=== PATIENT | female | born 1940 | race Caucasian/White ===

== ENCOUNTER 2018-10-11 08:29 | Inpatient (IN) | payer MEDICARE, MEDICAID ==
[2018-10-11 09:41] LABS: ALB/GLOB RATIO 1.1 (1.1-1.8); ALBUMIN 4.1 g/dL (3.0-4.8); BASO # 0.03 K/mm3 (0.0-2.0); BASO % 0.3 % (0.0-3.0); CALCIUM 8.9 mg/dL (8.4-10.5); EOS # 0.4 (0.0-0.7); EOS % 3.7 % (1.5-5.0); GRAN # 9.77 (1.4-6.5); HEMOGLOBIN 11.3 g/dL (12.0-16.0); LYMPH # 0.7 (1.2-3.4); LYMPH % 5.6 % (22.0-35.0); MEAN CELL VOLUME 90.7 fl (80.0-105.0); MEAN CORPUSCULAR HEMOGLOBIN 29.2 pg (25.0-35.0); MEAN CORPUSCULAR HGB CONC 32.2 g/dl (31.0-37.0); MEAN PLATELET VOLUME 8.7 fl (7.0-11.0); MONO # 0.7 (0.1-0.6); MONO % 6.4 % (1.0-6.0); RBC 3.87 10^6/uL (3.5-6.1); RED CELL DISTRIBUTION WIDTH 15.9 % (11.5-14.5); WHITE BLOOD COUNT 11.6 10^3/uL (4.5-11.0)
[2018-10-11 09:51] LABS: TROPONIN I 0.07 ng/mL
--- NOTE | 2018-10-11 10:27 | RAD ---
Date of service: 10/11/2018 HISTORY: Shortness of breath. COMPARISON: No prior. FINDINGS: LUNGS: Underlying pulmonary vascular congestion/interstitial edema. Right upper lobe mass/infiltrate measures approximately 2.6 cm. PLEURA: No significant pleural effusion identified, no pneumothorax apparent. CARDIOVASCULAR: Atherosclerotic calcifications identified primarily aortic arch. Cardiomegaly/pulmonary vascular congestion. OSSEOUS STRUCTURES: No significant abnormalities. VISUALIZED UPPER ABDOMEN: Normal. OTHER FINDINGS: None. IMPRESSION: Cardiomegaly, CHF. Questionable infiltrate/mass right upper lobe. Follow-up to resolution recommended. Per institutional protocol the study is been placed in the physician household assistant folder for follow up and future management based on the findings in the right upper lobe in conjunction with the absence of comparison studies.
[2018-10-11] MEDS ORDERED: Azithromycin 500MG/NS 250ml 500 MG/250 ML BAG IVPB STA (11:22)
[2018-10-11] MEDS ORDERED: cefTRIAXone 1 gm 1 GM/100 ML BAG IVPB STA (11:22)
[2018-10-11 11:34] LABS: PH,URINE 8.5 (4.7-8.0); URINE BILIRUBIN NEGATIVE (NEGATIVE); URINE BLOOD NEGATIVE (NEGATIVE); URINE GLUCOSE (UA) 100 mg/dL (NEGATIVE); URINE LEUKOCYTE ESTERASE NEGATIVE Leu/uL (NEGATIVE); URINE PROTEIN 100 mg/dL (<30 mg/dL); URINE UROBILINOGEN 0.2 E.U./dL (<1 E.U./dL)
[2018-10-11 11:57] LABS: URINE APPEARANCE CLEAR (CLEAR); URINE COLOR YELLOW (YELLOW)
[2018-10-11 12:06] LABS: URINE RBC 0 - 2 /hpf (0-2)
[2018-10-11 12:07] LABS: URINE AMORPHOUS SEDIMENT FEW /hpf; URINE BACTERIA FEW /hpf
--- NOTE | 2018-10-11 14:18 | ED PDOC ---
Arrival/HPI - General Chief Complaint: Shortness Of Breath Time Seen by Provider: 10/11/18 08:30 Historian: Patient - History of Present Illness Narrative History of Present Illness (Text): 10/11/18 14:15 A 78 year old female, whose past medical history includes ESRD (on dialysis //Fri, last dialysis session was 2 days ago), presents to the emergency department complaining of increasing shortness of breath since yesterday. Medardo garcia reports also experiencing cough with yellowish phlegm. Patient denies any fever, abdominal pain, vomiting, any pain, or any other complaints at this time. Denies any recent travel. PMD: Dr. Joshua Toth Time/Duration: 24 hours Past Medical History - Provider Review Nursing Documentation Reviewed: Yes - Infectious Disease Hx of Infectious Diseases: None - Tetanus Immunization Tetanus Immunization: Unknown - Reproductive Menopause: Yes - Cardiac Hx Cardiac Disorders: Yes Hx Hypertension: Yes - Pulmonary Hx Respiratory Disorders: No - Neurological Hx Neurological Disorder: No - HEENT Hx HEENT Disorder: Yes (GLASSES READING) Hx Cataracts: Yes (s/p surgery 2004) - Renal Hx Renal Disorder: Yes Hx Dialysis: Yes (-W-) Type of Dialysis Access: Left upper arm - Endocrine/Metabolic Hx Endocrine Disorders: Yes Hx Hypothyroidism: Yes - Hematological/Oncological Hx Blood Disorders: Yes Hx Anemia: Yes - Integumentary Hx Dermatological Disorder: No - Musculoskeletal/Rheumatological Hx Musculoskeletal Disorders: Yes Hx Arthritis: Yes (JOINTS HURT) Hx Falls: No - Gastrointestinal Hx Gastrointestinal Disorders: No - Genitourinary/Gynecological Hx Genitourinary Disorders: No - Psychiatric Hx Psychophysiologic Disorder: No Hx Substance Use: No - Surgical History Hx Cataract Extraction: Yes Hx Vascular Surgery: Yes (LEFT WRIST/ LEFT AXILLA FOR DIALYSIS/NON FUNCTIONING) Hx Vascular Access Device: Yes (LEFT UPPER ARM AV FISTULA) - Anesthesia Hx Anesthesia: Yes Hx Anesthesia Reactions: No Hx Malignant Hyperthermia: No - Suicidal Assessment Feels Threatened In Home Enviroment: No Family/Social History - Physician Review Nursing Documentation Reviewed: Yes Family/Social History: No Known Family HX Smoking Status: Never Smoked Hx Alcohol Use: No Hx Substance Use: No Allergies/Home Meds Allergies/Adverse Reactions: Allergies codeine Allergy (Intermediate, Verified 09/30/18 10:33) ITCHING Home Medications: Home Meds Medication Instructions Recorded Confirmed amLODIPine [Norvasc] 10 mg PO DAILY 09/22/15 10/11/18 Sevelamer Carbonate [Renvela] 800 mg PO TID 10/05/15 10/11/18 Vitamin B Complex/Vit C/Folic 1 tab PO DAILY 10/30/15 10/11/18 [Nephro-Gaston] Aspirin [Imperial Aspirin] 81 mg PO DAILY 10/11/18 10/11/18 Carvedilol [Coreg] 12.5 mg PO BID 10/11/18 10/11/18 Pantoprazole Sodium [Protonix] 40 mg PO DAILY 10/11/18 10/11/18 Review of Systems - Physician Review All systems were reviewed & negative as marked: Yes - Review of Systems Constitutional: absent: Fevers Respiratory: SOB (increasing), Cough (with yellowish phelgm) Cardiovascular: absent: Chest Pain Gastrointestinal: absent: Abdominal Pain, Nausea, Vomiting Physical Exam Vital Signs Reviewed: Yes Vital Signs Temp Pulse Resp BP Pulse Ox 10/11/18 13:57 106 H 20 190/82 H 95 10/11/18 12:49 99 H 20 157/69 H 95 10/11/18 10:38 156/71 H 10/11/18 10:21 90 20 156/71 H 99 10/11/18 08:50 24 100 10/11/18 08:36 98.1 F 109 H 18 188/90 H 100 Temperature: Afebrile Blood Pressure: Hypertensive Pulse: Regular Respiratory Rate: Normal Appearance: Positive for: Well-Appearing, Non-Toxic, Comfortable Pain Distress: None Mental Status: Positive for: Alert and Oriented X 3 - Systems Exam Head: Present: Atraumatic, Normocephalic Pupils: Present: PERRL Extroacular Muscles: Present: EOMI Conjunctiva: Present: Normal Mouth: Present: Moist Mucous Membranes Neck: Present: Normal Range of Motion Respiratory/Chest: Present: Rales (rales at the basis bilaterally) Cardiovascular: Present: Murmurs (systolic) Abdomen: No: Tenderness, Distention, Peritoneal Signs Back: Present: Normal Inspection Upper Extremity: Present: Normal Inspection. No: Cyanosis, Edema Lower Extremity: Present: Edema (+1 edema bilaterally) Neurological: Present: GCS=15, CN II-XII Intact, Speech Normal Skin: Present: Warm, Dry, Normal Color. No: Rashes Psychiatric: Present: Alert, Oriented x 3, Normal Insight, Normal Concentration Medical Decision Making ED Course and Treatment: 10/11/18 14:19 Impression: 78 year old female with increasing shortness of breath and cough with yellowish phlegm. Physical exam shows systolic murmur, rales at basis bilaterally; +1 edema to lower extremities bilaterally. Plan: -- EKG -- Chest X-ray -- Labs -- Urinalysis -- Nasal Cannula O2 -- Reassess and disposition Prior Visits: Notes and results from previous visits were reviewed. Patient was last seen here in the emergency department on 09/30/2018 for abdominal cramping associated with watery diarrhea. Progress Notes: EKG: Ordered, reviewed, and independently interpreted the EKG. Rate : 102 BPM Rhythm : Sinus tachycardia. Interpretation : No ST-segment elevations or depressions, no T-wave inversions, normal intervals. Comparison : No previous EKG for comparison. 10/11/2018 10:23 Chest X-ray IMPRESSION: Cardiomegaly, CHF. Questionable infiltrate/mass right upper lobe. Follow-up to the resolution recommended. Dictator: Stephon Rivero MD 10/11/18 11:[address] Kimble, who accepts patient to be admitted to remote telemetry for pneumonia and CHF. - Lab Interpretations Lab Results: Troponin I 0.07 ng/mL 10/11/18 09:15 NT-Pro-B Natriuret Pep 30426 pg/mL (0-450) H 10/11/18 09:15 Total Bilirubin 0.5 mg/dL (0.2-1.3) 10/11/18 09:15 AST 38 U/L (14-36) H D 10/11/18 09:15 ALT 23 U/L (7-56) 10/11/18 09:15 Alkaline Phosphatase 97 U/L (38-126) 10/11/18 09:15 Total Protein 7.8 g/dL (5.8-8.3) 10/11/18 09:15 Albumin 4.1 g/dL (3.0-4.8) 10/11/18 09:15 Globulin 3.7 gm/dL 10/11/18 09:15 Albumin/Globulin Ratio 1.1 (1.1-1.8) 10/11/18 09:15 Urine Color Yellow (YELLOW) 10/11/18 11:21 Urine Appearance Clear (CLEAR) 10/11/18 11:21 Urine pH 8.5 (4.7-8.0) 10/11/18 11:21 Ur Specific [place] 1.020 (1.005-1.035) 10/11/18 11:21 Urine Protein 100 mg/dL (<30 mg/dL) H 10/11/18 11:21 Urine Glucose (UA) 100 mg/dL (NEGATIVE) H 10/11/18 11:21 Urine Ketones Negative mg/dL (NEGATIVE) 10/11/18 11:21 Urine Blood Negative (NEGATIVE) 10/11/18 11:21 Urine Nitrate Negative (NEGATIVE) 10/11/18 11:21 Urine Bilirubin Negative (NEGATIVE) 10/11/18 11:21 Urine Urobilinogen 0.2 E.U./dL (<1 E.U./dL) 10/11/18 11:21 Ur Leukocyte Esterase Negative [place]/uL (NEGATIVE) 10/11/18 11:21 Urine RBC 0 - 2 /hpf (0-2) 10/11/18 11:21 Urine WBC 1 - 3 /hpf (0-6) 10/11/18 11:21 Ur Epithelial Cells 4 - 5 /hpf (0-5) 10/11/18 11:21 Amorphous Sediment Few /hpf (NONE) 10/11/18 11:21 Urine Bacteria Few /hpf (NONE) 10/11/18 11:21 Urine Other Fiber /hpf 10/11/18 11:21 I have reviewed the lab results: Yes - RAD Interpretation Radiology Orders: 10/11/18 08:54 CHEST PORTABLE [RAD] Stat - Medication Orders Current Medication Orders: Discontinued Medications Furosemide (Lasix) 40 mg IVP STAT STA Stop: 10/11/18 10:19 Last Admin: 10/11/18 10:38 Dose: 40 mg MAR Blood Pressure Document 10/11/18 10:38 KV (Rec: 10/11/18 10:40 [id number] Blood Pressure Blood Pressure (100/60-150/90) 156/71 IVP Administration Document 10/11/18 10:38 KV (Rec: 10/11/18 10:40 K[id number] Charges for Administration # of IVP Administrations 1 Ceftriaxone Sodium (Rocephin 1 Gram Ivpb) 1 gm in 100 mls @ 100 mls/hr IVPB STAT STA; Protocol Stop: 10/11/18 12:21 Last Admin: 10/11/18 12:22 Dose: 100 mls/hr eMAR Start Stop Document 10/11/18 12:22 KV (Rec: 10/11/18 12:24 KV [id number]) Intravenous Solution Start Date 10/11/18 Start Time 12:24 End Date 10/11/18 End time 13:24 Total Infusion Time 60 Azithromycin (Zithromax 500mg In Ns) 500 mg in 250 mls @ 167 mls/hr IVPB STAT STA; Protocol Stop: 10/11/18 12:51 - Scribe Statement The provider has reviewed the documentation as recorded by the Barbie Michaud Provider Scribe Attestation: All medical record entries made by the Scribe were at my direction and personally dictated by me. I have reviewed the chart and agree that the record accurately reflects my personal performance of the history, physical exam, medical decision making, and the department course for this patient. I have also personally directed, reviewed, and agree with the discharge instructions and disposition. Disposition/Present on Arrival - Present on Arrival Any Indicators Present on Arrival: No History of DVT/PE: No History of Uncontrolled Diabetes: No Urinary Catheter: No History of Decub. Ulcer: No History Surgical Site Infection Following: None - Disposition Have Diagnosis and Disposition been Completed?: Yes Diagnosis: CHF (congestive heart failure), ESRD (end stage renal disease) on dialysis, Pneumonia Disposition: HOSPITALIZED Disposition Time: 10:30 Condition: FAIR
[2018-10-11 14:20] VITALS: BMI 22.7
[2018-10-11] MEDS: MethylPREDNISolone 40 mg Vial IVP SCH (19:51)
[2018-10-11] MEDS: Levalbuterol 0.63 MG/3 ML Inhal Soln UD IH SCH (20:30)
[2018-10-11] MEDS ORDERED: MethylPREDNISolone 40 mg Vial IVP SCH (22:00)
--- NOTE | 2018-10-11 22:06 | CARD ---
APPROVED REPORT Date of service: 10/11/2018 EKG Measurement Heart [id number] OR [id number] <Conclusion> Sinus tachycardia Anteroseptal infarct, age undetermined Abnormal ECG
[2018-10-12] MEDS: MethylPREDNISolone 40 mg Vial IVP SCH ×3 (03:58→21:22)
[2018-10-12] MEDS: Levothyroxine 75 MCG TAB PO SCH ×2 (05:14→05:44)
[2018-10-12] MEDS: Levalbuterol 0.63 MG/3 ML Inhal Soln UD IH SCH ×3 (07:55→19:46)
[2018-10-12 09:57] LABS: CALCIUM 8.6 mg/dL (8.4-10.5)
[2018-10-12 09:59] LABS: HEMOGLOBIN 10.3 g/dL (12.0-16.0); MEAN CORPUSCULAR HEMOGLOBIN 29.7 pg (25.0-35.0); MEAN CORPUSCULAR HGB CONC 33.3 g/dl (31.0-37.0); MEAN PLATELET VOLUME 8.7 fl (7.0-11.0); RBC 3.47 10^6/uL (3.5-6.1); WHITE BLOOD COUNT 7.8 10^3/uL (4.5-11.0)
[2018-10-12] MEDS ORDERED: Azithromycin 500MG/NS 250ml 500 MG/250 ML BAG IVPB SCH (10:00)
--- NOTE | 2018-10-12 10:42 | CP.PCM.PCO ---
Physician Communication Note - Physician Communication Note Physician Communication Note: Dr. Kimble advising TCU for rehab,Tcu,PT eval pending,cleared for DC to Tcu
[2018-10-12] MEDS: cefTRIAXone 1 gm 1 GM/100 ML BAG IVPB SCH (12:13)
[2018-10-12] MEDS: Pantoprazole 40 mg EC Tab PO SCH (12:14)
[2018-10-12] MEDS: Multivitamin Vitamin B Complex (Nephro-Vite) Tab PO SCH (12:14)
--- NOTE | 2018-10-12 13:18 | CP.PCM.PCO ---
Physician Communication Note - Physician Communication Note Physician Communication Note: patient gets HD in [place],does not qualify for TCU,patient ambulatory
--- NOTE | 2018-10-12 13:38 | CP.PCM.APN ---
Subjective - Date & Time of Evaluation Date of Evaluation: 10/12/18 Time of Evaluation: 13:00 - Subjective Subjective: Pt. seen and examined at bedside, just returned from hemodialysis. Pt. denied shortness of breath, states breathing is better, denied congestion,denied dizziness, weakness. Review of Systems - Constitutional Constitutional: As Per HPI - EENT Ears: As Per HPI Nose/Mouth/Throat: As Per HPI - Cardiovascular Cardiovascular: As Per HPI - Respiratory Respiratory: As Per HPI - Gastrointestinal Gastrointestinal: As Per HPI - Genitourinary Genitourinary: As Per HPI - Musculoskeletal Musculoskeletal: As Per HPI - Neurological Neurological: As Per HPI - Hematologic/Lymphatic Additional comments: pt receiving hemodialysis, via left arm AV shunt Objective - Vital Signs/Intake and Output Vital Signs (last 24 hours): Temp Pulse Resp BP Pulse Ox 97.7 F 90 20 153/78 H 94 L 10/12/18 07:58 10/12/18 10:32 10/12/18 07:58 10/12/18 12:14 10/12/18 07:58 Intake and Output: 10/12/18 10/12/18 06:59 18:59 Intake Total 240 Balance 240 - Medications Medications: Current Medications Acetaminophen (Tylenol 325mg Tab) 650 mg PO Q6H PRN PRN Reason: Fever >100.4 F Amlodipine Besylate (Norvasc) 10 mg PO DAILY [facility] Last Admin: 10/12/18 12:14 Dose: 10 mg Aspirin (Aspirin Chewable) 81 mg PO DAILY [facility] Last Admin: 10/12/18 12:14 Dose: 81 mg Carvedilol (Coreg) 12.5 mg PO BID [facility] Last Admin: 10/12/18 10:32 Dose: Not Given Ceftriaxone Sodium (Rocephin 1 Gram Ivpb) 1 gm in 100 mls @ 100 mls/hr IVPB DAILY [facility]; Protocol Last Admin: 10/12/18 12:13 Dose: 100 mls/hr Azithromycin (Zithromax 500mg In Ns) 500 mg in 250 mls @ 167 mls/hr IVPB DAILY [facility]; Protocol Last Admin: 10/12/18 12:13 Dose: 167 mls/hr Levalbuterol HCl (Xopenex) 0.63 mg IH TIDRESP [facility] Last Admin: 10/12/18 07:55 Dose: 0.63 mg Levothyroxine Sodium (Synthroid) 75 mcg PO DAILY@0630 [facility] Last Admin: 10/12/18 05:44 Dose: Not Given Methylprednisolone (Solu-Medrol) 40 mg IVP Q8H [facility] Last Admin: 10/12/18 12:51 Dose: 40 mg Pantoprazole Sodium (Protonix Ec Tab) 40 mg PO DAILY [facility] Last Admin: 10/12/18 12:14 Dose: 40 mg Sevelamer HCl (Renagel) 800 mg PO WM [facility] Last Admin: 10/12/18 12:14 Dose: 800 mg Vitamin B Complex/Vit C/Folic Acid (Nephro-Gaston) 1 tab PO DAILY [facility] Last Admin: 10/12/18 12:14 Dose: 1 tab - Labs Labs: 10/12/18 09:00 10/12/18 09:00 - Constitutional Appears: Well, Non-toxic - Head Exam Head Exam: NORMAL INSPECTION, NORMOCEPHALIC - Eye Exam Eye Exam: Normal appearance Pupil Exam: NORMAL ACCOMODATION - ENT Exam ENT Exam: Mucous Membranes Moist - Neck Exam Neck Exam: Full ROM - Respiratory Exam Respiratory Exam: Clear to Ausculation Bilateral - Cardiovascular Exam Cardiovascular Exam: REGULAR RHYTHM, +S1, +S2 - GI/Abdominal Exam GI & Abdominal Exam: Soft, Normal Bowel Sounds - Rectal Exam Rectal Exam: Deferred - Extremities Exam Extremities Exam: Full ROM - Back Exam Back Exam: NORMAL INSPECTION - Neurological Exam Neurological Exam: Awake, Oriented x3 - Skin Skin Exam: Dry, Intact, Normal Color, Warm Assessment and Plan - Assessment and Plan (Free Text) Assessment: ITS Impression: Chest X-Ray 10/11/18 08:54 IMPRESSION: Cardiomegaly, CHF. Questionable infiltrate/mass right upper lobe. Follow-up to resolution recommended. Per institutional protocol the study is been placed in the physician assistant professor of economics folder for follow up and future management based on the findings in the right upper lobe in conjunction with the absence of comparison studies. Assessment: 78 year old female, whose past medical history includes ESRD (on dialysis //Fri, last dialysis session was 2 days ago), presents to the emergency department complaining of increasing shortness of breath since yesterday. Patient reports also experiencing cough with yellowish phlegm. Plan: 1. CHF- BNP [id number],likely fluid overload r/t Chronic Renal Failure, requiring dialysis Fri. Fri., Friday. 2. Lung Mass right upper lobe -receiving IV solumedrol, consider Check CT for further eval of Mass. 3.Pneumonia, ? right upper lobe infiltrate vs. mass ID eval placed with. Dr. Choi Pt. eval pending, Will continue to monitor clinical status and follow closely.
[2018-10-12] MEDS ORDERED: Albuterol-Ipratrop 3 mg / 0.5 (3 ml) UD IH SCH (14:00)
--- NOTE | 2018-10-12 14:29 | PN ---
DATE: 10/12/2018 SUBJECTIVE: This 78-year-old female was examined in the renal dialysis unit at the [facility] on the morning of 10/12/2018. She was dialyzing on a F 160, 40 sodium, 4 K bicarb bath. OBJECTIVE: VITAL SIGNS: With a blood pressure of 159/75, pulse of 86, blood flow rates were 400 mL per minute. HEART: Regular S1, S2. LUNGS: Had rhonchi. EXTREMITIES: No edema. The patient will dialyze with an attempt to remove 2.5 kg of fluid today. This was reviewed with her dialysis nurse. Lizeth Kimble MD MTDD
--- NOTE | 2018-10-12 14:32 | PN ---
DATE: 10/12/2018 SUBJECTIVE: This 78-year-old female was examined in the renal dialysis unit where her blood pressure was 175/82 with a pulse of 83. I am aiming to remove 2.5 kg 1 kg above her usual fluid removal because of evidence of vascular pulmonary overload both clinically and on chest x-ray. Of note today, the patient's temperature remains afebrile and her white blood cell count has improved from 11,600-7800. The patient will dialyze for 3 hours today and she is awaiting CT of the chest and consultation with Dr. Riaz Choi, but will continue on IV Rocephin and Zithromax for the time being and as well as her pulmonary toiletry. She continues on IV steroids as well. Lizeth Kimble MD MTDLast
--- NOTE | 2018-10-12 19:58 | HP ---
DATE OF EXAM: 10/11/2018 HISTORY OF PRESENT ILLNESS: This 78-year-old female was examined at her bedside on the cardiac poole at the [facility] on the evening of 10/11/2018. Present for this interview was nurse, Reanna Coronel, registered nurse. The patient is a dialysis patient who dialyzes in [place] on Friday, Friday and Fridays. She presented to the [facility] ER complaining of shortness of breath with a cough productive of yellow sputum. She states that she has had increasing shortness of breath for the past 24 hours and attended hemodialysis on Friday without incident. The patient has comorbidities of end-stage renal disease hemodialysis dependent, chronic hypertension, anemia of chronic disease, peptic ulcer disease with gastroesophageal reflux disease, hyperphosphatemia and hypothyroidism. MEDICATIONS: Outpatient medications included Ecotrin, Coreg, Nephro-Gaston, Norvasc, Protonix, Renagel, Synthroid and p.r.n. Tylenol. ALLERGIES: THE PATIENT IS ALLERGIC TO CODEINE. FAMILY HISTORY: Noncontributory. SOCIAL HISTORY: She states she is a nondrinker, nonsmoker, non IV drug misuser. She is a retired homemaker. The patient denied smoking history. FAMILY HISTORY: Non contributory. REVIEW OF SYSTEMS: CONSTITUTIONAL REVIEW: She admitted to malaise, but denied any knowledge of fever or chills. HEAD REVIEW: No headache or seizure. EYE REVIEW: No change in visual acuity. EAR REVIEW: No hearing loss. THROAT REVIEW: No swallowing difficulty. NECK REVIEW: No stiffness. CARDIAC REVIEW: Stable hypertension. PULMONARY: Cough with yellow sputum. No hemoptysis. GI: No hematemesis. No melena. : No dysuria, end-stage renal disease hemodialysis dependent. She states she still makes urine, small amounts daily. ENDOCRINOLOGIC: Denied diabetes mellitus. VASCULAR: No claudication. PSYCHOLOGICAL: No depression. NEUROLOGICAL: No stroke. PHYSICAL EXAMINATION VITAL SIGNS: The patient was in a normal sinus rhythm on the monitoring specialist at the time of my interview with a temperature of 98.8, respirations 19, pulse 92, blood pressure 168/87 with a pulse ox of 94% room air. HEENT: Head is normocephalic, atraumatic. Eyes: No icterus. Ears clear. Throat: Noninjected. NECK: Supple. CARDIOPULMONARY: Regular S1, S2. LUNGS: Have rhonchi and expiratory wheezing posteriorly bilaterally. ABDOMEN: Soft. EXTREMITIES: No edema. SKIN: Without rash. NEUROLOGICAL: Deconditioned. VASCULAR: Legs warm to touch. PSYCHOLOGICAL: Alert and oriented x3. LABORATORY DATA: White count 11,600, hemoglobin 11.3, hematocrit 35.1, platelets 181,000. Sodium 135, K 3.7, chloride 93, bicarb 31, BUN 44, creatinine 7.4, random blood sugar 109, calcium 8.9. Magnesium 1.7. Bilirubin 0.5, AST 38, ALT 23, alk phos 97. Troponin 0.07. The CPK low at 52 with a BNP of 52,100. Urinalysis showed few bacteria. Serology for influenza A and B strep was negative. Chest x-ray was reviewed. It showed underlying pulmonary as well as vascular congestion and interstitial edema with a right upper lobe mass or infiltrate measuring approximately 2.6 cm. EKG was reviewed. It showed a sinus tachycardia with nonspecific ST-T wave changes. IMPRESSION: This is a 78-year-old female with cough, fever, active sputum rule out community-acquired pneumonia, and end-stage renal disease patient on hemodialysis Friday, Friday and Fridays with comorbidities of chronic hypertension, peptic ulcer disease with gastroesophageal reflux disease, anemia of chronic disease, hyperphosphatemia, hypothyroidism and deconditioning. PLAN: My plans as discussed with nurse, Reanna Coronel, registered nurse, will be to continue Ecotrin, Coreg, dual nebulizer scheduled every 6. She continues on Norvasc, Nephro-Gaston, Protonix, Renagel, Rocephin 1 g IV every 24, Solu-Medrol 40 mg IV every 8, Synthroid 75 mcg p.o. daily, and Xopenex inhalational therapy t.i.d. She is scheduled to have Zithromax 500 mg IV daily, Tylenol 650 p.o. every 6 hours p.r.n. pain or temperature greater than 101. She will be scheduled for hemodialysis in the a.m. and a consultation with Dr. Riaz Choi from Infectious Disease will be requested. I have ordered a chest CT without contrast but with high-resolution for further evaluation of her abnormal mass like finding in the right upper lung. Greater than 75 minutes was spent in the care management and outlining of orders and discussion of this patient's case with nurse, Homer and herself. All questions were answered. The patient will also be scheduled for renal diet as well. I will discuss her dialysis with the dialysis nurse in the a.m. as well. Lzieth Kimble MD MTDD
--- NOTE | 2018-10-12 19:59 | CP.PCM.CON ---
History of Present Illness - History of Present Illness History of Present Illness: Infectious Disease Consultation: October 12, 2018 78 yo English female with a PMHx of ESRD on HD and HTN presented with SOB. The patient has numerous admissions to [facility]. The patient has a left upper extremity AV Fistula. PMHx: HTN ESRD on HD Hypothyroidism? PSHx: AV Fistula left upper extremity Allergies: Codeine Social Hx: No tobacco, EtOH, or illicit drug use Active Medications Acetaminophen (Tylenol 325mg Tab) 650 mg PO Q6H PRN PRN Reason: Fever >100.4 F Amlodipine Besylate (Norvasc) 10 mg PO DAILY [facility] Last Admin: 10/12/18 12:14 Dose: 10 mg Aspirin (Aspirin Chewable) 81 mg PO DAILY [facility] Last Admin: 10/12/18 12:14 Dose: 81 mg Carvedilol (Coreg) 12.5 mg PO BID [facility] Last Admin: 10/12/18 17:04 Dose: 12.5 mg Ceftriaxone Sodium (Rocephin 1 Gram Ivpb) 1 gm in 100 mls @ 100 mls/hr IVPB DAILY [facility]; Protocol Last Admin: 10/12/18 12:13 Dose: 100 mls/hr Azithromycin (Zithromax 500mg In Ns) 500 mg in 250 mls @ 167 mls/hr IVPB DAILY [facility]; Protocol Last Admin: 10/12/18 12:13 Dose: 167 mls/hr Levalbuterol HCl (Xopenex) 0.63 mg IH TIDRESP [facility] Last Admin: 10/12/18 13:40 Dose: 0.63 mg Levothyroxine Sodium (Synthroid) 75 mcg PO DAILY@0630 [facility] Last Admin: 10/12/18 05:44 Dose: Not Given Methylprednisolone (Solu-Medrol) 40 mg IVP Q8H [facility] Last Admin: 10/12/18 12:51 Dose: 40 mg Pantoprazole Sodium (Protonix Ec Tab) 40 mg PO DAILY [facility] Last Admin: 10/12/18 12:14 Dose: 40 mg Sevelamer HCl (Renagel) 800 mg PO WM [facility] Last Admin: 10/12/18 17:04 Dose: 800 mg Vitamin B Complex/Vit C/Folic Acid (Nephro-Gaston) 1 tab PO DAILY [facility] Last Admin: 10/12/18 12:14 Dose: 1 tab Family Hx: None significant ROS: No fevers, chills, nausea, vomiting, diarrhea, headaches, dizziness, chest pain, abdominal pain, melena, hematuria, hematemesis, hematochezia, depression, anxiety. Patient was SOB. Past Patient History - Infectious Disease Hx of Infectious Diseases: None - Tetanus Immunizations Tetanus Immunization: Unknown - Past Medical History & Family History Past Medical History?: Yes - Past Social History Smoking Status: Never Smoked - CARDIAC Hx Cardiac Disorders: Yes Hx Hypertension: Yes - PULMONARY Hx Respiratory Disorders: No - NEUROLOGICAL Hx Neurological Disorder: No - HEENT Hx HEENT Problems: Yes (GLASSES READING) Hx Cataracts: Yes (s/p surgery 2004) - RENAL Hx Chronic Kidney Disease: Yes Hx Dialysis: Yes (M-W-F) Type of Dialysis Access: Left upper arm - ENDOCRINE/METABOLIC Hx Hypothyroidism: Yes - HEMATOLOGICAL/ONCOLOGICAL Hx Blood Disorders: Yes Hx Anemia: Yes - INTEGUMENTARY Hx Dermatological Problems: No - MUSCULOSKELETAL/RHEUMATOLOGICAL Hx Arthritis: Yes (JOINTS HURT) - GASTROINTESTINAL Hx Gastrointestinal Disorders: No - GENITOURINARY/GYNECOLOGICAL Hx Genitourinary Disorders: No - PSYCHIATRIC Hx Psychophysiologic Disorder: No Hx Substance Use: No - SURGICAL HISTORY Hx Cataract Extraction: Yes Hx Vascular Surgery: Yes (LEFT WRIST/ LEFT AXILLA FOR DIALYSIS/NON FUNCTIONING) Hx Vascular Access Device: Yes (LEFT UPPER ARM AV FISTULA) - ANESTHESIA Hx Anesthesia: Yes Hx Anesthesia Reactions: No Hx Malignant Hyperthermia: No Meds Allergies/Adverse Reactions: Allergies Allergy/AdvReac Type Severity Reaction Status Date / Time codeine Allergy Intermediate ITCHING Verified 09/30/18 10:33 - Medications Medications: Current Medications Acetaminophen (Tylenol 325mg Tab) 650 mg PO Q6H PRN PRN Reason: Fever >100.4 F Amlodipine Besylate (Norvasc) 10 mg PO DAILY [facility] Last Admin: 10/12/18 12:14 Dose: 10 mg Aspirin (Aspirin Chewable) 81 mg PO DAILY [facility] Last Admin: 10/12/18 12:14 Dose: 81 mg Carvedilol (Coreg) 12.5 mg PO BID [facility] Last Admin: 10/12/18 17:04 Dose: 12.5 mg Ceftriaxone Sodium (Rocephin 1 Gram Ivpb) 1 gm in 100 mls @ 100 mls/hr IVPB DAILY [facility]; Protocol Last Admin: 01/14/19 12:13 Dose: 100 mls/hr Azithromycin (Zithromax 500mg In Ns) 500 mg in 250 mls @ 167 mls/hr IVPB DAILY [facility]; Protocol Last Admin: 10/12/18 12:13 Dose: 167 mls/hr Levalbuterol HCl (Xopenex) 0.63 mg IH TIDRESP [facility] Last Admin: 10/12/18 13:40 Dose: 0.63 mg Levothyroxine Sodium (Synthroid) 75 mcg PO DAILY@0630 [facility] Last Admin: 10/12/18 05:44 Dose: Not Given Methylprednisolone (Solu-Medrol) 40 mg IVP Q8H [facility] Last Admin: 10/12/18 12:51 Dose: 40 mg Pantoprazole Sodium (Protonix Ec Tab) 40 mg PO DAILY [facility] Last Admin: 10/12/18 12:14 Dose: 40 mg Sevelamer HCl (Renagel) 800 mg PO WM [facility] Last Admin: 10/12/18 17:04 Dose: 800 mg Vitamin B Complex/Vit C/Folic Acid (Nephro-Gaston) 1 tab PO DAILY [facility] Last Admin: 10/12/18 12:14 Dose: 1 tab Physical Exam - Constitutional Appears: Non-toxic, No Acute Distress, Chronically Ill - Head Exam Head Exam: ATRAUMATIC, NORMOCEPHALIC - Eye Exam Eye Exam: EOMI, PERRL Pupil Exam: NORMAL ACCOMODATION, PERRL - ENT Exam ENT Exam: Mucous Membranes Moist, Normal External Ear Exam, TM's Normal Bilaterally - Respiratory Exam Respiratory Exam: Clear to Auscultation Bilateral, NORMAL BREATHING PATTERN. absent: Rales, Rhonchi, Wheezes - Cardiovascular Exam Cardiovascular Exam: REGULAR RHYTHM, RRR, +S1, +S2 - GI/Abdominal Exam GI & Abdominal Exam: Normal Bowel Sounds, Soft. absent: Distended, Tenderness - Extremities Exam Extremities exam: Positive for: full ROM, normal inspection - Neurological Exam Neurological exam: Alert, CN II-XII Intact, Oriented x3 - Psychiatric Exam Psychiatric exam: Normal Affect, Normal Mood - Skin Skin Exam: Intact, Normal Color Results - Vital Signs Recent Vital Signs: Last Vital Signs Temp 97.7 F 10/12/18 07:58 Pulse 82 10/12/18 18:00 Resp 20 10/12/18 07:58 BP 154/75 H 10/12/18 17:04 Pulse Ox 94 L 10/12/18 07:58 - Labs Result Diagrams: 10/12/18 09:00 10/12/18 09:00 Labs: Laboratory Results - last 24 hr 10/12/18 10/12/18 09:00 09:00 WBC 7.8 D RBC 3.47 L Hgb 10.3 L Hct 30.9 L MCV 89.0 MCH 29.7 MCHC 33.3 RDW 16.0 H Plt Count 197 MPV 8.7 Sodium 132 Potassium 3.9 Chloride 92 L Carbon Dioxide 27 Anion Gap 17 BUN 62 H Creatinine 9.1 H* D Est GFR ( Amer) 5 Est GFR (Non-Af Amer) 4 Random Glucose 254 H Calcium 8.6 Assessment & Plan - Assessment and Plan (Free Text) Assessment: 78 English female with SOB on presentation. Chest X-ray with possible infiltrate in right upper lobe. Mild leukocytosis. Patient's SOB improved after HD done. Benavides cultures sent. CT chest reading pending. Supportive care. Continue with Rocephin and Azithromycin for now. SOB more likely secondary to CHF and fluid overload. Can consider obtaining procalcitonin if symptoms worsen. Thank you for allowing me to participate in the care of the patient, we will follow with you.
[2018-10-13] MEDS: MethylPREDNISolone 40 mg Vial IVP SCH ×3 (04:27→21:20)
[2018-10-13] MEDS: Levothyroxine 75 MCG TAB PO SCH (05:39)
[2018-10-13] MEDS: Levalbuterol 0.63 MG/3 ML Inhal Soln UD IH SCH ×3 (08:06→19:45)
[2018-10-13] MEDS: cefTRIAXone 1 gm 1 GM/100 ML BAG IVPB SCH (09:02)
[2018-10-13] MEDS: Pantoprazole 40 mg EC Tab PO SCH (09:03)
[2018-10-13] MEDS: Multivitamin Vitamin B Complex (Nephro-Vite) Tab PO SCH (09:03)
--- NOTE | 2018-10-13 09:42 | CT ---
Date of service: 10/12/2018 PROCEDURE: CT Chest without contrast HISTORY: abnormal chest xray COMPARISON: 10/11/2018 TECHNIQUE: Contiguous axial images were obtained through the chest without intravenous contrast enhancement. Sagittal and coronal reconstructions were performed. Radiation dose: Total exam DLP = 138.47 mGy-cm. This CT exam was performed using one or more of the following dose reduction techniques: Automated exposure control, adjustment of the mA and/or kV according to patient size, and/or use of iterative reconstruction technique. FINDINGS: LUNGS: There is a dense area of consolidation in the right upper lobe. Air bronchograms are seen. The finding is most consistent with pneumonia. However an underlying malignancy cannot be excluded and follow-up is recommended. MEDIASTINUM: Unremarkable thoracic aorta. No aneurysm. Normal sized heart. Main pulmonary artery unremarkable. No vascular congestion. No lymphadenopathy. Aortic and coronary calcification PLEURA: Small pleural effusions. BONES: No fracture. No destructive lesion. UPPER ABDOMEN: Grossly unremarkable. OTHER FINDINGS: None. IMPRESSION: There is a dense area of consolidation in the right upper lobe. Air bronchograms are seen. The finding is most consistent with pneumonia. However an underlying malignancy cannot be excluded and follow-up is recommended.
[2018-10-13] MEDS: Insulin Reg-LOW-Coverage SC SCH ×4 (11:30→22:00)
--- NOTE | 2018-10-13 13:05 | PN ---
DATE: 10/13/2018 SUBJECTIVE: This 78-year-old female was examined on the cardiac poole at the [facility] on the morning of 10/13/2018. This case was reviewed in detail with nurse, Lizeth Villatoro, registered nurse. The patient remains weak and deconditioned with a productive cough of yellow sputum. She is receiving IV Rocephin and IV Zithromax and was seen in consultation by Dr. Riaz Choi from Infectious Disease who concurs with the above treatment. She remains on IV steroids because of expiratory wheezing and I did review her CT of the lung with Dr. Ru Garcia who comments that on chest CT, the patient has a dense area of consolidation in the right upper lung with air bronchograms seen. The finding is most consistent with pneumonia. However, an underlying malignancy cannot be excluded and followup is recommended. Her mediastinum is unremarkable. There was no evidence of lymphadenopathy. She does have small bilateral pleural effusions and it is felt that the right upper lung consolidation is most likely consistent with pneumonia. PHYSICAL EXAMINATION: GENERAL: She is in a normal sinus rhythm on gambling monitor with temperature 97.4, respirations 20, pulse 89 and blood pressure 144/76 and pulse ox 99% room air. HEENT: Head normocephalic, atraumatic. Eyes; no icterus. Ears; clear. Throat; non-injected. NECK: Supple. HEART: Regular S1, S2. No pathological rubs, murmurs or gallops. LUNGS: Have rhonchi bilaterally, posteriorly with decreased expiratory wheezing. ABDOMEN: Soft. EXTREMITIES: No edema. SKIN: Without rash. NEUROLOGIC: Intact. PSYCHOLOGIC: Alert. VASCULAR: Legs warm to touch. LABORATORY DATA: White count 7800, hemoglobin 10.3, hematocrit 30.9, platelets 197,000. Sodium 132, K 3.9, chloride 92, bicarb 27, BUN 62, creatinine 9.1, random blood sugar 254 with a calcium of 8.6. Urinalysis showed few bacteria. Influenza A and B serologies were negative and blood culture show no growth at 24 hours. IMPRESSION: A 78-year-old female with right upper lung pneumonia. Also with comorbidities of end-stage renal disease hemodialysis dependent, chronic hypertension, stable atherosclerotic heart disease, hyperglycemia, peptic ulcer disease with gastroesophageal reflux disease, hyperphosphatemia, hypothyroidism and expiratory wheezing. PLAN: At present is to maintain the patient on the cardiac poole. She will continue on Ecotrin, Coreg. I have now added Humulin-R low-dose insulin coverage before meals and at bedtime. She will continue on Nephro-Gaston, Norvasc, oral Protonix, Renagel, IV Rocephin, IV Flagyl, IV Solu-Medrol, Synthroid, Tylenol and Xopenex inhalational therapy along with IV Zithromax and p.r.n. Tylenol. The patient continues on renal heart-healthy diabetic diet. She is ordered to receive physical therapy for reconditioning and gait training. She will be instructed regarding pulmonary toiletry, incentive spirometry and is scheduled for hemodialysis in the a.m. Greater than 35 minutes was spent in the care management, review of few of labs, orders, x-rays and discussion of this patient with herself, case management, and nursing as well as Dr. Riaz Choi from Infectious Disease. All questions were answered. Lizeth Kimble MD
--- NOTE | 2018-10-13 16:22 | CP.PCM.APN ---
Subjective - Date & Time of Evaluation Date of Evaluation: 10/13/18 Time of Evaluation: 10:35 - Subjective Subjective: Patient seen and examined in bed. STates breathing is better, still with cough. Review of Systems - Constitutional Constitutional: absent: As Per HPI, Anorexia, Chills, Daytime Sleepiness, Excessive Sweating, Fatigue, Fever, Frequent Falls, Headache, Increased Appetite , Lethargy, Malaise, Night Sweats, Snoring, Sleep Apnea, Weight Gain, Weight Loss, Weakness, Other - EENT Eyes: absent: As Per HPI, Blind Spots, Blurred Vision, Change in Vision, Decreased Night Vision, Diplopia, Discharge, Dry Eye, Exophthalmos, Floaters, Irritation, Itchy Eyes, Loss of Peripheral Vision, Pain, Photophobia, Requires Corrective Lenses, Sees Flashes, Spots in Vision, Tunnel Vision, Other Visual Disturbances, Loss of Vision, Other Nose/Mouth/Throat: absent: As Per HPI, Epistaxis, Nasal Congestion, Nasal Discharge, Nasal Obstruction, Nasal Trauma, Nose Pain, Post Nasal Drip, Sinus Pain, Sinus Pressure, Bleeding Gums, Change in Voice, Dental Pain, Dry Mouth, Dysphagia, Halitosis, Hoarsness, Lip Swelling, Mouth Lesions, Mouth Pain, Odynophagia, Sore Throat, Throat Swelling, Tongue Swelling, Facial Pain, Neck Pain, Neck Mass, Other - Cardiovascular Cardiovascular: absent: As Per HPI, Acrocyanosis, Chest Pain, Chest Pain at Rest, Chest Pain with Activity, Claudication, Diaphoresis, Dyspnea, Dyspnea on Exertion, Edema, Irregular Heart Rhythm, Pain Radiating to Arm/Neck/Jaw, Leg Edema, Leg Ulcers, Lightheadedness, Orthopnea, Palpitations, Paroxysmal Nocturnal Dyspnea, Pedal Edema, Radiating Pain, Rapid Heart Rate, Slow Heart Rate, Syncope, Other - Respiratory Respiratory: Cough - Gastrointestinal Gastrointestinal: absent: As Per HPI, Abdominal Pain, Belching, Bloating, Change in Bowel Habits, Change in Stool Character, Coffee Ground Emesis, Constipation, Cramping, Diarrhea, Dyspepsia, Dysphagia, Early Satiety, Excessive Flatus, Fecal Incontinence, Heartburn, Hematemesis, Hematochezia, Loose Stools, Melena, Nausea, Odynophagia, Temesmus, Vomiting, Other - Genitourinary Genitourinary: absent: As Per HPI, Change in Urinary Stream, Difficulty Uri nating, Dysuria, Flank Pain, Hematuria, Pyuria, Nocturia, Urinary Incontinence, Urinary Frequency, Urinary Hesitance, Urinary Urgency, Voiding Freq/Small Amts, Freq UTI, Hx Renal/Bladder Calculi, Hx /Renal Surgery, Bladder Distension, Other - Musculoskeletal Musculoskeletal: absent: As Per HPI, Abnormal Gait, Arthralgias, Atrophy, Back Pain, Deformity, Joint Swelling, Limited Range of Motion, Loss of Height, Muscle Cramps, Muscle Weakness, Myalgias, Neck Pain, Numbness, Radiating Pain into Limb, Stiffness, Tingling, Other - Neurological Neurological: absent: As Per HPI, Abnormal Gait, Abnormal Hearing, Abnormal M ovements, Abnormal Speech, Behavioral Changes, Burning Sensations, Confusion, Convulsions, Disequilibrium, Dizziness, Numbness, Focal Weakness, Frequent Falls, Headaches, Lack of Coordination, Loss of Vision, Memory Loss, Paresthesias, Radicular Pain, Restless Legs, Sensory Deficit, Syncope, Tingling, Tremor, Vertigo, Weakness, Other Visual Disturbances, Other - Endocrine Endocrine: absent: As Per HPI, Change in Body Appearance, Change in Libido, Cold Intolorance, Deepening of Voice, Excessive Sweating, Fatigue, Flushing, Heat Intolorance, Increase in Ring/Shoe/Hat Size, Palpitations, Polydipsia, Polyphagia, Polyuria, Other - Hematologic/Lymphatic Additional comments: dialysis patient receiving HD, Fri, Fri, Fridays Objective - Vital Signs/Intake and Output Vital Signs (last 24 hours): Temp Pulse Resp BP Pulse Ox 98.3 F 75 19 141/67 95 10/13/18 16:15 10/13/18 16:15 10/13/18 16:15 10/13/18 16:15 10/13/18 16:15 Intake and Output: 10/13/18 10/13/18 06:59 18:59 Intake Total 760 Balance 760 - Medications Medications: Current Medications Acetaminophen (Tylenol 325mg Tab) 650 mg PO Q6H PRN PRN Reason: Fever >100.4 F Amlodipine Besylate (Norvasc) 10 mg PO DAILY [facility] Last Admin: 10/13/18 09:04 Dose: 10 mg Aspirin (Aspirin Chewable) 81 mg PO DAILY [facility] Last Admin: 10/13/18 09:07 Dose: 81 mg Azithromycin (Zithromax) 500 mg PO DAILY [facility] Last Admin: 10/13/18 09:03 Dose: 500 mg Carvedilol (Coreg) 12.5 mg PO BID [facility] Last Admin: 10/13/18 09:05 Dose: 12.5 mg Ceftriaxone Sodium (Rocephin 1 Gram Ivpb) 1 gm in 100 mls @ 100 mls/hr IVPB DAILY [facility]; Protocol Last Admin: 10/13/18 09:02 Dose: 100 mls/hr Insulin Human Regular (Humulin R Low) 0 units SC ACHS [facility]; Protocol Last Admin: 10/13/18 11:49 Dose: Not Given Levalbuterol HCl (Xopenex) 0.63 mg IH TIDRESP [facility] Last Admin: 10/13/18 13:59 Dose: 0.63 mg Levothyroxine Sodium (Synthroid) 75 mcg PO DAILY@0630 [facility] Last Admin: 10/13/18 05:39 Dose: 75 mcg Methylprednisolone (Solu-Medrol) 40 mg IVP Q8H [facility] Last Admin: 10/13/18 11:29 Dose: 40 mg Pantoprazole Sodium (Protonix Ec Tab) 40 mg PO DAILY [facility] Last Admin: 10/13/18 09:03 Dose: 40 mg Sevelamer HCl (Renagel) 800 mg PO WM [facility] Last Admin: 10/13/18 11:29 Dose: 800 mg Vitamin B Complex/Vit C/Folic Acid (Nephro-Gaston) 1 tab PO DAILY [facility] Last Admin: 10/13/18 09:03 Dose: 1 tab - Labs Labs: 10/12/18 09:00 10/12/18 09:00 - Constitutional Appears: Well, Non-toxic - Head Exam Head Exam: NORMAL INSPECTION, NORMOCEPHALIC - Eye Exam Eye Exam: absent: Conjunctival injection, EOMI, Normal appearance, Nystagmus, Periorbital swelling, Periorbital tenderness, PERRL, Scleral icterus - ENT Exam ENT Exam: Mucous Membranes Moist, Normal Exam - Neck Exam Neck Exam: Full ROM - Respiratory Exam Additional comments: crackles to lower lung marroquin - Cardiovascular Exam Cardiovascular Exam: REGULAR RHYTHM, +S1, +S2 - GI/Abdominal Exam GI & Abdominal Exam: Soft, Normal Bowel Sounds - Rectal Exam Rectal Exam: Deferred - Exam Exam: absent: Circumcision, NORMAL INSPECTION, Scrotal Swelling, Testicular Tenderness, Uretheral Discharge, Testicular Vertical Lie, Bladder Distension External exam: absent: Ecchymosis, Erythema, Lacerations, Lesions, NORMAL EXTERNAL EXAM, Swelling Speculum exam: absent: Cervical Discharge, Erythema, Foreign Body, Laceration, NORMAL SPECULUM EXAM, Tissue, Vaginal Bleeding, Vaginal Discharge Bimanual exam: absent: Adenexal Mass, Adnexal, Cervical Motion Tendernes, NORMAL BIMANUAL EXAM, Uterine Enlargement, Uterine Tenderness - Extremities Exam Extremities Exam: Full ROM, Normal Inspection - Back Exam Back Exam: NORMAL INSPECTION - Neurological Exam Neurological Exam: Alert, Awake, Normal Gait, Oriented x3 - Skin Skin Exam: Dry, Intact Assessment and Plan - Assessment and Plan (Free Text) Assessment: Impressions Chest CT 10/12/18 12:38 IMPRESSION: There is a dense area of consolidation in the right upper lobe. Air bronchograms are seen. The finding is most consistent with pneumonia. However an underlying malignancy cannot be excluded and follow-up is recommended. Assessment/Plan: 78 year old female, whose past medical history includes ESRD (on dialysis //Fri, last dialysis session was 2 days ago), presents to the emergency department complaining of increasing shortness of breath since yesterday. Patient reports also experiencing cough with yellowish phlegm. Plan: 1. CHF- BNP 20976,likely fluid overload r/t Chronic Renal Failure, requiring dialysis Fri. Fri., Friday. 2. Lung Mass right upper lobe -receiving IV solumedrol, 3.Pneumonia, ? right upper lobe infiltrate vs. mass Antibiotics as per I.D. Pt. recommending TCU, Will continue to monitor clinical status and follow closely.
--- NOTE | 2018-10-13 17:27 | CP.PCM.PN ---
Subjective - Date & Time of Evaluation Date of Evaluation: 10/13/18 Time of Evaluation: 16:00 - Subjective Subjective: Infectious Disease Follow Up: October 13, 2018 78 yo [place] female with a PMHx of ESRD on HD and HTN presented with SOB. The patient has numerous admissions to [facility]. The patient has a left uppe r extremity AV Fistula. Patient feeling better. No complaints. CT scan showing area of dense consolidation in the right upper lobe consistent with pneumonia. Objective - Vital Signs/Intake and Output Vital Signs (last 24 hours): Temp Pulse Resp BP Pulse Ox 98.3 F 75 19 141/67 95 10/13/18 16:15 10/13/18 16:15 10/13/18 16:15 10/13/18 16:15 10/13/18 16:15 Intake and Output: 10/13/18 10/13/18 06:59 18:59 Intake Total 760 Balance 760 - Medications Medications: Current Medications Acetaminophen (Tylenol 325mg Tab) 650 mg PO Q6H PRN PRN Reason: Fever >100.4 F Amlodipine Besylate (Norvasc) 10 mg PO DAILY [facility] Last Admin: 10/13/18 09:04 Dose: 10 mg Aspirin (Aspirin Chewable) 81 mg PO DAILY [facility] Last Admin: 10/13/18 09:07 Dose: 81 mg Azithromycin (Zithromax) 500 mg PO DAILY [facility] Last Admin: 10/13/18 09:03 Dose: 500 mg Carvedilol (Coreg) 12.5 mg PO BID [facility] Last Admin: 10/13/18 17:07 Dose: 12.5 mg Ceftriaxone Sodium (Rocephin 1 Gram Ivpb) 1 gm in 100 mls @ 100 mls/hr IVPB DAILY [facility]; Protocol Last Admin: 10/13/18 09:02 Dose: 100 mls/hr Insulin Human Regular (Humulin R Low) 0 units SC ACHS [facility]; Protocol Last Admin: 10/13/18 17:07 Dose: 1 unit Levalbuterol HCl (Xopenex) 0.63 mg IH TIDRESP [facility] Last Admin: 10/13/18 13:59 Dose: 0.63 mg Levothyroxine Sodium (Synthroid) 75 mcg PO DAILY@0630 [facility] Last Admin: 10/13/18 05:39 Dose: 75 mcg Methylprednisolone (Solu-Medrol) 40 mg IVP Q8H [facility] Last Admin: 10/13/18 11:29 Dose: 40 mg Pantoprazole Sodium (Protonix Ec Tab) 40 mg PO DAILY [facility] Last Admin: 10/13/18 09:03 Dose: 40 mg Sevelamer HCl (Renagel) 800 mg PO WM [facility] Last Admin: 10/13/18 17:07 Dose: 800 mg Vitamin B Complex/Vit C/Folic Acid (Nephro-Gaston) 1 tab PO DAILY [facility] Last Admin: 10/13/18 09:03 Dose: 1 tab - Labs Labs: 10/12/18 09:00 10/12/18 09:00 - Constitutional Appears: Non-toxic, No Acute Distress, Chronically Ill - Head Exam Head Exam: ATRAUMATIC, NORMOCEPHALIC - Eye Exam Eye Exam: EOMI, PERRL Pupil Exam: NORMAL ACCOMODATION, PERRL - ENT Exam ENT Exam: Mucous Membranes Moist, Normal External Ear Exam, TM's Normal Bilaterally - Neck Exam Neck Exam: Full ROM, Normal Inspection - Respiratory Exam Respiratory Exam: Clear to Ausculation Bilateral, NORMAL BREATHING PATTERN. absent: Rales, Rhonchi, Wheezes - Cardiovascular Exam Cardiovascular Exam: REGULAR RHYTHM, RRR, +S1, +S2 - GI/Abdominal Exam GI & Abdominal Exam: Soft, Normal Bowel Sounds. absent: Distended, Tenderness - Extremities Exam Extremities Exam: Full ROM, Normal Inspection - Neurological Exam Neurological Exam: Alert, Awake, CN II-XII Intact, Oriented x3 - Psychiatric Exam Psychiatric exam: Normal Affect, Normal Mood - Skin Skin Exam: Intact, Normal Color Assessment and Plan - Assessment and Plan (Free Text) Assessment: 78 [place]ian female with SOB on presentation. Chest X-ray with possible infiltrate in right upper lobe. Mild leukocytosis. Patient's SOB improved after HD done. Benavides cultures sent. CT chest reading pending. Supportive care. Continue with Rocephin and Azithromycin for now. SOB more likely secondary to CHF and fluid overload. Can consider obtaining procalcitonin if symptoms worsen. CT chest showing dense consolidation of the right upper lobe. Consider up to a 10 day course of antibiotic with a minimum of 3 days of IV antibiotics depending on the severity of the patient's symptoms during the co urse of treatment. Thank you for allowing me to participate in the care of the patient, we will fol low with you.
[2018-10-14] MEDS: MethylPREDNISolone 40 mg Vial IVP SCH ×3 (05:04→21:35)
[2018-10-14] MEDS: Levothyroxine 75 MCG TAB PO SCH (05:35)
[2018-10-14 08:05] LABS: ALB/GLOB RATIO 1.1 (1.1-1.8); ALBUMIN 3.8 g/dL (3.0-4.8); CALCIUM 8.9 mg/dL (8.4-10.5)
[2018-10-14] MEDS: Levalbuterol 0.63 MG/3 ML Inhal Soln UD IH SCH ×3 (08:30→20:57)
--- NOTE | 2018-10-14 12:38 | PN ---
DATE: 10/14/2018 DIALYSIS PROGRESS NOTE SUBJECTIVE: This 78-year-old female was dialyzing in the [facility] renal dialysis unit on the morning of 10/14/2018. OBJECTIVE: VITAL SIGNS: Blood pressure was 157/73 with a pulse of 71. HEART: With S1, S2. LUNGS: With rhonchi bilaterally. LABORATORY DATA: Blood cultures show no growth at 48 hours, hemoglobin 10.3, hematocrit 30.9. Sodium 132, K 4.8, chloride 94, bicarb 20, BUN 91, creatinine 7.9 and random blood sugar 165. BNP is 52,800. IMPRESSION AND PLAN: Case was reviewed with Dr. Riaz Choi from Infectious Disease. The patient will continue on IV Rocephin and oral Zithromax. She needs nasal O2. She continues on Xopenex inhalational therapy three times daily and insulin coverage and ultimate plan will be to continue IV steroids for expiratory wheezing and monitor this patient with serial chest x-rays given right upper lung pneumonia with air bronchograms. This was reviewed with dialysis nurse, Gray Lozada, registered nurse. Lizeth Kimble MD
--- NOTE | 2018-10-14 13:34 | PN ---
DATE: 10/14/2018 DIALYSIS PROGRESS NOTE SUBJECTIVE: This 78-year-old female was examined in the [facility] renal dialysis unit on the morning of Sunday, October 14, 2018. Present for the interview was nurse Gray Lozada, dialysis registered nurse. The patient was dialyzing on a F 160, 140 sodium, 3K bicarb bath with blood flow rates of 400 mL per minute, blood pressure was 149/70 with a pulse of 78. The patient was wearing nasal O2 and complaining of mild shortness of breath at rest and still has a persistent yellow sputum when coughing. Heart was S1 and S2. Lungs had rhonchi in the right posterior lung marroquin with occasional expiratory wheezing. The plan is to dialyze this patient today and I will aim for 3 kg of fluid removal. This was reviewed with nurse Gray Lozada, registered nurse and the patient at bedside. Lizeth Kimble MD
[2018-10-14] MEDS: Pantoprazole 40 mg EC Tab PO SCH (14:40)
[2018-10-14] MEDS: Multivitamin Vitamin B Complex (Nephro-Vite) Tab PO SCH (14:41)
[2018-10-14] MEDS: Insulin Reg-LOW-Coverage SC SCH ×3 (14:43→21:48)
[2018-10-14] MEDS: cefTRIAXone 1 gm 1 GM/100 ML BAG IVPB SCH ×2 (14:44→16:58)
--- NOTE | 2018-10-14 15:18 | CP.PCM.APN ---
Subjective - Date & Time of Evaluation Date of Evaluation: 10/14/18 Time of Evaluation: 15:00 - Subjective Subjective: Patient seen and examined. Denied shortness of breath, denied dyspnea, denied productive cough. Review of Systems - Constitutional Constitutional: As Per HPI - EENT Eyes: absent: As Per HPI, Blind Spots, Blurred Vision, Change in Vision, Decreased Night Vision, Diplopia, Discharge, Dry Eye, Exophthalmos, Floaters, Irritation, Itchy Eyes, Loss of Peripheral Vision, Pain, Photophobia, Requires Corrective Lenses, Sees Flashes, Spots in Vision, Tunnel Vision, Other Visual Disturbances, Loss of Vision, Other Ears: absent: As Per HPI, Decreased Hearing, Ear Discharge, Ear Pain, Tinnitus, Abnormal Hearing, Disequilibrium, Dizziness, Other Nose/Mouth/Throat: absent: As Per HPI, Epistaxis, Nasal Congestion, Nasal Discharge, Nasal Obstruction, Nasal Trauma, Nose Pain, Post Nasal Drip, Sinus Pain, Sinus Pressure, Bleeding Gums, Change in Voice, Dental Pain, Dry Mouth, Dysphagia, Halitosis, Hoarsness, Lip Swelling, Mouth Lesions, Mouth Pain, Odynophagia, Sore Throat, Throat Swelling, Tongue Swelling, Facial Pain, Neck Pain, Neck Mass, Other - Cardiovascular Cardiovascular: absent: As Per HPI, Acrocyanosis, Chest Pain, Chest Pain at Rest, Chest Pain with Activity, Claudication, Diaphoresis, Dyspnea, Dyspnea on Exertion, Edema, Irregular Heart Rhythm, Pain Radiating to Arm/Neck/Jaw, Leg Edema, Leg Ulcers, Lightheadedness, Orthopnea, Palpitations, Paroxysmal Nocturnal Dyspnea, Pedal Edema, Radiating Pain, Rapid Heart Rate, Slow Heart Rate, Syncope, Other - Respiratory Respiratory: Cough - Gastrointestinal Gastrointestinal: absent: As Per HPI, Abdominal Pain, Belching, Bloating, Change in Bowel Habits, Change in Stool Character, Coffee Ground Emesis, Constipation, Cramping, Diarrhea, Dyspepsia, Dysphagia, Early Satiety, Excessive Flatus, Fecal Incontinence, Heartburn, Hematemesis, Hematochezia, Loose Stools, Melena, Nausea, Odynophagia, Temesmus, Vomiting, Other - Genitourinary Genitourinary: absent: As Per HPI, Change in Urinary Stream, Difficulty Urinating, Dysuria, Flank Pain, Hematuria, Pyuria, Nocturia, Urinary Incontinence, Urinary Frequency, Urinary Hesitance, Urinary Urgency, Voiding Freq/Small Amts, Freq UTI, Hx Renal/Bladder Calculi, Hx /Renal Surgery, Bladder Distension, Other - Reproductive: Female Reproductive:Female: absent: As Per HPI, Amenorrhea, Amenorrhea/ Control, Currently Menstual, Cycle <21 Days, Cycle >35 Days, Cycle Variable, Menses 1-7 Days, Menses >/= 8 Days, Menses Variable, Cycle > 4 Weeks Between, No Menses for 6 Months, Heavy Menses, Light Menses, Normal Menses, Spotting Between Cycles, S/P Hysterectomy, Menopausal, Post Menopausal, Premenarche, Abnormal Vaginal Bleeding, Dysmenorrhea, Dyspareunia, Genital Lesions, Genital Pruritis, Pelvic Pain, Prolapse Symptoms, Sexual Dysfunction, Vaginal Discharge, Vaginal Dryness, Vaginal Odor, Vaginal Pruritis, Other - Musculoskeletal Musculoskeletal: absent: As Per HPI, Abnormal Gait, Arthralgias, Atrophy, Back Pain, Deformity, Joint Swelling, Limited Range of Motion, Loss of Height, Muscle Cramps, Muscle Weakness, Myalgias, Neck Pain, Numbness, Radiating Pain into Limb, Stiffness, Tingling, Other - Integumentary Integumentary: absent: As Per HPI, Acne, Alopecia, Bleeding Lesions, Change in Hair, Change in Nails, Change in Pigmentation, Changing Lesions, Dry Skin, Erythema, Furuncle, Hirsutism, Lesions, New Lesions, Non-Healing Lesions, Photosensitivity, Pruritus, Rash, Skin Pain, Skin Ulcer, Sores, Striae, Swelling, Unusual Bruising, Wounds, Jaundice, Other - Neurological Neurological: absent: As Per HPI, Abnormal Gait, Abnormal Hearing, Abnormal Movements, Abnormal Speech, Behavioral Changes, Burning Sensations, Confusion, Convulsions, Disequilibrium, Dizziness, Numbness, Focal Weakness, Frequent Falls, Headaches, Lack of Coordination, Loss of Vision, Memory Loss, Paresthesias, Radicular Pain, Restless Legs, Sensory Deficit, Syncope, Tingling, Tremor, Vertigo, Weakness, Other Visual Disturbances, Other Objective - Vital Signs/Intake and Output Vital Signs (last 24 hours): Temp Pulse Resp BP Pulse Ox 97.5 F L 74 18 155/75 H 98 10/14/18 06:00 10/14/18 06:00 10/14/18 06:00 10/14/18 14:42 10/14/18 06:00 Intake and Output: 10/14/18 10/14/18 06:59 18:59 Intake Total 0 Balance 0 - Medications Medications: Current Medications Acetaminophen (Tylenol 325mg Tab) 650 mg PO Q6H PRN PRN Reason: Fever >100.4 F Amlodipine Besylate (Norvasc) 10 mg PO DAILY [facility] Last Admin: 10/14/18 14:42 Dose: 10 mg Aspirin (Aspirin Chewable) 81 mg PO DAILY [facility] Last Admin: 10/14/18 14:41 Dose: 81 mg Azithromycin (Zithromax) 500 mg PO DAILY [facility] Last Admin: 10/14/18 14:41 Dose: 500 mg Carvedilol (Coreg) 12.5 mg PO BID [facility] Last Admin: 10/14/18 14:43 Dose: Not Given Ceftriaxone Sodium (Rocephin 1 Gram Ivpb) 1 gm in 100 mls @ 100 mls/hr IVPB DAILY [facility]; Protocol Last Admin: 10/14/18 14:44 Dose: Not Given Insulin Human Regular (Humulin R Low) 0 units SC [facility]; Protocol Last Admin: 10/14/18 14:43 Dose: Not Given Levalbuterol HCl (Xopenex) 0.63 mg IH TIDRESP [facility] Last Admin: 10/14/18 13:54 Dose: 0.63 mg Levothyroxine Sodium (Synthroid) 75 mcg PO DAILY@0630 [facility] Last Admin: 10/14/18 05:35 Dose: 75 mcg Methylprednisolone (Solu-Medrol) 40 mg IVP Q8H [facility] Last Admin: 10/14/18 14:41 Dose: 40 mg Pantoprazole Sodium (Protonix Ec Tab) 40 mg PO DAILY [facility] Last Admin: 10/14/18 14:40 Dose: 40 mg Sevelamer HCl (Renagel) 800 mg PO WM [facility] Last Admin: 10/14/18 14:44 Dose: Not Given Vitamin B Complex/Vit C/Folic Acid (Nephro-Gaston) 1 tab PO DAILY [facility] Last Admin: 10/14/18 14:41 Dose: 1 tab - Labs Labs: 10/12/18 09:00 10/14/18 07:00 - Constitutional Appears: Well - Head Exam Head Exam: NORMAL INSPECTION - Eye Exam Eye Exam: Normal appearance Pupil Exam: NORMAL ACCOMODATION - ENT Exam ENT Exam: Mucous Membranes Moist, Normal Exam - Neck Exam Neck Exam: Full ROM - Respiratory Exam Respiratory Exam: Clear to Ausculation Bilateral - Cardiovascular Exam Cardiovascular Exam: REGULAR RHYTHM - GI/Abdominal Exam GI & Abdominal Exam: Soft, Normal Bowel Sounds - Rectal Exam Rectal Exam: Deferred - Extremities Exam Extremities Exam: Full ROM, Normal Inspection - Back Exam Back Exam: Full ROM, NORMAL INSPECTION - Neurological Exam Neurological Exam: Alert, Awake, Oriented x3 - Psychiatric Exam Psychiatric exam: Normal Affect, Normal Mood - Skin Skin Exam: Dry, Intact, Normal Color, Warm Assessment and Plan - Assessment and Plan (Free Text) Assessment: 78 year old female, whose past medical history includes ESRD (on dialysis //Fri, last dialysis session was 2 days ago), presents to the emergency department complaining of increasing shortness of breath, with BNP elevated, [address], admitted with fluid overload, for work up and treatment. Plan: 1. CHF- BNP 39520,likely fluid overload r/t Chronic Renal Failure, requiring dialysis Fri. Fri., Friday. 2. Lung Mass right upper lobe -receiving IV solumedrol, 3.Pneumonia, ? right upper lobe infiltrate vs. mass Antibiotics as per I.D.will need 3 days IV Zithromax and IV Rocephin Pt. recommending TCU, patient denied from TCU r/t to receiving dialysis. Will continue to monitor clinical status and follow closely. Per PMD for complicated pneumonia,will treat with full course of IV Solumedrol , full course of IV antibiotics, prior to Discharge
[2018-10-14 16:16] LABS: HEPATITIS B SURFACE AG Negative (NEGATIVE)
[2018-10-14 16:21] LABS: HEPATITIS B CORE AB NEGATIVE (NEGATIVE)
--- NOTE | 2018-10-14 16:42 | CP.PCM.PN ---
Subjective - Date & Time of Evaluation Date of Evaluation: 10/14/18 Time of Evaluation: 14:30 - Subjective Subjective: Infectious Disease Follow Up: October 14, 2018 78 yo Burkin[place] female with a PMHx of ESRD on HD and HTN presented with SOB. The patient has numerous admissions to [facility]. The patient has a left uppe r extremity AV Fistula. Patient feeling better. She is making no complaints. Occassional cough. CT scan showing area of dense consolidation in the right upper lobe consistent with pneumonia. Obtain procalcitonin value. Objective - Vital Signs/Intake and Output Vital Signs (last 24 hours): Temp Pulse Resp BP Pulse Ox 98.1 F 77 20 162/73 H 97 10/14/18 16:27 10/14/18 16:27 10/14/18 16:27 10/14/18 16:27 10/14/18 16:27 Intake and Output: 10/14/18 10/14/18 06:59 18:59 Intake Total 0 Balance 0 - Medications Medications: Current Medications Acetaminophen (Tylenol 325mg Tab) 650 mg PO Q6H PRN PRN Reason: Fever >100.4 F Amlodipine Besylate (Norvasc) 10 mg PO DAILY [facility] Last Admin: 10/14/18 14:42 Dose: 10 mg Aspirin (Aspirin Chewable) 81 mg PO DAILY [facility] Last Admin: 10/14/18 14:41 Dose: 81 mg Azithromycin (Zithromax) 500 mg PO DAILY [facility] Last Admin: 10/14/18 14:41 Dose: 500 mg Carvedilol (Coreg) 12.5 mg PO BID [facility] Last Admin: 10/14/18 14:43 Dose: Not Given Ceftriaxone Sodium (Rocephin 1 Gram Ivpb) 1 gm in 100 mls @ 100 mls/hr IVPB DAILY [facility]; Protocol Last Admin: 10/14/18 14:44 Dose: Not Given Insulin Human Regular (Humulin R Low) 0 units SC ACHS [facility]; Protocol Last Admin: 10/14/18 14:43 Dose: Not Given Levalbuterol HCl (Xopenex) 0.63 mg IH TIDRESP [facility] Last Admin: 10/14/18 13:54 Dose: 0.63 mg Levothyroxine Sodium (Synthroid) 75 mcg PO DAILY@0630 [facility] Last Admin: 10/14/18 05:35 Dose: 75 mcg Methylprednisolone (Solu-Medrol) 40 mg IVP Q8H [facility] Last Admin: 10/14/18 14:41 Dose: 40 mg Pantoprazole Sodium (Protonix Ec Tab) 40 mg PO DAILY [facility] Last Admin: 10/14/18 14:40 Dose: 40 mg Sevelamer HCl (Renagel) 800 mg PO WM [facility] Last Admin: 10/14/18 14:44 Dose: Not Given Vitamin B Complex/Vit C/Folic Acid (Nephro-Gaston) 1 tab PO DAILY [facility] Last Admin: 10/14/18 14:41 Dose: 1 tab - Labs Labs: 10/12/18 09:00 10/14/18 07:00 - Constitutional Appears: Non-toxic, No Acute Distress, Chronically Ill - Head Exam Head Exam: ATRAUMATIC, NORMOCEPHALIC - Eye Exam Eye Exam: EOMI, PERRL Pupil Exam: NORMAL ACCOMODATION, PERRL - ENT Exam ENT Exam: Mucous Membranes Moist, Normal External Ear Exam, TM's Normal Bilaterally - Neck Exam Neck Exam: Full ROM, Normal Inspection - Respiratory Exam Respiratory Exam: Decreased Breath Sounds, NORMAL BREATHING PATTERN. absent: Rales, Rhonchi, Wheezes - Cardiovascular Exam Cardiovascular Exam: REGULAR RHYTHM, RRR, +S1, +S2 - GI/Abdominal Exam GI & Abdominal Exam: Soft, Normal Bowel Sounds. absent: Distended, Tenderness - Extremities Exam Extremities Exam: Full ROM, Normal Inspection - Neurological Exam Neurological Exam: Alert, Awake, CN II-XII Intact, Oriented x3 - Psychiatric Exam Psychiatric exam: Normal Affect, Normal Mood - Skin Skin Exam: Intact, Normal Color Assessment and Plan - Assessment and Plan (Free Text) Assessment: 78 [place]kin[place] female with SOB on presentation. Chest X-ray with possible infiltrate in right upper lobe. Mild leukocytosis. Patient's SOB improved after HD done. Benavides cultures sent. CT chest reading pending. Supportive care. Continue with Rocephin and Azithromycin for now. SOB more likely secondary to CHF and fluid overload. Can consider obtaining procalcitonin if symptoms worsen. CT chest showing dense consolidation of the right upper lobe. Consider up to a 10 day course of antibiotic with a minimum of 3 to 5 days of IV antibiotics depending on the severity of the patient's symptoms during the course of treatment. Consider performing a repeat Chest X-ray to check progress. Case discussed with Dr. Kimble. Case discussed with Myesha BARROS. Thank you for allowing me to participate in the care of the patient, we will follow with you.
[2018-10-15] MEDS: MethylPREDNISolone 40 mg Vial IVP SCH ×3 (05:17→22:59)
[2018-10-15] MEDS: Levothyroxine 75 MCG TAB PO SCH ×2 (05:18→06:07)
[2018-10-15] MEDS: Levalbuterol 0.63 MG/3 ML Inhal Soln UD IH SCH ×3 (07:27→20:17)
[2018-10-15] MEDS: Insulin Reg-LOW-Coverage SC SCH ×4 (07:59→22:06)
[2018-10-15 08:32] LABS: HEMOGLOBIN 12.9 g/dL (12.0-16.0)
[2018-10-15] MEDS: Pantoprazole 40 mg EC Tab PO SCH (09:17)
[2018-10-15] MEDS: Multivitamin Vitamin B Complex (Nephro-Vite) Tab PO SCH (09:17)
[2018-10-15] MEDS: cefTRIAXone 1 gm 1 GM/100 ML BAG IVPB SCH (09:18)
--- NOTE | 2018-10-15 09:28 | RAD ---
Date of service: 10/15/2018 HISTORY: assess pneumonia COMPARISON: 10/11/2018 TECHNIQUE: Chest PA and lateral FINDINGS: LUNGS: Improved right upper lobe pneumonia and improved perihilar infiltrates PLEURA: No significant pleural effusion identified. No pneumothorax apparent. CARDIOVASCULAR: Calcifications in the aorta Normal cardiac size. No pulmonary vascular congestion. OSSEOUS STRUCTURES: No significant abnormalities. VISUALIZED UPPER ABDOMEN: Normal. OTHER FINDINGS: None. IMPRESSION: Improved right upper lobe pneumonia and improved perihilar infiltrates
--- NOTE | 2018-10-15 11:56 | CP.PCM.PCO ---
Physician Communication Note - Physician Communication Note Physician Communication Note: per ,patient's dialysis to be transferred to ,[place] aware
--- NOTE | 2018-10-15 16:48 | CP.PCM.PCO ---
Physician Communication Note - Physician Communication Note Physician Communication Note: patient medically cleared for DC to TCU
--- NOTE | 2018-10-15 19:04 | CP.PCM.PN ---
Subjective - Date & Time of Evaluation Date of Evaluation: 10/15/18 Time of Evaluation: 16:30 - Subjective Subjective: Infectious Disease Follow Up: October 15, 2018 78 yo [place] female with a PMHx of ESRD on HD and HTN presented with SOB. The patient has numerous admissions to [facility]. The patient has a left uppe r extremity AV Fistula. Patient feeling better. She is making no complaints. Occassional cough. CT scan showing area of dense consolidation in the right upper lobe consistent with pneumonia. Obtain procalcitonin value... 3.12. Objective - Vital Signs/Intake and Output Vital Signs (last 24 hours): Temp Pulse Resp BP Pulse Ox 97.6 F 72 20 145/68 96 10/15/18 17:45 10/15/18 18:00 10/15/18 17:45 10/15/18 17:45 10/15/18 17:45 Intake and Output: 10/15/18 10/15/18 06:59 18:59 Intake Total 1680 100 Output Total 2 Balance 1678 100 - Medications Medications: Current Medications Acetaminophen (Tylenol 325mg Tab) 650 mg PO Q6H PRN PRN Reason: Fever >100.4 F Amlodipine Besylate (Norvasc) 10 mg PO DAILY [facility] Last Admin: 10/15/18 09:17 Dose: 10 mg Aspirin (Aspirin Chewable) 81 mg PO DAILY [facility] Last Admin: 10/15/18 09:17 Dose: 81 mg Azithromycin (Zithromax) 500 mg PO DAILY [facility] Last Admin: 10/15/18 09:17 Dose: 500 mg Carvedilol (Coreg) 12.5 mg PO BID [facility] Last Admin: 10/15/18 17:24 Dose: 12.5 mg Ceftriaxone Sodium (Rocephin 1 Gram Ivpb) 1 gm in 100 mls @ 100 mls/hr IVPB DAILY [facility]; Protocol Last Admin: 10/15/18 09:18 Dose: 100 mls/hr Insulin Human Regular (Humulin R Low) 0 units SC ACHS [facility]; Protocol Last Admin: 10/15/18 16:32 Dose: Not Given Levalbuterol HCl (Xopenex) 0.63 mg IH TIDRESP [facility] Last Admin: 10/15/18 13:31 Dose: 0.63 mg Levothyroxine Sodium (Synthroid) 75 mcg PO DAILY@0630 [facility] Last Admin: 10/15/18 06:07 Dose: Not Given Methylprednisolone (Solu-Medrol) 40 mg IVP Q8H [facility] Last Admin: 10/15/18 12:48 Dose: 40 mg Pantoprazole Sodium (Protonix Ec Tab) 40 mg PO DAILY [facility] Last Admin: 10/15/18 09:17 Dose: 40 mg Sevelamer HCl (Renagel) 800 mg PO WM [facility] Last Admin: 10/15/18 17:24 Dose: 800 mg Vitamin B Complex/Vit C/Folic Acid (Nephro-Gaston) 1 tab PO DAILY [facility] Last Admin: 10/15/18 09:17 Dose: 1 tab - Labs Labs: 10/15/18 07:00 10/14/18 07:00 - Constitutional Appears: Non-toxic, No Acute Distress, Chronically Ill - Head Exam Head Exam: ATRAUMATIC, NORMOCEPHALIC - Eye Exam Eye Exam: EOMI, PERRL Pupil Exam: NORMAL ACCOMODATION, PERRL - ENT Exam ENT Exam: Mucous Membranes Moist, Normal External Ear Exam - Neck Exam Neck Exam: Full ROM, Normal Inspection - Respiratory Exam Respiratory Exam: Decreased Breath Sounds, NORMAL BREATHING PATTERN. absent: Rales, Rhonchi, Wheezes - Cardiovascular Exam Cardiovascular Exam: REGULAR RHYTHM, RRR, +S1, +S2 - GI/Abdominal Exam GI & Abdominal Exam: Soft, Normal Bowel Sounds. absent: Distended, Tenderness - Extremities Exam Extremities Exam: Full ROM, Normal Inspection - Neurological Exam Neurological Exam: Alert, Awake, CN II-XII Intact, Oriented x3 - Psychiatric Exam Psychiatric exam: Normal Affect, Normal Mood - Skin Skin Exam: Intact, Normal Color Assessment and Plan - Assessment and Plan (Free Text) Assessment: 78 [place] female with SOB on presentation. Chest X-ray with possible infiltrate in right upper lobe. Mild leukocytosis. Patient's SOB improved after HD done. Benavides cultures sent. CT chest reading pending. Supportive care. Continue with Rocephin and Azithromycin for now. SOB more likely secondary to CHF and fluid overload. Can consider obtaining procalcitonin if symptoms worsen. CT chest showing dense consolidation of the right upper lobe. Consider up to a 10 day course of antibiotic with a minimum of 3 to 5 days of IV antibiotics depending on the severity of the patient's symptoms during the course of treatment. Consider performing a repeat Chest X-ray to check progress. Patient is going to the TCU... can give up to 10 days of IV antibiotics based on the patient's symptoms. Case discussed with Dr. Kimble. Case discussed with Myesha BARROS. Thank you for allowing me to participate in the care of the patient, we will follow with you.
[2018-10-16] MEDS: MethylPREDNISolone 40 mg Vial IVP SCH ×2 (05:36→12:38)
[2018-10-16] MEDS: Levothyroxine 75 MCG TAB PO SCH (05:37)
[2018-10-16 07:25] LABS: HEMOGLOBIN 11.2 g/dL (12.0-16.0); MEAN CELL VOLUME 90.6 fl (80.0-105.0); MEAN CORPUSCULAR HEMOGLOBIN 28.4 pg (25.0-35.0); MEAN CORPUSCULAR HGB CONC 31.3 g/dl (31.0-37.0); MEAN PLATELET VOLUME 9.2 fl (7.0-11.0); RBC 3.95 10^6/uL (3.5-6.1); RED CELL DISTRIBUTION WIDTH 16.6 % (11.5-14.5)
[2018-10-16 07:42] LABS: CALCIUM 8.8 mg/dL (8.4-10.5)
[2018-10-16] MEDS: Levalbuterol 0.63 MG/3 ML Inhal Soln UD IH SCH ×2 (07:57→13:36)
[2018-10-16 08:17] VITALS: O2SAT 94
[2018-10-16] MEDS: Insulin Reg-LOW-Coverage SC SCH (09:07)
--- NOTE | 2018-10-16 10:27 | PQF ---
PROVIDER RESPONSE TEXT: Acute systolic chf now improved REVIEWER QUERY TEXT: CHF Acuity and Type Congestive Heart Failure is documented in the Medical Record. Please document the type and acuity (in cludes probable or suspected) Such as: Type: -- Systolic -- Diastolic -- Combined -- Other, please specify Acuity: -- Acute -- Chronic -- Acute on chronic -- Other, please specify Also please document the underlying cause of the CHF (includes probable or suspected) The patient's Clinical Indicators include: Please clarify if CHF was present on admission, if present, please document type and acuity. Query created by: Wendy Guadarrama on 10/13/2018 8:48 AM Electronically signed by: Lizeth Kimble IM 10/16/2018 10:24 AM
--- NOTE | 2018-10-16 11:52 | DS ---
DISPOSITION: [facility]. DISCHARGE DIAGNOSES: Complicated right upper lung pneumonia, end-stage renal disease hemodialysis dependent, chronic hypertension, stable atherosclerotic heart disease, type 2 diabetes mellitus, anemia of chronic disease, peptic ulcer disease with gastroesophageal reflux disease, hyperphosphatemia, chronic hypothyroidism, degenerative arthritis. DISCHARGE DIET: 2 g sodium, 2 g potassium, 60 g protein heart-healthy diabetic. DISCHARGE MEDICATIONS Ecotrin 81 mg p.o. daily, Coreg 12.5 mg p.o. twice daily, regular R Humulin insulin coverage low-dose scale a.c. meals and at bedtime, Nephro-Gaston 1 tablet p.o. daily, Norvasc 10 mg p.o. daily, Protonix 40 mg p.o. daily, Renagel 800 mg p.o. with meals 3 times daily, Rocephin 1 g IV every 24, Solu-Medrol 40 mg IV every eight, Synthroid 75 mcg p.o. daily Tylenol 650 p.o. every 6 hours p.r.n. pain or temperature greater than 101, Xopenex 0.63 mg inhalational 3 times daily and Zithromax 500 mg p.o. daily. SUMMARY: This 78-year-old female was admitted to the [facility] with cough, congestion, fever and chills, yellow productive sputum and acute systolic congestive heart failure. She was noted on chest x-ray to have a right upper lung mass-like lesion and was treated with IV antibiotics and seen in Infectious Disease consultation by Dr. Riaz Choi from Infectious Disease. A CT of the lung was performed which showed right upper lung air bronchograms suggesting more of a pneumonia than malignant presentation to her right upper lung infiltrate. At the time of her discharge to Transitional Care, temperature 97.6, respirations 18, pulse 77 and blood pressure 143/64 with pulse ox of 97% on 2 liters nasal O2. LABORATORY DATA: White count 11,000, hemoglobin 11.2, hematocrit 35.8, platelets 201,000. Sodium 131, K 5.4, chloride 96, bicarb 16, BUN 105, creatinine 7.3, random blood sugar 146. Procalcitonin level 3.12, calcium 8.8. All liver function testing were normal including bilirubin 0.4, AST 31, ALT of 14 and alk phos 87. Urinalysis was unremarkable. Hepatitis B antibody was positive, B surface antigen was negative. Influenza A and B serologies were negative. The patient is cleared for transfer to [facility] for IV antibiotic therapy, physical and occupational therapy and continue dialysis treatment. Lizeth Kimble MD
--- NOTE | 2018-10-16 11:54 | PN ---
DATE: 10/16/2018 SUBJECTIVE: This 78-year-old female was examined in the renal dialysis unit on the morning of 10/16/2018, in the presence of nurse, Tiny. The patient has a cough productive of yellow sputum and blood pressure was 132/59 with a pulse of 77. She is tolerating blood flow rates of 400 mL per minute and we are aiming for 3 kg of fluid removal today. Of note, her white count is 11,000, hemoglobin 11.2, hematocrit 35.8 and platelets 201,000. She will dialyze for 3 hours. I am aiming for 3 kg off and then the patient will be transferred to transitional care rehab for IV antibiotic therapy. Lizeth Kimble MD
[2018-10-16] MEDS: Multivitamin Vitamin B Complex (Nephro-Vite) Tab PO SCH (12:23)
[2018-10-16] MEDS: cefTRIAXone 1 gm 1 GM/100 ML BAG IVPB SCH (12:25)
[2018-10-16] MEDS: Pantoprazole 40 mg EC Tab PO SCH (12:25)
[2018-10-16 12:47] VITALS: BP 135/68
--- NOTE | 2018-10-16 13:54 | PN ---
DATE: 10/15/2018 SUBJECTIVE: This 78-year-old female was examined at her bedside on the morning of , 10/15/2018. Present for this interview was sr. social media & mobile manager, Danna Enriquez. This case was also reviewed with Melanie Castellon from social service and nurse, Leyla Zhang, registered nurse. The patient is being treated with parenteral antibiotics and pulmonary toiletry, chest PT, and incentive spirometer for complicated right upper lung pneumonia. She presented with productive cough, fever, chills, and acute systolic congestive heart failure and on chest x-ray was noted to have a mass-like infiltrate in her right upper lung. This was further evaluated with a CT of the lung, which showed air bronchograms, more suggestive of right upper lung pneumonia than a primary lung cancer. The patient is being followed daily by Dr. Riaz Choi from infectious disease who has recommended a minimum of 10 days of IV antibiotics for treatment of this issue, to be followed by followup chest x-ray. At the time of my evaluation, the patient was in normal sinus rhythm on the cardiac exercise specialist and complaining of mild shortness of breath, wearing nasal O2, and still producing yellow sputum. She was in on normal sinus rhythm on cardiac exercise specialist. PHYSICAL EXAMINATION: VITAL SIGNS: Temperature 97.6, respirations 18, pulse 66, blood pressure 143/64, and pulse ox 97% with 3 liters nasal O2. HEENT: Head: Normocephalic, atraumatic. Eyes: No icterus. Ears: Clear. Throat: Non-injected. NECK: Supple. HEART: Regular, S1, S2. No pathological rubs, murmurs, or gallops. LUNGS: Rhonchi at the right upper posterior lung field with expiratory wheezing that cleared with coughing. ABDOMEN: Soft. EXTREMITIES: No edema. SKIN: Without rash. NEUROLOGICAL: Intact. PSYCHOLOGICAL: Alert. VASCULAR: Legs warm to touch. LABORATORY DATA: Hemoglobin 12.9, hematocrit 40.3. Procalcitonin level elevated at 3.12. Random blood sugar 252. IMPRESSION: A 78-year-old female with community-acquired right upper lung pneumonia and comorbidities of end-stage renal disease, hemodialysis dependent; acute systolic congestive heart failure, now improved with additional fluid removal at dialysis; chronic hypertension; type 2 diabetes mellitus, steroid-induced; peptic ulcer disease with gastroesophageal reflux disease; hyperphosphatemia; hypothyroidism; anemia of chronic disease; degenerative arthritis. My plans are to continue Ecotrin, Coreg, regular Humulin R, low-dose insulin coverage a.c. meals and h.s. She continues on Nephro-Gaston, Norvasc, Protonix, Renagel, Synthroid, Tylenol, Xopenex inhalational therapy, Zithromax, and IV Rocephin as well as IV Solu-Medrol. The patient continues on a heart-healthy renal diabetic diet. She is scheduled for hemodialysis in the a.m. She is awaiting evaluation for transitional care rehab and was instructed to do incentive spirometry every 1 hour. Greater than 35 minutes was spent in the care management, review of labs, orders and x-rays, and discussion of this patient with social service, case management, nursing and Dr. Riaz Choi from infectious disease as well as the patient herself. All questions were answered. Lizeth Kimble MD
--- NOTE | 2018-10-16 14:11 | PN ---
DATE: 10/16/2018 SUBJECTIVE: This 78-year-old female was examined in the [facility] renal dialysis unit this morning in the presence of nurse, Tiny Goldberg, registered nurse. The patient is dialyzing on a F 161, 40 sodium, 2K bicarb bath with blood flow rates of 400 mL per minute. PHYSICAL EXAMINATION: VITAL SIGNS: Her blood pressure was 169/79 with a pulse of 84. HEART: Regular, S1, S2. LUNGS: Rhonchi in the right upper posterior lung field. LABORATORY DATA: Her sodium was 131, K was 5.4, chloride 96, bicarb 16, BUN 105, and creatinine 7.3. ASSESSMENT AND PLAN: The patient will continue on a 2K bicarb bath and is expected to run for 3 hours today at the dialysis unit. Lizeth Kimble MD
[2018-10-16 14:12] VITALS: RESP 18; TEMP 98.1
--- NOTE | 2018-10-16 16:46 | CP.PCM.PN ---
Subjective - Date & Time of Evaluation Date of Evaluation: 10/16/18 Time of Evaluation: 14:45 - Subjective Subjective: Infectious Disease Follow Up: October 16, 2018 78 yo [place] female with a PMHx of ESRD on HD and HTN presented with SOB. The patient has numerous admissions to [facility]. The patient has a left uppe r extremity AV Fistula. Patient feeling better. She is making no complaints. Occassional cough. CT scan showing area of dense consolidation in the right upper lobe consistent with pneumonia. Obtain procalcitonin value... 3.12. For transfer to [facility] today. Objective - Vital Signs/Intake and Output Vital Signs (last 24 hours): Temp Pulse Resp BP Pulse Ox 98.1 F 87 18 135/68 94 L 10/16/18 14:12 10/16/18 12:22 10/16/18 14:12 10/16/18 12:24 10/16/18 08:17 Intake and Output: 10/16/18 10/16/18 06:59 18:59 Intake Total 120 Balance 120 - Medications Medications: Current Medications Acetaminophen (Tylenol 325mg Tab) 650 mg PO Q6H PRN PRN Reason: Fever >100.4 F Amlodipine Besylate (Norvasc) 10 mg PO DAILY [facility] Last Admin: 10/16/18 12:24 Dose: 10 mg Aspirin (Aspirin Chewable) 81 mg PO DAILY [facility] Last Admin: 10/16/18 12:22 Dose: 81 mg Azithromycin (Zithromax) 500 mg PO DAILY [facility] Last Admin: 10/16/18 12:25 Dose: 500 mg Carvedilol (Coreg) 12.5 mg PO BID [facility] Last Admin: 10/16/18 12:22 Dose: 12.5 mg Ceftriaxone Sodium (Rocephin 1 Gram Ivpb) 1 gm in 100 mls @ 100 mls/hr IVPB DAILY [facility]; Protocol Last Admin: 10/16/18 12:25 Dose: 100 mls/hr Insulin Human Regular (Humulin R Low) 0 units SC ACHS [facility]; Protocol Last Admin: 10/16/18 09:07 Dose: Not Given Levalbuterol HCl (Xopenex) 0.63 mg IH TIDRESP [facility] Last Admin: 10/16/18 13:36 Dose: 0.63 mg Levothyroxine Sodium (Synthroid) 75 mcg PO DAILY@0630 [facility] Last Admin: 10/16/18 05:37 Dose: 75 mcg Methylprednisolone (Solu-Medrol) 40 mg IVP Q8H [facility] Last Admin: 10/16/18 12:38 Dose: 40 mg Pantoprazole Sodium (Protonix Ec Tab) 40 mg PO DAILY [facility] Last Admin: 10/16/18 12:25 Dose: 40 mg Sevelamer HCl (Renagel) 800 mg PO WM [facility] Last Admin: 10/16/18 12:25 Dose: 800 mg Vitamin B Complex/Vit C/Folic Acid (Nephro-Gaston) 1 tab PO DAILY [facility] Last Admin: 10/16/18 12:23 Dose: 1 tab - Labs Labs: 10/16/18 07:19 10/16/18 07:19 - Constitutional Appears: Non-toxic, No Acute Distress, Chronically Ill - Head Exam Head Exam: ATRAUMATIC, NORMOCEPHALIC - Eye Exam Eye Exam: EOMI, PERRL Pupil Exam: NORMAL ACCOMODATION, PERRL - ENT Exam ENT Exam: Mucous Membranes Moist, Normal External Ear Exam, TM's Normal Bilaterally - Neck Exam Neck Exam: Full ROM, Normal Inspection - Respiratory Exam Respiratory Exam: Decreased Breath Sounds, NORMAL BREATHING PATTERN. absent: Rales, Rhonchi, Wheezes - Cardiovascular Exam Cardiovascular Exam: REGULAR RHYTHM, RRR, +S1, +S2 - GI/Abdominal Exam GI & Abdominal Exam: Soft, Normal Bowel Sounds. absent: Distended, Tenderness - Extremities Exam Extremities Exam: Full ROM, Normal Inspection - Neurological Exam Neurological Exam: Alert, Awake, CN II-XII Intact, Oriented x3 - Psychiatric Exam Psychiatric exam: Normal Affect, Normal Mood - Skin Skin Exam: Intact, Normal Color Assessment and Plan - Assessment and Plan (Free Text) Assessment: 78 [place]ij[place] female with SOB on presentation. Chest X-ray with possible infiltrate in right upper lobe. Mild leukocytosis. Patient's SOB improved after HD done. Benavides cultures sent. CT chest reading pending. Supportive care. Continue with Rocephin and Azithromycin for now. SOB more likely secondary to CHF and fluid overload. Can consider obtaining procalcitonin if symptoms worsen. CT chest showing dense consolidation of the right upper lobe. Consider up to a 10 day course of antibiotic with a minimum of 3 to 5 days of IV antibiotics depending on the severity of the patient's symptoms during the course of treatment. Consider performing a repeat Chest X-ray to check progress. Patient is going to the TCU... can give up to 10 days of IV antibiotics in total based on the patient's symptoms. Case discussed with Dr. Kimble. Case discussed with Myesha BARROS. Thank you for allowing me to participate in the care of the patient, we will follow with you.
[2018-10-16 17:38] VITALS: PULSE 79
== END 2018-10-16 15:45 | DRG 193 ==
LOC: ED 08:29 → ERH 11:23 → 3RNO 17:54
PROVIDERS: ADMIT Internal Medicine; ATTEND Internal Medicine
PROC: 3E0F7GC Introduction of Other Therapeutic Substance into Respiratory Tract, Via Natural or Artificial Opening (ICD-10-PCS; 2018-10-11)
PROC: 5A1D70Z Performance of Urinary Filtration, Intermittent, Less than 6 Hours Per Day (ICD-10-PCS; principal; 2018-10-12)
PROC: 5A1D70Z Performance of Urinary Filtration, Intermittent, Less than 6 Hours Per Day (ICD-10-PCS; 2018-10-14)
PROC: 5A1D70Z Performance of Urinary Filtration, Intermittent, Less than 6 Hours Per Day (ICD-10-PCS; 2018-10-16)
DX: J18.9 Pneumonia, unspecified organism (principal); I50.21 Acute systolic (congestive) heart failure; N18.6 End stage renal disease; I13.2 Hypertensive heart and chronic kidney disease with heart failure and with stage 5 chronic kidney disease, or end stage renal disease; E03.9 Hypothyroidism, unspecified; D63.8 Anemia in other chronic diseases classified elsewhere; I25.10 Atherosclerotic heart disease of native coronary artery without angina pectoris; Z99.2 Dependence on renal dialysis; K21.9 Gastro-esophageal reflux disease without esophagitis; E83.39 Other disorders of phosphorus metabolism; E09.65 Drug or chemical induced diabetes mellitus with hyperglycemia; T38.0X5A Adverse effect of glucocorticoids and synthetic analogues, initial encounter

== ENCOUNTER 2018-10-16 15:45 | Inpatient (IN) | payer OTHER, MEDICAID ==
[2018-10-16] MEDS: Insulin Reg-LOW-Coverage SC SCH ×2 (17:45→23:02)
[2018-10-16] MEDS: Levalbuterol 0.63 MG/3 ML Inhal Soln UD IH SCH (19:44)
[2018-10-16] MEDS: MethylPREDNISolone 40 mg Vial IVP SCH (21:25)
[2018-10-16 23:24] VITALS: BMI 20.5
[2018-10-16] MEDS ORDERED: Influenza Vaccine 60 mcg/0.5 mL SYR (4YR UP) IM ONE (23:25)
[2018-10-16] MEDS ORDERED: Pneumococcal 23-Valent Vaccine IM ONE (23:25)
[2018-10-17] MEDS: MethylPREDNISolone 40 mg Vial IVP SCH ×3 (05:18→21:35)
[2018-10-17] MEDS: cefTRIAXone 1 gm 1 GM/100 ML BAG IVPB SCH (05:18)
--- NOTE | 2018-10-17 06:45 | CP.PCM.PN ---
Subjective - Date & Time of Evaluation Date of Evaluation: 10/17/18 Time of Evaluation: 06:44 - Subjective Subjective: # 22 angiocath was inserted in right forearm. She has no complaints and she is stable. Objective - Vital Signs/Intake and Output Vital Signs (last 24 hours): Temp Pulse Resp BP Pulse Ox 97.9 F 70 18 136/60 98 10/16/18 23:05 10/16/18 23:05 10/16/18 23:05 10/16/18 23:05 10/16/18 16:00 - Medications Medications: Current Medications Acetaminophen (Tylenol 325mg Tab) 650 mg PO Q6H PRN PRN Reason: Fever >100.4 F Amlodipine Besylate (Norvasc) 10 mg PO DAILY [facility] Aspirin (Aspirin Chewable) 81 mg PO 0800 [facility] Azithromycin (Zithromax) 500 mg PO DAILY [facility]; Protocol Carvedilol (Coreg) 12.5 mg PO BID [facility] Last Admin: 10/16/18 17:33 Dose: 12.5 mg Ceftriaxone Sodium (Rocephin 1 Gram Ivpb) 1 gm in 100 mls @ 100 mls/hr IVPB 0600 [facility]; Protocol Last Admin: 10/17/18 05:18 Dose: 100 mls/hr Insulin Human Regular (Humulin R Low) 0 units SC ACHS [facility]; Protocol Last Admin: 10/16/18 23:02 Dose: Not Given Levalbuterol HCl (Xopenex) 0.63 mg IH TIDRESP [facility] Last Admin: 10/16/18 19:44 Dose: 0.63 mg Levothyroxine Sodium (Synthroid) 75 mcg PO DAILY@0630 [facility] Methylprednisolone (Solu-Medrol) 40 mg IVP Q8 [facility] Last Admin: 10/17/18 05:18 Dose: 40 mg Pantoprazole Sodium (Protonix Ec Tab) 40 mg PO 0630 [facility] Sevelamer HCl (Renagel) 800 mg PO WM [facility] Last Admin: 10/16/18 17:33 Dose: 800 mg Vitamin B Complex/Vit C/Folic Acid (Nephro-Gaston) 1 tab PO DAILY [facility]
[2018-10-17] MEDS: Insulin Reg-LOW-Coverage SC SCH ×4 (06:48→23:22)
[2018-10-17] MEDS: Pantoprazole 40 mg EC Tab PO SCH (06:58)
[2018-10-17] MEDS: Levothyroxine 75 MCG TAB PO SCH (06:59)
[2018-10-17] MEDS: Levalbuterol 0.63 MG/3 ML Inhal Soln UD IH SCH ×3 (08:10→21:00)
[2018-10-17] MEDS: Multivitamin Vitamin B Complex (Nephro-Vite) Tab PO SCH (09:09)
--- NOTE | 2018-10-17 15:34 | CP.PCM.CON ---
History of Present Illness - History of Present Illness History of Present Illness: Infectious Disease Consultation: October 17, 2018 78 yo [place] female with a PMHx of ESRD on HD and HTN presented with SOB. The patient has numerous admissions to [facility]. The patient has a left upper extremity AV Fistula. Patient feeling better. She is making no complaints. Occassional cough. CT scan showing area of dense consolidation in the right upper lobe consistent with pneumonia. Obtained procalcitonin value... 3.12. Transferred to [facility]. PMHx: HTN ESRD on HD Hypothyroidism? PSHx: AV Fistula left upper extremity Allergies: Codeine Social Hx: No tobacco, EtOH, or illicit drug use Active Medications Acetaminophen (Tylenol 325mg Tab) 650 mg PO Q6H PRN PRN Reason: Fever >100.4 F Amlodipine Besylate (Norvasc) 10 mg PO DAILY [facility] Last Admin: 10/17/18 09:09 Dose: 10 mg Aspirin (Aspirin Chewable) 81 mg PO 0800 [facility] Last Admin: 10/17/18 08:15 Dose: 81 mg Azithromycin (Zithromax) 500 mg PO DAILY [facility]; Protocol Last Admin: 10/17/18 09:10 Dose: 500 mg Carvedilol (Coreg) 12.5 mg PO BID [facility] Last Admin: 10/17/18 09:09 Dose: 12.5 mg Ceftriaxone Sodium (Rocephin 1 Gram Ivpb) 1 gm in 100 mls @ 100 mls/hr IVPB 0600 [facility]; Protocol Last Admin: 10/17/18 05:18 Dose: 100 mls/hr Insulin Human Regular (Humulin R Low) 0 units SC ACHS [facility]; Protocol Last Admin: 10/17/18 12:05 Dose: 1 units Levalbuterol HCl (Xopenex) 0.63 mg IH TIDRESP [facility] Last Admin: 10/17/18 08:10 Dose: 0.63 mg Levothyroxine Sodium (Synthroid) 75 mcg PO DAILY@0630 [facility] Last Admin: 10/17/18 06:59 Dose: 75 mcg Methylprednisolone (Solu-Medrol) 30 mg IVP Q8 [facility] Last Admin: 10/17/18 13:31 Dose: 30 mg Pantoprazole Sodium (Protonix Ec Tab) 40 mg PO 0630 [facility] Last Admin: 10/17/18 06:58 Dose: 40 mg Sevelamer HCl (Renagel) 800 mg PO WM [facility] Last Admin: 10/17/18 12:14 Dose: 800 mg Vitamin B Complex/Vit C/Folic Acid (Nephro-Gaston) 1 tab PO DAILY [facility] Last Admin: 10/17/18 09:09 Dose: 1 tab Family Hx: None significant ROS: No fevers, chills, nausea, vomiting, diarrhea, headaches, dizziness, chest pain, abdominal pain, melena, hematuria, hematemesis, hematochezia, depression, anxiety. Patient was SOB. Past Patient History - Infectious Disease Hx of Infectious Diseases: None - Tetanus Immunizations Tetanus Immunization: Unknown - Past Medical History & Family History Past Medical History?: Yes - Past Social History Smoking Status: Never Smoked - CARDIAC Hx Cardiac Disorders: Yes Hx Hypertension: Yes - PULMONARY Hx Respiratory Disorders: No - NEUROLOGICAL Hx Neurological Disorder: No - HEENT Hx HEENT Problems: Yes (GLASSES READING) Hx Cataracts: Yes (s/p surgery 2004) - RENAL Hx Chronic Kidney Disease: Yes - ENDOCRINE/METABOLIC Hx Hypothyroidism: Yes - HEMATOLOGICAL/ONCOLOGICAL Hx Anemia: Yes - INTEGUMENTARY Hx Dermatological Problems: No - MUSCULOSKELETAL/RHEUMATOLOGICAL Hx Arthritis: Yes - GASTROINTESTINAL Hx Gastrointestinal Disorders: Yes (PUD GERD) - GENITOURINARY/GYNECOLOGICAL Hx Genitourinary Disorders: Yes (ESRD ON HD) Hx Reproductive Disorders: No - PSYCHIATRIC Hx Substance Use: No - SURGICAL HISTORY Hx Cataract Extraction: Yes Hx Vascular Surgery: Yes (LEFT WRIST/ LEFT AXILLA FOR DIALYSIS/NON FUNCTIONING) Hx Vascular Access Device: Yes (LEFT UPPER ARM AV FISTULA) - ANESTHESIA Hx Anesthesia: Yes Hx Anesthesia Reactions: No Hx Malignant Hyperthermia: No Meds Allergies/Adverse Reactions: Allergies Allergy/AdvReac Type Severity Reaction Status Date / Time codeine Allergy Intermediate ITCHING Verified 10/16/18 20:05 - Medications Medications: Current Medications Acetaminophen (Tylenol 325mg Tab) 650 mg PO Q6H PRN PRN Reason: Fever >100.4 F Amlodipine Besylate (Norvasc) 10 mg PO DAILY [facility] Last Admin: 10/17/18 09:09 Dose: 10 mg Aspirin (Aspirin Chewable) 81 mg PO 0800 [facility] Last Admin: 10/17/18 08:15 Dose: 81 mg Azithromycin (Zithromax) 500 mg PO DAILY [facility]; Protocol Last Admin: 10/17/18 09:10 Dose: 500 mg Carvedilol (Coreg) 12.5 mg PO BID [facility] Last Admin: 10/17/18 09:09 Dose: 12.5 mg Ceftriaxone Sodium (Rocephin 1 Gram Ivpb) 1 gm in 100 mls @ 100 mls/hr IVPB 0600 [facility]; Protocol Last Admin: 10/17/18 05:18 Dose: 100 mls/hr Insulin Human Regular (Humulin R Low) 0 units SC ACHS [facility]; Protocol Last Admin: 10/17/18 12:05 Dose: 1 units Levalbuterol HCl (Xopenex) 0.63 mg IH TIDRESP [facility] Last Admin: 10/17/18 08:10 Dose: 0.63 mg Levothyroxine Sodium (Synthroid) 75 mcg PO DAILY@0630 [facility] Last Admin: 10/17/18 06:59 Dose: 75 mcg Methylprednisolone (Solu-Medrol) 30 mg IVP Q8 [facility] Last Admin: 10/17/18 13:31 Dose: 30 mg Pantoprazole Sodium (Protonix Ec Tab) 40 mg PO 0630 [facility] Last Admin: 10/17/18 06:58 Dose: 40 mg Sevelamer HCl (Renagel) 800 mg PO WM [facility] Last Admin: 10/17/18 12:14 Dose: 800 mg Vitamin B Complex/Vit C/Folic Acid (Nephro-Gaston) 1 tab PO DAILY [facility] Last Admin: 10/17/18 09:09 Dose: 1 tab Physical Exam - Constitutional Appears: Non-toxic, No Acute Distress, Chronically Ill - Head Exam Head Exam: ATRAUMATIC, NORMOCEPHALIC - Eye Exam Eye Exam: EOMI, PERRL Pupil Exam: NORMAL ACCOMODATION, PERRL - ENT Exam ENT Exam: Mucous Membranes Moist, Normal External Ear Exam, TM's Normal Bilaterally - Neck Exam Neck exam: Positive for: Full Rom, Normal Inspection - Respiratory Exam Respiratory Exam: Decreased Breath Sounds, NORMAL BREATHING PATTERN. absent: Rales, Rhonchi, Wheezes - Cardiovascular Exam Cardiovascular Exam: REGULAR RHYTHM, RRR, +S1, +S2 - GI/Abdominal Exam GI & Abdominal Exam: Normal Bowel Sounds, Soft. absent: Distended, Tenderness - Extremities Exam Extremities exam: Positive for: full ROM, normal inspection - Neurological Exam Neurological exam: Alert, CN II-XII Intact, Oriented x3 - Psychiatric Exam Psychiatric exam: Normal Affect, Normal Mood - Skin Skin Exam: Intact, Normal Color Results - Vital Signs Recent Vital Signs: Last Vital Signs Temp 98.1 F 10/17/18 10:00 Pulse 67 10/17/18 10:00 Resp 20 10/17/18 10:00 BP 141/63 10/17/18 10:00 Pulse Ox 96 10/17/18 10:00 - Labs Labs: Laboratory Results - last 24 hr 10/17/18 10/17/18 05:28 10:54 POC Glucose (mg/dL) 158 H 153 H Assessment & Plan - Assessment and Plan (Free Text) Assessment: 78 [place] female with SOB on presentation. Chest X-ray with possible infiltrate in right upper lobe. Mild leukocytosis. Patient's SOB improved after HD done. Benavides cultures sent. CT chest reading pending. Supportive care. Continue with Rocephin and Azithromycin for now. SOB more likely secondary to CHF and fluid overload. Can consider obtaining procalcitonin if symptoms worsen. CT chest showing dense consolidation of the right upper lobe. Consider up to a 10 day course of antibiotic with a minimum of 3 to 5 days of IV antibiotics depending on the severity of the patient's symptoms during the course of treatment. Consider performing a repeat Chest X-ray to check progress. Patient in TCU... can give up to 10 days of IV antibiotics in total based on the patient's symptoms. On day 4 now. Case discussed with Dr. Kimble. Thank you for allowing me to participate in the care of the patient, we will follow with you.
--- NOTE | 2018-10-17 16:06 | HP ---
DATE OF EXAM: 10/17/2018 HISTORY OF PRESENT ILLNESS: This 78-year-old female was admitted to [facility] for IV antibiotic therapy of complicated right upper lung pneumonia when she presented to the hospital with fever, cough, productive sputum, and mass-like infiltrate measuring 2 cm on routine chest x-ray. The patient underwent CT of the lung which showed air bronchograms making the finding more suggestive of community-acquired pneumonia than malignancy. The patient continues in [facility] for IV antibiotics and to ensure resolution of the radiographic finding given comorbidities of end-stage renal disease, hemodialysis dependent; type 2 diabetes mellitus, insulin-dependent; chronic hypertension; peptic ulcer disease with GERD; anemia of chronic disease; hypothyroidism and chronic hyperphosphatemia. REVIEW OF SYSTEMS: CONSTITUTIONAL: The patient did have fever and chills prior to admission. HEENT AND NECK: On head review, no headache or seizure. Eye review, no change in visual acuity. Ear review, no hearing loss. Throat review, no swallowing difficulty. Neck review, no stiffness. CARDIAC: She denied chest pain. PULMONARY: No hemoptysis, but did have a productive yellow sputum. GASTROINTESTINAL: No hematemesis. No melena. GENITOURINARY: End-stage renal disease, hemodialysis dependent. ENDOCRINOLOGIC: She has insulin-dependent diabetes mellitus and hypothyroidism. MUSCULOSKELETAL: Degenerative arthritis. NEUROLOGIC: No knowledge of stroke. SOCIAL HISTORY: The patient is a nondrinker, nonsmoker, non IV drug misuser. She is a retired homemaker. FAMILY HISTORY: Noncontributory. PHYSICAL EXAMINATION: VITAL SIGNS: At present, temperature is 98.1, respirations 20, pulse 67 and blood pressure 141/63. Pulse ox 96% on room air. HEENT: Head: Normocephalic, atraumatic. Eyes: No icterus. Ears: Clear. Throat: Noninjected. NECK: Supple. HEART: Regular S1, S2. LUNGS: Have rhonchi in the right posterior lung apex with wheezing that improves with coughing. ABDOMEN: Soft. EXTREMITIES: No edema. SKIN: Without rash. NEUROLOGIC: Intact. PSYCHOLOGIC: Alert. VASCULAR: Legs warm to touch. LABORATORY DATA: Random blood sugar was 158. IMPRESSION: A 78-year-old female with community-acquired right upper lung pneumonia; end-stage renal disease, hemodialysis dependent; stable atherosclerotic heart disease; chronic hypertension; insulin-dependent diabetes mellitus; anemia of chronic disease; peptic ulcer disease with gastroesophageal reflux disease; hyperphosphatemia; hypothyroidism and degenerative arthritis. PLAN: The plan is to continue Ecotrin, Coreg, insulin coverage, Nephro-Gaston, Norvasc, Protonix, Renagel, IV Rocephin. I have tapered Solu-Medrol to 30 mg IV every 8 hours, Synthroid, Tylenol, Xopenex and Zithromax. The patient is scheduled for heart-healthy renal diabetic diet. She is scheduled for incentive spirometry every 1 hour and nasal O2 p.r.n. She is ordered to have physical therapy and will have her next hemodialysis on Friday. Greater than 35 minutes was spent in the care management, review of labs, orders, x-rays, and discussion of this patient with herself at bedside as well as nurse, Noelle Wesley, registered nurse. Lizeth Kimble MD MTDD
[2018-10-18] MEDS: cefTRIAXone 1 gm 1 GM/100 ML BAG IVPB SCH (05:29)
[2018-10-18] MEDS: Levothyroxine 75 MCG TAB PO SCH (05:29)
[2018-10-18] MEDS: Pantoprazole 40 mg EC Tab PO SCH (05:29)
[2018-10-18] MEDS: MethylPREDNISolone 40 mg Vial IVP SCH ×3 (05:29→21:16)
[2018-10-18] MEDS: Insulin Reg-LOW-Coverage SC SCH ×3 (06:38→16:48)
[2018-10-18] MEDS: Levalbuterol 0.63 MG/3 ML Inhal Soln UD IH SCH ×3 (07:44→20:32)
[2018-10-18] MEDS: Multivitamin Vitamin B Complex (Nephro-Vite) Tab PO SCH (09:53)
--- NOTE | 2018-10-18 15:25 | PN ---
DATE: 10/18/2018 SUBJECTIVE: This 78-year-old female remains in the [facility] receiving parenteral antibiotics and pulmonary toiletry for complicated right upper lung pneumonia. PHYSICAL EXAMINATION: VITAL SIGNS: Today, temperature is 98.2, respirations 18, pulse 70 and blood pressure 154/64 with a pulse ox of 96% on 2 liters nasal O2. HEENT: Head normocephalic and atraumatic. Eyes, no icterus. Ears clear. Throat noninjected. NECK: Supple. HEART: Regular S1 and S2. LUNGS: Have rhonchi at the right posterior upper lung field with occasional wheezing that clears with coughing. ABDOMEN: Soft. EXTREMITIES: No edema. SKIN: Without rash. NEUROLOGICAL: Grossly intact. PSYCHOLOGICAL: Alert. LABORATORY DATA: Random blood sugar was 189. IMPRESSION: A 78-year-old female with a right upper lung community-acquired pneumonia with comorbidities of end-stage renal disease hemodialysis dependent, stable atherosclerotic heart disease, chronic hypertension, type 2 insulin-dependent diabetes mellitus, anemia of chronic disease, peptic ulcer disease with gastroesophageal reflux disease, hyperphosphatemia, hypothyroidism, degenerative arthritis. The patient will continue on Zithromax, Xopenex inhalational therapy, oral Synthroid, IV Solu-Medrol, IV Rocephin, Renagel, Protonix, Norvasc, Nephro-Gaston, Humulin R insulin coverage, Coreg and aspirin. She is scheduled to have renal diabetic heart-healthy diet. She is receiving pulmonary toiletry and has been encouraged to do incentive spirometry. The patient will be treated with physical and occupational therapy and ultimate plan is for discharge to home when medically stable. She will have chest x-rays done during the course of her hospital stay. All of this was reviewed with the patient and nursing. Lizeth Kimble MD
--- NOTE | 2018-10-18 17:39 | CP.PCM.PN ---
Subjective - Date & Time of Evaluation Date of Evaluation: 10/18/18 Time of Evaluation: 16:15 - Subjective Subjective: Infectious Disease Follow Up: October 18, 2018 78 yo [place] female with a PMHx of ESRD on HD and HTN presented with SOB. The patient has numerous admissions to [facility]. The patient has a left upper extremity AV Fistula. Patient feeling better. She is making no complaints. Occassional cough. CT scan showing area of dense consolidation in the right upper lobe consistent with pneumonia. Obtained procalcitonin value... 3.12. Transferred to [facility]. She is making no complaints at this time. Objective - Vital Signs/Intake and Output Vital Signs (last 24 hours): Temp Pulse Resp BP Pulse Ox 98.2 F 70 18 154/64 H 96 10/18/18 10:00 10/18/18 10:00 10/18/18 10:00 10/18/18 10:00 10/18/18 10:00 Intake and Output: 10/18/18 10/18/18 06:59 18:59 Intake Total 360 Balance 360 - Medications Medications: Current Medications Acetaminophen (Tylenol 325mg Tab) 650 mg PO Q6H PRN PRN Reason: Fever >100.4 F Amlodipine Besylate (Norvasc) 10 mg PO DAILY [facility] Last Admin: 10/18/18 09:54 Dose: 10 mg Aspirin (Aspirin Chewable) 81 mg PO 0800 [facility] Last Admin: 10/18/18 08:31 Dose: 81 mg Azithromycin (Zithromax) 500 mg PO DAILY [facility]; Protocol Last Admin: 10/18/18 09:52 Dose: 500 mg Carvedilol (Coreg) 12.5 mg PO BID [facility] Last Admin: 10/18/18 09:53 Dose: 12.5 mg Ceftriaxone Sodium (Rocephin 1 Gram Ivpb) 1 gm in 100 mls @ 100 mls/hr IVPB 0600 [facility]; Protocol Last Admin: 10/18/18 05:29 Dose: 100 mls/hr Insulin Human Regular (Humulin R Low) 0 units SC ACHS [facility]; Protocol Last Admin: 10/18/18 16:48 Dose: Not Given Levalbuterol HCl (Xopenex) 0.63 mg IH TIDRESP [facility] Last Admin: 10/18/18 13:29 Dose: 0.63 mg Levothyroxine Sodium (Synthroid) 75 mcg PO DAILY@0630 [facility] Last Admin: 10/18/18 05:29 Dose: 75 mcg Methylprednisolone (Solu-Medrol) 30 mg IVP Q8 [facility] Last Admin: 10/18/18 15:03 Dose: 30 mg Pantoprazole Sodium (Protonix Ec Tab) 40 mg PO 0630 [facility] Last Admin: 10/18/18 05:29 Dose: 40 mg Sevelamer HCl (Renagel) 800 mg PO WM [facility] Last Admin: 10/18/18 12:00 Dose: 800 mg Vitamin B Complex/Vit C/Folic Acid (Nephro-Gaston) 1 tab PO DAILY [facility] Last Admin: 10/18/18 09:53 Dose: 1 tab - Constitutional Appears: Non-toxic, No Acute Distress, Chronically Ill - Head Exam Head Exam: ATRAUMATIC, NORMOCEPHALIC - Eye Exam Eye Exam: EOMI, PERRL Pupil Exam: NORMAL ACCOMODATION, PERRL - ENT Exam ENT Exam: Mucous Membranes Moist, Normal External Ear Exam, TM's Normal Bilaterally - Neck Exam Neck Exam: Full ROM, Normal Inspection - Respiratory Exam Respiratory Exam: Decreased Breath Sounds, NORMAL BREATHING PATTERN. absent: Rales, Rhonchi, Wheezes - Cardiovascular Exam Cardiovascular Exam: REGULAR RHYTHM, RRR, +S1, +S2 - GI/Abdominal Exam GI & Abdominal Exam: Soft, Normal Bowel Sounds. absent: Distended, Tenderness - Extremities Exam Extremities Exam: Full ROM, Normal Inspection - Neurological Exam Neurological Exam: Alert, Awake, CN II-XII Intact, Oriented x3 - Psychiatric Exam Psychiatric exam: Normal Affect, Normal Mood - Skin Skin Exam: Intact, Normal Color Assessment and Plan - Assessment and Plan (Free Text) Assessment: 78 [place] female with SOB on presentation. Chest X-ray with possible infiltrate in right upper lobe. Mild leukocytosis. Patient's SOB improved after HD done. Benavides cultures sent. CT chest reading pending. Supportive care. Continue with Rocephin and Azithromycin for now. SOB more likely secondary to CHF and fluid overload. Can consider obtaining procalcitonin if symptoms worsen. CT chest showing dense consolidation of the right upper lobe. Consider up to a 10 day course of antibiotic with a minimum of 3 to 5 days of IV antibiotics depending on the severity of the patient's symptoms during the course of treatment. Consider performing a repeat Chest X-ray to check progress. Patient in TCU... can give up to 10 days of IV antibiotics in total based on the patient's symptoms. On day 5 now. Case discussed with Dr. Kimble. Thank you for allowing me to participate in the care of the patient, we will follow with you.
[2018-10-19] MEDS: Insulin Reg-LOW-Coverage SC SCH ×4 (00:22→17:43)
[2018-10-19] MEDS: MethylPREDNISolone 40 mg Vial IVP SCH ×3 (05:20→21:18)
[2018-10-19] MEDS: cefTRIAXone 1 gm 1 GM/100 ML BAG IVPB SCH (05:20)
[2018-10-19] MEDS: Levothyroxine 75 MCG TAB PO SCH (05:29)
[2018-10-19] MEDS: Pantoprazole 40 mg EC Tab PO SCH (05:29)
[2018-10-19] MEDS: Levalbuterol 0.63 MG/3 ML Inhal Soln UD IH SCH ×3 (07:16→20:53)
[2018-10-19] MEDS: Multivitamin Vitamin B Complex (Nephro-Vite) Tab PO SCH (10:40)
[2018-10-19 13:31] LABS: HEMOGLOBIN 12.3 g/dL (12.0-16.0); MEAN CELL VOLUME 89.3 fl (80.0-105.0); MEAN CORPUSCULAR HEMOGLOBIN 29.4 pg (25.0-35.0); MEAN CORPUSCULAR HGB CONC 32.9 g/dl (31.0-37.0); MEAN PLATELET VOLUME 9.4 fl (7.0-11.0); RBC 4.19 10^6/uL (3.5-6.1); RED CELL DISTRIBUTION WIDTH 17.3 % (11.5-14.5); WHITE BLOOD COUNT 10.1 10^3/uL (4.5-11.0)
--- NOTE | 2018-10-19 14:32 | PN ---
DATE: 10/19/2018 SUBJECTIVE: This 78-year-old female was examined at bedside. She was wearing nasal O2 and appeared more comfortable. She is being hospitalized for complicated right upper lung pneumonia requiring parenteral antibiotics and IV Solu-Medrol taper. PHYSICAL EXAMINATION: VITAL SIGNS: Temperature was 98.2, respirations 18, pulse 71 and blood pressure 159/73. Pulse ox 96% on 2 liters nasal O2. HEENT: Head: Normocephalic, atraumatic. Eyes: No icterus. Ears: Clear. Throat: Noninjected. NECK: Supple. HEART: Regular S1, S2. LUNGS: Have occasional rhonchi at the right posterior upper lung field. No rales were appreciated. ABDOMEN: Soft. EXTREMITIES: No edema. SKIN: Without rash. NEUROLOGICAL: Intact. PSYCHOLOGICAL: Alert. VASCULAR: Legs warm to touch. LABORATORY DATA: Random blood sugar 182. IMPRESSION: A 78-year-old female with community-acquired right upper lung pneumonia with end-stage renal disease hemodialysis dependent with comorbidities of stable atherosclerotic heart disease, chronic hypertension, type 2 diabetes mellitus, anemia of chronic disease, peptic ulcer disease with gastroesophageal reflux disease, hyperphosphatemia, hypothyroidism, degenerative arthritis. PLAN: The plan at present is to continue Ecotrin, Coreg, Humulin R low-dose insulin coverage a.c. meals and h.s., Nephro-Gaston, Norvasc, Protonix, Renagel, IV Rocephin, tapering Solu-Medrol, I will dose-reduce it today to 20 mg IV every 8 hours, Synthroid, Tylenol, Xopenex inhalational therapy and Zithromax. The patient is receiving p.r.n. nasal O2, renal diabetic heart-healthy diet with oral fluid restriction. She will have dialysis in the a.m. and upon completion of IV antibiotics and resolution of chest x-ray, will be discharged to home for outpatient hemodialysis to follow. Greater than 30 minutes was spent in the care and management, review of labs, orders and x-rays and discussion of this patient with nursing including her nurse Kimmy Dong, registered nurse. All questions were answered. Lizeth Kimble MD [facility] # [id number] [facility]
--- NOTE | 2018-10-19 19:32 | CP.PCM.PN ---
Subjective - Date & Time of Evaluation Date of Evaluation: 10/19/18 Time of Evaluation: 17:30 - Subjective Subjective: Infectious Disease Follow Up: October 19, 2018 78 yo [place] female with a PMHx of ESRD on HD and HTN presented with SOB. The patient has numerous admissions to [facility]. The patient has a left uppe r extremity AV Fistula. Patient feeling better. She is making no complaints. Occassional cough. CT scan showing area of dense consolidation in the right upper lobe consistent with pneumonia. Obtained procalcitonin value... 3.12. Transferred to [facility]. She is making no complaints at this time. Treatment for pneumonia. Objective - Vital Signs/Intake and Output Vital Signs (last 24 hours): Temp Pulse Resp BP Pulse Ox 98.2 F 67 18 143/66 99 10/18/18 10:00 10/19/18 17:43 10/18/18 10:00 10/19/18 17:43 10/19/18 13:34 - Medications Medications: Current Medications Acetaminophen (Tylenol 325mg Tab) 650 mg PO Q6H PRN PRN Reason: Fever >100.4 F Amlodipine Besylate (Norvasc) 10 mg PO DAILY [facility] Last Admin: 10/19/18 10:40 Dose: 10 mg Aspirin (Aspirin Chewable) 81 mg PO 0800 [facility] Last Admin: 10/19/18 08:01 Dose: 81 mg Azithromycin (Zithromax) 500 mg PO DAILY [facility]; Protocol Last Admin: 10/19/18 10:41 Dose: 500 mg Carvedilol (Coreg) 12.5 mg PO BID [facility] Last Admin: 10/19/18 17:43 Dose: 12.5 mg Ceftriaxone Sodium (Rocephin 1 Gram Ivpb) 1 gm in 100 mls @ 100 mls/hr IVPB 0600 [facility]; Protocol Last Admin: 10/19/18 05:20 Dose: 100 mls/hr Insulin Human Regular (Humulin R Low) 0 units SC ACHS [facility]; Protocol Last Admin: 10/19/18 17:43 Dose: 1 units Levalbuterol HCl (Xopenex) 0.63 mg IH TIDRESP [facility] Last Admin: 10/19/18 13:05 Dose: 0.63 mg Levothyroxine Sodium (Synthroid) 75 mcg PO DAILY@0630 [facility] Last Admin: 10/19/18 05:29 Dose: 75 mcg Methylprednisolone (Solu-Medrol) 20 mg IVP Q8 [facility] Last Admin: 10/19/18 14:40 Dose: 20 mg Pantoprazole Sodium (Protonix Ec Tab) 40 mg PO 0630 [facility] Last Admin: 10/19/18 05:29 Dose: 40 mg Sevelamer HCl (Renagel) 800 mg PO WM [facility] Last Admin: 10/19/18 17:44 Dose: 800 mg Vitamin B Complex/Vit C/Folic Acid (Nephro-Gaston) 1 tab PO DAILY [facility] Last Admin: 10/19/18 10:40 Dose: 1 tab - Labs Labs: 10/19/18 13:15 10/19/18 13:15 - Constitutional Appears: Non-toxic, No Acute Distress, Chronically Ill - Head Exam Head Exam: ATRAUMATIC, NORMOCEPHALIC - Eye Exam Eye Exam: EOMI, PERRL Pupil Exam: NORMAL ACCOMODATION, PERRL - ENT Exam ENT Exam: Mucous Membranes Moist, Normal External Ear Exam, TM's Normal Bilaterally - Respiratory Exam Respiratory Exam: Clear to Ausculation Bilateral, NORMAL BREATHING PATTERN. absent: Rales, Rhonchi, Wheezes - Cardiovascular Exam Cardiovascular Exam: RRR, +S1, +S2. absent: REGULAR RHYTHM - GI/Abdominal Exam GI & Abdominal Exam: Soft, Normal Bowel Sounds. absent: Distended, Tenderness - Extremities Exam Extremities Exam: Full ROM, Normal Inspection - Neurological Exam Neurological Exam: Alert, Awake, CN II-XII Intact, Oriented x3 - Psychiatric Exam Psychiatric exam: Normal Affect, Normal Mood - Skin Skin Exam: Intact, Normal Color Assessment and Plan - Assessment and Plan (Free Text) Assessment: 78 [place] female with SOB on presentation. Chest X-ray with possible infiltrate in right upper lobe. Mild leukocytosis. Patient's SOB improved after HD done. Benavides cultures sent. CT chest reading pending. Supportive care. Continue with Rocephin and Azithromycin for now. SOB more likely secondary to CHF and fluid overload. Can consider obtaining procalcitonin if symptoms worsen. CT chest showing dense consolidation of the right upper lobe. Consider up to a 10 day course of antibiotic with a minimum of 3 to 5 days of IV antibiotics depending on the severity of the patient's symptoms during the course of treatment. Consider performing a repeat Chest X-ray to check progress. Patient in TCU... can give up to 10 days of IV antibiotics in total based on the patient's symptoms. On day 6 now. Patient with minimal complaints. Case discussed with Dr. Kimble. Thank you for allowing me to participate in the care of the patient, we will follow with you.
[2018-10-20] MEDS: Insulin Reg-LOW-Coverage SC SCH ×5 (02:43→21:29)
[2018-10-20] MEDS: Levothyroxine 75 MCG TAB PO SCH (05:30)
[2018-10-20] MEDS: Pantoprazole 40 mg EC Tab PO SCH (05:30)
[2018-10-20] MEDS: MethylPREDNISolone 40 mg Vial IVP SCH ×2 (05:30→17:20)
[2018-10-20] MEDS: cefTRIAXone 1 gm 1 GM/100 ML BAG IVPB SCH (05:31)
[2018-10-20] MEDS: Levalbuterol 0.63 MG/3 ML Inhal Soln UD IH SCH ×3 (07:20→20:24)
[2018-10-20] MEDS: Multivitamin Vitamin B Complex (Nephro-Vite) Tab PO SCH (10:27)
[2018-10-20] MEDS ORDERED: MethylPREDNISolone 40 mg Vial IVP SCH (13:00)
--- NOTE | 2018-10-20 13:34 | PN ---
DATE: 10/20/2018 SUBJECTIVE: This 78-year-old female was examined at the [facility] where she is receiving parenteral antibiotics for complicated right upper lung pneumonia. The patient is due for hemodialysis later today and on physical examination denied fever and chills and states that her productive sputum and cough is improving daily. She denied any fever, chills, chest pain or shortness of breath. PHYSICAL EXAMINATION: VITAL SIGNS: Temperature was 98.6, respirations 16, pulse 72 and blood pressure 152/64. HEENT: Head: Normocephalic, atraumatic. Eyes: No icterus. Ears: Clear. Throat: Noninjected. NECK: Supple. HEART: Regular S1, S2. LUNGS: Have rhonchi at the right posterior lung base with occasional wheezing that cleared with coughing. No rales were appreciated. ABDOMEN: Soft. EXTREMITIES: No edema. SKIN: Without rash. VASCULAR: Legs warm to touch. PSYCHOLOGICAL: Alert. NEUROLOGIC: Intact. LABORATORY DATA: White count 10,100, hemoglobin 12.3, hematocrit 37.4, platelets 202,000. Sodium 129, K 6, chloride 94, bicarb 11, BUN 153, creatinine 9.6, random blood sugar is 238, calcium 8. IMPRESSION: This is a 78-year-old female with end-stage renal disease, hemodialysis dependent, who will dialyze later today, with comorbidities of right upper lung pneumonia, atherosclerotic heart disease, stable, chronic hypertension, insulin-dependent diabetes mellitus, anemia of chronic disease, peptic ulcer disease with gastroesophageal reflux disease, hyperphosphatemia and hypothyroidism. The patient continues on Ecotrin 81 mg p.o. daily, Coreg 12.5 mg p.o. b.i.d., Humulin R low-dose insulin coverage before meals and at bedtime, Nephro-Gaston 1 tablet p.o. daily, Norvasc 10 mg p.o. daily, Protonix 40 mg p.o. daily, Renagel 800 mg p.o. after meals t.i.d., Rocephin 1 g IV every 24 hours, Solu-Medrol 20 mg IV every 12 hours, Synthroid 75 mcg p.o. daily and Xopenex inhalational therapy t.i.d. Greater than 35 minutes was spent in the care management, review of labs, orders and x-rays and outlining of dialysis for this patient today with renal dialysis nursing, case was reviewed with physical therapy. All questions were answered. Lizeth Kimble MD [facility]
--- NOTE | 2018-10-20 19:40 | CP.PCM.PN ---
Subjective - Date & Time of Evaluation Date of Evaluation: 10/20/18 Time of Evaluation: 18:00 - Subjective Subjective: Infectious Disease Follow Up: October 20, 2018 78 yo [place] female with a PMHx of ESRD on HD and HTN presented with SOB. The patient has numerous admissions to [facility]. The patient has a left uppe r extremity AV Fistula. Patient feeling better. She is making no complaints. Occassional cough. CT scan showing area of dense consolidation in the right upper lobe consistent with pneumonia. Obtained procalcitonin value... 3.12. Transferred to [facility]. She is making no complaints at this time. Treatment for pneumonia nearing completion. Objective - Vital Signs/Intake and Output Vital Signs (last 24 hours): Temp Pulse Resp BP Pulse Ox 98.1 F 83 18 165/71 H 97 10/20/18 10:00 10/20/18 18:36 10/20/18 10:00 10/20/18 18:36 10/20/18 17:05 - Medications Medications: Current Medications Acetaminophen (Tylenol 325mg Tab) 650 mg PO Q6H PRN PRN Reason: Fever >100.4 F Amlodipine Besylate (Norvasc) 10 mg PO DAILY [facility] Last Admin: 10/20/18 10:27 Dose: Not Given Aspirin (Aspirin Chewable) 81 mg PO 0800 [facility] Last Admin: 10/20/18 07:47 Dose: 81 mg Carvedilol (Coreg) 12.5 mg PO BID [facility] Last Admin: 10/20/18 18:36 Dose: 12.5 mg Ceftriaxone Sodium (Rocephin 1 Gram Ivpb) 1 gm in 100 mls @ 100 mls/hr IVPB 0600 [facility]; Protocol Stop: 10/24/18 06:59 Insulin Human Regular (Humulin R Low) 0 units SC ACHS [facility]; Protocol Last Admin: 10/20/18 18:36 Dose: Not Given Levalbuterol HCl (Xopenex) 0.63 mg IH TIDRESP [facility] Last Admin: 10/20/18 13:38 Dose: 0.63 mg Levothyroxine Sodium (Synthroid) 75 mcg PO DAILY@0630 [facility] Last Admin: 10/20/18 05:30 Dose: 75 mcg Methylprednisolone (Solu-Medrol) 20 mg IVP BID [facility] Last Admin: 10/20/18 17:20 Dose: 20 mg Pantoprazole Sodium (Protonix Ec Tab) 40 mg PO 0630 [facility] Last Admin: 10/20/18 05:30 Dose: 40 mg Sevelamer HCl (Renagel) 800 mg PO WM [facility] Last Admin: 10/20/18 17:20 Dose: 800 mg Vitamin B Complex/Vit C/Folic Acid (Nephro-Gaston) 1 tab PO DAILY [facility] Last Admin: 10/20/18 10:27 Dose: 1 tab - Labs Labs: 10/19/18 13:15 10/19/18 13:15 - Constitutional Appears: Non-toxic, No Acute Distress, Chronically Ill - Head Exam Head Exam: ATRAUMATIC, NORMOCEPHALIC - Eye Exam Eye Exam: EOMI, PERRL Pupil Exam: NORMAL ACCOMODATION, PERRL - ENT Exam ENT Exam: Mucous Membranes Moist, Normal External Ear Exam, TM's Normal Bilaterally - Neck Exam Neck Exam: Full ROM, Normal Inspection - Respiratory Exam Respiratory Exam: Clear to Ausculation Bilateral, NORMAL BREATHING PATTERN. absent: Rales, Rhonchi, Wheezes - Cardiovascular Exam Cardiovascular Exam: REGULAR RHYTHM, RRR, +S1, +S2 - GI/Abdominal Exam GI & Abdominal Exam: Soft, Normal Bowel Sounds. absent: Distended, Tenderness - Extremities Exam Extremities Exam: Full ROM, Normal Inspection - Neurological Exam Neurological Exam: Alert, Awake, CN II-XII Intact, Oriented x3 - Psychiatric Exam Psychiatric exam: Normal Affect, Normal Mood - Skin Skin Exam: Intact, Normal Color Assessment and Plan - Assessment and Plan (Free Text) Assessment: 78 [place] female with SOB on presentation. Chest X-ray with possible infiltrate in right upper lobe. Mild leukocytosis. Patient's SOB improved afte r HD done. Benavides cultures sent. CT chest reading pending. Supportive care. Continue with Rocephin and Azithromycin for now. SOB more likely secondary to CHF and fluid overload. Can consider obtaining procalcitonin if symptoms worsen. CT chest showing dense consolidation of the right upper lobe. Consider up to a 10 day course of antibiotic with a minimum of 3 to 5 days of IV antibiotics depending on the severity of the patient's symptoms during the course of treatment. Consider performing a repeat Chest X-ray to check progress. Patient in TCU... can give up to 10 days of IV antibiotics in total based on the patient's symptoms. On day 7 now. Patient with minimal complaints. Case discussed with Dr. Kimble. Thank you for allowing me to participate in the care of the patient, we will follow with you.
[2018-10-21] MEDS: Insulin Reg-LOW-Coverage SC SCH ×4 (06:31→22:00)
[2018-10-21] MEDS: Levalbuterol 0.63 MG/3 ML Inhal Soln UD IH SCH ×3 (07:20→19:58)
[2018-10-21] MEDS: Multivitamin Vitamin B Complex (Nephro-Vite) Tab PO SCH (09:41)
[2018-10-21] MEDS: MethylPREDNISolone 40 mg Vial IVP SCH (09:41)
--- NOTE | 2018-10-21 14:25 | PN ---
DATE: 10/21/2018 SUBJECTIVE: This 78-year-old female remains hospitalized in [facility] with complicated right upper lung pneumonia and comorbidities of end-stage renal disease, hemodialysis dependent, as well as insulin-dependent diabetes mellitus and hypothyroidism. Her cough is improving and she denied any fever and chills. PHYSICAL EXAMINATION: VITAL SIGNS: Her temperature was 98.1, respirations 18, pulse 65 and blood pressure 129/59 with a pulse ox of 97%. HEENT: Head: Normocephalic, atraumatic. Eyes: No icterus. Ears: Clear. Throat: Noninjected. NECK: Supple. HEART: Regular S1, S2. LUNGS: With rhonchi in the right posterior lung field. No rales. ABDOMEN: Soft. EXTREMITIES: No edema. SKIN: Without rash. NEUROLOGICAL: Intact. PSYCHOLOGICAL: Alert. VASCULAR: Legs warm to touch. LABORATORY DATA: White count 10,100, hemoglobin 12.3, hematocrit 37.4, platelets 202,000. Random blood sugar was 107. Sodium 129, K 6, chloride 94, bicarb 11, BUN 153, creatinine 9.6, calcium 8. IMPRESSION: This 78-year-old female with end-stage renal disease, hemodialysis dependent. She dialyzes on Friday, and Saturdays and tolerated her dialysis treatment last evening without incident. She has comorbidities of a right upper lung pneumonia, community-acquired, atherosclerotic heart disease stable, chronic hypertension, insulin-dependent diabetes mellitus, peptic ulcer disease with gastroesophageal reflux disease, anemia of chronic disease, hyperphosphatemia, hypothyroidism and degenerative arthritis. PLAN: She will continue on Ecotrin, Coreg, insulin, Nephro-Gaston, Norvasc, Protonix, Renagel, IV Rocephin. IV Solu-Medrol will be discontinued at present. She will continue on Xopenex inhalational therapy, Synthroid and Tylenol. She is tolerating physical therapy for reconditioning and gait training. She will have a chest x-ray within the next 48 hours and ultimate plan will be for discharge to home when medically stable and hopefully shows resolution of pneumonia on followup x-ray. Greater than 30 minutes was spent in the care management, review of labs, orders and x-rays and discussion of this patient with nurse, Carole Kendall, registered nurse, and Dr. Riaz Choi from Infectious Disease. Lizeth Kimble MD [facility] # [id number]
--- NOTE | 2018-10-21 16:09 | CP.PCM.PN ---
Subjective - Date & Time of Evaluation Date of Evaluation: 10/21/18 Time of Evaluation: 14:00 - Subjective Subjective: Infectious Disease Follow Up: October 21, 2018 78 yo [place]ian female with a PMHx of ESRD on HD and HTN presented with SOB. The patient has numerous admissions to [facility]. The patient has a left uppe r extremity AV Fistula. Patient feeling better. She is making no complaints. Occassional cough. CT scan showing area of dense consolidation in the right upper lobe consistent with pneumonia. Obtained procalcitonin value... 3.12. Transferred to [facility]. She is making no complaints at this time. Treatment for pneumonia nearing completion. Patient states she is comfortable. Objective - Vital Signs/Intake and Output Vital Signs (last 24 hours): Temp Pulse Resp BP Pulse Ox 98.1 F 84 18 152/68 H 97 10/20/18 10:00 10/21/18 09:41 10/20/18 10:00 10/21/18 09:41 10/20/18 17:05 Intake and Output: 10/21/18 10/21/18 06:59 18:59 Output Total 780 Balance -780 - Medications Medications: Current Medications Acetaminophen (Tylenol 325mg Tab) 650 mg PO Q6H PRN PRN Reason: Fever >100.4 F Amlodipine Besylate (Norvasc) 10 mg PO DAILY [facility] Last Admin: 10/21/18 09:41 Dose: Not Given Aspirin (Aspirin Chewable) 81 mg PO 0800 [facility] Last Admin: 10/21/18 07:39 Dose: 81 mg Carvedilol (Coreg) 12.5 mg PO BID [facility] Last Admin: 10/21/18 09:41 Dose: 12.5 mg Ceftriaxone Sodium (Rocephin 1 Gram Ivpb) 1 gm in 100 mls @ 100 mls/hr IVPB 0600 [facility]; Protocol Stop: 10/24/18 06:59 Insulin Human Regular (Humulin R Low) 0 units SC ACHS [facility]; Protocol Last Admin: 10/21/18 12:02 Dose: Not Given Levalbuterol HCl (Xopenex) 0.63 mg IH TIDRESP [facility] Last Admin: 10/21/18 13:05 Dose: 0.63 mg Levothyroxine Sodium (Synthroid) 75 mcg PO DAILY@0630 [facility] Last Admin: 10/20/18 05:30 Dose: 75 mcg Pantoprazole Sodium (Protonix Ec Tab) 40 mg PO 0630 [facility] Last Admin: 10/20/18 05:30 Dose: 40 mg Sevelamer HCl (Renagel) 800 mg PO WM [facility] Last Admin: 10/21/18 12:16 Dose: 800 mg Vitamin B Complex/Vit C/Folic Acid (Nephro-Gaston) 1 tab PO DAILY [facility] Last Admin: 10/21/18 09:41 Dose: 1 tab - Labs Labs: 10/19/18 13:15 10/19/18 13:15 - Constitutional Appears: Non-toxic, No Acute Distress, Chronically Ill - Head Exam Head Exam: ATRAUMATIC, NORMOCEPHALIC - Eye Exam Eye Exam: EOMI, PERRL Pupil Exam: NORMAL ACCOMODATION, PERRL - ENT Exam ENT Exam: Mucous Membranes Moist, Normal External Ear Exam, TM's Normal Bilaterally - Neck Exam Neck Exam: Full ROM, Normal Inspection - Respiratory Exam Respiratory Exam: Clear to Ausculation Bilateral, NORMAL BREATHING PATTERN. absent: Rales, Rhonchi, Wheezes - Cardiovascular Exam Cardiovascular Exam: REGULAR RHYTHM, RRR, +S1, +S2 - GI/Abdominal Exam GI & Abdominal Exam: Soft, Normal Bowel Sounds. absent: Distended, Tenderness - Extremities Exam Extremities Exam: Full ROM, Normal Inspection - Neurological Exam Neurological Exam: Alert, Awake, CN II-XII Intact, Oriented x3 - Psychiatric Exam Psychiatric exam: Normal Affect, Normal Mood - Skin Skin Exam: Intact, Normal Color Assessment and Plan - Assessment and Plan (Free Text) Assessment: 78 [place]ian female with SOB on presentation. Chest X-ray with possible infiltrate in right upper lobe. Mild leukocytosis. Patient's SOB improved after HD done. Benavides cultures sent. CT chest reading pending. Supportive care. Continue with Rocephin and Azithromycin for now. SOB more likely secondary to CHF and fluid overload. Can consider obtaining procalcitonin if symptoms worse n. CT chest showing dense consolidation of the right upper lobe. Consider up to a 10 day course of antibiotic with a minimum of 3 to 5 days of IV antibiotics depending on the severity of the patient's symptoms during the course of treatment. Consider performing a repeat Chest X-ray to check progr ess. Patient in TCU... can give up to 10 days of IV antibiotics in total based on the patient's symptoms. On day 8 now. Patient with minimal complaints. Case discussed with Dr. Kimble. Thank you for allowing me to participate in the care of the patient, we will follow with you.
[2018-10-22] MEDS: Pantoprazole 40 mg EC Tab PO SCH (05:32)
[2018-10-22] MEDS: Levothyroxine 75 MCG TAB PO SCH (05:32)
[2018-10-22] MEDS: cefTRIAXone 1 gm 1 GM/100 ML BAG IVPB SCH (05:33)
[2018-10-22] MEDS: Insulin Reg-LOW-Coverage SC SCH ×4 (06:38→23:00)
[2018-10-22] MEDS: Levalbuterol 0.63 MG/3 ML Inhal Soln UD IH SCH ×3 (07:08→21:02)
[2018-10-22 07:24] LABS: CALCIUM 7.2 mg/dL (8.4-10.5)
[2018-10-22] MEDS: Multivitamin Vitamin B Complex (Nephro-Vite) Tab PO SCH (09:04)
--- NOTE | 2018-10-22 12:54 | PN ---
DATE: 10/22/2018 SUBJECTIVE: This 78-year-old female remains hospitalized being treated with parenteral antibiotics, pulmonary toiletry for right upper lung pneumonia. She is on schedule for hemodialysis later this afternoon and denied any fever, chills, chest pain or shortness of breath. OBJECTIVE: VITAL SIGNS: Temperature was 98.6, respirations 17, pulse 82 and blood pressure 157/69 with pulse ox 95%. HEENT: Head: Normocephalic, atraumatic. Eyes: No icterus. Ears: Clear. Throat: Noninjected. NECK: Supple. HEART: Regular S1, S2. LUNGS: With occasional rhonchi at the right posterior upper lung field. No rales. No wheezing. ABDOMEN: Soft. EXTREMITIES: No edema. SKIN: Without rash. NEUROLOGICAL: Intact. PSYCHOLOGICAL: Alert. VASCULAR: Legs warm to touch. LABORATORY DATA: White count 10,100, hemoglobin 12.3, hematocrit 37.4, platelets 202,000. Sodium 135, K 3.8, chloride 96, bicarb 27, BUN 93, creatinine 7.0, random blood sugar 126, sugar 126 with calcium of 7.2. IMPRESSION: A 78-year-old female with community-acquired right upper lung pneumonia and comorbidities of end-stage renal disease hemodialysis dependent, atherosclerotic heart disease, hypertension, insulin-dependent diabetes mellitus, anemia of chronic disease, peptic ulcer disease with gastroesophageal reflux disease, hyperphosphatemia, and hypothyroid. PLAN: To continue Ecotrin, Coreg, Humulin R, low-dose insulin coverage a.c. meals and at bedtime, Nephro-Gaston, Norvasc, Protonix, Renagel, IV Rocephin, Synthroid, inhalational Xopenex and Tylenol p.r.n. The patient continues on pulmonary toiletry, incentive spirometry, nasal O2 and physical therapy. I will order a chest x-ray for the a.m. and based on clinical progress, she will be readied for discharge within the next 48 hours. Greater than 35 minutes was spent in the care management, review of labs, orders and x-rays and discussion of this patient's care and medications with nurse, Carole Kendall, registered nurse. All questions were answered. Lizeth Kimble MD [facility] # [id number]
--- NOTE | 2018-10-22 15:49 | CP.PCM.PN ---
Subjective - Date & Time of Evaluation Date of Evaluation: 10/22/18 Time of Evaluation: 14:30 - Subjective Subjective: Infectious Disease Follow Up: October 22, 2018 78 yo [place] female with a PMHx of ESRD on HD and HTN presented with SOB. The patient has numerous admissions to [facility]. The patient has a left uppe r extremity AV Fistula. Patient feeling better. She is making no complaints. Occassional cough. CT scan showing area of dense consolidation in the right upper lobe consistent with pneumonia. Obtained procalcitonin value... 3.12. Transferred to [facility]. She is making no complaints at this time. Treatment for pneumonia nearing completion. Patient states she is comfortable. Objective - Vital Signs/Intake and Output Vital Signs (last 24 hours): Temp Pulse Resp BP Pulse Ox 98.6 F 83 17 157/69 H 95 10/22/18 10:00 10/22/18 12:18 10/22/18 10:00 10/22/18 10:00 10/22/18 12:18 Intake and Output: 10/22/18 10/22/18 06:59 18:59 Intake Total 320 Output Total 600 Balance -280 - Medications Medications: Current Medications Acetaminophen (Tylenol 325mg Tab) 650 mg PO Q6H PRN PRN Reason: Fever >100.4 F Amlodipine Besylate (Norvasc) 10 mg PO DAILY [facility] Last Admin: 10/22/18 09:08 Dose: 10 mg Aspirin (Aspirin Chewable) 81 mg PO 0800 [facility] Last Admin: 10/22/18 07:55 Dose: 81 mg Carvedilol (Coreg) 12.5 mg PO BID [facility] Last Admin: 10/22/18 09:08 Dose: 12.5 mg Ceftriaxone Sodium (Rocephin 1 Gram Ivpb) 1 gm in 100 mls @ 100 mls/hr IVPB 0600 [facility]; Protocol Stop: 10/24/18 06:59 Last Admin: 10/22/18 05:33 Dose: 100 mls/hr Insulin Human Regular (Humulin R Low) 0 units SC ACHS [facility]; Protocol Last Admin: 10/22/18 12:01 Dose: Not Given Levalbuterol HCl (Xopenex) 0.63 mg IH TIDRESP [facility] Last Admin: 10/22/18 13:01 Dose: 0.63 mg Levothyroxine Sodium (Synthroid) 75 mcg PO DAILY@0630 [facility] Last Admin: 10/22/18 05:32 Dose: 75 mcg Pantoprazole Sodium (Protonix Ec Tab) 40 mg PO 0630 [facility] Last Admin: 10/22/18 05:32 Dose: 40 mg Sevelamer HCl (Renagel) 800 mg PO WM [facility] Last Admin: 10/22/18 12:01 Dose: 800 mg Vitamin B Complex/Vit C/Folic Acid (Nephro-Gaston) 1 tab PO DAILY [facility] Last Admin: 10/22/18 09:04 Dose: 1 tab - Labs Labs: 10/19/18 13:15 10/22/18 06:40 - Constitutional Appears: Non-toxic, No Acute Distress, Chronically Ill - Head Exam Head Exam: ATRAUMATIC, NORMOCEPHALIC - Eye Exam Eye Exam: EOMI, PERRL Pupil Exam: NORMAL ACCOMODATION, PERRL - ENT Exam ENT Exam: Mucous Membranes Moist, Normal External Ear Exam, TM's Normal Bilaterally - Neck Exam Neck Exam: Full ROM, Normal Inspection - Respiratory Exam Respiratory Exam: Clear to Ausculation Bilateral, NORMAL BREATHING PATTERN. absent: Rales, Rhonchi, Wheezes - Cardiovascular Exam Cardiovascular Exam: REGULAR RHYTHM, RRR, +S1, +S2 - GI/Abdominal Exam GI & Abdominal Exam: Soft, Normal Bowel Sounds. absent: Distended, Tenderness - Extremities Exam Extremities Exam: Full ROM, Normal Inspection - Neurological Exam Neurological Exam: Alert, Awake, CN II-XII Intact, Oriented x3 - Psychiatric Exam Psychiatric exam: Normal Affect, Normal Mood - Skin Skin Exam: Intact, Normal Color Assessment and Plan - Assessment and Plan (Free Text) Assessment: 78 [place] female with SOB on presentation. Chest X-ray with possible infiltrate in right upper lobe. Mild leukocytosis. Patient's SOB improved after HD done. Benavides cultures sent. CT chest reading pending. Supportive care. Continue with Rocephin and Azithromycin for now. SOB more likely secondary to CHF and fluid overload. Can consider obtaining procalcitonin if symptoms worsen. CT chest showing dense consolidation of the right upper lobe. Consider up to a 10 day course of antibiotic with a minimum of 3 to 5 days of IV antibiotics depending on the severity of the patient's symptoms during the course of treatment. Consider performing a repeat Chest X-ray to check progress. Patient in TCU... can give up to 10 days of IV antibiotics in total based on the patient's symptoms. On day 10 now. Patient with minimal complaints. Case discussed with Dr. Kimble. Thank you for allowing me to participate in the care of the patient, we will follow with you.
[2018-10-23] MEDS: cefTRIAXone 1 gm 1 GM/100 ML BAG IVPB SCH (05:44)
[2018-10-23] MEDS: Levothyroxine 75 MCG TAB PO SCH (05:44)
[2018-10-23] MEDS: Pantoprazole 40 mg EC Tab PO SCH (05:44)
[2018-10-23] MEDS: Insulin Reg-LOW-Coverage SC SCH ×4 (07:01→21:36)
[2018-10-23] MEDS: Levalbuterol 0.63 MG/3 ML Inhal Soln UD IH SCH ×3 (07:08→20:12)
[2018-10-23] MEDS: Multivitamin Vitamin B Complex (Nephro-Vite) Tab PO SCH (10:36)
--- NOTE | 2018-10-23 12:28 | PN ---
DATE: 10/23/2018 SUBJECTIVE: This 78-year-old female was examined at bedside on the morning of 10/23/2018 and case was reviewed in detail with her nurse, Noelle Wesley, registered nurse. The patient states she feels much better. She had no fever or chills and this morning her temperature was 98.7. She is being readied for a followup chest x-ray to hopefully confirm resolution of right upper lung community-acquired pneumonia and the patient will be scheduled for hemodialysis in the a.m. PHYSICAL EXAMINATION: VITAL SIGNS: Temperature 97.5, respirations 16, pulse 70 and blood pressure 138/61. HEAD: Normocephalic, atraumatic. EYES: No icterus. EARS: Clear. THROAT: Noninjected. NECK: Supple. HEART: S1 and S2. LUNGS: Clear. ABDOMEN: Soft. EXTREMITIES: No edema. SKIN: Without rash. NEUROLOGIC: Intact. PSYCHOLOGIC: Alert. VASCULAR: Legs warm to touch. LABORATORY DATA: White count 10,100, hemoglobin 12.3, hematocrit 37.4, platelets 202,000. Random blood sugar 122. Sodium 135, K 3.8, chloride 96, bicarb 27, BUN 93, creatinine 7, random calcium 7.2. IMPRESSION AND PLAN: This is a 78-year-old female with community-acquired right upper lung pneumonia and comorbidities of end-stage renal disease, hemodialysis dependent. The patient dialyzes on Tuesdays, and Saturdays with stable atherosclerotic heart disease, chronic hypertension, insulin-dependent diabetes mellitus, anemia of chronic disease, peptic ulcer disease with gastroesophageal reflux disease, hyperphosphatemia, hypothyroidism and degenerative arthritis. The patient will continue on inhalational Xopenex, oral Synthroid, IV Rocephin, oral Renagel, Protonix, Norvasc, Nephro-Gaston, insulin coverage, Coreg and baby aspirin. Based on clinical progress, the patient will be readied for discharge in a.m. All of the above was reviewed with nurse, Ms. Wesley, registered nurse. All questions were answered. Lizeth Kimble MD [facility] # [id number]
--- NOTE | 2018-10-23 14:00 | RAD ---
Date of service: 2018-10-23 11:25:20 HISTORY: rul pneumonia fup films COMPARISON: 10/15/2018 TECHNIQUE: Chest PA and lateral FINDINGS: LUNGS: There improvement in the right upper lobe infiltrate PLEURA: No significant pleural effusion identified. No pneumothorax apparent. CARDIOVASCULAR: No aortic atherosclerotic calcification present. Normal cardiac size. No pulmonary vascular congestion. OSSEOUS STRUCTURES: No significant abnormalities. VISUALIZED UPPER ABDOMEN: Normal. OTHER FINDINGS: None. IMPRESSION: Improved right upper lobe infiltrate
--- NOTE | 2018-10-23 16:34 | CP.PCM.PN ---
Subjective - Date & Time of Evaluation Date of Evaluation: 10/23/18 Time of Evaluation: 14:30 - Subjective Subjective: Infectious Disease Follow Up: October 23, 2018 78 yo [place] female with a PMHx of ESRD on HD and HTN presented with SOB. The patient has numerous admissions to [facility]. The patient has a left uppe r extremity AV Fistula. Patient feeling better. She is making no complaints. Occassional cough. CT scan showing area of dense consolidation in the right upper lobe consistent with pneumonia. Chest X-ray showing improving right upper lobe infiltrate. Obtained procalcitonin value... 3.12. Transferred to [facility]. She is making no complaints at this time. Treatment for pneumonia nearing completion. Patient states she is comfortable. Objective - Vital Signs/Intake and Output Vital Signs (last 24 hours): Temp Pulse Resp BP Pulse Ox 100.4 F H 76 17 138/61 95 10/23/18 05:47 10/23/18 09:25 10/22/18 10:00 10/23/18 10:36 10/22/18 12:18 Intake and Output: 10/23/18 10/23/18 06:59 18:59 Intake Total 320 Output Total 300 Balance 20 - Medications Medications: Current Medications Acetaminophen (Tylenol 325mg Tab) 650 mg PO Q6H PRN PRN Reason: Fever >100.4 F Last Admin: 10/23/18 05:47 Dose: 650 mg Amlodipine Besylate (Norvasc) 10 mg PO DAILY [facility] Last Admin: 10/23/18 10:37 Dose: Not Given Aspirin (Aspirin Chewable) 81 mg PO 0800 [facility] Last Admin: 10/23/18 08:19 Dose: 81 mg Carvedilol (Coreg) 12.5 mg PO BID [facility] Last Admin: 10/23/18 10:36 Dose: 12.5 mg Ceftriaxone Sodium (Rocephin 1 Gram Ivpb) 1 gm in 100 mls @ 100 mls/hr IVPB 0600 [facility]; Protocol Stop: 10/24/18 06:59 Last Admin: 10/23/18 05:44 Dose: 100 mls/hr Insulin Human Regular (Humulin R Low) 0 units SC ACHS [facility]; Protocol Last Admin: 10/23/18 12:27 Dose: 1 units Levalbuterol HCl (Xopenex) 0.63 mg IH TIDRESP [facility] Last Admin: 10/23/18 13:32 Dose: 0.63 mg Levothyroxine Sodium (Synthroid) 75 mcg PO DAILY@0630 [facility] Last Admin: 10/23/18 05:44 Dose: 75 mcg Pantoprazole Sodium (Protonix Ec Tab) 40 mg PO 0630 [facility] Last Admin: 10/23/18 05:44 Dose: 40 mg Sevelamer HCl (Renagel) 800 mg PO WM [facility] Last Admin: 10/23/18 12:27 Dose: 800 mg Vitamin B Complex/Vit C/Folic Acid (Nephro-Gaston) 1 tab PO DAILY [facility] Last Admin: 10/23/18 10:36 Dose: 1 tab - Labs Labs: 10/19/18 13:15 10/22/18 06:40 - Constitutional Appears: Non-toxic, No Acute Distress, Chronically Ill - Head Exam Head Exam: ATRAUMATIC, NORMOCEPHALIC - Eye Exam Eye Exam: EOMI, PERRL Pupil Exam: NORMAL ACCOMODATION, PERRL - ENT Exam ENT Exam: Mucous Membranes Moist, Normal External Ear Exam, TM's Normal Bilaterally - Neck Exam Neck Exam: Full ROM, Normal Inspection - Respiratory Exam Respiratory Exam: Decreased Breath Sounds, NORMAL BREATHING PATTERN. absent: Rales, Rhonchi, Wheezes - Cardiovascular Exam Cardiovascular Exam: REGULAR RHYTHM, RRR, +S1, +S2 - GI/Abdominal Exam GI & Abdominal Exam: Soft, Normal Bowel Sounds. absent: Distended, Tenderness - Extremities Exam Extremities Exam: Full ROM, Normal Inspection - Neurological Exam Neurological Exam: Alert, Awake, CN II-XII Intact, Oriented x3 - Psychiatric Exam Psychiatric exam: Normal Affect, Normal Mood - Skin Skin Exam: Intact, Normal Color Assessment and Plan - Assessment and Plan (Free Text) Assessment: 78 [place] female with SOB on presentation. Chest X-ray with possible infiltrate in right upper lobe. Mild leukocytosis. Patient's SOB improved after HD done. Benavides cultures sent. CT chest reading pending. Supportive care. Continue with Rocephin and Azithromycin for now. SOB more likely secondary to CHF and fluid overload. Can consider obtaining procalcitonin if symptoms worsen. CT chest showing dense consolidation of the right upper lobe. Consider up to a 10 day course of antibiotic with a minimum of 3 to 5 days of IV antibiotics depending on the severity of the patient's symptoms during the course of treatment. Consider performing a repeat Chest X-ray to check progress. Patient in TCU... can give up to 10 days of IV antibiotics in total based on the patient's symptoms. On day 10 now. Patient with minimal complaints. Noted that the patient had a low grade fever of 100.4 F between 10/22/2018 and 2018. Case discussed with Dr. Kimble. Thank you for allowing me to participate in the care of the patient, we will follow with you.
[2018-10-23 16:54] VITALS: PULSE 78; RESP 18; TEMP 98; O2SAT 96
[2018-10-24] MEDS: cefTRIAXone 1 gm 1 GM/100 ML BAG IVPB SCH (05:31)
[2018-10-24] MEDS: Levothyroxine 75 MCG TAB PO SCH (05:32)
[2018-10-24] MEDS: Pantoprazole 40 mg EC Tab PO SCH (05:32)
[2018-10-24] MEDS: Insulin Reg-LOW-Coverage SC SCH ×2 (06:44→12:36)
[2018-10-24] MEDS: Levalbuterol 0.63 MG/3 ML Inhal Soln UD IH SCH ×2 (08:30→13:27)
[2018-10-24] MEDS: Multivitamin Vitamin B Complex (Nephro-Vite) Tab PO SCH (09:20)
[2018-10-24 09:22] VITALS: BP 152/65
--- NOTE | 2018-10-24 22:23 | DS ---
FINAL DIAGNOSES: Right upper lung pneumonia improved; end-stage renal disease, hemodialysis dependent; chronic hypertension; stable atherosclerotic heart disease; insulin-dependent diabetes mellitus; anemia of chronic disease; hypertension; peptic ulcer disease with gastroesophageal reflux disease; hyperphosphatemia; and hypothyroidism. DISPOSITION: Home. FOLLOWUP: Follow up in my office on 11/11/2018. The patient will continue dialysis at [facility] Renal Unit Friday, , and Friday. DISCHARGE MEDICATIONS: Ecotrin 81 mg p.o. daily, Coreg 12.5 mg b.i.d., Nephro-Gaston 1 tablet p.o. daily, Norvasc 10 mg p.o. daily, Protonix 40 mg p.o. a.m. Renagel 800 mg p.o. p.c. meals t.i.d., and Synthroid 75 mcg p.o. daily. SUMMARY This 78-year-old female who was admitted to the [facility]3] with a complicated right upper lung pneumonia and was treated with parenteral antibiotics, pulmonary toiletry, IV Solu-Medrol, and insulin coverage. At the time of her discharge, a chest x-ray was reviewed, which showed improvement in the right upper lung infiltrate, no significant pleural effusion, no pneumothorax, and no evidence of congestive heart failure. The patient is discharged to home. I did review the findings with this patient in the presence of nurse, Noelle Wesley. I have recommended that she see me in my office within 2 weeks, at which time, I will have a repeat chest x-ray requested to ensure resolution of her infiltrate. Greater than 30 minutes was spent in the discharge management of this patient today. All questions were answered. Lizeth Kimble MD
== END 2018-10-24 13:58 | disposition home or self-care (01) | DRG 193 ==
LOC: TRCU 15:45
PROVIDERS: ADMIT Internal Medicine; ATTEND Internal Medicine
PROC: 3E03329 Introduction of Other Anti-infective into Peripheral Vein, Percutaneous Approach (ICD-10-PCS; 2018-10-16)
PROC: F08Z4ZZ Home Management Treatment (ICD-10-PCS; 2018-10-17)
PROC: F07Z9ZZ Gait Training/Functional Ambulation Treatment (ICD-10-PCS; principal; 2018-10-18)
PROC: F07 Physical Rehabilitation and Diagnostic Audiology, Rehabilitation, Motor Treatment (ICD-10-PCS; 2018-10-18)
PROC: 5A1D70Z Performance of Urinary Filtration, Intermittent, Less than 6 Hours Per Day (ICD-10-PCS; 2018-10-20)
PROC: 5A1D70Z Performance of Urinary Filtration, Intermittent, Less than 6 Hours Per Day (ICD-10-PCS; 2018-10-24)
DX: J18.9 Pneumonia, unspecified organism (principal); N18.6 End stage renal disease; I13.2 Hypertensive heart and chronic kidney disease with heart failure and with stage 5 chronic kidney disease, or end stage renal disease; I50.9 Heart failure, unspecified; E11.22 Type 2 diabetes mellitus with diabetic chronic kidney disease; D63.8 Anemia in other chronic diseases classified elsewhere; E03.9 Hypothyroidism, unspecified; E83.39 Other disorders of phosphorus metabolism; I25.10 Atherosclerotic heart disease of native coronary artery without angina pectoris; K21.9 Gastro-esophageal reflux disease without esophagitis; K27.9 Peptic ulcer, site unspecified, unspecified as acute or chronic, without hemorrhage or perforation; M19.90 Unspecified osteoarthritis, unspecified site; Z79.4 Long term (current) use of insulin; Z99.2 Dependence on renal dialysis

== ENCOUNTER 2018-10-31 07:10 | Inpatient (IN) | payer MEDICARE, MEDICAID ==
--- NOTE | 2018-10-31 07:37 | ED PDOC ---
Arrival/HPI - General Time Seen by Provider: 10/31/18 07:25 Historian: Patient - History of Present Illness Narrative History of Present Illness (Text): 10/31/18 07:37 A 78 year old female, whose past medical history includes ESRD (on dialysis //Fri, suppose to have dialysis today), who is accompanied by daughter, presents to the emergency department complaining of shortness of breath since last night. Per daughter, patient was here 10/11/2018 for similar complaint and was admitted for pneumonia. Last night symptom began and patient was unable to get any sleep. Also, patient experiences central chest pain and dry cough. Here in the ER, patient still feeling short of breath with Nasal Cannula. Patient denies any fever, or any other complaints at this time. PMD: Dr. Castaneda Past Medical History - Provider Review Nursing Documentation Reviewed: Yes - Infectious Disease Hx of Infectious Diseases: None - Tetanus Immunization Tetanus Immunization: Unknown - Pulmonary Hx Respiratory Disorders: No - Neurological Hx Neurological Disorder: No - HEENT Hx HEENT Disorder: Yes (GLASSES READING) Hx Cataracts: Yes (s/p surgery 2004) - Renal Hx Renal Disorder: Yes - Endocrine/Metabolic Hx Hypothyroidism: Yes - Hematological/Oncological Hx Anemia: Yes - Integumentary Hx Dermatological Disorder: No - Musculoskeletal/Rheumatological Hx Arthritis: Yes - Gastrointestinal Hx Gastrointestinal Disorders: Yes (PUD GERD) - Genitourinary/Gynecological Hx Genitourinary Disorders: Yes (ESRD ON HD) Hx Reproductive Disorders: No - Psychiatric Hx Substance Use: No - Surgical History Hx Cataract Extraction: Yes Hx Vascular Surgery: Yes (LEFT WRIST/ LEFT AXILLA FOR DIALYSIS/NON FUNCTIONING) Hx Vascular Access Device: Yes (LEFT UPPER ARM AV FISTULA) - Anesthesia Hx Anesthesia: Yes Hx Anesthesia Reactions: No Hx Malignant Hyperthermia: No - Suicidal Assessment Feels Threatened In Home Enviroment: No Family/Social History - Physician Review Nursing Documentation Reviewed: Yes Family/Social History: No Known Family HX Smoking Status: Never Smoked Hx Alcohol Use: No Hx Substance Use: No Allergies/Home Meds Allergies/Adverse Reactions: Allergies codeine Allergy (Intermediate, Verified 10/16/18 20:05) ITCHING Home Medications: Home Meds Medication Instructions Recorded Confirmed amLODIPine [Norvasc] 5 mg PO DAILY 09/22/15 10/31/18 Sevelamer Carbonate [Renvela] 800 mg PO TID 10/05/15 10/31/18 Aspirin [Cecil-Bishop Aspirin] 81 mg PO DAILY 10/11/18 10/31/18 Carvedilol [Coreg] 12.5 mg PO BID 10/11/18 10/31/18 Pantoprazole Sodium [Protonix] 40 mg PO DAILY 10/11/18 10/31/18 Vol-Care PO DAILY 10/31/18 Review of Systems - Physician Review All systems were reviewed & negative as marked: Yes - Review of Systems Constitutional: absent: Fevers Respiratory: SOB, Cough (dry) Physical Exam - Physical Exam Narrative Physical Exam (Text): Gen: VS reviewed, alert, well developed, well nourished, nontoxic, mild distress. ENT: normal pharynx. Eye: EOMI, PERRL. Neck: JVD present, supple, no adenopathy. CV: regular rate, tachycardic, no rubs, no murmur, no gallops, S1, S2, pulses equal and strong. Pulm: no distress, clear to auscultation, faint expiratory bilateral wheeze, no rhonchi, breath sounds equal, no rales. moderately tachypneic. Abd: soft, nontender, no guarding, no rebound, no rigidity, normal bowel sounds. Ext: no edema. positive thrill to left upper extremity. Skin: good color, no rash, no cyanosis. Psych: responds appropriately to questions, normal affect. Neuro: oriented x 3, CN2-12 intact grossly, motor intact, sensation intact. Medical Decision Making ED Course and Treatment: 10/31/18 07:40 Impression: 78 year old female with shortness of breath, central chest pain, and dry cough. Plan: -- EKG -- Chest X-ray -- Labs -- Blood Culture -- Rapid Flu Test -- Nasal Cannula -- Reassess and disposition Prior Visits: Notes and results from previous visits were reviewed. Patient last seen here on 10/11/2018 for increasing shortness of breath. Patient was admitted. 10/31/18 09:[address] kimble to telemetry, agrees to start empiric iv abx. patient to be arranged to get HD today. ddx including but nit limited to: acs, influenza with secondary pneumonia, hcap, myocarditis but full clinical suspicion cannot be made at this time. 10/31/18 09:59 - Lab Interpretations I have reviewed the lab results: Yes - RAD Interpretation Narrative RAD Interpretations (Text): 10/31/18 08:20 Chest X-ray shows small right pleural effusion and right middle and right upper infiltrate; appears worse when compared to prior Chest X-ray. - EKG Interpretation EKG Interpretation (Text): 10/31/18 07:56 0721: ekg received in my hand at 732: sinus tach at 106 bpm, nml qrs, anterior infarct, rare pvc, unchanged from prior ekg on 10.11.2018 Interpreted by ED Physician: Yes - Scribe Statement The provider has reviewed the documentation as recorded by the Arunibnura Michaud Provider Scribe Attestation: All medical record entries made by the Scribe were at my direction and personally dictated by me. I have reviewed the chart and agree that the record accurately reflects my personal performance of the history, physical exam, medical decision making, and the department course for this patient. I have also personally directed, reviewed, and agree with the discharge instructions and disposition. Disposition/Present on Arrival - Present on Arrival Any Indicators Present on Arrival: No History of DVT/PE: No History of Uncontrolled Diabetes: No Urinary Catheter: No History Surgical Site Infection Following: None - Disposition Have Diagnosis and Disposition been Completed?: Yes Diagnosis: Pneumonia, Influenza A, Elevated troponin Disposition: HOSPITALIZED Disposition Time: 09:41 Patient Plan: Admission Patient Problems: Current Active Problems Problem Status Onset Elevated troponin Acute Influenza A Acute Pneumonia Acute Condition: GUARDED Referrals: Lizeth Kimble MD [Primary Care Provider] - Follow up with primary
[2018-10-31 08:04] LABS: VENOUS BLOOD GAS BASE EXCESS 7.2 mmol/L (0.0-2.0); VENOUS BLOOD GAS PO2 40 mm/Hg (30-55); VENOUS BLOOD PH 7.42 (7.32-7.43)
[2018-10-31 08:17] LABS: ALB/GLOB RATIO 1.2 (1.1-1.8); BASO # 0.02 K/mm3 (0.0-2.0); BASO % 0.2 % (0.0-3.0); CALCIUM 7.9 mg/dL (8.4-10.5); EOS # 0.3 (0.0-0.7); EOS % 3.3 % (1.5-5.0); HEMOGLOBIN 9.8 g/dL (12.0-16.0); LYMPH # 0.9 (1.2-3.4); LYMPH % 10.9 % (22.0-35.0); MEAN CORPUSCULAR HEMOGLOBIN 28.7 pg (25.0-35.0); MEAN CORPUSCULAR HGB CONC 30.8 g/dl (31.0-37.0); MEAN PLATELET VOLUME 8.6 fl (7.0-11.0); MONO # 0.3 (0.1-0.6); MONO % 3.9 % (1.0-6.0); RBC 3.42 10^6/uL (3.5-6.1); WHITE BLOOD COUNT 8.6 10^3/uL (4.5-11.0)
[2018-10-31 08:27] LABS: INR 0.88; PARTIAL THROMBOPLASTIN TIME 34.8 Seconds (26.9-38.3)
[2018-10-31 08:35] LABS: TROPONIN I 0.27 ng/mL
[2018-10-31] MEDS ORDERED: Vancomycin 500 mg Inj IVPB STA (09:41)
[2018-10-31] MEDS ORDERED: Cefepime 1gm in NS 100ml 1 GM/100 ML BAG IVPB ONE (09:42)
[2018-10-31] MEDS ORDERED: Nitroglycerin 2% Ointment Foilpak UD TOP STA (09:46)
[2018-10-31] MEDS ORDERED: Vancomycin 1gm in NS 250ml 1 GM/250 ML BAG IVPB STA (09:49)
[2018-10-31 11:22] LABS: TROPONIN I 0.95 ng/mL
[2018-10-31] MEDS ORDERED: Levothyroxine 75 MCG TAB PO STA (13:23)
[2018-10-31] MEDS ORDERED: Vancomycin 1 g Inj IVPB SCH (15:45)
[2018-10-31] MEDS ORDERED: Vancomycin 500mg in NS 500 MG/100 ML BAG IVPB SCH (15:45)
[2018-10-31] MEDS ORDERED: Cefepime 1gm in NS 100ml 1 GM/100 ML BAG IVPB SCH (15:45)
[2018-10-31 16:15] LABS: TOTAL IRON BINDING CAPACITY 196 ug/dL (265-497)
[2018-10-31 16:27] VITALS: BMI 22.4
[2018-10-31] MEDS: Levalbuterol 0.63 MG/3 ML Inhal Soln UD IH SCH (16:27)
[2018-10-31] MEDS ORDERED: Influenza Vaccine 60 mcg/0.5 mL SYR (4YR UP) IM ONE (16:27)
[2018-10-31] MEDS ORDERED: Pneumococcal 23-Valent Vaccine IM ONE (16:27)
[2018-10-31 16:31] LABS: % IRON SATURATION 19 % (20-55); IRON 38 ug/dL (45-180)
[2018-10-31 16:37] LABS: TROPONIN I 2.03 ng/mL
--- NOTE | 2018-10-31 18:27 | RAD ---
Date of service: 10/31/2018 HISTORY: chest pain COMPARISON: Comparison chest 10/23/2018 FINDINGS: LUNGS: Patchy infiltrate changes seen throughout the right lung with more confluent opacity in the right lung base. Probable small right-sided effusion mild left basilar atelectasis and/or infiltrate with tiny left effusion. Questionable mild central pulmonary venous congestion PLEURA: As above. No pneumothorax apparent. CARDIOVASCULAR: Mild aortic atherosclerotic calcification present. Cardiomegaly. No pulmonary vascular congestion. OSSEOUS STRUCTURES: No significant abnormalities. VISUALIZED UPPER ABDOMEN: Normal. OTHER FINDINGS: None. IMPRESSION: Patchy infiltrate changes seen throughout the right lung with more confluent opacity in the right lung base. Probable small right-sided effusion mild left basilar atelectasis and/or infiltrate with tiny left effusion. Questionable mild central pulmonary venous congestion
[2018-10-31] MEDS: Nitroglycerin 2% Ointment Foilpak UD TOP SCH ×2 (18:56→23:46)
--- NOTE | 2018-10-31 20:15 | HP ---
DATE OF EXAM: 10/31/2018 HISTORY OF PRESENT ILLNESS: This 78-year-old female was examined in the emergency room in the presence of her son. She came to the emergency room earlier at the [facility] this morning, 10/31/2018 complaining of cough and shortness of breath. There she was noted to have a low grade fever and reported radiographic evidence of right middle and upper lung pneumonia. PAST MEDICAL HISTORY: Extensive and includes end-stage renal disease, hemodialysis dependent. She dialyzes as an outpatient on Friday, and Saturdays. She has chronic hypertension, stable atherosclerotic heart disease, history of anemia of chronic disease, peptic ulcer disease with GERD, hyperphosphatemia, degenerative arthritis and hypothyroidism. On previous hospital stay in September 2018, the patient was noted to have community-acquired pneumonia that was under the infectious disease followup of Dr. Riaz Choi. She was treated with a full course of parenteral antibiotics including IV Rocephin and IV Zithromax and followup chest x-ray showed improving infiltrate in the right upper lung. The patient went home. Now shw is weak and deconditioned and currently has a positive serology for influenza A. She did receive one dose of Tamiflu in the emergency room and no further dosing will be given, given her renal dialysis status. OUTPATIENT MEDICATIONS: Include multivitamin, Renagel, Protonix, Synthroid, Coreg, baby aspirin and Norvasc. ALLERGIES: SHE HAS ALLERGIES TO CODEINE. SOCIAL HISTORY: She is a nondrinker, nonsmoker, non IV drug misuser. She is a retired homemaker. FAMILY HISTORY: Noncontributory. REVIEW OF SYSTEMS: CONSTITUTIONAL: She admits to fever and chills. HEENT: HEAD: Denied headache or seizure. EYES: No change in visual acuity. EARS: No hearing loss. THROAT: No swallowing difficulty. NECK: No stiffness. CARDIAC: She complained of some substernal chest discomfort which is gone at present. She denied any diaphoresis, jaw pain, arm pain, nausea or vomiting. PULMONARY: She denied hemoptysis, but did have a cough productive of yellow sputum. GASTROINTESTINAL: No hematemesis. No melena. GENITOURINARY: No dysuria. SKIN: No rash. VASCULAR: No claudication. PSYCHOLOGIC: No depression. NEUROLOGIC: No knowledge of stroke. PHYSICAL EXAMINATION: VITAL SIGNS: At present her temperature was 100.3, respirations 23, pulse 107, blood pressure 144/80. Pulse ox was 96% on 2 liters nasal O2. HEENT: HEAD: Normocephalic, atraumatic. EYES: No icterus. EARS: Clear. THROAT: Noninjected. NECK: Supple. HEART: Regular S1, S2. No pathological rubs, murmurs or gallops. LUNGS: Had rhonchi at the right posterior lung field with occasional rhonchi and wheezing. ABDOMEN: Soft. EXTREMITIES: No edema. SKIN: Without rash. NEUROLOGIC: Weak and deconditioned. VASCULAR: Legs warm to touch. PSYCHOLOGIC: Alert and oriented x3. LABORATORY DATA: Influenza A serology positive. White count 8600, hemoglobin 9.8, hematocrit 31.8, MCV 93 and platelets 145,000. PT/INR 0.88, PTT 34.8. Sodium 136, K 4.1, chloride 96, bicarb 32, BUN 41, creatinine 6.2, random blood sugar 112, calcium 7.9. Bilirubin 0.9, AST 61, ALT 39, alk phos 93. CPK 57 with a troponin of 0.95 and an initial troponin of 0.27. EKG showed a sinus to sinus tachycardia rhythm with a poor R-wave progression an isolated PVC and no changes from previous EKG and chest x-ray reportedly showed right upper and middle lung infiltrate. IMPRESSION: This is a 78-year-old female with acute influenza A and pneumonia in a dialysis patient with comorbidities of chronic hypertension, peptic ulcer disease with gastroesophageal reflux disease, hyperphosphatemia, hypothyroidism and degenerative arthritis. PLAN: The plan, at present, is to outline medication which I will order Ecotrin 81 mg p.o. daily, Coreg 12.5 mg p.o. b.i.d., Maxipime 1 g IV every 24 hours, nitroglycerin 1 inch to chest wall every six hours, Norvasc 5 mg p.o. daily, Pepcid 20 mg p.o. at bedtime, Renagel 800 mg p.o. t.i.d., Robitussin 100 mg p.o. every 4 hours p.r.n. cough, Synthroid 75 mcg p.o. daily Tylenol 650 p.o. every 6 hours. p.r.n. pain or temperature greater than 101. Vancomycin, the patient was loaded with 1 g and will receive 500 mg post dialysis Friday, and Saturdays. Xopenex inhalational therapy 0.53 t.i.d. and Zofran 4 mg IV every 6 hours p.r.n. nausea and vomiting. She is ordered to have a renal heart-healthy diet with a 1200 mL p.o. fluid restriction. I have ordered vitamin B12, folic acid, ferritin levels, iron and TIBC levels, a basic metabolic panel for the a.m., a repeat cardiac isoenzyme and TSH stimulating hormone level. She is scheduled for a CBC for the morning. Blood culture has been sent. A procalcitonin serum level has been requested and she is ordered to receive nasal O2 p.r.n. She will be placed in isolation and based on clinical progress, additional diagnostic workup and testing will be entertained. I have discussed this case with Dr. Scott Livingston from Cardiology regarding her initial complaint of chest pain, now resolved with elevated troponin, probably on the basis of her renal failure. Greater than 75 minutes was spent in the care management, review of labs, orders, outlining of medication testing and discussion of this patient with herself, her son, emergency room physician, Dr. Mckay Kang and Dr. Scott Livingston as well as nursing and dialysis nursing. All questions were answered. Lizeth Kimble MD MTDD
[2018-10-31 20:18] LABS: FOLATE > 20.0 ng/mL
--- NOTE | 2018-10-31 21:25 | CARD ---
APPROVED REPORT Date of service: 10/31/2018 EKG Measurement Heart [id number] <Conclusion> Sinus tachycardia with occasional premature ventricular complexes Anteroseptal infarct, age undetermined Abnormal ECG
[2018-11-01] MEDS: Levothyroxine 75 MCG TAB PO SCH (05:41)
[2018-11-01] MEDS: Nitroglycerin 2% Ointment Foilpak UD TOP SCH ×3 (05:41→18:18)
[2018-11-01 07:49] LABS: HEMOGLOBIN 8.1 g/dL (12.0-16.0); MEAN CELL VOLUME 92.3 fl (80.0-105.0); MEAN CORPUSCULAR HEMOGLOBIN 28.4 pg (25.0-35.0); MEAN CORPUSCULAR HGB CONC 30.8 g/dl (31.0-37.0); MEAN PLATELET VOLUME 8.3 fl (7.0-11.0); RBC 2.85 10^6/uL (3.5-6.1); RED CELL DISTRIBUTION WIDTH 18.7 % (11.5-14.5)
[2018-11-01 08:40] LABS: CALCIUM 7.8 mg/dL (8.4-10.5)
[2018-11-01] MEDS: Levalbuterol 0.63 MG/3 ML Inhal Soln UD IH SCH ×3 (09:30→19:40)
[2018-11-01] MEDS ORDERED: Pantoprazole 40 mg EC Tab PO SCH (10:00)
--- NOTE | 2018-11-01 11:12 | CARD ---
APPROVED REPORT Date of service: 11/01/2018 EKG Measurement Heart [id number] <Conclusion> Normal sinus rhythm Anteroseptal infarct, age undetermined Abnormal ECG
--- NOTE | 2018-11-01 14:23 | CON ---
DATE: 11/01/2018 REQUESTING PHYSICIAN: Dr. Kimble. REASON FOR CONSULTATION: Elevated troponin. HISTORY: This is a 78-year-old woman with a history of chronic renal failure, maintained on hemodialysis, who was brought to the emergency room by her daughter with complaints of cough and worsening dyspnea. She was noted to have low-grade fever and patchy infiltrates in the right middle and upper lobe lobes. The troponin was noted be elevated and evaluation was requested. She states she has had some pleuritic-type chest pain after coughing, but denies any chest pressure. She denies any prior cardiac history. She states she has been on dialysis for approximately the past 3 years. She reportedly has a history of hypertension, atherosclerotic heart disease, anemia, peptic ulcer disease, arthritis and hypothyroidism. She states she is not diabetic. She believes her cholesterol is normal. There is no family history of premature heart disease. She is not a smoker. PAST MEDICAL HISTORY: The past medical history is notable for the problems mentioned above. She was hospitalized last month with apparent right upper lobe pneumonia, treated with antibiotics. MEDICATIONS: Her current medications include aspirin, carvedilol 12.5 mg b.i.d., Maxipime, topical nitrates, Norvasc 5 mg daily, Pepcid, Renagel, Robitussin, Synthroid 75 mcg daily, IV vancomycin, and Xopenex. ALLERGIES: HAS HAD A REACTION WITH CODEINE IN THE PAST. SOCIAL HISTORY: Does not smoke or drink. She lives at home with her family. She watches her grandchildren. FAMILY HISTORY: Both parents are , cause unknown. There is no other family history of premature heart disease. REVIEW OF SYSTEMS: Ten-point review of systems is otherwise unremarkable. PHYSICAL EXAMINATION: GENERAL: She is an elderly woman, appears comfortable at present time. VITAL SIGNS: Her blood pressure is 150/66 with a pulse of 86 and sinus, respirations are 16. She is afebrile. HEENT: Normocephalic, atraumatic. NECK: Supple. Carotid strokes are diminished and delayed. No JVD is noted. CHEST: Bilateral coarse rhonchi are heard. HEART: PMI is displaced laterally. There is a systolic murmur at the base . ABDOMEN: Soft and nontender with normoactive bowel sounds. EXTREMITIES: No clubbing, cyanosis, or edema. SKIN: Warm and dry. PSYCHIATRIC: Normal mood and affect. NEUROLOGIC: Alert and oriented x3. No gross motor or sensory deficits present. DIAGNOSTIC DATA: White count is 8.6, hemoglobin and hematocrit are 9.8 and 31.8 with a platelet count of 145,000. PT/PTT are 10 and 34.8. Venous blood gas 7.42, pCO2 of 51, pO2 of 48. Potassium is 4.1, BUN and creatinine are 41 and 6.2. Initial troponin 0.27, repeat is 0.95 and followup is 2.03 and at the same time her CK was 57 and 67 respectively. TSH 3.2. Stools were positive for occult blood and influenza serology is positive for influenza A. Electrocardiogram revealed a sinus rhythm with LVH, prior anteroseptal myocardial fraction pattern cannot be excluded. Chest x-ray reveals borderline cardiac silhouette enlargement with patchy infiltrates noted in the right upper and right middle lobe. Increased vascular markings are noted as well. IMPRESSION: 1. Elevated troponin with a negative CK may represent demand ischemia in the setting of respiratory illness. 2. Chronic renal failure on hemodialysis. 3. Apparent multilobar pneumonia. 4. Probable aortic stenosis. 5. Chronic history of hypertension. RECOMMENDATIONS: Beta-anita and topical nitrates will be continued for now. Anticoagulant therapy will be withheld given her guaiac-positive stools. Serial enzymes will be obtained. An echocardiogram will be obtained as well. Further recommendations will be made based upon her clinical course and results of the above findings. Thank you for this consultation. We will be happy to follow along as needed. Scott Livingston MD
[2018-11-01] MEDS ORDERED: Cefepime 0.25 GM in Sodium Chloride 0.9% 100 ML IVPB SCH (16:15)
--- NOTE | 2018-11-01 21:28 | PN ---
DATE: 10/31/2018 DIALYSIS PROGRESS NOTE SUBJECTIVE: This 78-year-old female is dialyzing in the [facility] Renal Dialysis Unit on the afternoon of 10/31/2018. I have reviewed this case in detail with dialysis nurse, Yusuf Henao, registered dialysis nurse. PHYSICAL EXAMINATION: VITAL SIGNS: Blood pressure is 146/71 with a pulse of 93. HEART: Regular S1 and S2. LUNGS: Have occasional rhonchi. No wheezing. ASSESSMENT AND PLAN: The plan is to dialyze the patient on a F 160, 140 sodium, 3 potassium, bicarb bath, aiming to remove 1 to 2 kg of fluid as tolerated. Lizeth Kimble MD MTDD
--- NOTE | 2018-11-01 21:30 | PN ---
DATE: 10/31/2018 DIALYSIS PROGRESS NOTE DATE OF DIALYSIS: 10/31/2018. This 78-year-old female, continues her hemodialysis, this Friday afternoon, 10/31/2018. Blood pressure during treatment was 175/89 with a pulse of 90 and most recently is 164/89 with a pulse of 77. As discussed with nurse, Yusuf Henao, registered nurse, we will aim for 1-2 kg of fluid removal as tolerated and the patient will be scheduled to receive Coreg, Norvasc for blood pressure control. She is ordered to have repeat blood work in the a.m. Lizeth Kimble MD MTDD
--- NOTE | 2018-11-01 22:50 | PN ---
DATE: 11/01/2018 SUBJECTIVE: This 78-year-old female was examined on the [facility] Cardiac Unit on the afternoon of 11/01/2018. This case was reviewed in detail with cardiac nurse Jyoti Arreguin, registered nurse. The patient was seen earlier this morning by Dr. Scott Livingston from Cardiology. Yesterday on my evaluation in the emergency room, she was noted to have an elevated troponin. She was admitted with fever and patchy infiltrates in her right upper and middle lobes. The patient denied any chest pressure but did complain of pleuritic type chest discomfort with coughing. She denied any prior cardiac history and has a history of stable hypertension. As discussed with Dr. Livingston, her elevated troponin with a negative CPK, most likely represents demand ischemia in the setting of her respiratory illness. He concurs with the use of beta-blockers and topical nitrates and has recommended an echocardiogram that has been ordered as well. At present, the patient is denying any chest pain, diaphoresis, shortness of breath. PHYSICAL EXAMINATION: VITAL SIGNS: Earlier this morning had a temperature of 99.1 now 97.8, respirations are 18, pulse 71 and blood pressure is 124/55. Pulse ox 97% on 2 liters nasal O2. She is in a normal sinus rhythm on the satellite project site monitor. HEENT: Head: Normocephalic, atraumatic. Eyes: No icterus. Ears: Clear. Throat: Noninjected. NECK: Supple. HEART: Regular, S1, S2. LUNGS: Have occasional rhonchi and expiratory wheezing that clear with coughing. ABDOMEN: Soft. EXTREMITIES: No edema. SKIN: Without rash. NEUROLOGICAL: Intact. PSYCHOLOGICAL: Alert. VASCULAR: Legs warm to touch. LABORATORY DATA: White count 6000, hemoglobin 8.1, previously 9.8, platelets 124,000. PT/INR 0.88, PTT 34.8. Sodium 135, K 3.7, chloride 96, bicarb 31, BUN 23, creatinine 3.9, random blood sugar 92. Iron 38, TIBC 196, percent saturation 19, ferritin 1410. Initial troponin was 0.95 with a CPK of 57. Her second troponin was 2.03 with a CPK of 67. Her third troponin is 1.65. Vitamin B12 652. Folic acid 20. TSH 3.2 normal. Procalcitonin level 2.14. Stool for occult blood was positive. Influenza A serology positive. Chest x-ray was reviewed and compared to chest x-ray dated 10/23/2018. It showed a patchy infiltrate throughout her right lung with a probable small right-sided effusion and mild left basilar atelectasis with questionable mild central pulmonary venous congestion. This morning's EKG was reviewed. It shows normal sinus rhythm with nonspecific ST-T wave changes. IMPRESSION: This is a 78-year-old female with influenza A, end-stage renal disease hemodialysis dependent with elevated troponin, probably secondary to demand ischemia in the setting of her respiratory infection with chest x-ray showing congestive heart failure and patchy infiltrates and history of chronic hypertension, now with [id number] anemia in the setting of guaiac-positive stools, hyperphosphatemia, hypothyroidism and degenerative arthritis. PLAN: My plans are to continue p.r.n. Zofran; inhalational Xopenex; vancomycin 500 mg IV post dialysis Friday, and Saturdays; Tylenol 650 p.o. every 6 hours p.r.n. fever or pain; Synthroid 75 mcg p.o. daily; Robitussin 100 mg p.o. every 4 hours p.r.n. cough; Renagel 800 mg p.o. t.i.d.; Pepcid 20 mg p.o. at bedtime; Norvasc 5 mg p.o. daily; nitroglycerin 1 inch to chest wall every 6 hours scheduled; Maxipime 500mg IV every 24 hours; Coreg 12.5 mg p.o. b.i.d.; and Ecotrin 81 mg p.o. daily was added today by Dr. Liivngston from Cardiology. Blood cultures are showing no growth at 24 hours, but her influenza A serology was indeed positive. The patient will continue on a renal heart-healthy diet with a 1000 mL p.o. fluid restriction, nasal O2, echocardiogram has been ordered and she remains on isolation. I will order repeat comprehensive metabolic panel and CBC for the a.m. She continues on Pepcid 20 mg p.o. at bedtime given renal failure which it is dose adjusted for and I will call a consultation with Dr. Milli Alegria from GI given her worsening anemia and guaiac-positive stools. Should her hemoglobin drops further, she will be considered for blood cell transfusion on dialysis. Greater than 35 minutes was spent in the care management, discussion of this patient with information systems consultant, Dr. Livingston, nurse Jyoti Arreguin, registered nurse and the patient. All questions were answered. Lizeth Kimble MD MTDLast
[2018-11-02] MEDS: Nitroglycerin 2% Ointment Foilpak UD TOP SCH ×5 (04:03→23:54)
[2018-11-02] MEDS: Levothyroxine 75 MCG TAB PO SCH (05:14)
[2018-11-02 06:41] LABS: HEMOGLOBIN 7.7 g/dL (12.0-16.0); MEAN CELL VOLUME 91.7 fl (80.0-105.0); MEAN CORPUSCULAR HEMOGLOBIN 28.9 pg (25.0-35.0); MEAN CORPUSCULAR HGB CONC 31.6 g/dl (31.0-37.0); MEAN PLATELET VOLUME 8.5 fl (7.0-11.0); RBC 2.66 10^6/uL (3.5-6.1); RED CELL DISTRIBUTION WIDTH 18.7 % (11.5-14.5); WHITE BLOOD COUNT 4.4 10^3/uL (4.5-11.0)
[2018-11-02] MEDS: Levalbuterol 0.63 MG/3 ML Inhal Soln UD IH SCH ×3 (07:27→20:37)
[2018-11-02 07:56] LABS: ALB/GLOB RATIO 1.1 (1.1-1.8); ALBUMIN 3.2 g/dL (3.0-4.8); CALCIUM 7.6 mg/dL (8.4-10.5); TROPONIN I 1.05 ng/mL
--- NOTE | 2018-11-02 09:12 | PN ---
DATE: 11/02/2018 SUBJECTIVE: The patient is seen sitting in bed on telemetry. She states she is feeling better. Her cough is improved. She has been afebrile. She denies any chest pain. MEDICATIONS: Her current medications include aspirin, cefepime, carvedilol 12.5 mg b.i.d., Norvasc 5 mg daily, Pepcid, Renagel, Robitussin, Synthroid, Xopenex. OBJECTIVE: GENERAL: She is an elderly woman, appears comfortable at rest. VITAL SIGNS: Blood pressure is 136/60 with a pulse of 80 and sinus and respirations are 16. She is afebrile. HEENT: No JVD. CHEST: Few scattered rhonchi are heard. No rales noted. HEART: PMI displaced laterally with a systolic murmur present at the base. ABDOMEN: Soft, nontender with normoactive bowel sounds. EXTREMITIES: No edema. DIAGNOSTIC DATA: Peak troponin was 2.03, followup this morning is 1.05, potassium 3.6, BUN and creatinine of 43 and 6.5. White count 4.4, hemoglobin and hematocrit 7.7 and 24.4 with an MCV of 19.2 and platelet count 134,000. IMPRESSION: 1. Elevated troponin with negative CK and in the absence of EKG changes or chest pain, likely due to demand ischemia secondary to acute respiratory illness. 2. Chronic renal failure, maintained on hemodialysis. 3. Multilobar pneumonia and influenza. 4. Probable aortic stenosis. 5. History of hypertension. 6. Worsening anemia. RECOMMENDATIONS: 1. Beta-anita therapy will be continued for now. Anticoagulant therapy is withheld given her guaiac-positive stools and fallen hemoglobin. Consideration should be given to possible transfusion. 2. GI workup for source of bleeding is advised. An echocardiogram is pending, it will be reviewed once performed. Conservative management of her cardiac issues appears most appropriate at the present time. From a cardiac standpoint, she appears stable to undergo endoscopy should that be necessary. We will continue to follow any further recommendations as appropriate. Scott Livingston MD [facility] # [phone]
--- NOTE | 2018-11-02 10:14 | CARD ---
APPROVED REPORT Date of service: 11/02/2018 EKG Measurement Heart [id number] <Conclusion> Normal sinus rhythm with sinus arrhythmia Anteroseptal infarct, age undetermined Abnormal ECG
--- NOTE | 2018-11-02 12:31 | CP.PCM.APN ---
Subjective - Date & Time of Evaluation Date of Evaluation: 11/02/18 Time of Evaluation: 11:00 - Subjective Subjective: pt senannd examined at bedside , s/p echo pt reports SOB Review of Systems - Review of Systems All systems: reviewed and no additional remarkable complaints except Objective - Vital Signs/Intake and Output Vital Signs (last 24 hours): Temp Pulse Resp BP Pulse Ox 100.1 F H 79 20 136/63 96 11/02/18 11:53 11/02/18 06:00 11/02/18 06:00 11/02/18 06:00 11/02/18 06:00 Intake and Output: 11/02/18 11/02/18 06:59 18:59 Intake Total 800 Balance 800 - Medications Medications: Current Medications Acetaminophen (Tylenol 325mg Tab) 650 mg PO Q6H PRN PRN Reason: fever or pain Last Admin: 11/02/18 11:53 Dose: 650 mg Amlodipine Besylate (Norvasc) 5 mg PO DAILY [facility] Last Admin: 11/01/18 10:22 Dose: 5 mg Carvedilol (Coreg) 12.5 mg PO BID [facility] Last Admin: 11/01/18 18:19 Dose: 12.5 mg Famotidine (Pepcid) 20 mg PO HS [facility] Last Admin: 11/01/18 22:11 Dose: 20 mg Guaifenesin (Robitussin) 100 mg PO Q4H PRN PRN Reason: Cough Cefepime HCl 0.5 gm/ Sodium (Chloride) 100 mls @ 25 mls/hr IVPB Q24H [facility] Levalbuterol HCl (Xopenex) 0.63 mg IH TIDRESP [facility] Last Admin: 11/02/18 07:27 Dose: 0.63 mg Levothyroxine Sodium (Synthroid) 75 mcg PO 0600 [facility] Last Admin: 11/02/18 05:14 Dose: 75 mcg Nitroglycerin (Nitro-Bid 2% Oint) 1 ea TOP Q6 [facility] Last Admin: 11/02/18 07:31 Dose: Not Given Ondansetron HCl (Zofran Inj) 4 mg IVP Q6H PRN PRN Reason: Nausea/Vomiting Pantoprazole Sodium (Protonix Ec Tab) 40 mg PO 0600 [facility] Sevelamer HCl (Renagel) 800 mg PO TID [facility] Last Admin: 11/02/18 11:13 Dose: 800 mg - Labs Labs: 11/02/18 06:20 11/02/18 06:20 PT 10.0 SECONDS (9.4-12.5) 10/31/18 07:34 INR 0.88 10/31/18 07:34 APTT 34.8 Seconds (26.9-38.3) 10/31/18 07:34 - Constitutional Appears: No Acute Distress - Respiratory Exam Respiratory Exam: Decreased Breath Sounds, NORMAL BREATHING PATTERN - Cardiovascular Exam Cardiovascular Exam: +S1, +S2 - GI/Abdominal Exam GI & Abdominal Exam: Soft, Normal Bowel Sounds - Neurological Exam Neurological Exam: Alert, Awake - Skin Skin Exam: Dry, Intact Assessment and Plan - Assessment and Plan (Free Text) Plan: ITS Impressions Chest X-Ray 10/31/18 07:52 IMPRESSION: Patchy infiltrate changes seen throughout the right lung with more confluent opacity in the right lung base. Probable small right-sided effusion mild left basilar atelectasis and/or infiltrate with tiny left effusion. Questionable mild central pulmonary venous congestion 78 yr old female with pmh sig for edrd, anemia of ckd, cad, GERD, hypothyroidism admitted with sob , chilo pain and cough found to have elevated troponins, heme positive stools, anemia and pathcy infiltrte right lung undergoing further evaluation and mgmt by cardiology and GI #SOB right lung infiltrate on iV antibiottics #acute anemia on anemia of CKD stool positive for occult blood added PPI GI consultation with Dr Alegria, ? scope, will follow GI recs #positive troponins ?demand ischemia in setting of HD and acute anemia cardiology consultation EKg with no acute s/t changes # positive influenza s/p dose of Tamiflu, no further dosing due to ESRD/ Low CrCL Pt for HD today with 2 units PRBC Will continue to follow BPCI/TIC - BPCIA/TIC Educated pt/family on BPCIA/CIR/Med to Bed Programs: Yes Flyers given, including [facility] Beneficiary letter: Yes Pt/family verbalized understanding & agreed to program: Yes
--- NOTE | 2018-11-02 13:45 | CP.PCM.CON ---
<Perfecto Flores - Last Filed: 11/02/18 16:48> History of Present Illness - History of Present Illness History of Present Illness: GI Consult Note for Dr. Alegria Reason for Consultation: Anemia, GI bleed Patient is a 78 yo F with PMH of ESRD on HD (TTS), HTN, CAD, anemia of chronic disease, PUD, GERD, arthritis, and hypothyroidism presents to [facility] due to cough and shortness of breath. Patient was found to be influenza positive and have infiltrates on CXR. Patient currently being treated for HCAP. GI is consulted due to BRBPR and anemia during hospital course. Patient was admitted 2 days ago with a hemoglobin of 9.8, but dropped to 7.7 today. Patient also reported one incidence of BRBPR. However, patient denies abdominal pain and melena. Patient denies any further incidences of GI bleed and has been having normal bowel movements. Patient denies prior EGD or colonoscopy. Patient denies CP, SOB, n/v/d, fever, chills, [place], or dizzienss. PMH: as above Surg: DOMINICE AVF All: Codeine SH: Denied tobacco, EtOH, and illicit drug use FHx: No GI history Medications as per MAR Review of Systems - Review of Systems All systems: reviewed and no additional remarkable complaints except (12 point ROS reviewed and is negative other than what is stated in HPI.) Past Patient History - Infectious Disease Hx of Infectious Diseases: None - Tetanus Immunizations Tetanus Immunization: Unknown - Past Medical History & Family History Past Medical History?: Yes - Past Social History Smoking Status: Former Smoker - CARDIAC Hx Cardiac Disorders: Yes Hx Congestive Heart Failure: Yes Hx Hypertension: Yes - PULMONARY Hx Respiratory Disorders: Yes (USED TO SMOKE 3 CIG A DAY. QUIT 20 YRS AGO.) Hx Pneumonia: Yes (10-11-18,2) Other/Comment: INFLUENZA - NEUROLOGICAL Hx Neurological Disorder: No - HEENT Hx HEENT Problems: Yes (GLASSES READING) Hx Cataracts: Yes (s/p surgery 2004) - RENAL Hx Chronic Kidney Disease: Yes Hx Dialysis: Yes Date of Last Dialysis Treatment: 10/29/18 Hx Renal Failure: Yes - ENDOCRINE/METABOLIC Hx Endocrine Disorders: Yes Hx Hypothyroidism: Yes - HEMATOLOGICAL/ONCOLOGICAL Hx Blood Disorders: Yes Hx Anemia: Yes - INTEGUMENTARY Hx Dermatological Problems: Yes Other/Comment: LEFT UPPER ARM SHUNT. - MUSCULOSKELETAL/RHEUMATOLOGICAL Hx Musculoskeletal Disorders: Yes Hx Arthritis: Yes Hx Falls: Yes - GASTROINTESTINAL Hx Gastrointestinal Disorders: Yes (PUD GERD,H/O GI BLEED.) Hx Gastroesophageal Reflux: Yes - GENITOURINARY/GYNECOLOGICAL Hx Genitourinary Disorders: Yes (ESRD ON HD) - PSYCHIATRIC Hx Psychophysiologic Disorder: No Hx Substance Use: No - SURGICAL HISTORY Hx Surgeries: Yes (LEFT UPPER ARM UNDERSIDE SHUNT,CATARACTS SX BILATERAL) - ANESTHESIA Hx Anesthesia: Yes Hx Anesthesia Reactions: No Hx Malignant Hyperthermia: No Meds Allergies/Adverse Reactions: Allergies Allergy/AdvReac Type Severity Reaction Status Date / Time codeine Allergy Intermediate ITCHING Verified 10/31/18 12:26 - Medications Medications: Current Medications Acetaminophen (Tylenol 325mg Tab) 650 mg PO Q6H PRN PRN Reason: fever or pain Last Admin: 11/02/18 11:53 Dose: 650 mg Amlodipine Besylate (Norvasc) 5 mg PO DAILY [facility] Last Admin: 11/01/18 10:22 Dose: 5 mg Carvedilol (Coreg) 12.5 mg PO BID [facility] Last Admin: 11/01/18 18:19 Dose: 12.5 mg Famotidine (Pepcid) 20 mg PO HS [facility] Last Admin: 11/01/18 22:11 Dose: 20 mg Guaifenesin (Robitussin) 100 mg PO Q4H PRN PRN Reason: Cough Cefepime HCl 0.5 gm/ Sodium (Chloride) 100 mls @ 25 mls/hr IVPB Q24H [facility] Levalbuterol HCl (Xopenex) 0.63 mg IH TIDRESP [facility] Last Admin: 11/02/18 13:21 Dose: Not Given Levothyroxine Sodium (Synthroid) 75 mcg PO 0600 [facility] Last Admin: 11/02/18 05:14 Dose: 75 mcg Nitroglycerin (Nitro-Bid 2% Oint) 1 ea TOP Q6 [facility] Last Admin: 11/02/18 07:31 Dose: Not Given Ondansetron HCl (Zofran Inj) 4 mg IVP Q6H PRN PRN Reason: Nausea/Vomiting Pantoprazole Sodium (Protonix Ec Tab) 40 mg PO 0600 [facility] Sevelamer HCl (Renagel) 800 mg PO TID [facility] Last Admin: 11/02/18 11:13 Dose: 800 mg Physical Exam - Constitutional Appears: No Acute Distress - Head Exam Head Exam: NORMAL INSPECTION - Eye Exam Eye Exam: EOMI, Normal appearance, PERRL - ENT Exam ENT Exam: Mucous Membranes Moist - Neck Exam Neck exam: Positive for: Normal Inspection - Respiratory Exam Respiratory Exam: Clear to Auscultation Bilateral. absent: Rales, Rhonchi, Wheezes - Cardiovascular Exam Cardiovascular Exam: RRR, +S1, +S2. absent: Gallop, Rubs, Systolic Murmur - GI/Abdominal Exam GI & Abdominal Exam: Soft. absent: Distended, Guarding, Rebound, Tenderness - Rectal Exam Rectal Exam: NORMAL INSPECTION. absent: Black Stool, Bloody Stool, Hemorrhoids, Fecal Impaction - Extremities Exam Extremities exam: Positive for: normal inspection - Back Exam Back exam: NORMAL INSPECTION - Neurological Exam Neurological exam: Alert, Oriented x3 - Skin Skin Exam: Normal Color, Warm Results - Vital Signs Recent Vital Signs: Last Vital Signs Temp 100.1 F H 11/02/18 11:53 Pulse 79 11/02/18 06:00 Resp 20 11/02/18 06:00 BP 136/63 11/02/18 06:00 Pulse Ox 96 11/02/18 06:00 - Labs Result Diagrams: 11/02/18 06:20 11/02/18 06:20 Labs: Laboratory Results - last 24 hr 11/02/18 11/02/18 11/02/18 06:20 06:20 08:05 WBC 4.4 L D RBC 2.66 L Hgb 7.7 L Hct 24.4 L MCV 91.7 MCH 28.9 MCHC 31.6 RDW 18.7 H Plt Count 134 MPV 8.5 Sodium 135 Potassium 3.6 Chloride 97 L Carbon Dioxide 29 Anion Gap 12 BUN 43 H Creatinine 6.5 H Est GFR ( Amer) 7 Est GFR (Non-Af Amer) 6 Random Glucose 99 Calcium 7.6 L Total Bilirubin 0.5 AST 46 H D ALT 22 Alkaline Phosphatase 72 Troponin I 1.05 H* D Total Protein 6.2 Albumin 3.2 Globulin 2.9 Albumin/Globulin Ratio 1.1 Blood Type O POSITIVE Antibody Screen Negative Crossmatch See Detail BBK History Checked Patient has bt Assessment & Plan - Assessment and Plan (Free Text) Assessment: 78 yo F with PMH of ESRD on HD (TTS), HTN, CAD, anemia of chronic disease, PUD, GERD, arthritis, and hypothyroidism admitted to [facility] for HCAP. GI consulted due to anemia and GI bleed. 1. Possible GI bleed 2. Anemia 3. Elevated troponin likely 2/2 demand ischemia per cardiology 4. ESRD on HD 5. HCAP Plan: - Would benefit EGD/colonoscopy once medically optimized - Transfusing 2 units pRBC today - Recommend transfuse to keep Hgb > 9 in patient with CAD - Cleared by cardiology for endoscopy - Further medical management per primary Patient discussed in detail with Dr. Alegria. Woody Flores, DO PGY2 <Milli Alegria V - Last Filed: 11/02/18 23:47> Meds - Medications Medications: Current Medications Acetaminophen (Tylenol 325mg Tab) 650 mg PO Q6H PRN PRN Reason: fever or pain Last Admin: 11/02/18 11:53 Dose: 650 mg Amlodipine Besylate (Norvasc) 5 mg PO DAILY [facility] Last Admin: 11/02/18 15:53 Dose: 5 mg Carvedilol (Coreg) 12.5 mg PO BID [facility] Last Admin: 11/02/18 19:14 Dose: 12.5 mg Famotidine (Pepcid) 20 mg PO HS [facility] Last Admin: 11/01/18 22:11 Dose: 20 mg Guaifenesin (Robitussin) 100 mg PO Q4H PRN PRN Reason: Cough Cefepime HCl 0.5 gm/ Sodium (Chloride) 100 mls @ 25 mls/hr IVPB Q24H [facility] Last Admin: 11/02/18 15:52 Dose: 25 mls/hr Levalbuterol HCl (Xopenex) 0.63 mg IH TIDRESP [facility] Last Admin: 11/02/18 20:37 Dose: 0.63 mg Levothyroxine Sodium (Synthroid) 75 mcg PO 0600 [facility] Last Admin: 11/02/18 05:14 Dose: 75 mcg Nitroglycerin (Nitro-Bid 2% Oint) 1 ea TOP Q6 [facility] Last Admin: 11/02/18 19:15 Dose: Not Given Ondansetron HCl (Zofran Inj) 4 mg IVP Q6H PRN PRN Reason: Nausea/Vomiting Pantoprazole Sodium (Protonix Ec Tab) 40 mg PO 0600 [facility] Sevelamer HCl (Renagel) 800 mg PO TID [facility] Last Admin: 11/02/18 19:13 Dose: 800 mg Results - Vital Signs Recent Vital Signs: Last Vital Signs Temp 98.2 F 11/02/18 18:00 Pulse 77 11/02/18 19:14 Resp 19 11/02/18 18:00 BP 130/62 11/02/18 19:14 Pulse Ox 96 11/02/18 06:00 - Labs Result Diagrams: 11/02/18 06:20 11/02/18 06:20 Labs: Laboratory Results - last 24 hr 11/02/18 11/02/18 11/02/18 06:20 06:20 08:05 WBC 4.4 L D RBC 2.66 L Hgb 7.7 L Hct 24.4 L MCV 91.7 MCH 28.9 MCHC 31.6 RDW 18.7 H Plt Count 134 MPV 8.5 Sodium 135 Potassium 3.6 Chloride 97 L Carbon Dioxide 29 Anion Gap 12 BUN 43 H Creatinine 6.5 H Est GFR ( Amer) 7 Est GFR (Non-Af Amer) 6 Random Glucose 99 Calcium 7.6 L Total Bilirubin 0.5 AST 46 H D ALT 22 Alkaline Phosphatase 72 Troponin I 1.05 H* D Total Protein 6.2 Albumin 3.2 Globulin 2.9 Albumin/Globulin Ratio 1.1 Blood Type O POSITIVE Antibody Screen Negative Crossmatch See Detail BBK History Checked Patient has bt Attending/Attestation - Attestation I have personally seen and examined this patient.: Yes I have fully participated in the care of the patient.: Yes I have reviewed all pertinent clinical information: Yes Notes (Text): This is an addendum to GI consult report dictated by the Transportation Planning Technician. The patient was seen and evaluated earlier. Medical records, lab studies, imagings were reviewed. Last 24 hours events reviewed. Agreed with the above treatment plan as outlined in Transportation Planning Technician 's notes with the addition of the following Patient was comfortable at the time of examination Abdomen was soft and nontender Would schedule for EGD and colonoscopy after medical optimization follow-up hemoglobin 11/02/18 23:45
[2018-11-02] MEDS: Cefepime 0.5 GM in Sodium Chloride 0.9% 100 ML IVPB SCH (15:52)
--- NOTE | 2018-11-02 16:18 | CARD ---
APPROVED REPORT Date of service: 11/02/2018 EXAM: Two-dimensional and M-mode echocardiogram with Doppler and color Doppler. INDICATION 2D DIMENSIONS Left Atrium (2D)4.6 (1.6-4.0cm)IVSd1.2 (0.7-1.1cm) LVDd4.4 (3.9-5.9cm)PWd1.6 (0.7-1.1cm) LVDs3.1 (2.5-4.0cm)FS (%) 29.1 % LVEF (%)56.1 (>50%) M-Mode DIMENSIONS Aortic Root3.00 (2.2-3.7cm)Aortic Cusp Exc.1.40 (1.5-2.0cm) Aortic Valve AoV Peak Ydzdfekb063.0cm/sAoV VTI58.4cmAO Peak GR.30mmHg LVOT Peak Lmxylkxu591.0cm/sLVOT VTI28.40cmAO Mean GR.16mmHg Mitral Valve MV E Ikfwlzmp696.0cm/sMV A Sxnigner719.0cm/sE/A ratio1.2 TDI Lateral E' Peak V5.56cm/sMedial E' Peak V6.53cm/sE/Lateral E'23.4 E/Medial E'19.9 Pulmonary Valve PV Peak Kkynsnkk71.3cm/sPV Peak Grad.3mmHg Tricuspid Valve TR Peak Mwctedbb232yb/sRAP MEWYQNKS52arSjKN Peak Gr.54mmHg NNVH51vrVo LEFT VENTRICLE The left ventricle is normal size. There is moderate concentric left ventricular hypertrophy. The left ventricular function is normal. The left ventricular ejection fraction is within the normal range. There is normal LV segmental wall motion. RIGHT VENTRICLE The right ventricle is normal size. The right ventricular systolic function is normal. ATRIA The left atrium is moderately dilated. The right atrium is mildly dilated. The interatrial septum is intact with no evidence for an atrial septal defect. AORTIC VALVE The aortic valve is moderately calcified. No aortic regurgitation is present. There is mild valvular aortic stenosis. MITRAL VALVE Mitral annular calcification is mild to moderate. Mitral regurgitation is moderate. TRICUSPID VALVE The tricuspid valve is normal in structure. There is moderate tricuspid regurgitation. PULMONIC VALVE There is mild pulmonic valvular regurgitation. GREAT VESSELS The aortic root is normal in size. The IVC is normal in size and collapses >50% with inspiration. PERICARDIAL EFFUSION There is no pleural effusion. There is no pericardial effusion. <Conclusion> Biatrial enlargement. Moderate concentric LVH. Normal LV systolic function. Mild . Moderate MR. Moderate TR.
--- NOTE | 2018-11-02 17:55 | PN ---
DATE: 11/02/2018 SUBJECTIVE: This 78-year-old female was examined at her bedside on the morning of 11/02/2018 in the presence of her nurse, Jessy Tabor, registered nurse. The patient remains weak and deconditioned in the setting of influenza A positive serology. She was admitted through the [facility] Emergency Room with cough, congestion, shortness of breath, fever and a positive influenza A serology. She is on schedule for hemodialysis today because of worsening anemia and guaiac-positive stools, and I have spoken to dialysis nurse, Tiny Daily, registered nurse, regarding blood cell transfusion orders and treatment for today. The patient is in a normal sinus rhythm on the cardiac nurse specialist. PHYSICAL EXAMINATION: VITAL SIGNS: Temperature is 97.9, respirations 20, pulse 79, blood pressure 136/63, pulse ox 96% on 2 L nasal O2. HEENT: Head: Normocephalic, atraumatic. Eyes: No icterus. Ears: Clear. Throat: Noninjected. NECK: Supple. HEART: Regular, S1 and S2. LUNGS: With occasional rhonchi that clear with coughing. ABDOMEN: Soft. EXTREMITIES: No edema. SKIN: Without rash. NEUROLOGICAL: Deconditioned. VASCULAR: Legs warm to touch. PSYCHOLOGICAL: Alert and oriented x3. LABORATORY DATA: White count 4400; hemoglobin 7.7, previously 8.1, previously 9.8; hematocrit 24.4; platelets 134,000. INR 0.88, PTT 34.8. Stool for occult blood was positive. Chemistry: Sodium 135, K 3.6, chloride 97, bicarb 29, BUN 43, creatinine 6.5, random blood sugar 96. Ferritin 1410, percent saturation 19. Bilirubin 0.5, AST 46, ALT 22, alk phos 72. Troponin is now down to 1.05, previously 1.65 and 2.03. TSH normal, 3.20. B12 of 652. Folic acid 20. IMPRESSION: A 78-year-old female admitted with influenza A, patchy infiltrates on chest x-ray, rule out concomitant pneumonia versus congestive heart failure and comorbidities of end-stage renal disease, hemodialysis dependent, now with gastrointestinal bleeding and resultant [id number] anemia in the setting of guaiac-positive stools, history of atypical chest pain, hypertension, stable atherosclerotic heart disease, peptic ulcer disease with gastroesophageal reflux disease, hyperphosphatemia, hypothyroidism and chronic obstructive pulmonary disease. PLAN: The plan as discussed with the patient, nursing, Dr. Alegria and Dr. Livingston will be to stop baby aspirin 81 mg p.o. daily given worsening anemia and guaiac-positive stools. She will be evaluated for endoscopy and colonoscopy. She is scheduled today for hemodialysis and 2 units of packed red blood cell transfusion. As discussed with renal dialysis nursing, I will aim to remove an additional 1 kg to 2 kg of fluid below her previous dry weight and then repeat a chest x-ray to see if the chest x-ray findings resolved. She also continues on Synthroid, p.r.n. Robitussin, Renagel, Pepcid dose reduced for renal failure, Norvasc, nitroglycerin to chest wall, Coreg and Maxipime 500 mg IV every 24 hours dose reduced for renal failure, and she will continue on vancomycin 500 mg IV post dialysis on Friday, and Friday for empiric treatment of possible community-acquired pneumonia in a renal dialysis patient. She is scheduled for hemoglobin and hematocrit in the a.m. of post dialysis chest x-ray. She continues on nasal O2, renal and heart-healthy diet with 1200 mL p.o. fluid restriction. She remains in respiratory isolation. Greater than 35 minutes was spent in the care management, review of labs, x-rays, outlining of orders and discussion of this patient with pharmacy, nursing, co-consultants from GI and Cardiology and the patient. All questions were answered. Lizeth Kimble MD [facility]
[2018-11-03] MEDS: Nitroglycerin 2% Ointment Foilpak UD TOP SCH ×4 (06:23→23:38)
[2018-11-03] MEDS: Levothyroxine 75 MCG TAB PO SCH (06:23)
[2018-11-03] MEDS: Pantoprazole 40 mg EC Tab PO SCH (06:23)
[2018-11-03 06:41] LABS: HEMOGLOBIN 11.7 g/dL (12.0-16.0)
[2018-11-03] MEDS: Levalbuterol 0.63 MG/3 ML Inhal Soln UD IH SCH ×3 (08:35→19:22)
--- NOTE | 2018-11-03 09:02 | RAD ---
Date of service: 11/02/2018 HISTORY: r/o CHF COMPARISON: 10/31/2018 FINDINGS: LUNGS: No active pulmonary disease. PLEURA: No significant pleural effusion identified, no pneumothorax apparent. CARDIOVASCULAR: No aortic atherosclerotic calcification present. Normal cardiac size. Improved vascular congestion and right-sided infiltrates OSSEOUS STRUCTURES: No significant abnormalities. VISUALIZED UPPER ABDOMEN: Normal. OTHER FINDINGS: None. IMPRESSION: Improved right-sided infiltrates and vascular congestion
--- NOTE | 2018-11-03 10:40 | CP.PCM.PN ---
<Perfecto Flores - Last Filed: 11/03/18 10:32> Subjective - Date & Time of Evaluation Date of Evaluation: 11/03/18 Time of Evaluation: 10:32 - Subjective Subjective: GI Progress Note for Dr. Alegria Patient seen and examined at bedside. No acute overnight events. Patient states breathing is improved. Patient denies CP, n/v/d, abdominal pain, fever, chills, [place], or dizziness. Objective - Vital Signs/Intake and Output Vital Signs (last 24 hours): Temp Pulse Resp BP Pulse Ox 98.2 F 76 18 154/77 H 96 11/03/18 06:00 11/03/18 06:00 11/03/18 06:00 11/03/18 06:00 11/02/18 06:00 Intake and Output: 11/03/18 11/03/18 06:59 18:59 Intake Total 780 Output Total 2 Balance 778 - Medications Medications: Current Medications Acetaminophen (Tylenol 325mg Tab) 650 mg PO Q6H PRN PRN Reason: fever or pain Last Admin: 11/02/18 11:53 Dose: 650 mg Amlodipine Besylate (Norvasc) 5 mg PO DAILY [facility] Last Admin: 11/02/18 15:53 Dose: 5 mg Carvedilol (Coreg) 12.5 mg PO BID [facility] Last Admin: 11/02/18 19:14 Dose: 12.5 mg Famotidine (Pepcid) 20 mg PO HS [facility] Last Admin: 11/02/18 23:54 Dose: 20 mg Guaifenesin (Robitussin) 100 mg PO Q4H PRN PRN Reason: Cough Cefepime HCl 0.5 gm/ Sodium (Chloride) 100 mls @ 25 mls/hr IVPB Q24H [facility] Last Admin: 11/02/18 15:52 Dose: 25 mls/hr Levalbuterol HCl (Xopenex) 0.63 mg IH TIDRESP [facility] Last Admin: 11/03/18 08:35 Dose: Not Given Levothyroxine Sodium (Synthroid) 75 mcg PO 0600 [facility] Last Admin: 11/03/18 06:23 Dose: 75 mcg Nitroglycerin (Nitro-Bid 2% Oint) 1 ea TOP Q6 [facility] Last Admin: 11/03/18 06:23 Dose: 1 ea Ondansetron HCl (Zofran Inj) 4 mg IVP Q6H PRN PRN Reason: Nausea/Vomiting Pantoprazole Sodium (Protonix Ec Tab) 40 mg PO 0600 [facility] Last Admin: 11/03/18 06:23 Dose: 40 mg Sevelamer HCl (Renagel) 800 mg PO TID [facility] Last Admin: 11/02/18 19:13 Dose: 800 mg - Labs Labs: 11/03/18 06:20 11/02/18 06:20 PT 10.0 SECONDS (9.4-12.5) 10/31/18 07:34 INR 0.88 10/31/18 07:34 APTT 34.8 Seconds (26.9-38.3) 10/31/18 07:34 - Constitutional Appears: No Acute Distress - Head Exam Head Exam: NORMAL INSPECTION - Eye Exam Eye Exam: Normal appearance - ENT Exam ENT Exam: Mucous Membranes Moist - Neck Exam Neck Exam: Normal Inspection - Respiratory Exam Respiratory Exam: Clear to Ausculation Bilateral. absent: Rales, Rhonchi, Whe ezes - Cardiovascular Exam Cardiovascular Exam: REGULAR RHYTHM. absent: Gallop, Rubs, Murmur - GI/Abdominal Exam GI & Abdominal Exam: Soft. absent: Distended, Guarding, Tenderness, Rebound - Extremities Exam Extremities Exam: Normal Inspection - Back Exam Back Exam: NORMAL INSPECTION - Neurological Exam Neurological Exam: Alert, Awake, Oriented x3 - Skin Skin Exam: Normal Color Assessment and Plan - Assessment and Plan (Free Text) Assessment: 78 yo F with PMH of ESRD on HD (TTS), HTN, CAD, anemia of chronic disease, PUD, GERD, arthritis, and hypothyroidism admitted to [facility] for HCAP. GI consulted due to anemia and GI bleed. 1. GI bleed 2. Anemia 3. Elevated troponin likely 2/2 demand ischemia per cardiology 4. ESRD on HD 5. HCAP Plan: - Would benefit EGD/colonoscopy once medically optimized - Appropriate response to transfusion - Recommend transfuse to keep Hgb > 9 in patient with CAD - Cleared by cardiology for endoscopy - Further medical management per primary Patient discussed in detail with Dr. Alegria. Woody Flores, DO PGY2 <Milli Alegria V - Last Filed: 11/03/18 23:41> Objective - Vital Signs/Intake and Output Vital Signs (last 24 hours): Temp Pulse Resp BP Pulse Ox 98.7 F 80 19 144/64 96 11/03/18 18:00 11/03/18 18:00 11/03/18 18:00 11/03/18 18:00 11/02/18 06:00 Intake and Output: 11/03/18 11/04/18 18:59 06:59 Intake Total 780 Output Total 2 Balance 778 - Medications Medications: Current Medications Acetaminophen (Tylenol 325mg Tab) 650 mg PO Q6H PRN PRN Reason: fever or pain Last Admin: 11/02/18 11:53 Dose: 650 mg Amlodipine Besylate (Norvasc) 5 mg PO DAILY [facility] Last Admin: 11/03/18 13:24 Dose: 5 mg Carvedilol (Coreg) 12.5 mg PO BID [facility] Last Admin: 11/03/18 17:17 Dose: 12.5 mg Famotidine (Pepcid) 20 mg PO HS [facility] Last Admin: 11/02/18 23:54 Dose: 20 mg Guaifenesin (Robitussin) 100 mg PO Q4H PRN PRN Reason: Cough Cefepime HCl 0.5 gm/ Sodium (Chloride) 100 mls @ 25 mls/hr IVPB Q24H [facility] Last Admin: 11/03/18 13:36 Dose: 25 mls/hr Levalbuterol HCl (Xopenex) 0.63 mg IH TIDRESP [facility] Last Admin: 11/03/18 19:22 Dose: 0.63 mg Levothyroxine Sodium (Synthroid) 75 mcg PO 0600 [facility] Last Admin: 11/03/18 06:23 Dose: 75 mcg Nitroglycerin (Nitro-Bid 2% Oint) 1 ea TOP Q6 [facility] Last Admin: 11/03/18 17:17 Dose: 1 ea Ondansetron HCl (Zofran Inj) 4 mg IVP Q6H PRN PRN Reason: Nausea/Vomiting Pantoprazole Sodium (Protonix Ec Tab) 40 mg PO 0600 [facility] Last Admin: 11/03/18 06:23 Dose: 40 mg Sevelamer HCl (Renagel) 800 mg PO TID [facility] Last Admin: 11/03/18 17:16 Dose: 800 mg - Labs Labs: 11/03/18 06:20 11/02/18 06:20 PT 10.0 SECONDS (9.4-12.5) 10/31/18 07:34 INR 0.88 10/31/18 07:34 APTT 34.8 Seconds (26.9-38.3) 10/31/18 07:34 Attending/Attestation - Attestation I have personally seen and examined this patient.: Yes I have fully participated in the care of the patient.: Yes I have reviewed all pertinent clinical information, including history, physical exam and plan: Yes Notes (Text): This is an addendum to GI followup report dictated by the Bottom Presser. The patient was seen and evaluated earlier. Medical records, lab studies, imagings were reviewed. Last 24 hours events reviewed. Agreed with the above treatment plan as outlined in Bottom Presser 's notes with the addition of the following This patient is admitted with a multiple medical issues Also found to be anemia status post 2u PRBC transfusion pneumonia and antibiotics End-stage kidney disease on hemodialysis elevated troponin levels, Cardiology note appreciated patient would benefit from EGD and colonoscopy evaluation We will discuss with the Dr. Kimble regarding endoscopy procedure and timing of dialysis 11/03/18 23:36
--- NOTE | 2018-11-03 12:37 | PN ---
DATE: 11/02/2018 SUBJECTIVE: This 78-year-old female is dialyzing in the renal dialysis unit on the afternoon of 11/02/2018. She is dialyzing on a F160, 140 sodium, two K bicarb bath. PHYSICAL EXAMINATION: VITAL SIGNS: Her blood pressure was 150/87 with a pulse of 87. HEART: Regular S1, S2. LUNGS: Occasional rhonchi that improved with coughing. LABORATORY DATA: Her white count was 4400, hemoglobin 7.7, hematocrit 24.4 and platelets 134,000. DIAGNOSTIC DATA: Chest x-ray was reviewed dated 10/31/2018 consistent with pulmonary vascular congestion and a possible right pleural effusion. PLAN: As discussed with dialysis nurse, Tiny Daily, we will lower her dry weight 2 kg below her previous dry weight. She started at 50 kg and I am aiming for 48 kg dry weight today and the patient will receive 2 units of packed red blood cells and have hemoglobin/hematocrit repeated in the a.m. Lizeth Kimble MD LOU
--- NOTE | 2018-11-03 13:35 | PN ---
DATE: 11/03/2018 DIALYSIS PROGRESS NOTE SUBJECTIVE: This 78-year-old female is currently in the [facility] renal dialysis unit where she is dialyzing on F160, 140 sodium, two-K bicarb bath. PHYSICAL EXAMINATION: VITAL SIGNS: Blood pressure 156/72, pulse of 72. HEART: Regular. S1, S2. LUNGS: Have occasional rhonchi. LABORATORY DATA: Repeat labs show potassium 3.6. ASSESSMENT AND PLAN: As discussed with dialysis nurse Yusuf Henao, registered nurse, she will be increased to a three K bicarb bath. Lizeth Kimble MD
[2018-11-03] MEDS: Cefepime 0.5 GM in Sodium Chloride 0.9% 100 ML IVPB SCH (13:36)
--- NOTE | 2018-11-03 13:44 | PN ---
DATE: 11/03/2018 RENAL DIALYSIS PROGRESS NOTE SUBJECTIVE: This 78-year-old female is in the [facility] renal dialysis unit, currently on a three K bicarb bath with a blood pressure of 144/75, pulse is 78. She started her hemodialysis today with a predialysis weight of 47.9 kg; and given her initial chest x-ray showing CHF and the patient being short of breath, we will lower today's dry weight to 45 kg as able. This was discussed with nurse Yusuf Henao, registered nurse. The patient's hemoglobin is 11.7 today. Lizeth Kimble MD MTDD
--- NOTE | 2018-11-03 14:15 | PN ---
DATE: 11/02/2018 SUBJECTIVE: This 78-year-old female is in the renal dialysis unit on the afternoon of 11/02/2018, and her blood pressure is currently 144/70 with a pulse of 80. She is tolerating dry UF aiming for 2 kg of fluid removal today and is currently receiving blood cell transfusion. Today's electrolytes show sodium 135, K 3.6, chloride 97, bicarb 29, BUN 43, creatinine 6.5 and random blood sugar 99. PLAN: She will continue on a three K bicarb bath Lizeth Kimble MD MTDD
--- NOTE | 2018-11-03 14:18 | CP.PCM.PCO ---
Physician Communication Note - Physician Communication Note Physician Communication Note: possible EGD/Colonoscopy as per Dr. Kimble, discussed with GI
[2018-11-04] MEDS: Nitroglycerin 2% Ointment Foilpak UD TOP SCH (05:42)
[2018-11-04] MEDS: Pantoprazole 40 mg EC Tab PO SCH (05:42)
[2018-11-04] MEDS: Levothyroxine 75 MCG TAB PO SCH (05:42)
[2018-11-04 06:25] LABS: HEMOGLOBIN 12.2 g/dL (12.0-16.0)
[2018-11-04] MEDS: Levalbuterol 0.63 MG/3 ML Inhal Soln UD IH SCH ×3 (07:30→19:32)
[2018-11-04] MEDS: Cefepime 0.5 GM in Sodium Chloride 0.9% 100 ML IVPB SCH (11:14)
--- NOTE | 2018-11-04 11:21 | PN ---
DATE: 11/04/2018 SUBJECTIVE: The patient is seen walking in her room on telemetry. She states she feels better. Dyspnea is improved. Cough is improved as well. She is afebrile. She is being evaluated for possible upper and lower endoscopy to assess the recent anemia. Her current medications include cefepime, carvedilol 12.5 mg b.i.d., Norvasc 5 mg daily, Pepcid, Protonix 40 mg daily, Robitussin, Synthroid and Xopenex. PHYSICAL EXAMINATION GENERAL: She is an elderly woman who appears comfortable at rest. VITAL SIGNS: Blood pressure is 130/56 with a pulse is 70 in sinus and respirations are 16. She is afebrile. HEENT: No JVD. CHEST: Few scattered rhonchi heard. HEART: PMI displaced laterally with systolic murmur at the base as well as at the apex. ABDOMEN: Soft and nontender. Normoactive bowel sounds. EXTREMITIES: No edema. DIAGNOSTIC DATA: Last hemoglobin and hematocrit 12.2 and 37.8. Last BUN and creatinine of 43 and 6.5. IMPRESSION: 1. Apparent influenza and multilobar pneumonia. 2. Elevated troponin with negative CK likely due to demand ischemia. 3. Chronic renal failure on hemodialysis. 4. Mild aortic stenosis. 5. Moderate mitral regurgitation. 6. Recent anemia, workup in progress. RECOMMENDATIONS: From cardiac standpoint, her current managements should continue. Topical nitrates can be discontinued. Telemetry monitoring can be discontinued as well. She is stable from a cardiac standpoint to undergo her endoscopic studies as planned once medically stable. We will continue to follow and make further recommendations as appropriate. Scott Livingston MD MTDLast
[2018-11-04 13:02] LABS: INR 0.96; PROTHROMBIN TIME 10.7 SECONDS (9.4-12.5)
[2018-11-04 13:06] LABS: ALB/GLOB RATIO 1.2 (1.1-1.8); ALBUMIN 3.8 g/dL (3.0-4.8); CALCIUM 7.9 mg/dL (8.4-10.5)
--- NOTE | 2018-11-04 16:10 | PN ---
DATE: 11/04/2018 SUBJECTIVE: This 78-year-old female who was examined on the cardiac poole at the [facility] on the morning of 11/04/2018. This case was reviewed in detail with her nurse, Lexx, registered nurse. The patient is being readied for endoscopy with Dr. Milli Alegria later today. She was on a clear liquid diet for breakfast and will be made n.p.o. for lunch. The patient was admitted with cough, fever, shortness of breath and worsening anemia with guaiac-positive stools and a positive influenza A serology. I did review her chest x-ray dated 11/02/2018, after aggressive hemodialysis and blood cell transfusion. It shows improved pulmonary vascular congestion as well as improved right-sided infiltrates. PHYSICAL EXAMINATION: VITAL SIGNS: At present, the patient remains in a normal sinus rhythm on the cardiac rehab nurse and her temperature is 97.9, respirations 18, pulse 71 and blood pressure 131/53. HEENT: Head is normocephalic, atraumatic. Eyes; no icterus. Ears; clear. Throat; non-injected. NECK: Supple. HEART: Regular S1, S2. LUNGS: With occasional rhonchi that clear with coughing. ABDOMEN: Soft. EXTREMITIES: No edema. SKIN: Without rash. NEUROLOGIC: Intact. PSYCHOLOGIC: Alert and oriented x3. VASCULAR: Legs warm to touch. LABORATORY DATA: A 2-D echocardiogram dated 11/02/2018 was reviewed with the patient. Left atrial size is enlarged at 4.6. There is no pericardial or pleural effusion. She has mild aortic stenosis, moderate mitral regurgitation and moderate tricuspid regurgitation. Her LV systolic function was normal. This was reviewed with the patient. Blood cultures are showing no growth. Current labs show hemoglobin 12.2, hematocrit 37.8. PT/INR 0.88, PTT 34.8. Sodium 135, K 3.6, chloride 97, bicarb 29, BUN 43, creatinine 6.5, random blood sugar 99. Bilirubin 0.5, AST 46, ALT 22, alk phos 72. Stool for occult blood was positive, influenza A serology positive. IMPRESSION: A 78-year-old female admitted with acute influenza A, congestive heart failure improved. Right-sided pulmonary infiltrates, rule out community-acquired pneumonia. End-stage renal disease hemodialysis dependent, [id number] anemia secondary to gastrointestinal bleeding, chronic hypertension, peptic ulcer disease with gastroesophageal reflux disease, hyperphosphatemia, hypothyroidism, degenerative arthritis. The plan at present is to continue holding baby aspirin until cleared by Gastroenterology. She continued on Xopenex inhalational therapy every 8 hours p.r.n. shortness of breath, Tylenol 650 p.o. every 6 hours p.r.n. pain or temperature greater than 101, Synthroid 75 mcg p.o. daily, Robitussin 100 mg p.o. every 4 hours p.r.n. cough, Renagel 800 mg p.o. three times a day, Pepcid 20 mg p.o. at bedtime, Norvasc 5 mg p.o. daily, Coreg 12.5 mg p.o. twice a day and Maxipime 500 mg IV daily with vancomycin 500 mg IV post dialysis on Friday, , Friday. Based on her clinical progress and GI workup, additional diagnostic testing will be entertained. Greater than 35 minutes was spent in the care management, review of labs, orders, x-rays and discussion of this patient with nurse practitioner, nursing and Dr. Milli Alegria. All questions were answered. Lizeth Kimble MD
[2018-11-04] MEDS ORDERED: Peg-Electrolyte Oral Soln 4L (Golytely) PO ONE (16:32)
[2018-11-04] MEDS ORDERED: Bisacodyl 5mg EC Tab PO ONE (19:00)
[2018-11-04] MEDS: guaiFENesin 100 mg/5 ml Syrup UD PO PRN (22:08)
[2018-11-05] MEDS: Levothyroxine 75 MCG TAB PO SCH (05:23)
[2018-11-05] MEDS ORDERED: Bisacodyl 5mg EC Tab PO ONE ×2 (06:00→12:57)
[2018-11-05] MEDS: Levalbuterol 0.63 MG/3 ML Inhal Soln UD IH SCH ×3 (07:23→20:20)
[2018-11-05 07:42] LABS: HEMOGLOBIN 12.5 g/dL (12.0-16.0)
[2018-11-05] MEDS: Cefepime 0.5 GM in Sodium Chloride 0.9% 100 ML IVPB SCH (12:48)
--- NOTE | 2018-11-05 14:43 | PN ---
DATE: 11/05/2018 SUBJECTIVE: This 78-year-old female is dialyzing in the [facility] dialysis unit on the morning of , 11/05/2018. She is on F 160, 140 sodium, 3K bicarb bath. PHYSICAL EXAMINATION: VITAL SIGNS: Blood pressure is 139/57, pulse is 71. HEART: S1, S2 regular. LUNGS: Have occasional rhonchi. ASSESSMENT AND PLAN: She is dialyzing on 400 mL blood flow rates and I am aiming for 500 mL dialysis fluid. Lizeth Kimble MD
--- NOTE | 2018-11-05 15:04 | PN ---
DATE: 11/05/2018 SUBJECTIVE: This 78-year-old female was examined in the renal dialysis unit at the [facility] on the morning of , 11/05/2018. PHYSICAL EXAMINATION: VITAL SIGNS: Blood pressure was 169/70, pulse was 81. HEART: S1, S2, regular. LUNGS: With occasional rhonchi. ABDOMEN: Soft. EXTREMITIES: No edema. LABORATORY DATA: She is wearing a protective mask given her influenza A positive serology. Labs show hemoglobin 12.5, hematocrit 37.3 and sodium 130, K 4.1, chloride 95, bicarb 23, BUN 35, creatinine 5.8, random blood sugar 86. ASSESSMENT AND PLAN: As discussed with nurse Yusuf Henao, registered dialysis nurse, her new dry weight will be approximately 45 kg and the patient is scheduled for colonoscopy later today. Lizeth Kimble MD
[2018-11-05] MEDS: guaiFENesin 100 mg/5 ml Syrup UD PO PRN (21:55)
[2018-11-06] MEDS: Levothyroxine 75 MCG TAB PO SCH (05:09)
[2018-11-06] MEDS: Levalbuterol 0.63 MG/3 ML Inhal Soln UD IH SCH ×2 (08:19→13:20)
[2018-11-06 08:55] LABS: BASO # 0.03 K/mm3 (0.0-2.0); BASO % 0.7 % (0.0-3.0); EOS # 0.5 (0.0-0.7); EOS % 11.1 % (1.5-5.0); HEMOGLOBIN 13.2 g/dL (12.0-16.0); LYMPH # 1.3 (1.2-3.4); LYMPH % 29.3 % (22.0-35.0); MEAN CELL VOLUME 89.2 fl (80.0-105.0); MEAN CORPUSCULAR HEMOGLOBIN 29.2 pg (25.0-35.0); MEAN CORPUSCULAR HGB CONC 32.8 g/dl (31.0-37.0); MEAN PLATELET VOLUME 8.6 fl (7.0-11.0); MONO # 0.4 (0.1-0.6); MONO % 8.4 % (1.0-6.0); RBC 4.52 10^6/uL (3.5-6.1); WHITE BLOOD COUNT 4.5 10^3/uL (4.5-11.0)
[2018-11-06 09:03] LABS: INR 0.94; PROTHROMBIN TIME 10.6 SECONDS (9.4-12.5)
[2018-11-06 09:08] LABS: ALB/GLOB RATIO 1.2 (1.1-1.8); ALBUMIN 4.4 g/dL (3.0-4.8); CALCIUM 8.8 mg/dL (8.4-10.5)
[2018-11-06] MEDS: Cefepime 0.5 GM in Sodium Chloride 0.9% 100 ML IVPB SCH ×2 (10:06→10:16)
[2018-11-06] MEDS ORDERED: Sodium Chloride 0.9% 1,000 ML IV SCH (12:15)
[2018-11-06] MEDS ORDERED: Propofol 10 mg/ml Inj (20 ML) ONE (12:51)
[2018-11-06 13:01] VITALS: RESP 18
[2018-11-06 14:33] VITALS: O2SAT 96
[2018-11-06 17:15] VITALS: BP 133/56; PULSE 76
--- NOTE | 2018-11-06 17:31 | DS ---
DATE: 11/06/2018 SUBJECTIVE: This 78-year-old female was examined at her bedside on the morning of 11/06/2018. The case was reviewed in detail with the patient, her nurse Marija Kong, nurse practitioner Jolynn Bran, registered nurse; and Dr. uR Garcia, Radiology. The patient is being readied for endoscopy, colonoscopy. She tolerated dialysis yesterday and has a new estimated dry weight of approximately 45 to 46 kg. She was admitted with fever, cough, shortness of breath and influenza A as well as bilobar upper and right lower lung pneumonia. PHYSICAL EXAMINATION: GENERAL: At present, she is in a normal sinus rhythm on property assessment monitor denying any active chest pain, hemoptysis or productive cough. VITAL SIGNS: Her temperature is 97.8, respirations 18, pulse 84 and blood pressure 141/58 with a pulse ox of 96% on room air. HEENT: Head normocephalic, atraumatic. Eyes: No icterus. Ears: Clear. Throat noninjected. NECK: Supple. HEART: S1, S2. LUNGS: With rhonchi posteriorly. No wheezing, no rales. ABDOMEN: Soft. EXTREMITIES: No edema. SKIN: Without rash. NEUROLOGIC: Intact. PSYCHOLOGIC: Alert. VASCULAR: Legs warm to touch. LABORATORY DATA: White count 4500, hemoglobin 13.2, hematocrit 40.3, platelets 269,000. Previous hemoglobin 7.7 with a hematocrit of 24.4. PT/INR 0.94. Sodium 137, K 4, chloride 97, bicarb 29, BUN 18, creatinine 4.8, random blood sugar 88, bilirubin 0.9, AST 50, ALT 19, and alk phos 97. Stool for occult blood on admission was positive and influenza A serology was positive. Most recent chest x-ray shows improvement in pulmonary vascular congestion and improving right upper and lower lung infiltrates. A CT scan of the chest dated 10/12/2018 was once again reviewed with Dr. Ru Garcia and showed dense areas of consolidation in the right upper lungs with air bronchograms noted most likely consistent with pneumonia. However, as discussed with Dr. Garcia, an underlying malignancy could not be excluded and followup was recommended. IMPRESSION: At present, this is a 78-year-old female with right upper lung, right lower lung pneumonia, influenza A, congestive heart failure improved secondary to volume overload, chronic hypertension, peptic ulcer disease with gastroesophageal reflux disease, recent gastrointestinal bleed with worsening anemia, [id number] in the setting of chronic renal failure, hyperlipidemia, hyperphosphatemia, hypothyroidism, and degenerative arthritis. PLAN: The plan was discussed with the patient and nursing will be to continue Maxipime 500 mg IV daily, Coreg 12.5 mg p.o. b.i.d., Norvasc 5 mg p.o. daily, Pepcid 20 mg p.o. h.s., Renagel 800 mg p.o. t.i.d., Robitussin 100 mg p.o. every 4 hours p.r.n. cough, Synthroid 75 mcg p.o. daily, and Xopenex inhalational therapy 0.63 t.i.d. The patient is receiving vancomycin 500 mg IV post dialysis on Friday, and Saturdays. As discussed with the patient, she will complete a 10 to 14-day course of parenteral antibiotics and will have a followup CT of the lung in the next 4-6 weeks to ensure resolution of the above radiographic findings. We will await the results of her endoscopy, colonoscopy results with Dr. Milli Alegria today and additional diagnostic workup and testing will be entertained based on these results. Greater than 35 minutes was spent in the care management, review of labs, orders, medication and radiographic x-rays with Dr. Ru Garcia and discussion of these findings with the patient and nursing. All questions were answered. Lizeth Kimble MD
[2018-11-06 17:51] VITALS: TEMP 97.6
[2018-11-07] MEDS ORDERED: Vancomycin 1 g Inj IVPB SCH (12:00)
[2018-11-07] MEDS ORDERED: Vancomycin 500mg in NS 500 MG/100 ML BAG IVPB SCH (12:00)
--- NOTE | 2018-11-10 11:27 | PQF ---
PROVIDER RESPONSE TEXT: Acute resolved systolic chf secondary to resolved ischemia due to pneumonia. REVIEWER QUERY TEXT: CHF Acuity and Type Congestive Heart Failure is documented in the Medical Record. Please document the type and acuity (in cludes probable or suspected) Such as: Type: -- Systolic -- Diastolic -- Combined -- Other, please specify Acuity: -- Acute -- Chronic -- Acute on chronic -- Other, please specify Also please document the underlying cause of the CHF (includes probable or suspected) a The patient's Clinical Indicators include: As per discharge summary documentation of congestive heart failure need type and acuity. Query created by: Kayla Christy on 11/10/2018 7:48 AM Electronically signed by: Lizeth Kimble IM 11/10/2018 11:23 AM
== END 2018-11-06 22:10 | DRG 193 ==
LOC: ED 07:10 → ERH 09:52 → 2RNO 21:27
PROVIDERS: ADMIT Internal Medicine; ATTEND Internal Medicine
PROC: 5A1D70Z Performance of Urinary Filtration, Intermittent, Less than 6 Hours Per Day (ICD-10-PCS; principal; 2018-10-31)
PROC: 5A1D70Z Performance of Urinary Filtration, Intermittent, Less than 6 Hours Per Day (ICD-10-PCS; 2018-11-02)
PROC: 30233N1 Transfusion of Nonautologous Red Blood Cells into Peripheral Vein, Percutaneous Approach (ICD-10-PCS; 2018-11-02)
PROC: 5A1D70Z Performance of Urinary Filtration, Intermittent, Less than 6 Hours Per Day (ICD-10-PCS; 2018-11-03)
PROC: 5A1D70Z Performance of Urinary Filtration, Intermittent, Less than 6 Hours Per Day (ICD-10-PCS; 2018-11-05)
PROC: 0DBM8ZX Excision of Descending Colon, Via Natural or Artificial Opening Endoscopic, Diagnostic (ICD-10-PCS; 2018-11-06)
PROC: 0DB98ZX Excision of Duodenum, Via Natural or Artificial Opening Endoscopic, Diagnostic (ICD-10-PCS; 2018-11-06)
PROC: 0DB68ZX Excision of Stomach, Via Natural or Artificial Opening Endoscopic, Diagnostic (ICD-10-PCS; 2018-11-06)
PROC: 0DB48ZX Excision of Esophagogastric Junction, Via Natural or Artificial Opening Endoscopic, Diagnostic (ICD-10-PCS; 2018-11-06)
DX: J11.00 Influenza due to unidentified influenza virus with unspecified type of pneumonia (principal); N18.6 End stage renal disease; I50.21 Acute systolic (congestive) heart failure; I13.2 Hypertensive heart and chronic kidney disease with heart failure and with stage 5 chronic kidney disease, or end stage renal disease; K92.2 Gastrointestinal hemorrhage, unspecified; D62 Acute posthemorrhagic anemia; I24.8 Other forms of acute ischemic heart disease; J44.0 Chronic obstructive pulmonary disease with (acute) lower respiratory infection; J18.1 Lobar pneumonia, unspecified organism; D63.1 Anemia in chronic kidney disease; E83.39 Other disorders of phosphorus metabolism; D12.4 Benign neoplasm of descending colon; K25.9 Gastric ulcer, unspecified as acute or chronic, without hemorrhage or perforation; K57.30 Diverticulosis of large intestine without perforation or abscess without bleeding; K22.70 Barrett's esophagus without dysplasia; I08.0 Rheumatic disorders of both mitral and aortic valves; K21.9 Gastro-esophageal reflux disease without esophagitis; I25.10 Atherosclerotic heart disease of native coronary artery without angina pectoris; E03.9 Hypothyroidism, unspecified; E78.5 Hyperlipidemia, unspecified; K64.8 Other hemorrhoids; M19.90 Unspecified osteoarthritis, unspecified site; Y95 Nosocomial condition; Z79.82 Long term (current) use of aspirin; Z87.891 Personal history of nicotine dependence; Z99.2 Dependence on renal dialysis; Z88.5 Allergy status to narcotic agent

== ENCOUNTER 2018-11-06 22:10 | Inpatient (IN) | payer OTHER, MEDICAID ==
[2018-11-07 01:42] VITALS: BMI 21.0
[2018-11-07] MEDS: Levothyroxine 75 MCG TAB PO SCH (06:03)
[2018-11-07] MEDS: Levalbuterol 0.63 MG/3 ML Inhal Soln UD IH SCH ×3 (07:45→19:47)
[2018-11-07] MEDS ORDERED: Cefepime 0.5 GM in Sodium Chloride 0.9% 100 ML IVPB SCH (10:00)
[2018-11-07] MEDS ORDERED: Vancomycin 500mg in NS 500 MG/100 ML BAG IVPB SCH ×2 (12:00→19:00)
--- NOTE | 2018-11-07 17:01 | HP ---
DATE OF EXAM: 11/07/2018 HISTORY OF PRESENT ILLNESS: This 78-year-old female was admitted to [facility] and was evaluated on 11/07/2018. She was admitted with influenza A, shortness of breath, decompensated systolic congestive heart failure and right upper lung and right low lower lung pneumonia. PAST MEDICAL HISTORY: Significant for end-stage renal disease hemodialysis dependent. She dialyzes at [facility] on Tuesdays, and Saturdays. She also has chronic hypertension, hyperlipidemia, hyper phosphatemia, peptic ulcer disease with GERD, hypothyroidism, degenerative arthritis, chronic obstructive pulmonary disease and anemia of chronic disease. The patient was noted to have [id number] anemia requiring blood cell transfusion secondary to blood in her stool. Endoscopy and colonoscopy recently completed confirmed gastric ulcer, gastritis and diverticulosis on colonoscopy. OUTPATIENT MEDICATIONS: Include baby aspirin, Coreg, Synthroid, multivitamin, Protonix, Renagel and Norvasc. ALLERGIES: THE PATIENT HAS A SENSITIVITY TO CODEINE. SOCIAL HISTORY: Nondrinker, nonsmoker, non IV drug misuser. FAMILY HISTORY: Noncontributory. REVIEW OF SYSTEMS: CONSTITUTIONAL: The patient was admitted with fever and chills secondary to influenza A. HEENT: Head; no headache or seizures. Eyes; no change in visual acuity. Ears; no hearing loss. Throat; swallowing difficulty. NECK: No stiffness. CARDIAC: Chronic hypertension. PULMONARY: COPD, now with right upper lung and right lower lung pneumonia. GASTROINTESTINAL: Peptic ulcer disease with GERD, gastritis, gastric ulcer and diverticulosis. GENITOURINARY: End-stage renal disease hemodialysis dependent. VASCULAR: No claudication. PSYCHOLOGIC: No depression. NEUROLOGIC: No knowledge of stroke. PHYSICAL EXAMINATION: VITAL SIGNS: Temperature 98.5, respirations 14, pulse 73 and blood pressure 154/58. Pulse ox 96% room air. HEENT: Head normocephalic, atraumatic. Eyes no icterus. Ears; clear. Throat; non-injected. NECK: Supple. HEART: Regular S1, S2. LUNGS: With occasional rhonchi that clear with coughing. ABDOMEN: Soft. EXTREMITIES: No edema. SKIN: Without rash. NEUROLOGIC: Intact. PSYCHOLOGIC: Alert. VASCULAR: Legs warm to touch. IMPRESSION AND PLAN: This is a 78-year-old female with pneumonia, status post influenza A, end-stage renal disease hemodialysis dependent, chronic hypertension, peptic ulcer disease with gastroesophageal reflux disease, gastric ulcer, diverticulosis, hypothyroidism, degenerative arthritis and anemia of chronic disease. The patient will continue on a renal diet heart-healthy with a 1000 mL p.o. fluid restriction. Medications will include Xopenex inhalational therapy, IV vancomycin post dialysis, Maxipime 0.5 g IV daily, Pepcid 20 mg p.o. daily, Synthroid 75 mcg p.o. daily and vancomycin 500 mg IV post dialysis Tuesdays, and Saturdays, Coreg 12.5 mg p.o. twice a day. The patient will receive physical and occupational therapy, pulmonary toiletry, serial x-rays and based on clinical progress, additional diagnostic workup will be entertained. Greater than 35 minutes were spent in the care of this patient today. Lizeth Kimble MD MTDD
[2018-11-08] MEDS: Cefepime 0.5 GM in Sodium Chloride 0.9% 100 ML IVPB SCH (05:42)
[2018-11-08] MEDS: Levothyroxine 75 MCG TAB PO SCH (05:42)
[2018-11-08] MEDS: Levalbuterol 0.63 MG/3 ML Inhal Soln UD IH SCH ×3 (07:17→19:48)
--- NOTE | 2018-11-08 19:20 | PN ---
DATE: 11/08/2018 SUBJECTIVE: This 78-year-old female remains hospitalized in the [facility] on 11/08/2018. She is being treated with parenteral antibiotics, pulmonary toiletry and physical and occupational therapy for right upper and lower lung pneumonia complicated by influenza A. The patient today denied any fever, chills, chest pain or shortness of breath. PHYSICAL EXAMINATION: VITAL SIGNS: Temperature 97.1, respirations 18, pulse 68, blood pressure 139/55, and pulse ox 97% on 2 L nasal O2. HEENT: Head; normocephalic and atraumatic. Eyes; no icterus. Ears; clear. Throat; noninjected. NECK: Supple. HEART: Regular S1 and S2. LUNGS: With occasional rhonchi right posterior lung field that clear with coughing. ABDOMEN: Soft. EXTREMITIES: No edema. SKIN: Without rash. NEUROLOGICAL: Intact. PSYCHOLOGICAL: Alert. VASCULAR: Legs warm to touch. LABORATORY DATA: TSH 2.51 therapeutic. IMPRESSION: A 78-year-old female with community-acquired right lung pneumonia complicated by influenza A and comorbidities of stable atherosclerotic heart disease, chronic hypertension, peptic ulcer disease with gastroesophageal reflux disease, iyouz-[id number] anemia secondary to gastrointestinal bleeding secondary to gastritis, gastric ulcer, diverticulosis, hypothyroidism, chronic obstructive pulmonary disease, and end-stage renal disease, hemodialysis dependent. PLAN: The plan at present is to hold all anticoagulation in the setting of gastric ulcer and the patient will continue on Maxipime 0.5 g IV daily, vancomycin 500 mg post dialysis Friday, , Saturdays, Coreg 12.5 mg p.o. b.i.d., holding for systolic blood pressure less than 90 or pulse less than 50, Pepcid 20 mg p.o. daily, Synthroid 75 mcg p.o. daily, Xopenex inhalational therapy t.i.d., Tylenol 650 p.o. every 6 hours p.r.n. pain or temperature greater than 101 and Zofran 4 mg IV every 6 hours p.r.n. nausea and vomiting. The patient is scheduled to have a heart-healthy renal diabetic diet with a 1000 mL p.o. fluid restriction. She is ordered to have 2 L nasal O2, physical therapy, occupational therapy and will have serial chest x-rays. As discussed with the patient in detail, I will schedule an outpatient CT of her lung in approximately 4-6 weeks' time to ensure that all evidence of inflammation and infection have cleared at that point in the future. Greater than 30 minutes was spent in the care management, review of labs, orders and x-rays and outlining of care for this patient today. All questions were answered. Lizeth Kimble MD
[2018-11-09] MEDS: Levothyroxine 75 MCG TAB PO SCH (05:28)
[2018-11-09] MEDS: Cefepime 0.5 GM in Sodium Chloride 0.9% 100 ML IVPB SCH (05:28)
[2018-11-09] MEDS: Levalbuterol 0.63 MG/3 ML Inhal Soln UD IH SCH ×3 (08:13→20:42)
[2018-11-09 08:23] LABS: HEMOGLOBIN 11.5 g/dL (12.0-16.0); MEAN CELL VOLUME 89.4 fl (80.0-105.0); MEAN CORPUSCULAR HGB CONC 32.4 g/dl (31.0-37.0); MEAN PLATELET VOLUME 7.9 fl (7.0-11.0); RBC 3.97 10^6/uL (3.5-6.1); RED CELL DISTRIBUTION WIDTH 16.8 % (11.5-14.5); WHITE BLOOD COUNT 4.2 10^3/uL (4.5-11.0)
[2018-11-09 08:36] LABS: ALB/GLOB RATIO 1.1 (1.1-1.8); ALBUMIN 3.6 g/dL (3.0-4.8); CALCIUM 8.6 mg/dL (8.4-10.5)
[2018-11-09] MEDS ORDERED: Vancomycin 1 g Inj IVPB SCH (10:30)
[2018-11-09] MEDS ORDERED: Vancomycin 500mg in NS 500 MG/100 ML BAG IVPB SCH (10:30)
[2018-11-09] MEDS ORDERED: Cefepime 0.5 GM in Sodium Chloride 0.9% 100 ML IVPB SCH (10:30)
--- NOTE | 2018-11-09 11:46 | PN ---
DATE: 11/09/2018 SUBJECTIVE: This 78-year-old female was examined at her bedside in the [facility] on the morning of Friday, November 09, 2018. This case was reviewed in detail with nurse, Kimmy Pritchard, registered nurse. The patient is cooperating with nursing staff. She is attending physical therapy and tolerating parenteral antibiotics for right upper and lower lung pneumonia. OBJECTIVE: VITAL SIGNS: On physical exam, her temperature is 98, respirations 20, pulse 85 and blood pressure 158/58 with a pulse ox of 97%. HEENT: Head is normocephalic, atraumatic. Eyes, no icterus. Ears, clear. Throat, non-injected. NECK: Supple. HEART: Regular S1 and S2. LUNGS: Clear. ABDOMEN: Soft. EXTREMITIES: No edema. SKIN: Without rash. NEUROLOGIC: Deconditioned. VASCULAR: Legs warm to touch. PSYCHOLOGICAL: Alert and oriented x3. LABORATORY DATA: White count 4200, hemoglobin 11.5, hematocrit 35.5, platelets 246,000. Sodium 135, K 3.7, chloride 97, bicarb 31, BUN 26, creatinine 5.8, random blood sugar 100, calcium 8.6, bilirubin 0.6, AST 32, ALT is 17, alk phos 81. TSH 251. IMPRESSION: This is a 78-year-old female with right upper and right lower lung pneumonia, community-acquired in a patient on hemodialysis on Friday, and Friday with comorbidities of chronic hypertension, stable atherosclerotic heart disease, peptic ulcer disease with gastroesophageal reflux disease, hypothyroidism, degenerative arthritis, chronic obstructive pulmonary disease and itabm-em-sjegudv anemia in the setting of recent gastrointestinal bleed secondary to gastritis, gastric ulcer and diverticulosis. PLAN: My plans as discussed with the patient and nursing are to continue Maxipime 500 mg IV daily, vancomycin 500 mg post dialysis Friday, and Friday, Coreg 12.5 mg p.o. b.i.d., Pepcid 20 mg p.o. at bedtime, Synthroid 75 mcg p.o. daily, Xopenex inhalational therapy t.i.d., Zofran 4 mg IV every 6 hours p.r.n. nausea and vomiting and Tylenol 650 p.o. every 6 hours p.r.n. fever or pain. The patient will continue on a heart-healthy renal diet with 1000 mL p.o. fluid restriction. She is ordered to have physical and occupational therapy and will have a followup chest x-ray later this week. As discussed with the patient and nursing at bedside, the followup CT of the lung will be requested within approximately 4-6 weeks of discharge to ensure resolution of right upper and lower lung infiltrates. Greater than 30 minutes was spent in the care management, adjustment of medication, outlining of orders and discussion of this patient with herself and nursing. All questions were answered. Lizeth Kimble MD (Delete this signature block when dictator is a preceptor.) cc: MD Cele (Delete if not dictated.) MTDLast
[2018-11-10] MEDS: Levothyroxine 75 MCG TAB PO SCH (05:15)
[2018-11-10] MEDS: Cefepime 0.5 GM in Sodium Chloride 0.9% 100 ML IVPB SCH (05:15)
[2018-11-10] MEDS: Levalbuterol 0.63 MG/3 ML Inhal Soln UD IH SCH ×3 (07:18→20:47)
--- NOTE | 2018-11-10 13:28 | PN ---
DATE: 11/10/2018 SUBJECTIVE: This 78-year-old female was examined on the morning of 11/10/2018. She is starting to ambulate more independently and is less deconditioned than on admission. She still has a cough but no production of phlegm or hemoptysis. She denies any fever, chills, or chest pain. PHYSICAL EXAMINATION: VITAL SIGNS: Temperature was 98.1, respirations 18, pulse 87, blood pressure 154/62, pulse ox 95%. HEENT: Head: Normocephalic, atraumatic. Eyes: No icterus. Ears: Clear. Throat: Non-injected. NECK: Supple. HEART: Regular, S1, S2. LUNGS: Occasional rhonchi that clear with coughing. ABDOMEN: Soft. EXTREMITIES: No edema. SKIN: Without rash. NEUROLOGIC: Intact. PSYCHOLOGIC: Alert. VASCULAR: Legs warm to touch. LABORATORY DATA: White count 4200, hemoglobin 11.5, hematocrit 35.5, platelets 246,000. Sodium 135, K 3.7, chloride 97, bicarb 31, BUN 26, creatinine 5.8, random blood sugar 100, calcium 8.6, bilirubin 0.6. AST 32, ALT 17, alk phos 81. TSH normal, 2.51. IMPRESSION: A 78-year-old female with right upper and right lower lung pneumonia, community-acquired, on hemodialysis Friday, , and Saturdays with comorbidities of hypertension, stable atherosclerotic heart disease, peptic ulcer disease with gastroesophageal reflux disease, recent gastric ulcer, gastritis, diverticulosis, hypothyroidism, degenerative arthritis, chronic obstructive pulmonary disease, and acute anemia secondary to gastrointestinal bleeding now resolved in the setting of anemia of chronic disease secondary to chronic renal failure. PLAN: The patient to attend hemodialysis later today. She is attending physical therapy for reconditioning and gait training. She continues on Maxipime 0.5 g IV daily, vancomycin 500 mg IV post dialysis Friday, , Friday, and will continue one dose adjusted Coreg, Pepcid, Synthroid, Tylenol, Xopenex, and Zofran. Ultimate plan will be for discharge to home with a followup CAT scan arranged through my office in the next four to six weeks. Greater than 30 minutes was spent in the care management, review of labs, orders, x-rays, and discussion of this patient with herself, nursing, and physical therapy. All questions were answered. Lizeth Kimble MD MTDLast
[2018-11-10] MEDS ORDERED: Vancomycin 500mg in NS 500 MG/100 ML BAG IVPB SCH ×2 (18:00→20:00)
[2018-11-11] MEDS: Cefepime 0.5 GM in Sodium Chloride 0.9% 100 ML IVPB SCH (05:33)
[2018-11-11] MEDS: Levothyroxine 75 MCG TAB PO SCH (05:33)
[2018-11-11] MEDS: Levalbuterol 0.63 MG/3 ML Inhal Soln UD IH SCH ×3 (07:28→20:16)
--- NOTE | 2018-11-11 16:48 | PN ---
DATE: 11/11/2018 SUBJECTIVE: This 78-year-old female was examined at her bedside in the presence of her son, Meir, and two [id number]. The patient according to nurse, Adela Reyez, registered nurse, is cooperating with physical therapy, nursing and is tolerating parenteral antibiotics for right upper lung and right lower lung pneumonia. Of note, the patient is improving in her deconditioned status and is tolerating dialysis treatments Friday, and Friday afternoons. PHYSICAL EXAMINATION: VITAL SIGNS: Temperature was 97.7, respirations 18, pulse 92 and blood pressure 173/83. HEENT: Head: Normocephalic, atraumatic. Eyes: No icterus. Ears: Clear. Throat: Noninjected. NECK: Supple. HEART: S1, S2. LUNGS: With rhonchi that clear with coughing. ABDOMEN: Soft. EXTREMITIES: No edema. SKIN: Without rash. NEUROLOGICAL: Intact. PSYCHOLOGICAL: Alert. VASCULAR: Legs warm to touch. LABORATORY DATA: White count 4200, hemoglobin 11.5, hematocrit 35.5, platelets 246,000. Sodium 135, K 3.7, chloride 97, bicarb 31, BUN 26, creatinine 5.8, random blood sugar 100, calcium 8.6. Bilirubin 0.6, AST 32, ALT 17 and alk phos 81. TSH normal 2.51. IMPRESSION: A 78-year-old female with community-acquired right upper and right lower lung pneumonia in the setting of end-stage renal disease, hemodialysis dependent, and recent influenza A positive serology with comorbidities, now with accelerated hypertension, stable atherosclerotic heart disease, peptic ulcer disease, hypothyroidism, degenerative arthritis, chronic obstructive pulmonary disease and end-stage renal disease, hemodialysis dependent. PLAN: I had a lengthy bedside discussion in the presence of her son, Meir, and two [id number] regarding her abnormal chest x-ray, CT and the need for followup CT in approximately one month's time as an outpatient. They are aware of my concerns of non-resolution of radiographic findings in a woman with now two episodes of pneumonia and influenza A within the past 4 weeks. They state they will be compliant with this recommendation and bring the patient to my office for followup of her CAT scan of the lung abnormalities within one months' time. Greater than 35 minutes was spent in the care management, review of labs, orders, x-rays, adjustment of medication including increasing Coreg to 25 mg p.o. b.i.d. and starting clonidine 0.1 mg p.o. every 4 hours p.r.n. accelerated hypertension if systolic blood pressure should be greater than 160 or diastolic blood pressure greater than 100. All of the above was reviewed with the patient, family members at bedside and nurse, Adela Reyez, registered nurse. All questions were answered. Lizeth Kimble MD
[2018-11-11] MEDS ORDERED: Vancomycin 500mg in NS 500 MG/100 ML BAG IVPB SCH (22:00)
[2018-11-12] MEDS: Cefepime 0.5 GM in Sodium Chloride 0.9% 100 ML IVPB SCH (05:32)
[2018-11-12] MEDS: Levothyroxine 75 MCG TAB PO SCH (05:33)
[2018-11-12] MEDS: Levalbuterol 0.63 MG/3 ML Inhal Soln UD IH SCH ×3 (07:15→20:48)
--- NOTE | 2018-11-12 15:26 | PN ---
DATE: 11/12/2018 SUBJECTIVE: This 78-year-old female remains hospitalized at the [facility] on the morning of , 11/12/2018. She is receiving parenteral vancomycin and Maxipime dose adjusted for end-stage renal disease, hemodialysis dependent, for her right upper and right lower lung pneumonia. As discussed with the patient, nursing and family, she will require a followup CT in approximately four weeks' time to ensure adequacy of treatment and resolution of infiltrates. The patient had her blood pressure medication readjusted today for accelerated hypertension, and at present, denies any fever, chills, chest pain, shortness of breath or hemoptysis. PHYSICAL EXAMINATION: VITAL SIGNS: Her temperature is 97.7, respirations 18, pulse 78 and blood pressure 154/68. Pulse ox 97%. HEENT: Head: Normocephalic, atraumatic. Eyes: No icterus. Ears: Clear. Throat: Noninjected. NECK: Supple. HEART: Regular S1, S2. LUNGS: With occasional rhonchi that clear with coughing. No wheezing was appreciated. No rales. ABDOMEN: Soft. EXTREMITIES: No edema. SKIN: Without rash. NEUROLOGICAL: Intact. PSYCHOLOGICAL: Alert. VASCULAR: Legs warm to touch. LABORATORY DATA: Blood culture shows no growth at present. White count 4200, hemoglobin 11.5, hematocrit 35.5, platelets 246,000. Sodium 135, K 3.7, chloride 97, bicarb 31, BUN 26, creatinine 5.8, random blood sugar 100, calcium 8.6. Bilirubin 0.6, AST 32, ALT 17, alk phos 81. TSH is normal at 2.51. IMPRESSION: A 78-year-old female with community-acquired right upper, right lower lung pneumonia with comorbidities of accelerated hypertension, chronic atherosclerotic heart disease stable, peptic ulcer disease with gastroesophageal reflux disease, recent gastrointestinal bleed secondary to a gastric ulcer, also with need for blood cell transfusion, hypothyroidism, end-stage renal disease hemodialysis dependent, chronic obstructive pulmonary disease, degenerative arthritis. PLAN: The plan is to continue Zofran, Xopenex, IV vancomycin, p.r.n. Tylenol, Synthroid, Pepcid, Coreg, Maxipime, clonidine and Renagel. The patient is scheduled for dialysis this afternoon. She will have her aspirin put on hold in light of her recent stomach ulcer and will have a followup CT of the chest in approximately 4 weeks. Once her antibiotic course is completed, she will be discharged to home and monitored in my office as an outpatient. Greater than 30 minutes were spent on her clinical care today. All of the above was reviewed with the patient and nursing. All questions were answered. Lizeth Kimble MD MTDD
[2018-11-12 16:54] VITALS: RESP 20; TEMP 97.9; O2SAT 94
[2018-11-12] MEDS: Vancomycin 500mg in NS 500 MG/100 ML BAG IVPB SCH (21:28)
[2018-11-13] MEDS: Cefepime 0.5 GM in Sodium Chloride 0.9% 100 ML IVPB SCH (05:16)
[2018-11-13] MEDS: Levothyroxine 75 MCG TAB PO SCH (05:17)
[2018-11-13] MEDS: Levalbuterol 0.63 MG/3 ML Inhal Soln UD IH SCH ×3 (07:39→20:38)
--- NOTE | 2018-11-13 14:21 | PN ---
DATE: 11/13/2018 SUBJECTIVE: This 78-year-old female was examined at her bedside at the [facility] on the morning of 11/13/2018 and this case was reviewed with nurse, Noelle Wesley; charge nurse Adela Reyez registered nurse; and Elo Rosales, child protective services social worker. The patient is tolerating parenteral antibiotics for community-acquired right upper and right lower lung pneumonia and is tolerating hemodialysis sessions without incident. She will be completing her antibiotic course tomorrow and is in the process of having outpatient hemodialysis schedule and transport finalized. PHYSICAL EXAMINATION: GENERAL: She denied any fever, chills, chest pain or shortness of breath. VITAL SIGNS: Her temperature was 97.9, respirations 20, pulse 76 and blood pressure 135/65 with a pulse ox of 94%. HEENT: Head: Normocephalic, atraumatic. Eyes: No icterus. Ears: Clear. Throat: Noninjected. NECK: Supple. HEART: Regular S1, S2. LUNGS: With occasional rhonchi that clear with coughing. No wheezing, no rales. ABDOMEN: Soft. EXTREMITIES: No edema. SKIN: Without acute rash. NEUROLOGIC: Intact. PSYCHOLOGIC: Alert. VASCULAR: Legs warm to touch. LABORATORY DATA: Recent blood culture shows no growth. White count 4200, hemoglobin 11.5, hematocrit 35.5, platelets 246,000. Sodium 135, K 3.7, chloride 97, bicarb 31, BUN 26, creatinine 5.8, random blood sugar 100, calcium 8.6. Bilirubin 0.6, AST 32, ALT 17, alk phos 81 and TSH 251. IMPRESSION: This is a 78-year-old female with community-acquired right upper and right lower lung pneumonia and comorbidities of anemia of chronic disease; anemia of gastrointestinal bleeding secondary to an antral ulcer and comorbidities of accelerated hypertension; stable atherosclerotic heart disease; end-stage renal disease, hemodialysis dependent; hyperphosphatemia; hypothyroidism; and chronic obstructive pulmonary disease. PLAN: The plan at present is to continue Zofran, Xopenex, IV vancomycin, Tylenol, Synthroid, Renagel, Pepcid, Coreg, IV Maxipime, clonidine p.r.n. accelerated hypertension. I will order a chest x-ray today and review it, and the patient will be scheduled for followup CAT scan as an outpatient through my office. She will attend hemodialysis tomorrow, be discharged, and will be monitored closely regarding her clinical results. Greater than 30 minutes was spent in the care management, review of labs, orders and x-rays, and discussion of this patient with herself, nursing, and social service. All questions were answered. Lizeth Kimble MD MTDD
--- NOTE | 2018-11-13 16:58 | RAD ---
Date of service: 11/13/2018 HISTORY: fup on pneumonia COMPARISON: Comparison is made with 11/02/2018 TECHNIQUE: Chest PA and lateral FINDINGS: LUNGS: No evidence of new infiltrate or consolidation in the lungs PLEURA: No significant pleural effusion identified. No pneumothorax apparent. CARDIOVASCULAR: No aortic atherosclerotic calcification present. Normal cardiac size. No pulmonary vascular congestion. OSSEOUS STRUCTURES: No significant abnormalities. VISUALIZED UPPER ABDOMEN: Normal. OTHER FINDINGS: None. IMPRESSION: No evidence of significant interval change compared to the prior study.
[2018-11-14] MEDS: Levothyroxine 75 MCG TAB PO SCH (05:39)
[2018-11-14] MEDS: Cefepime 0.5 GM in Sodium Chloride 0.9% 100 ML IVPB SCH (05:39)
[2018-11-14 06:14] VITALS: PULSE 81
[2018-11-14] MEDS: Levalbuterol 0.63 MG/3 ML Inhal Soln UD IH SCH (07:32)
[2018-11-14 08:15] VITALS: BP 160/61
[2018-11-14] MEDS: Vancomycin 500mg in NS 500 MG/100 ML BAG IVPB SCH (09:24)
--- NOTE | 2018-11-15 23:22 | DS ---
DATE OF EVALUATION: Friday11/14/2018. FINAL DIAGNOSES: Right upper and right lower lung pneumonia, end-stage renal disease hemodialysis dependent, chronic hypertension, stable atherosclerotic heart disease, peptic ulcer disease with gastroesophageal reflux disease, hypothyroidism, degenerative arthritis. DISPOSITION: Home. Follow up in my office on Sunday, November 25, 2018. The patient will attend hemodialysis Friday, and Saturdays as outpatient. DISCHARGE MEDICATIONS: Norvasc 5 mg p.o. daily, Renagel 800 mg p.o. t.i.d., Pepcid 20 mg p.o. h.s., multivitamin 1 tablet daily, Synthroid 75 mcg daily, Coreg 12.5 mg b.i.d., and baby aspirin 81 mg daily. SUMMARY: This 78-year-old female was discharged from [facility] after receiving antibiotic therapy for right upper and lower lung pneumonia. She will follow up in my office and have a followup CT of the lungs in approximately 4-week time to ensure resolution of radiographic findings. At the time of discharge, temperature was 97.9, respirations 16, pulse 81 and blood pressure 160/61. White count 4200, hemoglobin 11.5, hematocrit 35.5, platelets 246,000. Sodium 135, K 3.7, chloride 97, bicarb 31, BUN 26, creatinine 5.8, random blood sugar 100. Bilirubin 0.6, AST 32, ALT 17, alk phos 81. TSH 2.51 therapeutic. The patient is discharged to home to the care of her family. I have reviewed her case in detail with herself and her son, Meir he will bring her to my office for followup of the pneumonic infiltrate and to ensure resolution on CAT scanning within the next 4 weeks. All of the above was discussed in detail with the patient and family. Greater than 35 minutes was spent in her discharge management. All questions were answered. Lizeth Kimble MD MTDLast
== END 2018-11-14 14:36 | disposition home or self-care (01) | DRG 193 ==
LOC: TRCU 22:10
PROVIDERS: ADMIT Internal Medicine; ATTEND Internal Medicine
PROC: F07Z9ZZ Gait Training/Functional Ambulation Treatment (ICD-10-PCS; principal; 2018-11-07)
PROC: F07M6ZZ Therapeutic Exercise Treatment of Musculoskeletal System - Whole Body (ICD-10-PCS; 2018-11-07)
PROC: F08Z1ZZ Dressing Techniques Treatment (ICD-10-PCS; 2018-11-08)
PROC: F08Z0ZZ Bathing/Showering Techniques Treatment (ICD-10-PCS; 2018-11-08)
PROC: F08Z2ZZ Grooming/Personal Hygiene Treatment (ICD-10-PCS; 2018-11-08)
PROC: F08Z4ZZ Home Management Treatment (ICD-10-PCS; 2018-11-08)
DX: J10.00 Influenza due to other identified influenza virus with unspecified type of pneumonia (principal); I50.23 Acute on chronic systolic (congestive) heart failure; K25.4 Chronic or unspecified gastric ulcer with hemorrhage; K29.71 Gastritis, unspecified, with bleeding; N18.6 End stage renal disease; J44.0 Chronic obstructive pulmonary disease with (acute) lower respiratory infection; I13.2 Hypertensive heart and chronic kidney disease with heart failure and with stage 5 chronic kidney disease, or end stage renal disease; I25.10 Atherosclerotic heart disease of native coronary artery without angina pectoris; K21.9 Gastro-esophageal reflux disease without esophagitis; E83.39 Other disorders of phosphorus metabolism; E78.5 Hyperlipidemia, unspecified; E03.9 Hypothyroidism, unspecified; D63.1 Anemia in chronic kidney disease; D50.0 Iron deficiency anemia secondary to blood loss (chronic); K57.90 Diverticulosis of intestine, part unspecified, without perforation or abscess without bleeding; M19.90 Unspecified osteoarthritis, unspecified site; N18.9 Chronic kidney disease, unspecified; Z99.2 Dependence on renal dialysis

== ENCOUNTER 2018-11-22 08:45 | Inpatient (IN) | payer MEDICARE, MEDICAID ==
[2018-11-22 08:50] VITALS: BMI 28.5
--- NOTE | 2018-11-22 09:09 | ED PDOC ---
Arrival/HPI - General Chief Complaint: Shortness Of Breath Time Seen by Provider: 11/22/18 08:49 Historian: Patient - History of Present Illness Narrative History of Present Illness (Text): 11/22/18 09:07 78 year old female, whose past medical history includes hypertension, ESRD on HD (T, THR, SAT), presents to the emergency department complaining of shortness of breath. Patient was recently admitted for pneumonia. Patient denies any fever, chills, chest pain, nausea, vomiting, diarrhea, urinary symptoms, back pain, neck pain, headache, dizziness, or any other complaints. PMD: Dr. Castaneda Symptom Onset: Gradual Symptom Course: Unchanged Activities at Onset: Light Context: Home Past Medical History - Provider Review Nursing Documentation Reviewed: Yes - Infectious Disease Hx of Infectious Diseases: None - Tetanus Immunization Tetanus Immunization: Unknown - Cardiac Hx Cardiac Disorders: Yes Hx Hypertension: Yes - Pulmonary Hx Respiratory Disorders: Yes (USED TO SMOKE 3 CIG A DAY. QUIT 20 YRS AGO.) Hx Pneumonia: Yes (10-11-18,-11-17) Other/Comment: INFLUENZA - Neurological Hx Neurological Disorder: No - HEENT Hx HEENT Disorder: Yes (GLASSES READING) Hx Cataracts: Yes (s/p surgery 2004) - Renal Hx Renal Failure: Yes (on HD T,TR,SAT) - Endocrine/Metabolic Hx Hypothyroidism: Yes - Hematological/Oncological Hx Blood Transfusions: No Hx Blood Transfusion Reaction: No - Integumentary Hx Dermatological Disorder: Yes Other/Comment: LEFT UPPER ARM SHUNT. - Musculoskeletal/Rheumatological Hx Falls: No - Gastrointestinal Hx Gastrointestinal Disorders: Yes (PUD GERD,H/O GI BLEED.) Hx Gastroesophageal Reflux: Yes - Genitourinary/Gynecological Hx Reproductive Disorders: No - Psychiatric Hx Psychophysiologic Disorder: No Hx Substance Use: No - Surgical History Hx Cataract Extraction: Yes Hx Vascular Surgery: Yes (LEFT WRIST/ LEFT AXILLA FOR DIALYSIS/NON FUNCTIONING) Hx Vascular Access Device: Yes (LEFT UPPER ARM AV FISTULA) - Anesthesia Hx Anesthesia: Yes Hx Anesthesia Reactions: No Hx Malignant Hyperthermia: No - Suicidal Assessment Feels Threatened In Home Enviroment: No Family/Social History - Physician Review Nursing Documentation Reviewed: Yes Family/Social History: No Known Family HX Smoking Status: Former Smoker Hx Alcohol Use: No Hx Substance Use: No Allergies/Home Meds Allergies/Adverse Reactions: Allergies codeine Allergy (Intermediate, Verified 10/31/18 12:26) ITCHING Home Medications: Home Meds Medication Instructions Recorded Confirmed RX: amLODIPine [Norvasc] 5 mg PO DAILY 09/22/15 11/22/18 RX: Sevelamer Carbonate [Renvela] 800 mg PO TID 10/05/15 11/22/18 RX: Aspirin [[place] Aspirin] 81 mg PO DAILY 10/11/18 11/22/18 RX: Carvedilol [Coreg] 12.5 mg PO BID 10/11/18 11/22/18 RX: Pantoprazole Sodium [Protonix] 40 mg PO DAILY 10/11/18 11/22/18 RX: Multivit-Mins60/Iron Fum/Folic 1 tab PO DAILY 10/31/18 11/22/18 [Vol-Plus Tablet] Review of Systems - Physician Review All systems were reviewed & negative as marked: Yes - Review of Systems Constitutional: absent: Fevers, Other (chills) Respiratory: SOB Cardiovascular: absent: Chest Pain Gastrointestinal: absent: Diarrhea, Nausea, Vomiting Genitourinary Female: absent: Dysuria, Frequency, Hematuria Musculoskeletal: absent: Back Pain, Neck Pain Neurological: absent: Headache, Dizziness Physical Exam Vital Signs Reviewed: Yes Appearance: Positive for: Well-Appearing, Non-Toxic, Comfortable Pain Distress: None Mental Status: Positive for: Alert and Oriented X 3 - Systems Exam Head: Present: Atraumatic, Normocephalic Pupils: Present: PERRL Extroacular Muscles: Present: EOMI Conjunctiva: Present: Normal Mouth: Present: Moist Mucous Membranes Neck: Present: Normal Range of Motion Respiratory/Chest: Present: Rales (bilateral bases). No: Respiratory Distress, Accessory Muscle Use Cardiovascular: Present: Regular Rate and Rhythm, Normal S1, S2. No: Murmurs Abdomen: No: Tenderness, Distention, Peritoneal Signs Back: Present: Normal Inspection Upper Extremity: Present: Normal Inspection. No: Cyanosis, Edema Lower Extremity: Present: Normal Inspection. No: Edema Neurological: Present: GCS=15, CN II-XII Intact, Speech Normal Skin: Present: Warm, Dry, Normal Color. No: Rashes Psychiatric: Present: Alert, Oriented x 3, Normal Insight, Normal Concentration Medical Decision Making ED Course and Treatment: 11/22/18 09:07 Impression: 78 year old female presents complaining of shortness of breath today. Patient as recently admitted for pneumonia. PE shows rales to the bilateral bases. Plan: -- EKG -- Labs -- Chest X-ray -- Urinalysis -- Reassess and disposition Prior Visits: Notes and results from previous visits were reviewed. Progress Notes: EKG shows NSR at 92 BPM with poor tracing secondary to artifact. Interpreted by me. Chest X-ray Electronic Train Control Technician : Colette Delgado Report Date : 11/22/2018 09:49:42 IMPRESSION: Airspace disease in the right lower lobe may represent atelectasis however superimposed pneumonia cannot be excluded. Follow-up is advised. Mild cardiomegaly and pulmonary venous congestion. The final report is tagged to the PA review folder. 11/22/18 10:[address] Kimble who is aware and agrees with the plan. Accepts patient into her service. PROCEDURE: CT Chest with contrast (Pulmonary Angiogram) Dictator : Colette Delgado MD Report Date : 11/22/2018 11:57:54 IMPRESSION: 1. No CTA evidence for acute pulmonary embolism. 2. Small right and trace left pleural effusions. Confluent airspace disease in the lung bases, worse on the right may represent subsegmental atelectasis however superimposed pneumonia cannot be excluded. Follow-up is advised. 3. Moderate cardiomegaly and small pericardial effusion. Patchy airspace disease in the lungs most compatible with patchy alveolar edema. 11/22/18 15:25 case discsuse dwith pmd arrangements made for hd s/p iv contrast. - Lab Interpretations I have reviewed the lab results: Yes - RAD Interpretation Radiology Orders: 11/22/18 09:03 CHEST PORTABLE [RAD] Stat Proctologist: Radiologist - EKG Interpretation Interpreted by ED Physician: Yes Type: 12 lead EKG - Scribe Statement The provider has reviewed the documentation as recorded by the Barbie Coreas Provider Scribe Attestation: All medical record entries made by the Scribe were at my direction and personally dictated by me. I have reviewed the chart and agree that the record accurately reflects my personal performance of the history, physical exam, medical decision making, and the department course for this patient. I have also personally directed, reviewed, and agree with the discharge instructions and disposition. Disposition/Present on Arrival - Present on Arrival Any Indicators Present on Arrival: No History of DVT/PE: No History of Uncontrolled Diabetes: No Urinary Catheter: No History of Decub. Ulcer: No History Surgical Site Infection Following: None - Disposition Have Diagnosis and Disposition been Completed?: Yes Diagnosis: Pneumonia Disposition: HOSPITALIZED Disposition Time: 13:00 Condition: GOOD
[2018-11-22 09:34] LABS: BASO # 0.03 K/mm3 (0.0-2.0); BASO % 0.4 % (0.0-3.0); EOS # 0.2 (0.0-0.7); EOS % 2.2 % (1.5-5.0); HEMOGLOBIN 9.8 g/dL (12.0-16.0); LYMPH # 1.5 (1.2-3.4); LYMPH % 17.8 % (22.0-35.0); MEAN CORPUSCULAR HEMOGLOBIN 28.7 pg (25.0-35.0); MEAN CORPUSCULAR HGB CONC 30.9 g/dl (31.0-37.0); MONO # 0.5 (0.1-0.6); MONO % 6.1 % (1.0-6.0); RBC 3.41 10^6/uL (3.5-6.1); RED CELL DISTRIBUTION WIDTH 19.7 % (11.5-14.5); WHITE BLOOD COUNT 8.3 10^3/uL (4.5-11.0)
[2018-11-22 09:44] LABS: INR 0.91; PARTIAL THROMBOPLASTIN TIME 32.2 Seconds (26.9-38.3); PROTHROMBIN TIME 10.3 SECONDS (9.4-12.5)
[2018-11-22] MEDS ORDERED: Piperacillin/Tazobact 3.375 gm 100 ML IVPB STA (09:50)
[2018-11-22] MEDS ORDERED: Vancomycin 1gm in NS 250ml 1 GM/250 ML BAG IVPB STA (09:50)
--- NOTE | 2018-11-22 09:53 | RAD ---
Date of service: 11/22/2018 HISTORY: Shortness of breath COMPARISON: 11/13/2018. FINDINGS: LUNGS: The lungs are well inflated. There is mild pulmonary venous congestion. There is airspace disease in the right lower lobe. PLEURA: No pleural effusions or pneumothorax. CARDIOVASCULAR: Mild cardiomegaly. There are aortic atherosclerotic calcifications present. OSSEOUS STRUCTURES: Within normal limits for the patient's age. VISUALIZED UPPER ABDOMEN: Normal. OTHER FINDINGS: None. IMPRESSION: Airspace disease in the right lower lobe may represent atelectasis however superimposed pneumonia cannot be excluded. Follow-up is advised. Mild cardiomegaly and pulmonary venous congestion. The final report is tagged to the PA review folder.
[2018-11-22 10:33] LABS: ALB/GLOB RATIO 1.3 (1.1-1.8); ALBUMIN 3.8 g/dL (3.0-4.8); CALCIUM 9.6 mg/dL (8.4-10.5); TROPONIN I 0.06 ng/mL
[2018-11-22] MEDS ORDERED: Iohexol 300 100 ML IJ ONE (10:37)
--- NOTE | 2018-11-22 12:01 | CT ---
Date of service: 11/22/2018 PROCEDURE: CT Chest with contrast (Pulmonary Angiogram) HISTORY: sob r/o pe COMPARISON: Portable chest radiograph from 11/22/2018. TECHNIQUE: Axial computed tomography images were obtained of the chest in the pulmonary arterial phase of enhancement. Coronal and sagittal reformatted images were created and reviewed. Intravenous contrast dose: 150 mL Omnipaque 350 Radiation dose: Total exam DLP = 166.3 mGy-cm. This CT exam was performed using one or more of the following dose reduction techniques: Automated exposure control, adjustment of the mA and/or kV according to patient size, and/or use of iterative reconstruction technique. FINDINGS: PULMONARY ARTERIES: There are no filling defects in the pulmonary arteries to suggest acute pulmonary embolism. AORTA: No acute findings. No thoracic aortic aneurysm. There are aortic atherosclerotic calcifications present. LUNGS: The lungs are well inflated. There is confluent airspace disease in the lung bases, worse on the right. There is patchy airspace disease in the lungs. There is subsegmental atelectasis in the lower lobes. There are no endobronchial lesions. PLEURAL SPACES: Small right and trace left pleural effusions. No pneumothorax. HEART: Moderate this cardiomegaly. Small pericardial effusion. Atherosclerotic coronary artery calcifications LYMPH NODES: No pathologic mediastinal or hilar lymphadenopathy. BONES, CHEST WALL: Within normal limits for the patient's age. No fracture or destructive lesion OTHER FINDINGS: None. IMPRESSION: 1. No CTA evidence for acute pulmonary embolism. 2. Small right and trace left pleural effusions. Confluent airspace disease in the lung bases, worse on the right may represent subsegmental atelectasis however superimposed pneumonia cannot be excluded. Follow-up is advised. 3. Moderate cardiomegaly and small pericardial effusion. Patchy airspace disease in the lungs most compatible with patchy alveolar edema.
[2018-11-22] MEDS: Levalbuterol 0.63 MG/3 ML Inhal Soln UD IH SCH ×2 (18:33→19:41)
--- NOTE | 2018-11-22 20:43 | CARD ---
APPROVED REPORT Date of service: 11/22/2018 EKG Measurement Heart [id number] MD [id number] <Conclusion> Normal sinus rhythm Possible Left atrial enlargement Anteroseptal infarct, age undetermined NDSTT abnormalities CCR Abnormal ECG
--- NOTE | 2018-11-22 21:11 | HP ---
DATE OF EXAM: 11/22/2018 HISTORY OF PRESENT ILLNESS: This 78-year-old female was examined in the [facility] ER on the afternoon of 11/22/2018. This case was reviewed in detail with emergency room physician, Larry Murcia DO. The patient attends hemodialysis on Tuesdays, and Saturdays. She was present for her hemodialysis treatment yesterday and stated that this morning she became short of breath. She has been admitted in the past for pneumonia, completed antibiotic therapy and was doing well. However, she states that this morning, she felt short of breath with a dry cough and denied any fever, chills, chest pain or shortness of breath. In the emergency room, she was noted to be short of breath which improved with nasal O2 and a routine chest x-ray was consistent with pulmonary vascular congestion. Because of her history of pneumonia in the past, we have requested a chest CT to rule out pulmonary embolism. This was reviewed and shows no evidence of acute pulmonary embolism. There was a small right and trace left pleural effusion. She was noted to have some basilar atelectasis with moderate cardiomegaly and small pericardial effusion with patchy alveolar infiltrate consistent with pulmonary edema. The patient is being readied for hemodialysis at present. Of note, I did review the patient's chest x-ray done in the emergency room this morning, it shows her lungs were well inflated with mild pulmonary venous congestion and airspace disease consistent with vascular congestion in the right lower lobe. There were no pleural effusions, no pneumothorax, chronic mild cardiomegaly, with airspace disease in right lower lung, probably representing atelectasis. PAST MEDICAL HISTORY: Significant for recent hospitalization for which she underwent echocardiography and cardiac evaluation with Dr. Scott Livingston. I did review her echocardiogram dated 11/02/2018, it showed no pericardial effusion, biatrial enlargement, moderate concentric left ventricular hypertrophy with normal LV systolic function, mild aortic stenosis, moderate mitral regurgitation and moderate tricuspid regurgitation. MEDICATIONS: The patient's outpatient medications include Coreg, baby aspirin, Synthroid, Renagel, multivitamin and Pepcid. ALLERGIES: SHE HAS ALLERGIES TO CODEINE. SOCIAL HISTORY: She is a nondrinker, nonsmoker, non IV drug misuser. FAMILY HISTORY: Noncontributory. REVIEW OF SYSTEMS: CONSTITUTIONAL REVIEW: She denied fever or chills. HEENT: Head; no headache or seizure. Eyes; no change in visual acuity. Ears; no hearing loss. Throat; no swallowing difficulty. NECK: No stiffness. CARDIAC REVIEW: She denied chest pain or palpitation. PULMONARY: No hemoptysis. No productive cough. GI: No hematemesis. No melena. : No dysuria. SKIN: No rash. VASCULAR: No claudication. PSYCHOLOGICAL: No depression. NEUROLOGICAL: No knowledge of stroke. PHYSICAL EXAMINATION: VITAL SIGNS: She was in a sinus rhythm on the cardiac surgeon with a temperature of 98.4, respirations 18, pulse 73, blood pressure 140/56, and pulse ox 97% on 2 liters nasal O2. HEENT: Head is normocephalic and atraumatic. Eyes; no icterus. Ears are clear. Throat is noninjected. NECK: Supple. HEART: Regular S1 and S2. LUNGS: With basilar rales. No rhonchi. No wheezing. ABDOMEN: Soft. EXTREMITIES: No edema. SKIN: Without rash. NEUROLOGIC: Intact. PSYCHOLOGICAL: Alert. VASCULAR: Legs warm to touch. LABORATORY DATA: White count 8300, hemoglobin 9.8, hematocrit 31.7, and platelets 212,000. PT/INR 0.91. PTT 32.2. Sodium 139, K 3.6, chloride 95, bicarb 34, BUN 28, creatinine 4.7, random blood sugar 137, and calcium 9.6. Magnesium 1.8, bilirubin 0.7, AST 32, ALT 11 and alk phos 107. CPK 28. BNP 73,900. IMPRESSION: This is a 78-year-old female with acute systolic congestive heart failure; basilar atelectasis; history of pneumonia, improved; and comorbidities of end-stage renal disease hemodialysis dependent; peptic ulcer disease with endoscopy in the last month showing an antral ulcer; anemia of chronic disease; hyperphosphatemia; chronic hypertension; hypothyroidism. PLAN: The plan is to admit this patient to the cardiac poole. She will have emergency ultrafiltration dialysis with an attempt to remove 2 kg of fluid removal. She will have medications ordered including Norvasc 5 mg p.o. daily, Coreg 12.5 mg b.i.d., Ecotrin 81 mg p.o. daily, Pepcid 20 mg p.o. at bedtime, Synthroid 75 mcg p.o. daily, and multivitamin 1 tablet p.o. daily. I will order a T4 level. She will have a renal, heart-healthy, diabetic, and cardiac diet with a 1000 ml p.o. fluid restriction. I will re-attempt to establish a new dry weight for this patient given her recent CHF and we will add additional diagnostic workup and testing based on clinical progress. Greater than 75 minutes was spent in the care management, review of labs, orders, x-rays and discussion of this patient with Dr. Murcia, floor nursing on the cardiac unit and renal dialysis nurse, Wesley Henao, registered nurse. All questions were answered. Lizeth Kimble MD
[2018-11-23] MEDS: Levothyroxine 75 MCG TAB PO SCH (05:56)
[2018-11-23] MEDS: Levalbuterol 0.63 MG/3 ML Inhal Soln UD IH SCH ×3 (07:50→19:25)
[2018-11-23] MEDS: Multivitamin With Minerals Tab PO SCH (09:04)
--- NOTE | 2018-11-23 15:51 | CP.PCM.APN ---
Subjective - Date & Time of Evaluation Date of Evaluation: 11/23/18 Time of Evaluation: 11:10 - Subjective Subjective: pt. seen and examined in bed, resting comfortabley, no dyspnea, states cough is better, denied chest pain. Objective - Vital Signs/Intake and Output Vital Signs (last 24 hours): Temp Pulse Resp BP Pulse Ox 97.9 F 76 18 136/59 L 95 11/23/18 08:01 11/23/18 10:00 11/23/18 08:01 11/23/18 09:05 11/23/18 08:01 - Medications Medications: Current Medications Amlodipine Besylate (Norvasc) 5 mg PO DAILY [facility] Last Admin: 11/23/18 09:03 Dose: 5 mg Aspirin (Ecotrin) 81 mg PO DAILY [facility] Last Admin: 11/23/18 09:02 Dose: 81 mg Carvedilol (Coreg) 12.5 mg PO BID [facility] Last Admin: 11/23/18 09:05 Dose: 12.5 mg Famotidine (Pepcid) 20 mg PO HS [facility] Last Admin: 11/22/18 22:07 Dose: 20 mg Levalbuterol HCl (Xopenex) 0.63 mg IH TIDRESP [facility] Last Admin: 11/23/18 13:20 Dose: 0.63 mg Levothyroxine Sodium (Synthroid) 75 mcg PO 0600 [facility] Last Admin: 11/23/18 05:56 Dose: 75 mcg Lisinopril (Zestril) 5 mg PO DAILY [facility] Last Admin: 11/23/18 09:04 Dose: 5 mg Multivitamins/Minerals (Therapeutic-M Tab) 1 tab PO 0800 [facility] Last Admin: 11/23/18 09:04 Dose: 1 tab Sevelamer HCl (Renagel) 800 mg PO WM [facility] Last Admin: 11/23/18 12:14 Dose: 800 mg - Labs Labs: 11/22/18 09:00 11/22/18 09:00 PT 10.3 SECONDS (9.4-12.5) 11/22/18 09:00 INR 0.91 11/22/18 09:00 APTT 32.2 Seconds (26.9-38.3) 11/22/18 09:00 - Constitutional Appears: Well, Non-toxic - Head Exam Head Exam: NORMOCEPHALIC - Eye Exam Eye Exam: Normal appearance - Neck Exam Neck Exam: Full ROM - Respiratory Exam Respiratory Exam: Clear to Ausculation Bilateral - Cardiovascular Exam Cardiovascular Exam: REGULAR RHYTHM, +S1, +S2 - GI/Abdominal Exam GI & Abdominal Exam: Soft - Rectal Exam Rectal Exam: Deferred - Exam Exam: absent: Circumcision, NORMAL INSPECTION, Scrotal Swelling, Testicular Tenderness, Uretheral Discharge, Testicular Vertical Lie, Bladder Distension External exam: absent: Ecchymosis, Erythema, Lacerations, Lesions, NORMAL EXTERNAL EXAM, Swelling Speculum exam: absent: Cervical Discharge, Erythema, Foreign Body, Laceration, NORMAL SPECULUM EXAM, Tissue, Vaginal Bleeding, Vaginal Discharge Bimanual exam: absent: Adenexal Mass, Adnexal, Cervical Motion Tendernes, NORMAL BIMANUAL EXAM, Uterine Enlargement, Uterine Tenderness - Extremities Exam Extremities Exam: Full ROM - Back Exam Back Exam: Full ROM, NORMAL INSPECTION - Neurological Exam Neurological Exam: Alert, Awake - Psychiatric Exam Psychiatric exam: Normal Affect, Normal Mood - Skin Skin Exam: Dry, Intact, Normal Color, Warm Assessment and Plan - Assessment and Plan (Free Text) Assessment: ITS Impressions Chest X-Ray 11/22/18 09:03 IMPRESSION: Airspace disease in the right lower lobe may represent atelectasis however superimposed pneumonia cannot be excluded. Follow-up is advised. Mild cardiomegaly and pulmonary venous congestion. The final report is tagged to the PA review folder. Chest CT 11/22/18 10:03 IMPRESSION: 1. No CTA evidence for acute pulmonary embolism. 2. Small right and trace left pleural effusions. Confluent airspace disease in the lung bases, worse on the right may represent subsegmental atelectasis however superimposed pneumonia cannot be excluded. Follow-up is advised. 3. Moderate cardiomegaly and small pericardial effusion. Patchy airspace disease in the lungs most compatible with patchy alveolar edema. Assessment: 78 year old female, whose past medical history includes hypertension, ESRD on HD (T, THR, SAT), presents to the emergency department complaining of shortness of breath, admitted for further eval and treatment. Plan: 1. Pulm venous congestion, r/t fluid overload, hemodialysis as per Dr. Lamin poe. 2. Right pleural effusion, pt. currently asympotomatic, will check repeat cxr tommorow after HD. monitor oxygen saturation, continue bronchodilators. Consider poss DC home tommorow if remains with improved respiratory status. Will continue to monitor and discuss with PMD.
--- NOTE | 2018-11-23 16:45 | PN ---
DATE: 11/23/2018 SUBJECTIVE: This 78-year-old female was dialyzing in the [facility] renal dialysis unit on the afternoon of 11/22/2018. Blood pressure was 174/74 with a pulse of 87. Heart: Regular S1, S2. Lungs: Clear. As discussed with nurse Gaye Henao we are aiming for 1-1/2 kg of fluid removal in approximately 2 hours today. Lizeth Kimble MD
--- NOTE | 2018-11-23 16:51 | PN ---
DATE: 11/23/2018 SUBJECTIVE: This 78-year-old female was dialyzing in the [facility] renal unit on the afternoon of 11/22/2018 with a blood pressure of 194/81 and a pulse of 82. I am aiming for 2 kg of fluid removal and to reestablish this patient's dry weight. Prior to dialysis her weight was 44 kg and I am aiming for approximately 42.5 kg weight at post treatment today. The patient is tolerating treatment without incident. This was reviewed with nurse, Gaye Henao, registered nurse. Lizeth Kimble MD
--- NOTE | 2018-11-23 17:12 | PN ---
DATE: 11/23/2018 SUBJECTIVE: This 78-year-old female was examined on the morning of 11/23/2018 on the cardiac poole at the [facility] and the case was reviewed with nurse, Lissette Coronel, registered nurse. The patient is wearing nasal O2, but appears less short of breath. She tolerated 1500 mL of dry US yesterday without incident. She remains in a normal sinus rhythm on telemetry monitor and has no fever, chills or productive sputum. OBJECTIVE: VITAL SIGNS: Temperature is 97.9, respirations 18, pulse 75 and blood pressure 136/59 with a pulse ox of 95% on 2 liters nasal O2. HEENT: Head: Normocephalic, atraumatic. Eyes: No icterus. Ears: Clear. Throat: Noninjected. NECK: Supple. HEART: S1, S2. LUNGS: With basilar crackles. ABDOMEN: Soft. EXTREMITIES: No edema. SKIN: Without rash. NEUROLOGICAL: Intact. PSYCHOLOGICAL: Alert. VASCULAR: Legs warm to touch. LABORATORY DATA: White count 8300, hemoglobin 9.8, hematocrit 31.7, platelets 112,000. PT/INR 0.91, PTT 32.2. Sodium 139, K 3.6, chloride 95, bicarb 34, BUN 28, creatinine 4.7, random blood sugar 137. Bilirubin 0.7, AST 32, ALT 11 and alk phos 107. BNP was 73,900. IMPRESSION: This is a 78-year-old female with acute systolic congestive heart failure secondary to volume overload and comorbidities of hypertension, stable atherosclerotic heart disease, hyperphosphatemia, hypothyroidism and anemia of chronic disease. PLAN: She will continue on Zestril, inhalational Xopenex, multivitamin, Synthroid, Renagel, Pepcid, Norvasc, Ecotrin, and Coreg. She will dialyze tomorrow. I will attempt to lower her dry weight to approximately 40-41 kg as tolerated. Follow up with a chest x-ray and then make further decisions regarding any additional workup as needed. Greater than 35 minutes was spent in the care management, review of labs, orders, x-rays and discussion of this patient with herself, nursing and case management. All questions were answered. Lizeth Kimble MD [facility] # [id number]
[2018-11-24 00:57] LABS: URINE BILIRUBIN NEGATIVE (NEGATIVE); URINE BLOOD TRACE-INTACT (NEGATIVE); URINE GLUCOSE (UA) NEGATIVE (NEGATIVE); URINE LEUKOCYTE ESTERASE NEGATIVE Leu/uL (NEGATIVE); URINE PROTEIN 100 mg/dL (<30 mg/dL); URINE UROBILINOGEN 0.2 E.U./dL (<1 E.U./dL)
[2018-11-24 01:08] LABS: URINE APPEARANCE SL CLOUDY (CLEAR); URINE COLOR YELLOW (YELLOW)
[2018-11-24 01:12] LABS: URINE RBC 0 - 2 /hpf (0-2); URINE WBC 0 - 2 /hpf (0-6)
[2018-11-24 01:13] LABS: URINE BACTERIA RARE /hpf
[2018-11-24] MEDS: Levothyroxine 75 MCG TAB PO SCH (05:19)
[2018-11-24 06:47] LABS: HEMOGLOBIN 9.5 g/dL (12.0-16.0); MEAN CELL VOLUME 92.7 fl (80.0-105.0); MEAN CORPUSCULAR HEMOGLOBIN 28.9 pg (25.0-35.0); MEAN CORPUSCULAR HGB CONC 31.1 g/dl (31.0-37.0); RBC 3.29 10^6/uL (3.5-6.1); RED CELL DISTRIBUTION WIDTH 20.1 % (11.5-14.5); WHITE BLOOD COUNT 7.6 10^3/uL (4.5-11.0)
[2018-11-24 07:16] LABS: ALB/GLOB RATIO 1.2 (1.1-1.8); CALCIUM 9.5 mg/dL (8.4-10.5)
[2018-11-24] MEDS: Levalbuterol 0.63 MG/3 ML Inhal Soln UD IH SCH ×3 (07:42→19:04)
--- NOTE | 2018-11-24 13:15 | CP.PCM.APN ---
Subjective - Date & Time of Evaluation Date of Evaluation: 11/24/18 Time of Evaluation: 12:35 - Subjective Subjective: ITS Impressions Chest CT 11/22/18 10:03 IMPRESSION: 1. No CTA evidence for acute pulmonary embolism. 2. Small right and trace left pleural effusions. Confluent airspace disease in the lung bases, worse on the right may represent subsegmental atelectasis however superimposed pneumonia cannot be excluded. Follow-up is advised. 3. Moderate cardiomegaly and small pericardial effusion. Patchy airspace disease in the lungs most compatible with patchy alveolar edema. Assessment: 78 year old female, whose past medical history includes hypertension, ESRD on HD (T, THR, SAT), presents to the emergency department complaining of shortness of breath, admitted for further eval and treatment of pulmonary congestion, r/t fluid overload. Plan: 1. Pulm venous congestion, r/t fluid overload, hemodialysis as per Dr. Kimble tommorow. 2. Right pleural effusion, pt. currently asympotomatic, will check repeat cxr tommorow after HD. monitor oxygen saturation, continue bronchodilators. Oxygen desaturated this am. 3. Oxygen desaturation in HD , 86% with wheezes Brovana/Pulmicort added, check repeat cxr, pulmonology consulted. monitor oxygen on room air, with ambulation. PT eval pending. Will continue to monitor and discuss with PMD. Objective - Vital Signs/Intake and Output Vital Signs (last 24 hours): Temp Pulse Resp BP Pulse Ox 98.1 F 82 20 160/68 H 94 L 11/24/18 08:33 11/24/18 08:33 11/24/18 08:33 11/24/18 08:33 11/24/18 08:33 Intake and Output: 11/24/18 11/24/18 06:59 18:59 Intake Total 240 Balance 240 - Medications Medications: Current Medications Amlodipine Besylate (Norvasc) 5 mg PO DAILY [facility] Last Admin: 11/23/18 09:03 Dose: 5 mg Arformoterol Tartrate (Brovana) 15 mcg IH [id number] [facility] Aspirin (Ecotrin) 81 mg PO DAILY [facility] Last Admin: 11/23/18 09:02 Dose: 81 mg Budesonide (Pulmicort Respules) 0.5 mg IH [id number] [facility] Carvedilol (Coreg) 12.5 mg PO BID [facility] Last Admin: 11/23/18 09:05 Dose: 12.5 mg Famotidine (Pepcid) 20 mg PO HS [facility] Last Admin: 11/23/18 21:27 Dose: 20 mg Levalbuterol HCl (Xopenex) 0.63 mg IH TIDRESP [facility] Last Admin: 11/24/18 07:42 Dose: 0.63 mg Levothyroxine Sodium (Synthroid) 75 mcg PO 0600 [facility] Last Admin: 11/24/18 05:19 Dose: 75 mcg Lisinopril (Zestril) 5 mg PO DAILY [facility] Last Admin: 11/23/18 09:04 Dose: 5 mg Multivitamins/Minerals (Therapeutic-M Tab) 1 tab PO 0800 [facility] Last Admin: 11/23/18 09:04 Dose: 1 tab Sevelamer HCl (Renagel) 800 mg PO WM [facility] Last Admin: 11/23/18 17:50 Dose: 800 mg - Labs Labs: 11/24/18 06:00 11/24/18 06:00 PT 10.3 SECONDS (9.4-12.5) 11/22/18 09:00 INR 0.91 11/22/18 09:00 APTT 32.2 Seconds (26.9-38.3) 11/22/18 09:00
[2018-11-24] MEDS: Multivitamin With Minerals Tab PO SCH (13:29)
--- NOTE | 2018-11-24 13:57 | RAD ---
Date of service: 11/24/2018 HISTORY: Pneumonia, end-stage renal disease. CHF suspected. COMPARISON: 11/22/2018. TECHNIQUE: Chest PA and lateral FINDINGS: LUNGS: Improved aeration at the lung bases particularly the right lower lobe. PLEURA: No significant pleural effusion identified. No pneumothorax apparent. CARDIOVASCULAR: Atherosclerotic calcifications identified primarily aortic arch. No radiographic findings to suggest acute or significant cardiovascular disease. Normal cardiac size. No pulmonary vascular congestion. OSSEOUS STRUCTURES: No significant abnormalities. VISUALIZED UPPER ABDOMEN: Normal. OTHER FINDINGS: None. IMPRESSION: No active disease.
--- NOTE | 2018-11-24 14:29 | PN ---
DATE: 11/24/2018 DIALYSIS PROGRESS NOTE SUBJECTIVE: This 78-year-old female was examined at her bedside in the dialysis unit of the [facility] on the morning of 11/24/2018. She is dialyzing on an F 160, 140 sodium, 2K bicarb bath. PHYSICAL EXAMINATION VITAL SIGNS: Blood pressure 181/75 with a pulse of 79. HEART: Regular S1, S2. LUNGS: Had basilar crackles and expiratory wheezing. The patient will dialyze for a total of 4 kg of fluid removal today as able. She started the dialysis treatment with a weight of 44.6 and needs a new dry weight given her admission for CHF. This was reviewed with nurse, Yusuf Henao, registered nurse in dialysis. Lizeth Kimble MD
--- NOTE | 2018-11-24 14:34 | PN ---
DATE: 11/24/2018 DIALYSIS PROGRESS NOTE SUBJECTIVE: This 78-year-old female was examined in the renal dialysis unit with nurse, Yusuf Henao, registered dialysis nurse. Blood pressure 181/72, pulse 77. The patient complaining of no shortness of breath, but wearing nasal O2. I have discussed with the patient and nursing, she will need a new dry weight closer to 40 kg. We will increase her fluid removal for today as tolerated. She will have addition of Brovana and Pulmicort inhalational therapy, post dialysis chest x-ray, and a consultation with Pulmonary given her persistent chest x-ray abnormalities and further workup regarding the above. Lizeth Kimble MD
[2018-11-24 16:55] VITALS: RESP 20
[2018-11-24] MEDS: Budesonide 0.5 mg/2 ml Inhal Susp UD IH SCH (19:04)
[2018-11-24] MEDS: Arformoterol 15 mcg/2 ml Inh Sol IH SCH (19:05)
[2018-11-24] MEDS ORDERED: Arformoterol 15 mcg/2 ml Inh Sol IH SCH (20:00)
--- NOTE | 2018-11-24 22:28 | CON ---
DATE OF CONSULTATION: 11/24/2018 PULMONARY CONSULTATION REFERRING PHYSICIAN: Lizeth Kimble MD REASON FOR CONSULTATION: Hypoxemia, cough, shortness of breath. HISTORY OF PRESENT ILLNESS: This is a 78-year-old female with known history of renal failure, dialysis dependent. According to Dr. Kimble's note, had an echocardiogram done as outpatient with Dr. Livingston, which is probably suggestive of diastolic dysfunction with valvular heart disease. No pulmonary pressures available, recently treated with pneumonia, came into emergency room with shortness of breath, had episode of hypoxemia while on dialysis. A CTA of the chest was done, which was unremarkable for pulmonary embolism, but it does show some basilar infiltrate and atelectasis. She does complain about cough. No chest pain. No nausea, vomiting, or diarrhea. No leg pain or leg swelling. Does not know if snores, daytime sleepy and tired. PAST MEDICAL HISTORY: Renal failure, dialysis dependent, probably LV diastolic dysfunction with valvular heart disease, may have a pulmonary hypertension, also had an endoscopy in the past. GI evaluation. Presently lying in the bed comfortably. Past medical history as per history of present illness. ALLERGIES: CODEINE. SOCIAL HISTORY: Nonsmoker, nondrinker. FAMILY HISTORY: No significant cardiopulmonary disease reported. MEDICATIONS: She is on Norvasc 5 mg daily, Pepcid 20 mg at bedtime, Pulmicort inhale twice a day, Renagel 800 mg with meals. She is getting Synthroid 75 mcg daily, multivitamins daily, Xopenex inhale every 8 hours, Zestril 5 mg daily. REVIEW OF SYSTEMS: No headache, no rhinitis. Has some cough, short of breath with exertion, does not know if snore. No chest pain. No nausea, vomiting, or diarrhea. No leg pain or leg swelling. PHYSICAL EXAMINATION: GENERAL: No acute distress. VITAL SIGNS: Temperature is 98, heart rate is 82, respiratory rate is 20, blood pressure 160/68, pulse is 94% room air. HEENT: Moist mucous membranes. Small oral cavity. LUNGS: Have a few crackles at the bases. Overall fair airflow. HEART: S1 and S2. ABDOMEN: Soft, nontender. No organomegaly. EXTREMITIES: No edema. NEUROLOGIC: Awake, alert, and follows simple commands. LABORATORY DATA: Shows hemoglobin 9.5, hematocrit 30.5, WBC is 7.6, platelet is 211. INR 0.91. PTT 32. Sodium 135, potassium 2.9, chloride 95, bicarbonate 29, BUN 59, creatinine 8.7, glucose 93, calcium 9.5, AST 40, ALT 12, alk phos is 108. Albumin is 4. Urine has some proteins and trace blood. On admission ProBNP was 73,900. Microbiology, blood culture has been negative. Has a CTA of the chest done on admission in ER, which shows no evidence of PE, small right and left pleural effusion. There is airspace disease in the lung bases, and worsened in the right, may represent subsegmental atelectasis. Pneumonia cannot be ruled out, moderate cardiomegaly and small pericardial effusion. IMPRESSION AND PLAN: Renal failure, dialysis dependent, probably had a fluid overloaded on admission, even CT of the chest was done also had a component of cardiac disease with probably having diastolic dysfunction, valvular heart disease, do not have a pulmonary pressure. We will see it to Cardiology. Pulmonary embolism had been ruled out. There could be component of sleep apnea. We will rule out bacterial pneumonia. We will send procalcitonin for the morning. We will get swallow evaluation to assure there is no oropharyngeal dysphagia. We will recommend pulmonary function test upon discharge as outpatient. May need outpatient attend a sleep study upon discharge to assure there is no sleep apnea syndrome. For now, continue gastric prophylaxis. SCD to lower extremity. Continue inhaled bronchodilator. We will suggest to start physical therapy and see how she does with the walking. I agree limiting p.o. fluid to 1 liter a day for now. Thank you and we will follow with you. Mihaela Spicer MD
[2018-11-25] MEDS: Levothyroxine 75 MCG TAB PO SCH (05:24)
[2018-11-25] MEDS: Budesonide 0.5 mg/2 ml Inhal Susp UD IH SCH (07:30)
[2018-11-25] MEDS: Arformoterol 15 mcg/2 ml Inh Sol IH SCH (07:30)
[2018-11-25] MEDS: Levalbuterol 0.63 MG/3 ML Inhal Soln UD IH SCH ×2 (07:30→13:44)
[2018-11-25] MEDS: Multivitamin With Minerals Tab PO SCH (08:27)
[2018-11-25 09:39] VITALS: TEMP 98.3; O2SAT 94
--- NOTE | 2018-11-25 13:35 | CP.PCM.PCO ---
Physician Communication Note - Physician Communication Note Physician Communication Note: pt. will need supplemental home Oxygen, desaturated to 88% on RA
--- NOTE | 2018-11-25 15:00 | DS ---
DATE: 11/25/2018 SUBJECTIVE: This 78-year-old female remains hospitalized in [facility] on 11/25/2018. She was seen in consultation by Dr. Mihaela Spicer from Pulmonology. The patient had fluid overload on admission and had pulmonary embolism ruled out by CT of the chest. Her procalcitonin level has been ordered for this morning and she is awaiting swallowing eval. She will require pulmonary function testing because of recent wheezing to rule out obstructive issues with COPD. She was recommended to have a sleep study as well and according to the nursing staff, becomes hypoxemic with the removal of her nasal O2. PHYSICAL EXAMINATION: On physical exam today, she is in a normal sinus rhythm on personnel monitor with temperature of 98.3, respirations 20, pulse 73, and blood pressure 147/59. Pulse ox was 89% without O2 94% with 2 liters nasal O2. Physical exam remains unchanged. LABORATORY DATA: White count 7600, hemoglobin 9.5, hematocrit 30.5, and platelets 211. Sodium 135, K 3.9, chloride 95, bicarb 29, BUN 59, creatinine 8.7, and random blood sugar 93. Bilirubin 0.5. AST 40, ALT 12, and alk phos 108. BNP on admission 73,900. Post dialysis chest x-ray yesterday was reviewed. It showed improved aeration at the lung bases, particularly of the right lower lobe with no significant pleural effusion identified and no pneumothorax apparent. There was no evidence of pulmonary vascular congestion, post dialysis treatment and the report was no active disease. IMPRESSION AND PLAN: A 78-year-old female with persistent hypoxemia. The plan is to await her procalcitonin level. At present, she continues on Brovana and Pulmicort inhalational therapy, Coreg 12.5 mg p.o. b.i.d., Ecotrin 81 mg p.o. daily, Norvasc 5 mg p.o. daily, Pepcid 20 mg p.o.at bedtime, Renagel 800 mg p.o. t.i.d., Synthroid 75 mcg p.o. daily, multivitamin 1 tablet daily, Xopenex inhalational therapy t.i.d. and Zestril 5 mg p.o. daily. She will continue on nasal O2, incentive spirometry, hemodialysis is scheduled for the a.m. I will order a swallowing eval and pulmonary function testing and discussed this case further with Dr. Mihaela Spicer from Pulmonary. All of the above was discussed with nurse, Lissette Coronel, registered nurse. All questions were answered. Lizeth Kimble MD
--- NOTE | 2018-11-25 15:35 | PN ---
DATE: 11/25/2018 PULMONARY PROGRESS NOTE REFERRING PHYSICIAN: Lizeth Kimble MD SUBJECTIVE: The patient is seen lying in bed, nasal cannula in place. No acute distress. The patient reports feeling better today. Cough and shortness of breath has improved. No headache, rhinitis, chest pain, abdominal pain, nausea, vomiting, diarrhea, leg pain and leg swelling reported. OBJECTIVE: VITAL SIGNS: Blood pressure 147/59, pulse 73, temperature 98.3 and oxygen saturation 94% on nasal cannula. GENERAL: No acute distress. HEENT: Moist mucous membranes. Small oral cavity. LUNGS: Fair airflow bilaterally. CARDIOVASCULAR: S1 and S2. ABDOMEN: Soft and nontender. No distention. No organomegaly. EXTREMITIES: No bilateral lower extremity edema. NEUROLOGIC: Awake, alert and verbal. Follows commands. MEDICATIONS: Reviewed. Norvasc 5 mg daily, Brovana 15 mcg every 12 hours, aspirin 81 mg daily, Pulmicort 0.5 mg every 12 hours, Coreg 12.5 mg twice a day, Pepcid 20 mg at bedtime, Xopenex 0.63 mg inhalation three times a day, Synthroid 75 mcg daily, lisinopril 5 mg daily, multivitamin 1 tab daily and Renagel 800 mg Friday and Friday. LABORATORY DATA: Reviewed. Procalcitonin 1.27. Blood cultures preliminary no growth after 3 days. Chest x-ray shows improved aeration of the lung bases particularly right lower lobe. No active disease. IMPRESSION AND PLAN: Renal failure, dialysis dependent. Procalcitonin positive, suggesting pneumonia. The patient was treated previously and procalcitonin at this time when compared to previous procalcitonin has gotten better, but is still positive. We will order doxycycline 100 mg p.o. twice a day for patient. We will repeat procalcitonin levels in 2-3 days. We will start the patient on doxycycline as the patient still appears to be symptomatic due to complaints vigorously of cough, shortness of breath and hypoxemia on room air. I believe the patient should go home with supplemental oxygen. The patient will need repeat CT scan as outpatient. The patient will also need full pulmonary function test and sleep study as outpatient. Echocardiogram done 11/02/2018 reviewed and shows ejection fraction 56.1, right ventricular systolic pressure 64, moderate concentric left ventricular hypertrophy, normal left ventricular systolic function, moderate trace regurgitation, moderate mitral regurgitation, mild aortic stenosis. The patient with valvular heart disease and pulmonary hypertension. Continue sequential compression devices to bilateral lower extremity for deep venous thrombosis prophylaxis. Continue gastric prophylaxis. Continue inhaled bronchodilators. Case discussed with nurse practitioner Myesha Qiu. Speech therapy notes appreciated as the patient was evaluated for dysphagia and speech therapy recommends soft regular consistency diet, thin liquids. Aspiration precaution. Head of bed elevated at 45 degrees. This patient was seen and examined with Dr. Spicer. Discussed assessment and plan as described above. This patient was seen and examined with Aubrey Correia, nurse practitioner. Discussed assessment and plan as described above. Thank you for this consult. We will follow with you. Aubrey Correia APN Mihaela Spicer MD
[2018-11-25 17:44] VITALS: BP 126/58; PULSE 71
== END 2018-11-25 20:29 | disposition home or self-care (01) | DRG 291 ==
LOC: ED 08:45 → ERH 12:07 → 3RNO 13:38
PROVIDERS: ADMIT Internal Medicine; ATTEND Internal Medicine
PROC: 5A1D70Z Performance of Urinary Filtration, Intermittent, Less than 6 Hours Per Day (ICD-10-PCS; principal; 2018-11-24)
DX: I13.2 Hypertensive heart and chronic kidney disease with heart failure and with stage 5 chronic kidney disease, or end stage renal disease (principal); N18.6 End stage renal disease; I50.23 Acute on chronic systolic (congestive) heart failure; J98.11 Atelectasis; I31.3 Pericardial effusion (noninflammatory); Z99.2 Dependence on renal dialysis; Z87.01 Personal history of pneumonia (recurrent); E03.9 Hypothyroidism, unspecified; D63.8 Anemia in other chronic diseases classified elsewhere; I25.10 Atherosclerotic heart disease of native coronary artery without angina pectoris; I27.20 Pulmonary hypertension, unspecified; K21.9 Gastro-esophageal reflux disease without esophagitis; R09.02 Hypoxemia; Z79.899 Other long term (current) drug therapy; Z87.11 Personal history of peptic ulcer disease; Z87.891 Personal history of nicotine dependence; Z98.42 Cataract extraction status, left eye; Z98.41 Cataract extraction status, right eye; Z88.5 Allergy status to narcotic agent

== ENCOUNTER → 2019-01-05 | Outpatient (CLI) | payer MEDICARE, MEDICAID | LOC: RAD 14:22 ==

== ENCOUNTER 2019-02-10 20:58 | Inpatient (IN) | payer MEDICARE, MEDICAID ==
--- NOTE | 2019-02-10 21:08 | ED PDOC ---
Arrival/HPI - General Time Seen by Provider: 02/10/19 21:01 Historian: Patient, Family, EMS - History of Present Illness Narrative History of Present Illness (Text): 02/10/19 21:07 Brigitte Jordan is a 78 year old female, whose past medical history includes ESRD on hemodialysis (//Fri) and hypertension, who presents to the ED brought in by EMS for shortness of breath. As per family, patient has been experiencing progressively worsening shortness of breath for the past week with associated lethargy and subjective fever. Family note patient as fully dialyzed yesterday. Patient denies any nausea, vomiting, diarrhea, back pain, neck pain, headache, dizziness, or any other complaints. Past Medical History - Provider Review Nursing Documentation Reviewed: Yes - Infectious Disease Hx of Infectious Diseases: None - Tetanus Immunization Tetanus Immunization: Unknown - Cardiac Hx Congestive Heart Failure: Yes Hx Hypertension: Yes - Pulmonary Hx Pneumonia: Yes - Neurological Hx Neurological Disorder: No Hx Alzheimer's Disease: No HX Cerebrovascular Accident: No Hx Dementia: No Hx Dizziness: No Hx Meningitis: No Hx Migraine: No Hx Parkinson's Disease: No Hx Seizures: No Hx Transient Ischemic Attacks (TIA): No - HEENT Hx HEENT Disorder: No Hx Blind: No Hx Cataracts: No Hx Deafness: No Hx Difficulty Chewing: No Hx Epistaxis: No Hx Glaucoma: No Hx Macular Degeneration: No - Renal Hx Renal Failure: Yes (ESRD) - Endocrine/Metabolic Hx Hypothyroidism: Yes - Hematological/Oncological Hx Blood Disorders: No Hx AIDS: No Hx Anemia: No Hx Cancer: No Hx Chemotherapy: No Hx Cirrhosis: No Hx Hemophilia: No Hx Hepatitis A: No Hx Hepatitis B: No Hx Hepatitis C: No Hx Metastasis: No Hx Shingles: No Hx Sickle Cell Disease: No Hx Unexplained Bleeding: No - Integumentary Hx Dermatological Disorder: No Hx Basal Cell Carcinoma: No Hx Eczema: No Hx Melanoma: No Hx Psoriasis: No Hx Squamous Cell Carcinoma: No - Musculoskeletal/Rheumatological Hx Musculoskeletal Disorders: No Hx Arthritis: No Hx Back Pain: No Hx Degenerative Joint Disease: No Hx Falls: No Hx Fractures: No Hx Gout: No Hx Herniated Disk: No Hx Myasthenia Gravis: No Hx Osteoarthritis: No Hx Osteomyelitis: No Hx Osteoporosis: No Hx Rhabdomyolysis: No Hx Spinal Stenosis: No Hx Unsteady Gait: No - Gastrointestinal Hx Gastroesophageal Reflux: Yes (peptic ulcer) - Genitourinary/Gynecological Hx Genitourinary Disorders: No Hx Hematuria: No Hx Incontinence: No Hx Prostate Problems: No Hx Sexually Transmitted Diseases: No Hx Urinary Tract Infection: No - Psychiatric Hx Psychophysiologic Disorder: No Hx Anxiety: No Hx Bipolar Disorder: No Hx Depression: No Hx Emotional Abuse: No Hx Hallucinations: No Hx Panic Disorder: No Hx Paranoia: No Hx Post Traumatic Stress Disorder: No Hx Psychosis: No Hx Physical Abuse: No Hx Schizophrenia: No Hx Sexual Abuse: No Hx Substance Use: No - Surgical History Hx Amputation: No Hx Appendectomy: No Hx Cardiac Catheterization: No Hx Cholecystectomy: No Hx Coronary Stent: No Hx Gastric Bypass Surgery: No Hx Hysterectomy: No Hx Inguinal Hernia Repair: No Hx Joint Replacement: No Hx Kidney Transplant: No Hx Liver Transplant: No Hx Mastectomy: No Hx Musculoskeletal Surgery: No Hx Open Heart Surgery: No Hx Orthopedic Surgery: No Hx Splenectomy: No Hx Valve Replacement: No - Anesthesia Hx Anesthesia: Yes Hx Anesthesia Reactions: No Hx Malignant Hyperthermia: No - Suicidal Assessment Feels Threatened In Home Enviroment: No Family/Social History - Physician Review Nursing Documentation Reviewed: Yes Family/Social History: Unknown Family HX Smoking Status: Never Smoked Hx Alcohol Use: No Hx Substance Use: No Allergies/Home Meds Allergies/Adverse Reactions: Allergies codeine Allergy (Intermediate, Verified 10/31/18 12:26) ITCHING Home Medications: Home Meds Medication Instructions Recorded Confirmed amLODIPine [Norvasc] 5 mg PO DAILY 09/22/15 11/22/18 Sevelamer Carbonate [Renvela] 800 mg PO TID 10/05/15 11/22/18 Aspirin [[place] Aspirin] 81 mg PO DAILY 10/11/18 11/22/18 Carvedilol [Coreg] 12.5 mg PO BID 10/11/18 11/22/18 Pantoprazole Sodium [Protonix] 40 mg PO DAILY 10/11/18 11/22/18 Multivit-Mins60/Iron Fum/Folic 1 tab PO DAILY 10/31/18 11/22/18 [Vol-Plus Tablet] Review of Systems - Physician Review All systems were reviewed & negative as marked: Yes - Review of Systems Constitutional: Fevers, Other (+lethargy) Eyes: Normal ENT: Normal Respiratory: SOB Gastrointestinal: Normal. absent: Abdominal Pain, Diarrhea, Vomiting Genitourinary Female: Normal. absent: Dysuria, Frequency, Hematuria, Urine Output Changes Musculoskeletal: Normal. absent: Back Pain, Neck Pain Skin: Normal Neurological: Normal. absent: Headache, Dizziness Endocrine: Normal Hemo/Lymphatic: Normal Psychiatric: Normal Physical Exam Vital Signs Reviewed: Yes Temperature: Febrile Blood Pressure: Normal Pulse: Tachycardic Respiratory Rate: Normal Appearance: Positive for: Non-Toxic, Comfortable Pain Distress: None Mental Status: Positive for: Alert and Oriented X 3 - Systems Exam Head: Present: Atraumatic, Normocephalic Pupils: Present: PERRL Extroacular Muscles: Present: EOMI Conjunctiva: Present: Normal Mouth: Present: Moist Mucous Membranes Neck: Present: Normal Range of Motion Respiratory/Chest: Present: Rales, Rhonchi. No: Respiratory Distress, Accessory Muscle Use Cardiovascular: Present: Normal S1, S2, Tachycardic. No: Murmurs Abdomen: No: Tenderness, Distention, Peritoneal Signs Back: Present: Normal Inspection. No: CVA Tenderness, Midline Tenderness, Paraspinal Tenderness Upper Extremity: Present: Normal Inspection. No: Cyanosis, Edema Lower Extremity: Present: Normal Inspection. No: Edema Neurological: Present: GCS=15, CN II-XII Intact, Speech Normal Skin: Present: Warm, Dry, Normal Color. No: Rashes Psychiatric: Present: Alert, Oriented x 3, Normal Insight, Normal Concentration Medical Decision Making ED Course and Treatment: 02/10/19 21:07 Impression: 78 year old female brought in for progressively worsening shortness of breath, lethargy, and fever. Plan: -- EKG -- Chest X-ray -- Labs, cardiac enzymes, BNP, ABG, VBG, blood cultures -- Reassess and disposition Prior Visits: Notes and results from previous visits were reviewed. Progress Notes: Reviewed EKG, NSR at [address] bpm[address] Non-specific ST/T wave changes. 02/10/19 22:05 Chest X-ray reviewed, shows questionable right lower lobe infiltrate. 02/10/19 23:[address] Kimble, who is aware and agrees with plan. Accepts pt in to her service. Pt will be admitted to remote telemetry for pneumonia and sepsis. 02/10/19 23:[address] Choi, infectious disease, who is aware and agrees with plan. - Lab Interpretations I have reviewed the lab results: Yes - RAD Interpretation Volumetric Weigher: ED Physician - EKG Interpretation Interpreted by ED Physician: Yes Type: 12 lead EKG - Scribe Statement The provider has reviewed the documentation as recorded by the Barbie Perkins Provider Scribe Attestation: All medical record entries made by the Scribe were at my direction and personally dictated by me. I have reviewed the chart and agree that the record accurately reflects my personal performance of the history, physical exam, medical decision making, and the department course for this patient. I have also personally directed, reviewed, and agree with the discharge instructions and di sposition. Disposition/Present on Arrival - Present on Arrival Any Indicators Present on Arrival: No History of DVT/PE: No History of Uncontrolled Diabetes: No Urinary Catheter: No History Surgical Site Infection Following: None - Disposition Have Diagnosis and Disposition been Completed?: Yes Diagnosis: Fever, ESRD needing dialysis, Pneumonia Disposition: HOSPITALIZED Disposition Time: 23:05 Patient Problems: Current Active Problems Problem Status Onset Anemia of renal disease Acute Hypertensive CKD, ESRD on dialysis Acute Hypothyroidism Chronic Condition: FAIR
[2019-02-10 21:26] LABS: ARTERIAL BLOOD GAS HCO3 26.6 mmol/L (21-28); ARTERIAL BLOOD GAS O2 SAT 98.8 % (95-98); ARTERIAL BLOOD GAS PCO2 43 mm/Hg (35-45); ARTERIAL BLOOD GAS TCO2 27.9 mmol.L (22-28)
[2019-02-10 21:41] LABS: BASO # 0.03 K/mm3 (0.0-2.0); BASO % 0.2 % (0.0-3.0); EOS # 0.7 (0.0-0.7); EOS % 4.5 % (1.5-5.0); HEMOGLOBIN 11.1 g/dL (12.0-16.0); LYMPH # 1.1 (1.2-3.4); LYMPH % 6.7 % (22.0-35.0); MEAN CELL VOLUME 86.1 fl (80.0-105.0); MEAN CORPUSCULAR HEMOGLOBIN 28.6 pg (25.0-35.0); MEAN CORPUSCULAR HGB CONC 33.2 g/dl (31.0-37.0); MEAN PLATELET VOLUME 8.5 fl (7.0-11.0); MONO # 0.4 (0.1-0.6); MONO % 2.2 % (1.0-6.0); RBC 3.88 10^6/uL (3.5-6.1); RED CELL DISTRIBUTION WIDTH 15.4 % (11.5-14.5); WHITE BLOOD COUNT 15.8 10^3/uL (4.5-11.0)
[2019-02-10 21:45] LABS: INR 0.94; PARTIAL THROMBOPLASTIN TIME 33.2 Seconds (26.9-38.3); PROTHROMBIN TIME 10.4 SECONDS (9.4-12.5)
[2019-02-10 21:58] LABS: ALB/GLOB RATIO 1.3 (1.1-1.8); ALBUMIN 4.8 g/dL (3.0-4.8); ALT/SGPT 19 U/L (7-56); AST/SGOT 52 U/L (14-36); BLOOD UREA NITROGEN 49 mg/dL (7-21); CALCIUM 8.9 mg/dL (8.4-10.5); GFR NON-AFRICAN AMERICAN 5
[2019-02-10 22:11] LABS: TROPONIN I < 0.01 ng/mL
[2019-02-10] MEDS ORDERED: Vancomycin 1gm in NS 250ml 1 GM/250 ML BAG IVPB STA (22:15)
[2019-02-10 22:27] LABS: B-TYPE NATRIURETIC PEPTIDE 41500 pg/mL (0-450)
[2019-02-10] MEDS ORDERED: cefTRIAXone 1 gm 1 GM/100 ML BAG IVPB STA (23:30)
[2019-02-11 04:56] VITALS: BMI 17.7
[2019-02-11] MEDS: Pantoprazole 40 mg EC Tab PO SCH (05:18)
[2019-02-11] MEDS: Levothyroxine 75 MCG TAB PO SCH (05:18)
--- NOTE | 2019-02-11 08:52 | RAD ---
Date of service: 02/10/2019 HISTORY: sob COMPARISON: 01/05/2019 TECHNIQUE: 1 view obtained. FINDINGS: LUNGS: Current inspiration less now than before. No interval consolidation. Right basal bronchovascular markings crowded-concomitant subsegmental atelectasis here probable. PLEURA: No significant pleural effusion identified, no pneumothorax apparent. CARDIOVASCULAR: There is presence of aortic atherosclerotic calcification on x-ray. Cardiomegaly-similar mild pulmonary venous congestion. Interval increased since prior exam OSSEOUS STRUCTURES: No significant abnormalities. VISUALIZED UPPER ABDOMEN: Normal. OTHER FINDINGS: None. IMPRESSION: Cardiomegaly-similar mild pulmonary venous congestion--increased. Right basal subsegmental atelectasis-an change current lung volumes less now than before.
--- NOTE | 2019-02-11 09:53 | CARD ---
APPROVED REPORT Date of service: 02/10/2019 EKG Measurement Heart [id number] <Conclusion> Normal sinus rhythm Anteroseptal infarct, age undetermined Abnormal ECG
[2019-02-11 12:07] LABS: URINE BILIRUBIN NEGATIVE (NEGATIVE); URINE BLOOD SMALL (NEGATIVE); URINE COLOR YELLOW (YELLOW); URINE GLUCOSE (UA) NEGATIVE (NEGATIVE); URINE LEUKOCYTE ESTERASE NEGATIVE Leu/uL (NEGATIVE); URINE PROTEIN 100 mg/dL (<30 mg/dL); URINE UROBILINOGEN 0.2 E.U./dL (<1 E.U./dL)
[2019-02-11 12:08] LABS: URINE APPEARANCE CLEAR (CLEAR)
--- NOTE | 2019-02-11 12:11 | CT ---
Date of service: 02/11/2019 PROCEDURE: CT Chest without contrast HISTORY: r/o PNA COMPARISON: CT chest 10/12/[address] chest 11/22/2018. TECHNIQUE: Contiguous axial images were obtained through the chest without intravenous contrast enhancement. Sagittal and coronal reconstructions were performed. Radiation dose: Total exam DLP = 147.61 mGy-cm. This CT exam was performed using one or more of the following dose reduction techniques: Automated exposure control, adjustment of the mA and/or kV according to patient size, and/or use of iterative reconstruction technique. FINDINGS: LUNGS: The irregular least shaped coalescent airspace opacity in the right upper lobe on 10/12/2018 head cleared on the subsequent 11/22/2018 CT chest-and inferred prior (10/12/2018 coalescing consolidative pneumonia-being than suggested). Since the most recent 11/22/2018 CT chest there is interval patchy and somewhat nodular opacity in the right upper lobe central portion of this right lung on axial series 3, image 27-an interval recurring pneumonia here is a consideration. Again as before follow-up to complete resolution is advised to ensure no underlying malignancy here exists. Please note this area had previously cleared. Elsewhere minimal ground-glass opacities areas of un even attenuation likely relating to uneven profusion aeration and/or prior nonspecific inflammatory changes. There is slightly greater conspicuity of this process in the posterior right lower lobe on current axial series 3, image 61 this is not seen as such on the prior study-a prior right pleural effusion and compressive atelectasis obscured this area impeding assessment for any interval change Additional patchy bibasilar airspace opacities in right lobe also present (axis series 3, image 76 subsegmental atelectasis and/or inflammatory changes are believed most likely continued surveillance to ensure complete clearance is advised.. MEDIASTINUM: Unremarkable thoracic aorta. No aneurysm. Enlarged heart-similar no pericardial significant effusion seen. Main pulmonary artery unremarkable. No vascular congestion. A right precarinal approximately 8 mm short axis alize density is seen axial series 4, image 37 current exam this is similar to perhaps slightly increased in size compared to 10/12/2018 this area more obscured by streak artifact on the 11/22/2018 study. Atherosclerotic vascular calcifications present. Coronary artery calcifications noted. PLEURA: No pleural fluid. No pneumothorax. BONES: No fracture. No destructive lesion. UPPER ABDOMEN: Gr atherosclerotic vascular calcification in the upper abdomen as well OTHER FINDINGS: None. IMPRESSION: Interval nonspecific nodular patchy airspace opacity right upper lobe-interval infiltrate here is compatible with this. Additional areas of interval low-density ground-glass and airspace opacities at the right lung base noted. Inflammatory changes and/or subsegmental atelectasis regarding the latter site compatible with this. Inflammatory changes are favored given the serial changes on CT since 10/12/2018. Nevertheless continued follow-up is advised to ensure resolution is hree stated. Other findings as above.
[2019-02-11 12:15] LABS: BASO # 0.02 K/mm3 (0.0-2.0); BASO % 0.2 % (0.0-3.0); EOS # 0.4 (0.0-0.7); EOS % 2.9 % (1.5-5.0); HEMOGLOBIN 10.2 g/dL (12.0-16.0); LYMPH % 7.6 % (22.0-35.0); MEAN CELL VOLUME 86.4 fl (80.0-105.0); MEAN CORPUSCULAR HEMOGLOBIN 28.3 pg (25.0-35.0); MEAN CORPUSCULAR HGB CONC 32.8 g/dl (31.0-37.0); MEAN PLATELET VOLUME 8.8 fl (7.0-11.0); MONO # 0.5 (0.1-0.6); MONO % 3.8 % (1.0-6.0); RBC 3.6 10^6/uL (3.5-6.1); RED CELL DISTRIBUTION WIDTH 15.5 % (11.5-14.5); WHITE BLOOD COUNT 12.5 10^3/uL (4.5-11.0)
[2019-02-11 12:17] LABS: URINE WBC 0 - 2 /hpf (0-6)
[2019-02-11 12:18] LABS: URINE AMORPHOUS SEDIMENT FEW /hpf; URINE BACTERIA MOD /hpf
--- NOTE | 2019-02-11 13:56 | CP.PCM.PCO ---
Physician Communication Note - Physician Communication Note Physician Communication Note: continue antibiotic therapy as per ID for PNA
[2019-02-11] MEDS: cefTRIAXone 1 gm 1 GM/100 ML BAG IVPB SCH (18:50)
[2019-02-11] MEDS ORDERED: Vancomycin 500mg in NS 500 MG/100 ML BAG IVPB ONE (19:41)
--- NOTE | 2019-02-11 19:59 | CP.PCM.CON ---
History of Present Illness - History of Present Illness History of Present Illness: Infectious Disease Consultation: October 17, 2018 78 yo [place] female with a PMHx of ESRD on HD and HTN presented with SOB. The patient has numerous admissions to [facility] [place]. The patient has a left upper extremity AV Fistula. Patient with one week history of worsening SOB, weakness, lethargy, and subjective fever. The patient with multiple hospitalizations at [facility] as well. CT scan showing area of interval nonspecific nodular patchy airspace opacity in the right upper lobe-interval infiltrate. Additional areas of interval low- density ground-glass and airspace opacities at the right lung base noted. Obtained procalcitonin value... 49.44. Severely elevated values. Fever of 101.9 F in hospital. PMHx: HTN ESRD on HD Hypothyroidism? PSHx: AV Fistula left upper extremity Allergies: Codeine Social Hx: No tobacco, EtOH, or illicit drug use Active Medications Acetaminophen (Tylenol 325mg Tab) 650 mg PO Q4H PRN PRN Reason: Pain, Mild (1-3) Amlodipine Besylate (Norvasc) 5 mg PO DAILY [facility] Last Admin: 02/11/19 15:25 Dose: 5 mg Aspirin (Ecotrin) 81 mg PO DAILY [facility] Last Admin: 02/11/19 09:46 Dose: 81 mg Carvedilol (Coreg) 12.5 mg PO BID [facility] Last Admin: 02/11/19 18:49 Dose: 12.5 mg Heparin Sodium (Porcine) (Heparin) 5,000 units SC Q8 [facility]; Protocol Last Admin: 02/11/19 14:55 Dose: Not Given Ceftriaxone Sodium (Rocephin 1 Gram Ivpb) 1 gm in 100 mls @ 100 mls/hr IVPB DAILY [facility]; Protocol Last Admin: 02/11/19 18:50 Dose: 100 mls/hr Levothyroxine Sodium (Synthroid) 75 mcg PO 0600 [facility] Last Admin: 02/11/19 05:18 Dose: 75 mcg Pantoprazole Sodium (Protonix Ec Tab) 40 mg PO 0600 [facility] Last Admin: 02/11/19 05:18 Dose: 40 mg Sevelamer HCl (Renagel) 800 mg PO ACTID [facility] Last Admin: 02/11/19 18:50 Dose: 800 mg Family Hx: None significant ROS: No nausea, vomiting, diarrhea, headaches, dizziness, chest pain, abdominal pain, melena, hematuria, hematemesis, hematochezia, depression, anxiety. Patient SOB, fevers, chills. Past Patient History - Infectious Disease Hx of Infectious Diseases: None - Tetanus Immunizations Tetanus Immunization: Unknown - Past Medical History & Family History Past Medical History?: Yes - Past Social History Smoking Status: Never Smoked - CARDIAC Hx Congestive Heart Failure: Yes Hx Hypertension: Yes - PULMONARY Hx Pneumonia: Yes - NEUROLOGICAL Hx Neurological Disorder: No Hx Alzheimer's Disease: No HX Cerebrovascular Accident: No Hx Dementia: No Hx Dizziness: No Hx Meningitis: No Hx Migraine: No Hx Parkinson's Disease: No Hx Seizures: No Hx Transient Ischemic Attacks (TIA): No - HEENT Hx HEENT Problems: No Hx Blind: No Hx Cataracts: No Hx Deafness: No Hx Difficulty Chewing: No Hx Epistaxis: No Hx Glaucoma: No Hx Macular Degeneration: No - RENAL Hx Renal Failure: Yes (ESRD) - ENDOCRINE/METABOLIC Hx Hypothyroidism: Yes - HEMATOLOGICAL/ONCOLOGICAL Hx Blood Disorders: No Hx AIDS: No Hx Anemia: No Hx Cancer: No Hx Chemotherapy: No Hx Cirrhosis: No Hx Hemophilia: No Hx Hepatitis A: No Hx Hepatitis B: No Hx Hepatitis C: No Hx Metastesis: No Hx Shingles: No Hx Sickle Cell Disease: No Hx Unexplained Bleeding: No - INTEGUMENTARY Hx Dermatological Problems: No Hx Basil Cell: No Hx Eczema: No Hx Melanoma: No Hx Psoriasis: No Hx Squamous Cell: No - MUSCULOSKELETAL/RHEUMATOLOGICAL Hx Falls: No - GASTROINTESTINAL Hx Gastroesophageal Reflux: Yes (peptic ulcer) - GENITOURINARY/GYNECOLOGICAL Hx Genitourinary Disorders: No Hx Hematuria: No Hx Incontinence: No Hx Sexually Transmitted Disorders: No Hx Urinary Tract Infection: No - PSYCHIATRIC Hx Psychophysiologic Disorder: No Hx Anxiety: No Hx Bipolar Disorder: No Hx Depression: No Hx Emotional Abuse: No Hx Hallucinations: No Hx Panic Symptoms: No Hx Paranoia: No Hx Post Traumatic Stress Disorder: No Hx Psychosis: No Hx Physical Abuse: No Hx Schizophrenia: No Hx Sexual Abuse: No Hx Substance Use: No - SURGICAL HISTORY Hx Amputation: No Hx Appendectomy: No Hx Cardiac Catheterization: No Hx Cholecystectomy: No Hx Coronary Stent: No Hx Gastric Bypass Surgery: No Hx Hysterectomy: No Hx Joint Replacement: No Hx Kidney Transplant: No Hx Liver Transplant: No Hx Mastectomy: No Hx Musculoskeletal Surgery: No Hx Open Heart Surgery: No Hx Orthopedic Surgery: No Hx Splenectomy: No Hx Valve Replacement: No - ANESTHESIA Hx Anesthesia: Yes Hx Anesthesia Reactions: No Hx Malignant Hyperthermia: No Meds Allergies/Adverse Reactions: Allergies Allergy/AdvReac Type Severity Reaction Status Date / Time codeine Allergy Intermediate ITCHING Verified 10/31/18 12:26 - Medications Medications: Current Medications Acetaminophen (Tylenol 325mg Tab) 650 mg PO Q4H PRN PRN Reason: Pain, Mild (1-3) Amlodipine Besylate (Norvasc) 5 mg PO DAILY [facility] Last Admin: 02/11/19 15:25 Dose: 5 mg Aspirin (Ecotrin) 81 mg PO DAILY [facility] Last Admin: 02/11/19 09:46 Dose: 81 mg Carvedilol (Coreg) 12.5 mg PO BID [facility] Last Admin: 02/11/19 18:49 Dose: 12.5 mg Heparin Sodium (Porcine) (Heparin) 5,000 units SC Q8 [facility]; Protocol Last Admin: 02/11/19 14:55 Dose: Not Given Ceftriaxone Sodium (Rocephin 1 Gram Ivpb) 1 gm in 100 mls @ 100 mls/hr IVPB DAILY [facility]; Protocol Last Admin: 02/11/19 18:50 Dose: 100 mls/hr Levothyroxine Sodium (Synthroid) 75 mcg PO 0600 [facility] Last Admin: 02/11/19 05:18 Dose: 75 mcg Pantoprazole Sodium (Protonix Ec Tab) 40 mg PO 0600 [facility] Last Admin: 02/11/19 05:18 Dose: 40 mg Sevelamer HCl (Renagel) 800 mg PO ACTID [facility] Last Admin: 02/11/19 18:50 Dose: 800 mg Physical Exam - Constitutional Appears: Non-toxic, No Acute Distress, Chronically Ill - Head Exam Head Exam: ATRAUMATIC, NORMOCEPHALIC - Eye Exam Eye Exam: EOMI, PERRL Pupil Exam: NORMAL ACCOMODATION, PERRL - ENT Exam ENT Exam: Mucous Membranes Moist, Normal External Ear Exam, TM's Normal Bilaterally - Neck Exam Neck exam: Positive for: Full Rom, Normal Inspection - Respiratory Exam Respiratory Exam: Decreased Breath Sounds, Rhonchi (right lower lobe.). absent: Rales, Wheezes - Cardiovascular Exam Cardiovascular Exam: REGULAR RHYTHM, RRR, +S1, +S2 - GI/Abdominal Exam GI & Abdominal Exam: Normal Bowel Sounds, Soft. absent: Distended, Tenderness - Extremities Exam Extremities exam: Positive for: full ROM, normal inspection - Neurological Exam Neurological exam: Alert, CN II-XII Intact, Oriented x3 - Psychiatric Exam Psychiatric exam: Normal Affect, Normal Mood Results - Vital Signs Recent Vital Signs: Last Vital Signs Temp 99.3 F 02/11/19 18:00 Pulse 99 H 02/11/19 18:49 Resp 18 02/11/19 18:00 BP 141/55 L 02/11/19 18:00 Pulse Ox 97 02/11/19 18:00 - Labs Result Diagrams: 02/11/19 10:49 02/10/19 21:33 Labs: Laboratory Results - last 24 hr 02/10/19 02/10/19 02/10/19 21:20 21:33 21:33 WBC 15.8 H D RBC 3.88 Hgb 11.1 L Hct 33.4 L MCV 86.1 D MCH 28.6 MCHC 33.2 RDW 15.4 H Plt Count 142 MPV 8.5 Neut % (Auto) 86.4 H Lymph % (Auto) 6.7 L Taney % (Auto) 2.2 Eos % (Auto) 4.5 Baso % (Auto) 0.2 Lymph # (Auto) 1.1 L Taney # (Auto) 0.4 Eos # (Auto) 0.7 Baso # (Auto) 0.03 Absolute Neuts (auto) 13.67 H PT 10.4 INR 0.94 APTT 33.2 pCO2 43 pO2 275.0 H HCO3 26.6 ABG pH 7.40 ABG Total CO2 27.9 ABG O2 Saturation 98.8 H ABG Base Excess 1.5 ABG Potassium 3.8 Sodium 131.0 L Chloride 94.0 L Glucose 186 H Lactate 0.8 FiO2 100.0 Potassium Carbon Dioxide Anion Gap BUN Creatinine Est GFR ( Amer) Est GFR (Non-Af Amer) Random Glucose Calcium Magnesium Total Bilirubin AST ALT Alkaline Phosphatase Lactate Dehydrogenase Total Creatine Kinase Troponin I NT-Pro-B Natriuret Pep Total Protein Albumin Globulin Albumin/Globulin Ratio Procalcitonin Arterial Blood Potassium 3.8 Urine Color Urine Appearance Urine pH Ur Specific Alfred Urine Protein Urine Glucose (UA) Urine Ketones Urine Blood Urine Nitrate Urine Bilirubin Urine Urobilinogen Ur Leukocyte Esterase Urine RBC Urine WBC Ur Epithelial Cells Amorphous Sediment Urine Bacteria Urine Other Ur L.pneumophila Ag 02/10/19 02/11/19 02/11/19 21:33 10:47 10:49 WBC 12.5 H D RBC 3.60 Hgb 10.2 L Hct 31.1 L MCV 86.4 MCH 28.3 MCHC 32.8 RDW 15.5 H Plt Count 126 MPV 8.8 Neut % (Auto) 85.5 H Lymph % (Auto) 7.6 L Taney % (Auto) 3.8 Eos % (Auto) 2.9 Baso % (Auto) 0.2 Lymph # (Auto) 1.0 L Taney # (Auto) 0.5 Eos # (Auto) 0.4 Baso # (Auto) 0.02 Absolute Neuts (auto) 10.69 H PT INR APTT pCO2 pO2 HCO3 ABG pH ABG Total CO2 ABG O2 Saturation ABG Base Excess ABG Potassium Sodium 134 Chloride 89 L Glucose Lactate FiO2 Potassium 4.2 Carbon Dioxide 30 Anion Gap 19 BUN 49 H Creatinine 7.7 H* Est GFR ( Amer) 6 Est GFR (Non-Af Amer) 5 Random Glucose 194 H Calcium 8.9 Magnesium 1.6 L Total Bilirubin 0.9 AST 52 H D ALT 19 Alkaline Phosphatase 102 Lactate Dehydrogenase 514 Total Creatine Kinase 129 Troponin I < 0.01 D NT-Pro-B Natriuret Pep 73670 H Total Protein 8.4 H Albumin 4.8 Globulin 3.6 Albumin/Globulin Ratio 1.3 Procalcitonin 49.44 H Arterial Blood Potassium Urine Color Urine Appearance Urine pH Ur Specific Alfred Urine Protein Urine Glucose (UA) Urine Ketones Urine Blood Urine Nitrate Urine Bilirubin Urine Urobilinogen Ur Leukocyte Esterase Urine RBC Urine WBC Ur Epithelial Cells Amorphous Sediment Urine Bacteria Urine Other Ur L.pneumophila Ag 02/11/19 02/11/19 11:55 11:55 WBC RBC Hgb Hct MCV MCH MCHC RDW Plt Count MPV Neut % (Auto) Lymph % (Auto) Taney % (Auto) Eos % (Auto) Baso % (Auto) Lymph # (Auto) Taney # (Auto) Eos # (Auto) Baso # (Auto) Absolute Neuts (auto) PT INR APTT pCO2 pO2 HCO3 ABG pH ABG Total CO2 ABG O2 Saturation ABG Base Excess ABG Potassium Sodium Chloride Glucose Lactate FiO2 Potassium Carbon Dioxide Anion Gap BUN Creatinine Est GFR ( Amer) Est GFR (Non-Af Amer) Random Glucose Calcium Magnesium Total Bilirubin AST ALT Alkaline Phosphatase Lactate Dehydrogenase Total Creatine Kinase Troponin I NT-Pro-B Natriuret Pep Total Protein Albumin Globulin Albumin/Globulin Ratio Procalcitonin Arterial Blood Potassium Urine Color Yellow Urine Appearance Clear Urine pH 7.0 Ur Specific Alfred 1.010 Urine Protein 100 H Urine Glucose (UA) Negative Urine Ketones Negative Urine Blood Small H Urine Nitrate Negative Urine Bilirubin Negative Urine Urobilinogen 0.2 Ur Leukocyte Esterase Negative Urine RBC 5 - 10 H Urine WBC 0 - 2 Ur Epithelial Cells 6 - 8 H Amorphous Sediment Few Urine Bacteria Mod Urine Other Fiber Ur L.pneumophila Ag Negative Assessment & Plan - Assessment and Plan (Free Text) Assessment: 78 yo female with one week of progressive SOB and fevers up to 101.9 F. Chest X-ray non-specific for pneumonia. CT Chest showing presence of a possible infiltrate in the right lower lobe. With the fevers and the severely elevated procalcitonin, have to assume pneumonia at this point. Started on Rocephin IV for treatment. May need to consider addition of Azithromycin to the patient's regimen. Procalcitonin of 49.44. Trend procalcitonin values. Mild leukocytosis. Supportive care. Thank you for allowing me to participate in the care of the patient, we will follow with you.
--- NOTE | 2019-02-12 00:01 | HP ---
DATE OF EXAM: 02/11/2019 history and physical (providing medicine coverage for Dr. Lizeth Kimble.) HISTORY OF PRESENT ILLNESS: The patient is a 78-year-old female with past medical history of hypertension, multilobular pneumonia in 10/2018, hypothyroidism and ESRD on hemodialysis (Friday, and Friday at [facility] under Dr. Lizeth Kimble) presented to ED with 1 week of cough, found to have fever of 101.9 degrees; the patient also reports some chills; she otherwise reports to be in her usual state of health; she does have some dyspnea; denies any leg swelling, chest pain or palpitation; she reports having normal p.o. dietary intake; she does still make fair amount of urine and denies any dysuria; the patient otherwise reports taking all of her medications regularly including blood pressure medications; denies any dizziness/lightheadedness. PAST MEDICAL HISTORY: As above. SOCIAL HISTORY: Denies smoking. FAMILY HISTORY: Son has ESRD, on dialysis. REVIEW OF SYSTEMS: CONSTITUTIONAL: As per HPI with fever and chills. HEENT: Stable vision. Reports some sore throat. RESPIRATORY: As per HPI. Cough with brownish sputum production. CARDIOVASCULAR: No chest pain or palpitations. GASTROINTESTINAL: No nausea, vomiting, or diarrhea. GENITOURINARY: No dysuria. MUSCULOSKELETAL: Denies any arthralgias. Does not use any pain medications. NEUROLOGIC: Denies any headache or dizziness. PHYSICAL EXAMINATION: GENERAL: No distress. Slow to answer questions, but answers appropriately. VITAL SIGNS: This morning; blood pressure of 161/72, heart rate of 74, respirations of 20, temperature of 98.1, and O2 sat 97% on room air. HEENT: Moist mucous membranes, nonicteric. No cervical lymphadenopathy. RESPIRATORY: Minimal rales heard at bases; otherwise clear. No wheezes. No rhonchi. CARDIOVASCULAR: Heart sounds S1 and S2 normal. No murmurs. No gallops. No rubs. JVD somewhat elevated. GASTROINTESTINAL: Abdomen is soft, nontender, and nondistended. GENITOURINARY: No bladder distention. NEUROLOGIC: No resting tremor. SKIN: No ulcers of feet noted. EXTREMITIES: Left arm AV fistula with good thrill/bruit. LABORATORY DATA: CBC; WBC of 12.5, hemoglobin of 10.2, hematocrit of 31.1, and platelets of 126. Chemistry panel; sodium of 134, potassium of 4.2, chloride of 89, bicarbonate of 30, BUN of 49, creatinine of 7.7, glucose of 194, calcium of 8.9, and magnesium of 1.6. AST of 52 and AST of 19. Troponin of less than 0.01. ProBNP of 41,500. Albumin of 4.8. Procalcitonin level of 49.4. Urine studies; UA 100 mg/dL protein, small blood, 5 to 10 rbc's per high-power field, and 0-3 wbc's per high-power field. Chest x-ray directly visualized, showing some fluid in the fissure, increased pulmonary vascular congestion. CAT scan of the chest without contrast reviewed, patchy and somewhat nodular opacity in the right upper lob, also with minimal ground glass opacities. Additional patchy bibasilar airspace opacities of right lobe. ASSESSMENT AND PLAN: 1. Healthcare-associated pneumonia, the patient with history of pneumonia 3 months ago, very high procalcitonin level, consistent with bacterial process. We will await Infectious Disease input for antibiotic selection. The patient received 1 dose of vancomycin last night. We will re-dosed today after dialysis. 2. End-stage renal disease, on hemodialysis and also with stable electrolyte status, some volume excess by symptoms and exam; dialyzing today routine on 3 potassium bath with 2 L ultrafiltration goal. 3. Chronic kidney disease mineral bone disorder. The patient is not on calcitriol as outpatient. We will continue sevelamer 1 tablet with meals to control phosphorus level. 4. Anemia of chronic kidney disease. The patient had been off of EPO as outpatient; hgb dropped today in the setting of acute illness. We will likely need to restart SOSA with Aranesp. 5. Hypertensive end-stage renal disease. Blood pressure elevated prior to dialysis treatment. We will reassess after dialysis. Otherwise, we will continue amlodipine 5 mg daily and Coreg 12.5 mg b.i.d. 6. Hypothyroidism, continue levothyroxine 75 mcg daily. We will check TSH. 7. Deep venous thrombosis prophylaxis. Continue heparin 5000 units subcutaneously every 8 hours. Maikol Mughni, MD [facility] # [id number] [facility]
[2019-02-12] MEDS: Levothyroxine 75 MCG TAB PO SCH (05:00)
[2019-02-12] MEDS: Pantoprazole 40 mg EC Tab PO SCH (05:00)
[2019-02-12 07:07] LABS: BASO # 0.02 K/mm3 (0.0-2.0); BASO % 0.3 % (0.0-3.0); EOS # 0.3 (0.0-0.7); EOS % 4.3 % (1.5-5.0); HEMOGLOBIN 9.8 g/dL (12.0-16.0); LYMPH # 0.9 (1.2-3.4); LYMPH % 13.1 % (22.0-35.0); MEAN CELL VOLUME 88.7 fl (80.0-105.0); MEAN CORPUSCULAR HEMOGLOBIN 27.8 pg (25.0-35.0); MEAN CORPUSCULAR HGB CONC 31.3 g/dl (31.0-37.0); MEAN PLATELET VOLUME 8.9 fl (7.0-11.0); MONO # 0.4 (0.1-0.6); MONO % 5.6 % (1.0-6.0); RBC 3.53 10^6/uL (3.5-6.1); RED CELL DISTRIBUTION WIDTH 15.8 % (11.5-14.5); WHITE BLOOD COUNT 6.7 10^3/uL (4.5-11.0)
[2019-02-12 07:10] LABS: ALB/GLOB RATIO 1.2 (1.1-1.8); ALBUMIN 4.2 g/dL (3.0-4.8); CALCIUM 8.9 mg/dL (8.4-10.5)
--- NOTE | 2019-02-12 08:32 | CP.PCM.PN ---
Subjective - Date & Time of Evaluation Date of Evaluation: 02/12/19 Time of Evaluation: 08:31 - Subjective Subjective: Patient seen and examined at bedside this morning in no acute distress. States she has been coughing throughout the night producing white phlegm. Denies chills, nausea, vomiting, abdominal pain, diarrhea, headache, dizziness. Objective - Vital Signs/Intake and Output Vital Signs (last 24 hours): Temp Pulse Resp BP Pulse Ox 97.5 F L 75 18 139/63 96 02/12/19 05:14 02/12/19 05:14 02/12/19 05:14 02/12/19 05:14 02/12/19 05:14 Intake and Output: 02/12/19 02/12/19 06:59 18:59 Intake Total 570 Output Total 100 Balance 470 - Medications Medications: Current Medications Acetaminophen (Tylenol 325mg Tab) 650 mg PO Q4H PRN PRN Reason: Pain, Mild (1-3) Last Admin: 02/11/19 22:27 Dose: 650 mg Amlodipine Besylate (Norvasc) 5 mg PO DAILY [facility] Last Admin: 02/11/19 15:25 Dose: 5 mg Aspirin (Ecotrin) 81 mg PO DAILY [facility] Last Admin: 02/11/19 09:46 Dose: 81 mg Carvedilol (Coreg) 12.5 mg PO BID [facility] Last Admin: 02/11/19 18:49 Dose: 12.5 mg Guaifenesin/Dextromethorphan (Robitussin Dm) 5 ml PO Q4H PRN PRN Reason: Cough Heparin Sodium (Porcine) (Heparin) 5,000 units SC Q8 [facility]; Protocol Last Admin: 02/12/19 05:00 Dose: 5,000 units Ceftriaxone Sodium (Rocephin 1 Gram Ivpb) 1 gm in 100 mls @ 100 mls/hr IVPB DAILY [facility]; Protocol Last Admin: 02/11/19 18:50 Dose: 100 mls/hr Azithromycin (Zithromax 500mg In Ns) 500 mg in 250 mls @ 167 mls/hr IVPB DAILY [facility]; Protocol Levothyroxine Sodium (Synthroid) 75 mcg PO 0600 [facility] Last Admin: 02/12/19 05:00 Dose: 75 mcg Pantoprazole Sodium (Protonix Ec Tab) 40 mg PO 0600 [facility] Last Admin: 02/12/19 05:00 Dose: 40 mg Sevelamer HCl (Renagel) 800 mg PO ACTID [facility] Last Admin: 02/11/19 18:50 Dose: 800 mg - Labs Labs: 02/12/19 06:30 02/12/19 06:30 PT 10.4 SECONDS (9.4-12.5) 02/10/19 21:33 INR 0.94 02/10/19 21:33 APTT 33.2 Seconds (26.9-38.3) 02/10/19 21:33 - Constitutional Appears: Non-toxic - Head Exam Head Exam: ATRAUMATIC, NORMAL INSPECTION, NORMOCEPHALIC - Eye Exam Eye Exam: EOMI, Normal appearance - ENT Exam ENT Exam: Mucous Membranes Moist - Respiratory Exam Respiratory Exam: Rales, Rhonchi, NORMAL BREATHING PATTERN. absent: Clear to Ausculation Bilateral, Wheezes - Cardiovascular Exam Cardiovascular Exam: REGULAR RHYTHM, +S1, +S2 - GI/Abdominal Exam GI & Abdominal Exam: Soft, Normal Bowel Sounds - Extremities Exam Extremities Exam: Normal Inspection. absent: Pedal Edema - Neurological Exam Neurological Exam: Alert, Awake, Oriented x3 - Psychiatric Exam Psychiatric exam: Normal Affect, Normal Mood - Skin Skin Exam: Normal Color, Warm Assessment and Plan - Assessment and Plan (Free Text) Assessment: 78 F with past medical history of hypertension, multilobular pneumonia on 11/18/2018, hypothyroidism and ESRD on HD Friday and Friday presenting with complaints of shortness of breath, weakness and fever found to have hospital acquired pneumonia. Plan: Healthcare-associated pneumonia -Continue with rocephin, vancomycin, and azithromycin as per Infectious Disease; consider zosyn instead if clinical status doesn't continue to improve -Procalcitonin level 49.44 -Last fever 100.4 overnight at 23:27 End stage renal disease -Normally on HD Friday, , Friday -Continue with HD Chronic Kidney disease Mineral Bone disorder -Continue sevelamer to maintain normal levels of phosphorous Anemia of Chronic kidney disease -Current H&H 9.8/31.3 -Consider restarting SOSA with Aranesp -Iron studies ordered for following morning Hypertensive end-stage renal disease -BP stable -Continue norvasc 5 mg qD and Coreg 12.5 mg BID Hypothyroidism -Continue levothyroxine 75 mcg qD -TSH within normal limits DVT ppx: Heparin GI ppx: Protonix Case discussed and reviewed with Dr. Castanon
[2019-02-12] MEDS: cefTRIAXone 1 gm 1 GM/100 ML BAG IVPB SCH (09:32)
[2019-02-12] MEDS: Azithromycin 500MG/NS 250ml 500 MG/250 ML BAG IVPB SCH (09:33)
--- NOTE | 2019-02-12 13:23 | CP.PCM.PCO ---
Physician Communication Note - Physician Communication Note Physician Communication Note: pt with pne, fever overnight, IV antibiotics - will discuss with ID/pmd
--- NOTE | 2019-02-12 15:11 | CP.PCM.PN ---
Subjective - Date & Time of Evaluation Date of Evaluation: 02/12/19 Time of Evaluation: 14:00 - Subjective Subjective: Infectious Disease Follow Up: February 12, 2019 78 yo [place] female with a PMHx of ESRD on HD and HTN presented with SOB. The patient has numerous admissions to [facility]. The patient has a left upper extremity AV Fistula. Patient with one week history of worsening SOB, weakness, lethargy, and subjective fever. The patient with multiple hospitalizations at [facility] as well. CT scan showing area of interval nonspecific nodular patchy airspace opacity in the right upper lobe-interval infiltrate. Additional areas of interval low- density ground-glass and airspace opacities at the right lung base noted. Obtained procalcitonin value... 49.44. Severely elevated values. Fever of 101.9 F in hospital. Leukocytosis is improving and has actually normalized now. Trend procalcitonin. Patient states that she is feeling better and breathing is not labored. Objective - Vital Signs/Intake and Output Vital Signs (last 24 hours): Temp Pulse Resp BP Pulse Ox 97.9 F 69 19 109/50 L 96 02/12/19 13:13 02/12/19 13:13 02/12/19 13:13 02/12/19 13:13 02/12/19 05:14 Intake and Output: 02/12/19 02/12/19 06:59 18:59 Intake Total 570 Output Total 100 Balance 470 - Medications Medications: Current Medications Acetaminophen (Tylenol 325mg Tab) 650 mg PO Q4H PRN PRN Reason: Pain, Mild (1-3) Last Admin: 02/11/19 22:27 Dose: 650 mg Amlodipine Besylate (Norvasc) 5 mg PO DAILY [facility] Last Admin: 02/12/19 09:32 Dose: 5 mg Aspirin (Ecotrin) 81 mg PO DAILY [facility] Last Admin: 02/12/19 09:31 Dose: 81 mg Carvedilol (Coreg) 12.5 mg PO BID [facility] Last Admin: 02/12/19 09:32 Dose: 12.5 mg Guaifenesin/Dextromethorphan (Robitussin Dm) 5 ml PO Q4H PRN PRN Reason: Cough Heparin Sodium (Porcine) (Heparin) 5,000 units SC Q8 [facility]; Protocol Last Admin: 02/12/19 13:21 Dose: 5,000 units Ceftriaxone Sodium (Rocephin 1 Gram Ivpb) 1 gm in 100 mls @ 100 mls/hr IVPB DAILY [facility]; Protocol Last Admin: 02/12/19 09:32 Dose: 100 mls/hr Azithromycin (Zithromax 500mg In Ns) 500 mg in 250 mls @ 167 mls/hr IVPB DAILY [facility]; Protocol Last Admin: 02/12/19 09:33 Dose: 167 mls/hr Levothyroxine Sodium (Synthroid) 75 mcg PO 0600 [facility] Last Admin: 02/12/19 05:00 Dose: 75 mcg Pantoprazole Sodium (Protonix Ec Tab) 40 mg PO 0600 [facility] Last Admin: 02/12/19 05:00 Dose: 40 mg Sevelamer HCl (Renagel) 800 mg PO ACTID [facility] Last Admin: 02/12/19 12:17 Dose: 800 mg - Labs Labs: 02/12/19 06:30 02/12/19 06:30 PT 10.4 SECONDS (9.4-12.5) 02/10/19 21:33 INR 0.94 02/10/19 21:33 APTT 33.2 Seconds (26.9-38.3) 02/10/19 21:33 - Constitutional Appears: Non-toxic, No Acute Distress, Chronically Ill - Head Exam Head Exam: ATRAUMATIC, NORMOCEPHALIC - Eye Exam Eye Exam: EOMI, PERRL Pupil Exam: NORMAL ACCOMODATION, PERRL - ENT Exam ENT Exam: Mucous Membranes Moist, Normal External Ear Exam, TM's Normal Bilaterally - Neck Exam Neck Exam: Full ROM, Normal Inspection - Respiratory Exam Respiratory Exam: Decreased Breath Sounds, Rhonchi (right lower lobe.), NORMAL BREATHING PATTERN. absent: Rales, Wheezes - Cardiovascular Exam Cardiovascular Exam: REGULAR RHYTHM, RRR, +S1, +S2 - GI/Abdominal Exam GI & Abdominal Exam: Soft, Normal Bowel Sounds. absent: Distended, Tenderness - Extremities Exam Extremities Exam: Full ROM, Normal Inspection - Neurological Exam Neurological Exam: Alert, Awake, CN II-XII Intact, Oriented x3 - Psychiatric Exam Psychiatric exam: Normal Affect, Normal Mood - Skin Skin Exam: Intact, Normal Color Assessment and Plan - Assessment and Plan (Free Text) Assessment: 78 yo female with one week of progressive SOB and fevers up to 101.9 F. Chest X-ray non-specific for pneumonia. CT Chest showing presence of a possible infiltrate in the right lower lobe. With the fevers and the severely elevated procalcitonin, have to assume pneumonia at this point. Started on Rocephin IV for treatment. Added Azithromycin to the patient's regimen. Procalcitonin of 49.44. Trend procalcitonin values. Mild leukocytosis. Supportive care. Clinically improving. WBC is now 6.7. Thank you for allowing me to participate in the care of the patient, we will follow with you.
--- NOTE | 2019-02-12 15:16 | CP.PCM.CON ---
History of Present Illness - History of Present Illness History of Present Illness: Infectious Disease Consultation: February 11, 2019 78 yo [place] female with a PMHx of ESRD on HD and HTN presented with SOB. The patient has numerous admissions to [facility]. The patient has a left uppe r extremity AV Fistula. Patient with one week history of worsening SOB, weakness, lethargy, and subjective fever. The patient with multiple hospitalizations at [facility] [place]. CT scan showing area of interval nonspecific nodular patchy airspace opacity in the right upper lobe-interval infiltrate. Additional areas of interval low- density ground-glass and airspace opacities at the right lung base noted. Obtained procalcitonin value... 49.44. Severely elevated values. Fever of 101.9 F in hospital. PMHx: HTN ESRD on HD Hypothyroidism? PSHx: AV Fistula left upper extremity Allergies: Codeine Social Hx: No tobacco, EtOH, or illicit drug use Active Medications Acetaminophen (Tylenol 325mg Tab) 650 mg PO Q4H PRN PRN Reason: Pain, Mild (1-3) Amlodipine Besylate (Norvasc) 5 mg PO DAILY [facility] Last Admin: 02/11/19 15:25 Dose: 5 mg Aspirin (Ecotrin) 81 mg PO DAILY [facility] Last Admin: 02/11/19 09:46 Dose: 81 mg Carvedilol (Coreg) 12.5 mg PO BID [facility] Last Admin: 02/11/19 18:49 Dose: 12.5 mg Heparin Sodium (Porcine) (Heparin) 5,000 units SC Q8 [facility]; Protocol Last Admin: 02/11/19 14:55 Dose: Not Given Ceftriaxone Sodium (Rocephin 1 Gram Ivpb) 1 gm in 100 mls @ 100 mls/hr IVPB DAILY [facility]; Protocol Last Admin: 02/11/19 18:50 Dose: 100 mls/hr Levothyroxine Sodium (Synthroid) 75 mcg PO 0600 [facility] Last Admin: 02/11/19 05:18 Dose: 75 mcg Pantoprazole Sodium (Protonix Ec Tab) 40 mg PO 0600 [facility] Last Admin: 02/11/19 05:18 Dose: 40 mg Sevelamer HCl (Renagel) 800 mg PO ACTID [facility] Last Admin: 02/11/19 18:50 Dose: 800 mg Family Hx: None significant ROS: No nausea, vomiting, diarrhea, headaches, dizziness, chest pain, abdominal pain, melena, hematuria, hematemesis, hematochezia, depression, anxiety. Patient SOB, fevers, chills. Past Patient History - Infectious Disease Hx of Infectious Diseases: None - Tetanus Immunizations Tetanus Immunization: Unknown - Past Medical History & Family History Past Medical History?: Yes - Past Social History Smoking Status: Never Smoked - CARDIAC Hx Congestive Heart Failure: Yes Hx Hypertension: Yes - PULMONARY Hx Pneumonia: Yes - NEUROLOGICAL HX Cerebrovascular Accident: No - HEENT Hx HEENT Problems: No Hx Blind: No Hx Cataracts: No Hx Deafness: No Hx Difficulty Chewing: No Hx Epistaxis: No Hx Glaucoma: No Hx Macular Degeneration: No - RENAL Hx Renal Failure: Yes (ESRD, on HD , Sharlene, Sat.) - ENDOCRINE/METABOLIC Hx Hypothyroidism: Yes - HEMATOLOGICAL/ONCOLOGICAL Hx Blood Disorders: No Hx AIDS: No Hx Anemia: No Hx Cancer: No Hx Chemotherapy: No Hx Cirrhosis: No Hx Hemophilia: No Hx Hepatitis A: No Hx Hepatitis B: No Hx Hepatitis C: No Hx Metastesis: No Hx Shingles: No Hx Sickle Cell Disease: No Hx Unexplained Bleeding: No - INTEGUMENTARY Hx Dermatological Problems: No Hx Basil Cell: No Hx Eczema: No Hx Melanoma: No Hx Psoriasis: No Hx Squamous Cell: No - MUSCULOSKELETAL/RHEUMATOLOGICAL Hx Falls: No - GASTROINTESTINAL Hx Gastroesophageal Reflux: Yes (peptic ulcer) - GENITOURINARY/GYNECOLOGICAL Hx Genitourinary Disorders: No Hx Hematuria: No Hx Incontinence: No Hx Sexually Transmitted Disorders: No Hx Urinary Tract Infection: No - PSYCHIATRIC Hx Psychophysiologic Disorder: No Hx Anxiety: No Hx Bipolar Disorder: No Hx Depression: No Hx Emotional Abuse: No Hx Hallucinations: No Hx Panic Symptoms: No Hx Paranoia: No Hx Post Traumatic Stress Disorder: No Hx Psychosis: No Hx Physical Abuse: No Hx Schizophrenia: No Hx Sexual Abuse: No Hx Substance Use: No - SURGICAL HISTORY Hx Amputation: No Hx Appendectomy: No Hx Cardiac Catheterization: No Hx Cholecystectomy: No Hx Coronary Stent: No Hx Gastric Bypass Surgery: No Hx Hysterectomy: No Hx Joint Replacement: No Hx Kidney Transplant: No Hx Liver Transplant: No Hx Mastectomy: No Hx Musculoskeletal Surgery: No Hx Open Heart Surgery: No Hx Orthopedic Surgery: No Hx Splenectomy: No Hx Valve Replacement: No - ANESTHESIA Hx Anesthesia: Yes Hx Anesthesia Reactions: No Hx Malignant Hyperthermia: No Meds Allergies/Adverse Reactions: Allergies Allergy/AdvReac Type Severity Reaction Status Date / Time codeine Allergy Intermediate ITCHING Verified 10/31/18 12:26 - Medications Medications: Current Medications Acetaminophen (Tylenol 325mg Tab) 650 mg PO Q4H PRN PRN Reason: Pain, Mild (1-3) Last Admin: 02/11/19 22:27 Dose: 650 mg Amlodipine Besylate (Norvasc) 5 mg PO DAILY [facility] Last Admin: 02/12/19 09:32 Dose: 5 mg Aspirin (Ecotrin) 81 mg PO DAILY [facility] Last Admin: 02/12/19 09:31 Dose: 81 mg Carvedilol (Coreg) 12.5 mg PO BID [facility] Last Admin: 02/12/19 09:32 Dose: 12.5 mg Guaifenesin/Dextromethorphan (Robitussin Dm) 5 ml PO Q4H PRN PRN Reason: Cough Heparin Sodium (Porcine) (Heparin) 5,000 units SC Q8 [facility]; Protocol Last Admin: 02/12/19 13:21 Dose: 5,000 units Ceftriaxone Sodium (Rocephin 1 Gram Ivpb) 1 gm in 100 mls @ 100 mls/hr IVPB DAILY [facility]; Protocol Last Admin: 02/12/19 09:32 Dose: 100 mls/hr Azithromycin (Zithromax 500mg In Ns) 500 mg in 250 mls @ 167 mls/hr IVPB DAILY [facility]; Protocol Last Admin: 02/12/19 09:33 Dose: 167 mls/hr Levothyroxine Sodium (Synthroid) 75 mcg PO 0600 [facility] Last Admin: 02/12/19 05:00 Dose: 75 mcg Pantoprazole Sodium (Protonix Ec Tab) 40 mg PO 0600 [facility] Last Admin: 02/12/19 05:00 Dose: 40 mg Sevelamer HCl (Renagel) 800 mg PO ACTID [facility] Last Admin: 02/12/19 12:17 Dose: 800 mg Physical Exam - Constitutional Appears: Non-toxic, No Acute Distress, Chronically Ill - Head Exam Head Exam: ATRAUMATIC, NORMOCEPHALIC - Eye Exam Eye Exam: EOMI, PERRL Pupil Exam: NORMAL ACCOMODATION, PERRL - ENT Exam ENT Exam: Mucous Membranes Moist, Normal External Ear Exam, TM's Normal Bilaterally - Neck Exam Neck exam: Positive for: Full Rom, Normal Inspection - Respiratory Exam Respiratory Exam: Decreased Breath Sounds, Rhonchi (right lower lobe.), NORMAL BREATHING PATTERN. absent: Rales, Wheezes - Cardiovascular Exam Cardiovascular Exam: REGULAR RHYTHM, RRR, +S1, +S2 - GI/Abdominal Exam GI & Abdominal Exam: Normal Bowel Sounds, Soft. absent: Distended, Tenderness - Extremities Exam Extremities exam: Positive for: full ROM, normal inspection - Neurological Exam Neurological exam: Alert, CN II-XII Intact, Oriented x3 - Psychiatric Exam Psychiatric exam: Normal Affect, Normal Mood - Skin Skin Exam: Intact, Normal Color Results - Vital Signs Recent Vital Signs: Last Vital Signs Temp 97.9 F 02/12/19 13:13 Pulse 69 02/12/19 13:13 Resp 19 02/12/19 13:13 BP 109/50 L 02/12/19 13:13 Pulse Ox 96 02/12/19 05:14 - Labs Result Diagrams: 02/12/19 06:30 02/12/19 06:30 Labs: Laboratory Results - last 24 hr 02/11/19 02/11/19 02/12/19 10:47 11:55 06:30 WBC RBC Hgb Hct MCV MCH MCHC RDW Plt Count MPV Neut % (Auto) Lymph % (Auto) Pine % (Auto) Eos % (Auto) Baso % (Auto) Lymph # (Auto) Pine # (Auto) Eos # (Auto) Baso # (Auto) Absolute Neuts (auto) Sodium Potassium Chloride Carbon Dioxide Anion Gap BUN Creatinine Est GFR ( Amer) Est GFR (Non-Af Amer) Random Glucose Calcium Phosphorus Magnesium Total Bilirubin AST ALT Alkaline Phosphatase Total Protein Albumin Globulin Albumin/Globulin Ratio Procalcitonin 49.44 H TSH 3rd Generation 4.66 Ur L.pneumophila Ag Negative Mycoplasma pneumon IgM 02/12/19 02/12/19 02/12/19 06:30 06:30 06:30 WBC 6.7 D RBC 3.53 Hgb 9.8 L Hct 31.3 L MCV 88.7 MCH 27.8 MCHC 31.3 RDW 15.8 H Plt Count 145 MPV 8.9 Neut % (Auto) 76.7 H Lymph % (Auto) 13.1 L Pine % (Auto) 5.6 Eos % (Auto) 4.3 Baso % (Auto) 0.3 Lymph # (Auto) 0.9 L Pine # (Auto) 0.4 Eos # (Auto) 0.3 Baso # (Auto) 0.02 Absolute Neuts (auto) 5.17 Sodium 141 Potassium 4.0 Chloride 102 Carbon Dioxide 26 Anion Gap 18 BUN 28 H Creatinine 5.7 H Est GFR ( Amer) 9 Est GFR (Non-Af Amer) 7 Random Glucose 84 Calcium 8.9 Phosphorus 4.4 Magnesium 2.0 Total Bilirubin 0.6 AST 45 H ALT 25 Alkaline Phosphatase 78 Total Protein 7.7 Albumin 4.2 Globulin 3.5 Albumin/Globulin Ratio 1.2 Procalcitonin TSH 3rd Generation Ur L.pneumophila Ag Mycoplasma pneumon IgM Negative Assessment & Plan - Assessment and Plan (Free Text) Assessment: 78 yo female with one week of progressive SOB and fevers up to 101.9 F. Chest X-ray non-specific for pneumonia. CT Chest showing presence of a possible infiltrate in the right lower lobe. With the fevers and the severely elevated procalcitonin, have to assume pneumonia at this point. Started on Rocephin IV for treatment. May need to consider addition of A zithromycin to the patient's regimen. Procalcitonin of 49.44. Trend procalcitonin values. Mild leukocytosis. Supportive care. Thank you for allowing me to participate in the care of the patient, we will follow with you.
[2019-02-12] MEDS: guaiFENesin DM 100 mg-10 mg/5 ml UD PO PRN ×2 (18:25→22:05)
--- NOTE | 2019-02-12 19:50 | CARD ---
APPROVED REPORT Date of service: 02/12/2019 EKG Measurement Heart [id number] <Conclusion> Normal sinus rhythm Anteroseptal infarct, age undetermined Abnormal ECG
[2019-02-13] MEDS: Pantoprazole 40 mg EC Tab PO SCH (05:59)
[2019-02-13] MEDS: Levothyroxine 75 MCG TAB PO SCH (05:59)
[2019-02-13 07:44] LABS: IRON 128 ug/dL (45-180)
[2019-02-13 07:53] LABS: % IRON SATURATION 72 % (20-55); TOTAL IRON BINDING CAPACITY 178 ug/dL (265-497)
[2019-02-13] MEDS ORDERED: Darbepoetin Alfa 60 mcg/ml Inj IVP ONE ×2 (09:00→13:08)
[2019-02-13 12:18] LABS: MEAN CELL VOLUME 88.4 fl (80.0-105.0); MEAN CORPUSCULAR HEMOGLOBIN 28.2 pg (25.0-35.0); MEAN CORPUSCULAR HGB CONC 31.9 g/dl (31.0-37.0); MEAN PLATELET VOLUME 9.3 fl (7.0-11.0); RBC 3.19 10^6/uL (3.5-6.1); RED CELL DISTRIBUTION WIDTH 15.6 % (11.5-14.5); WHITE BLOOD COUNT 4.7 10^3/uL (4.5-11.0)
[2019-02-13 12:44] LABS: BASO # 0.02 K/mm3 (0.0-2.0); BASO % 0.4 % (0.0-3.0); EOS # 0.6 (0.0-0.7); EOS % 13.1 % (1.5-5.0); HEMOGLOBIN 8.8 g/dL (12.0-16.0); LYMPH # 1.2 (1.2-3.4); LYMPH % 26.5 % (22.0-35.0); MEAN CELL VOLUME 87.1 fl (80.0-105.0); MEAN CORPUSCULAR HEMOGLOBIN 28.4 pg (25.0-35.0); MEAN CORPUSCULAR HGB CONC 32.6 g/dl (31.0-37.0); MEAN PLATELET VOLUME 8.7 fl (7.0-11.0); MONO # 0.4 (0.1-0.6); MONO % 7.5 % (1.0-6.0); RBC 3.1 10^6/uL (3.5-6.1); RED CELL DISTRIBUTION WIDTH 15.7 % (11.5-14.5); WHITE BLOOD COUNT 4.6 10^3/uL (4.5-11.0)
[2019-02-13 13:08] LABS: ALB/GLOB RATIO 1.2 (1.1-1.8); CALCIUM 8.6 mg/dL (8.4-10.5)
--- NOTE | 2019-02-13 15:56 | CP.PCM.PN ---
Subjective - Date & Time of Evaluation Date of Evaluation: 02/13/19 Time of Evaluation: 13:00 - Subjective Subjective: Providing medicine coverage for Dr. Kimble: 78 yo F w/ pmh of htn, hypothyroidism, and ESRD on HD, admitted with pneumonia; Patient seen on HD; reports feeling well; still with cough; tolerating diet; urinating well; no shortness of breath; Objective - Vital Signs/Intake and Output Vital Signs (last 24 hours): Temp Pulse Resp BP Pulse Ox 97.9 F 66 18 144/51 L 98 02/13/19 06:00 02/13/19 06:00 02/13/19 06:00 02/13/19 06:00 02/13/19 06:00 Intake and Output: 02/13/19 02/13/19 06:59 18:59 Intake Total 958 Balance 958 - Medications Medications: Current Medications Acetaminophen (Tylenol 325mg Tab) 650 mg PO Q4H PRN PRN Reason: Pain, Mild (1-3) Last Admin: 02/12/19 22:05 Dose: 650 mg Amlodipine Besylate (Norvasc) 5 mg PO DAILY [facility] Last Admin: 02/12/19 09:32 Dose: 5 mg Aspirin (Ecotrin) 81 mg PO DAILY [facility] Last Admin: 02/12/19 09:31 Dose: 81 mg Carvedilol (Coreg) 12.5 mg PO BID [facility] Last Admin: 02/13/19 11:28 Dose: Not Given Guaifenesin/Dextromethorphan (Robitussin Dm) 5 ml PO Q4H PRN PRN Reason: Cough Last Admin: 02/12/19 22:05 Dose: 5 ml Heparin Sodium (Porcine) (Heparin) 5,000 units SC Q8 [facility]; Protocol Last Admin: 02/13/19 14:00 Dose: Not Given Ceftriaxone Sodium (Rocephin 1 Gram Ivpb) 1 gm in 100 mls @ 100 mls/hr IVPB DAILY [facility]; Protocol Last Admin: 02/12/19 09:32 Dose: 100 mls/hr Azithromycin (Zithromax 500mg In Ns) 500 mg in 250 mls @ 167 mls/hr IVPB DAILY [facility]; Protocol Last Admin: 02/12/19 09:33 Dose: 167 mls/hr Levothyroxine Sodium (Synthroid) 75 mcg PO 0600 [facility] Last Admin: 02/13/19 05:59 Dose: 75 mcg Pantoprazole Sodium (Protonix Ec Tab) 40 mg PO 0600 [facility] Last Admin: 02/13/19 05:59 Dose: 40 mg Sevelamer HCl (Renagel) 800 mg PO ACTID [facility] Last Admin: 02/13/19 11:28 Dose: Not Given - Labs Labs: 02/13/19 12:18 02/13/19 12:18 PT 10.4 SECONDS (9.4-12.5) 02/10/19 21:33 INR 0.94 02/10/19 21:33 APTT 33.2 Seconds (26.9-38.3) 02/10/19 21:33 - Constitutional Appears: Non-toxic, No Acute Distress - Eye Exam Eye Exam: Normal appearance - Respiratory Exam Respiratory Exam: Rhonchi. absent: Respiratory Distress - Cardiovascular Exam Cardiovascular Exam: RRR, +S1, +S2 - GI/Abdominal Exam GI & Abdominal Exam: Soft. absent: Distended, Tenderness - Extremities Exam Additional comments: no leg edema; - Neurological Exam Neurological Exam: Alert, Awake - Psychiatric Exam Psychiatric exam: Normal Affect, Normal Mood. absent: Agitated - Skin Skin Exam: Warm. absent: Cyanosis Assessment and Plan (1) ESRD (end stage renal disease) on dialysis Assessment & Plan: Stable electrolyte and volume status; dialyzing today per routine with 2L UF goal; next HD for Friday; Status: Chronic (2) Hypertensive CKD, ESRD on dialysis Assessment & Plan: BP elevated today before HD; will re-assess after getting UF on HD; continue PO meds; Status: Acute (3) Anemia of renal disease Assessment & Plan: Hgb dropping below goal in the setting of acute illness and ESRD; iron replete (actually ferritin very high); starting aranesp 60 mcg weekly; Status: Acute (4) Pneumonia Assessment & Plan: Afbrile, symptomatically improved; will continue ceftriaxone and zithromax per ID rec; Status: Acute (5) Hypothyroidism Assessment & Plan: Continue LT4 75 mcg daily; Status: Chronic
[2019-02-13] MEDS: cefTRIAXone 1 gm 1 GM/100 ML BAG IVPB SCH (16:03)
[2019-02-13] MEDS: Azithromycin 500MG/NS 250ml 500 MG/250 ML BAG IVPB SCH (17:42)
--- NOTE | 2019-02-13 19:28 | CP.PCM.PN ---
Subjective - Date & Time of Evaluation Date of Evaluation: 02/13/19 Time of Evaluation: 18:00 - Subjective Subjective: Infectious Disease Follow Up: February 13, 2019 78 yo [place] female with a PMHx of ESRD on HD and HTN presented with SOB. The patient has numerous admissions to [facility]. The patient has a left upper extremity AV Fistula. Patient with one week history of worsening SOB, weakness, lethargy, and subjective fever. The patient with multiple hospitalizations at [facility] as well. CT scan showing area of interval nonspecific nodular patchy airspace opacity in the right upper lobe-interval infiltrate. Additional areas of interval low- density ground-glass and airspace opacities at the right lung base noted. Obtained procalcitonin value... 49.44. Severely elevated values. Fever of 101.9 F in hospital. Leukocytosis is improving and has actually normalized now. Trend procalcitonin. Patient states that she is feeling better and breathing is not labored. Afebrile the past 2 days. She is not making any complaints. O2 saturation from 95-98 % on room air. Objective - Vital Signs/Intake and Output Vital Signs (last 24 hours): Temp Pulse Resp BP Pulse Ox 97.9 F 69 18 149/60 98 02/13/19 06:00 02/13/19 18:00 02/13/19 06:00 02/13/19 17:45 02/13/19 06:00 Intake and Output: 02/13/19 02/14/19 18:59 06:59 Intake Total 956 Balance 956 - Medications Medications: Current Medications Acetaminophen (Tylenol 325mg Tab) 650 mg PO Q4H PRN PRN Reason: Pain, Mild (1-3) Last Admin: 02/12/19 22:05 Dose: 650 mg Amlodipine Besylate (Norvasc) 5 mg PO DAILY [facility] Last Admin: 02/13/19 16:03 Dose: 5 mg Aspirin (Ecotrin) 81 mg PO DAILY [facility] Last Admin: 02/13/19 16:03 Dose: 81 mg Carvedilol (Coreg) 12.5 mg PO BID [facility] Last Admin: 02/13/19 17:45 Dose: 12.5 mg Guaifenesin/Dextromethorphan (Robitussin Dm) 5 ml PO Q4H PRN PRN Reason: Cough Last Admin: 02/12/19 22:05 Dose: 5 ml Heparin Sodium (Porcine) (Heparin) 5,000 units SC Q8 [facility]; Protocol Last Admin: 02/13/19 14:00 Dose: Not Given Ceftriaxone Sodium (Rocephin 1 Gram Ivpb) 1 gm in 100 mls @ 100 mls/hr IVPB DAILY [facility]; Protocol Last Admin: 02/13/19 16:03 Dose: 100 mls/hr Azithromycin (Zithromax 500mg In Ns) 500 mg in 250 mls @ 167 mls/hr IVPB DAILY [facility]; Protocol Last Admin: 02/13/19 17:42 Dose: 167 mls/hr Levothyroxine Sodium (Synthroid) 75 mcg PO 0600 [facility] Last Admin: 02/13/19 05:59 Dose: 75 mcg Pantoprazole Sodium (Protonix Ec Tab) 40 mg PO 0600 [facility] Last Admin: 02/13/19 05:59 Dose: 40 mg Sevelamer HCl (Renagel) 800 mg PO ACTID [facility] Last Admin: 02/13/19 16:03 Dose: 800 mg - Labs Labs: 02/13/19 12:18 02/13/19 12:18 PT 10.4 SECONDS (9.4-12.5) 02/10/19 21:33 INR 0.94 02/10/19 21:33 APTT 33.2 Seconds (26.9-38.3) 02/10/19 21:33 - Constitutional Appears: Non-toxic, No Acute Distress, Chronically Ill - Head Exam Head Exam: ATRAUMATIC, NORMOCEPHALIC - Eye Exam Eye Exam: EOMI, PERRL Pupil Exam: NORMAL ACCOMODATION, PERRL - ENT Exam ENT Exam: Mucous Membranes Moist, Normal External Ear Exam, TM's Normal Bilaterally - Neck Exam Neck Exam: Full ROM, Normal Inspection - Respiratory Exam Respiratory Exam: Clear to Ausculation Bilateral, NORMAL BREATHING PATTERN. absent: Rales, Rhonchi, Wheezes - Cardiovascular Exam Cardiovascular Exam: REGULAR RHYTHM, RRR, +S1, +S2 - GI/Abdominal Exam GI & Abdominal Exam: Soft, Normal Bowel Sounds. absent: Distended, Tenderness - Extremities Exam Extremities Exam: Full ROM, Normal Inspection - Neurological Exam Neurological Exam: Alert, Awake, CN II-XII Intact, Oriented x3 - Psychiatric Exam Psychiatric exam: Normal Affect, Normal Mood - Skin Skin Exam: Intact, Normal Color Assessment and Plan - Assessment and Plan (Free Text) Assessment: 78 yo female with one week of progressive SOB and fevers up to 101.9 F. Chest X-ray non-specific for pneumonia. CT Chest showing presence of a possible inf iltrate in the right lower lobe. With the fevers and the severely elevated procalcitonin, have to assume pneumonia at this point. Started on Rocephin IV for treatment. Added Azithromycin to the patient's regimen. Procalcitonin of 49.44. Trend procalcitonin values. Mild leukocytosis. Supportive care. Clinically improving. WBC is now 4.6. Repeat procalcitonin in AM. Clinically improving. Thank you for allowing me to participate in the care of the patient, we will follow with you.
[2019-02-14] MEDS: Levothyroxine 75 MCG TAB PO SCH (05:31)
[2019-02-14] MEDS: Pantoprazole 40 mg EC Tab PO SCH (05:31)
[2019-02-14] MEDS: Azithromycin 500MG/NS 250ml 500 MG/250 ML BAG IVPB SCH (09:53)
[2019-02-14] MEDS: cefTRIAXone 1 gm 1 GM/100 ML BAG IVPB SCH (14:53)
--- NOTE | 2019-02-14 18:30 | CP.PCM.PN ---
Subjective - Date & Time of Evaluation Date of Evaluation: 02/14/19 Time of Evaluation: 16:00 - Subjective Subjective: Infectious Disease Follow Up: February 14, 2019 78 yo [place] female with a PMHx of ESRD on HD and HTN presented with SOB. The patient has numerous admissions to [facility]. The patient has a left upper extremity AV Fistula. Patient with one week history of worsening SOB, weakness, lethargy, and subjective fever. The patient with multiple hospitalizations at [facility] as well. CT scan showing area of interval nonspecific nodular patchy airspace opacity in the right upper lobe-interval infiltrate. Additional areas of interval low- density ground-glass and airspace opacities at the right lung base noted. Obtained procalcitonin value... 49.44. Severely elevated values. Fever of 101.9 F in hospital. Leukocytosis is improving and has actually normalized now. Trend procalcitonin. Patient states that she is feeling better and breathing is not labored. Repeat procalcitonin pending. The patient is able to ambulate to the bathroom without any issues. Afebrile the past few days. She is not making any complaints. O2 saturation from 95-98 % on room air. Objective - Vital Signs/Intake and Output Vital Signs (last 24 hours): Temp Pulse Resp BP Pulse Ox 98 F 76 20 151/65 H 98 02/14/19 17:39 02/14/19 17:39 02/14/19 17:39 02/14/19 17:39 02/14/19 17:39 Intake and Output: 02/14/19 02/14/19 06:59 18:59 Intake Total 120 960 Output Total 4 Balance 120 956 - Medications Medications: Current Medications Acetaminophen (Tylenol 325mg Tab) 650 mg PO Q4H PRN PRN Reason: Pain, Mild (1-3) Last Admin: 02/12/19 22:05 Dose: 650 mg Amlodipine Besylate (Norvasc) 5 mg PO DAILY [facility] Last Admin: 02/14/19 09:53 Dose: 5 mg Aspirin (Ecotrin) 81 mg PO DAILY [facility] Last Admin: 02/14/19 09:53 Dose: 81 mg Carvedilol (Coreg) 12.5 mg PO BID [facility] Last Admin: 02/14/19 17:22 Dose: 12.5 mg Guaifenesin/Dextromethorphan (Robitussin Dm) 5 ml PO Q4H PRN PRN Reason: Cough Last Admin: 02/12/19 22:05 Dose: 5 ml Heparin Sodium (Porcine) (Heparin) 5,000 units SC Q8 [facility]; Protocol Last Admin: 02/14/19 14:51 Dose: 5,000 units Azithromycin (Zithromax 500mg In Ns) 500 mg in 250 mls @ 167 mls/hr IVPB DAILY [facility]; Protocol Last Admin: 02/14/19 09:53 Dose: 167 mls/hr Levothyroxine Sodium (Synthroid) 75 mcg PO 0600 [facility] Last Admin: 02/14/19 05:31 Dose: 75 mcg Pantoprazole Sodium (Protonix Ec Tab) 40 mg PO 0600 [facility] Last Admin: 02/14/19 05:31 Dose: 40 mg Sevelamer HCl (Renagel) 800 mg PO ACTID [facility] Last Admin: 02/14/19 17:23 Dose: 800 mg - Labs Labs: 02/13/19 12:18 02/13/19 12:18 PT 10.4 SECONDS (9.4-12.5) 02/10/19 21:33 INR 0.94 02/10/19 21:33 APTT 33.2 Seconds (26.9-38.3) 02/10/19 21:33 - Constitutional Appears: Non-toxic, No Acute Distress, Chronically Ill - Head Exam Head Exam: ATRAUMATIC, NORMOCEPHALIC - Eye Exam Eye Exam: EOMI, PERRL Pupil Exam: NORMAL ACCOMODATION, PERRL - ENT Exam ENT Exam: Mucous Membranes Moist, Normal External Ear Exam, TM's Normal Bilaterally - Neck Exam Neck Exam: Full ROM, Normal Inspection - Respiratory Exam Respiratory Exam: Clear to Ausculation Bilateral, NORMAL BREATHING PATTERN. absent: Rales, Rhonchi, Wheezes - Cardiovascular Exam Cardiovascular Exam: REGULAR RHYTHM, RRR, +S1, +S2 - GI/Abdominal Exam GI & Abdominal Exam: Soft, Normal Bowel Sounds. absent: Distended, Tenderness - Extremities Exam Extremities Exam: Full ROM, Normal Inspection - Neurological Exam Neurological Exam: Alert, Awake, CN II-XII Intact, Oriented x3 - Psychiatric Exam Psychiatric exam: Normal Affect, Normal Mood - Skin Skin Exam: Intact, Normal Color Assessment and Plan - Assessment and Plan (Free Text) Assessment: 78 yo female with one week of progressive SOB and fevers up to 101.9 F. Chest X-ray non-specific for pneumonia. CT Chest showing presence of a possible infiltrate in the right lower lobe. With the fevers and the severely elevated procalcitonin, have to assume pneumonia at this point. Started on Rocephin IV for treatment. Added Azithromycin to the patient's regimen. Procalcitonin of 49.44. Trend procalcitonin values. Repeat procalcitonin pending. Mild leukocytosis. Supportive care. Clinically improving. WBC is 4.6 on last check. Repeat procalcitonin pending. Clinically improving. Ambulating to bathroom on her own without issues. Thank you for allowing me to participate in the care of the patient, we will follow with you.
--- NOTE | 2019-02-14 23:17 | CP.PCM.PN ---
Subjective - Date & Time of Evaluation Date of Evaluation: 02/14/19 Time of Evaluation: 10:30 - Subjective Subjective: Providing medicine coverage for Dr. Kimble: 78 yo F w/ pmh of htn, hypothyroidism, and ESRD on HD, admitted with pneumonia; Patient reports feeling well; no dyspnea but still with cough; is ambulating without difficulty; tolerating diet; Objective - Vital Signs/Intake and Output Vital Signs (last 24 hours): Temp Pulse Resp BP Pulse Ox 98 F 82 20 151/65 H 98 02/14/19 17:39 02/14/19 18:00 02/14/19 17:39 02/14/19 17:39 02/14/19 17:39 Intake and Output: 02/14/19 02/15/19 18:59 06:59 Intake Total 960 Output Total 4 Balance 956 - Medications Medications: Current Medications Acetaminophen (Tylenol 325mg Tab) 650 mg PO Q4H PRN PRN Reason: Pain, Mild (1-3) Last Admin: 02/12/19 22:05 Dose: 650 mg Amlodipine Besylate (Norvasc) 5 mg PO DAILY [facility] Last Admin: 02/14/19 09:53 Dose: 5 mg Aspirin (Ecotrin) 81 mg PO DAILY [facility] Last Admin: 02/14/19 09:53 Dose: 81 mg Carvedilol (Coreg) 12.5 mg PO BID [facility] Last Admin: 02/14/19 17:22 Dose: 12.5 mg Guaifenesin/Dextromethorphan (Robitussin Dm) 5 ml PO Q4H PRN PRN Reason: Cough Last Admin: 02/12/19 22:05 Dose: 5 ml Heparin Sodium (Porcine) (Heparin) 5,000 units SC Q8 [facility]; Protocol Last Admin: 02/14/19 22:33 Dose: 5,000 units Azithromycin (Zithromax 500mg In Ns) 500 mg in 250 mls @ 167 mls/hr IVPB DAILY [facility]; Protocol Last Admin: 02/14/19 09:53 Dose: 167 mls/hr Levothyroxine Sodium (Synthroid) 75 mcg PO 0600 [facility] Last Admin: 02/14/19 05:31 Dose: 75 mcg Pantoprazole Sodium (Protonix Ec Tab) 40 mg PO 0600 [facility] Last Admin: 02/14/19 05:31 Dose: 40 mg Sevelamer HCl (Renagel) 800 mg PO ACTID [facility] Last Admin: 02/14/19 17:23 Dose: 800 mg - Labs Labs: 02/13/19 12:18 02/13/19 12:18 PT 10.4 SECONDS (9.4-12.5) 02/10/19 21:33 INR 0.94 02/10/19 21:33 APTT 33.2 Seconds (26.9-38.3) 02/10/19 21:33 - Constitutional Appears: Non-toxic, No Acute Distress - Eye Exam Eye Exam: Normal appearance. absent: Scleral icterus - Respiratory Exam Respiratory Exam: Clear to Ausculation Bilateral. absent: Rales, Rhonchi, Respiratory Distress - Cardiovascular Exam Cardiovascular Exam: RRR, +S1, +S2 - GI/Abdominal Exam GI & Abdominal Exam: Soft. absent: Distended, Tenderness - Extremities Exam Additional comments: no leg edema; L arm AVF w/ good bruit; - Neurological Exam Neurological Exam: Alert, Awake - Psychiatric Exam Psychiatric exam: Normal Affect, Normal Mood. absent: Agitated - Skin Skin Exam: Warm. absent: Cyanosis Assessment and Plan (1) ESRD (end stage renal disease) on dialysis Assessment & Plan: Stable electrolyte and volume status; continuing with TTS HD schedule per routine; Status: Chronic (2) Hypertensive CKD, ESRD on dialysis Assessment & Plan: BP noted to be elevated; will continue current BP meds for now and increase UF goal to 2.5L on Friday; Status: Acute (3) Anemia of renal disease Assessment & Plan: Hgb dropping in the setting of acute illness; iron replete (ferritin actually quite high), started on aranesp yesterday; will monitor; Status: Acute (4) Pneumonia Assessment & Plan: Symptomatically improved with clearing of rhonchi on exam and leukocytosis resolved; however, procalcitionin markedly elevated and increased further; has received ceftriaxone and zithromax, will discuss with ID regarding procal level; repeat CXR in am; Status: Acute (5) Hypothyroidism Assessment & Plan: Continue current LT4 dose; Status: Chronic
[2019-02-15] MEDS: Pantoprazole 40 mg EC Tab PO SCH (07:16)
[2019-02-15] MEDS: Levothyroxine 75 MCG TAB PO SCH (07:16)
[2019-02-15] MEDS: guaiFENesin DM 100 mg-10 mg/5 ml UD PO PRN ×3 (07:49→19:10)
[2019-02-15 07:52] LABS: BASO # 0.03 K/mm3 (0.0-2.0); BASO % 0.5 % (0.0-3.0); EOS # 0.8 (0.0-0.7); EOS % 13.8 % (1.5-5.0); HEMOGLOBIN 10.5 g/dL (12.0-16.0); LYMPH % 17.4 % (22.0-35.0); MEAN CELL VOLUME 86.1 fl (80.0-105.0); MEAN CORPUSCULAR HEMOGLOBIN 28.1 pg (25.0-35.0); MEAN CORPUSCULAR HGB CONC 32.6 g/dl (31.0-37.0); MEAN PLATELET VOLUME 9.2 fl (7.0-11.0); MONO # 0.3 (0.1-0.6); MONO % 5.7 % (1.0-6.0); RBC 3.74 10^6/uL (3.5-6.1); RED CELL DISTRIBUTION WIDTH 15.6 % (11.5-14.5); WHITE BLOOD COUNT 5.8 10^3/uL (4.5-11.0)
[2019-02-15 08:27] LABS: ALB/GLOB RATIO 1.2 (1.1-1.8); ALBUMIN 4.7 g/dL (3.0-4.8); CALCIUM 9.2 mg/dL (8.4-10.5)
[2019-02-15] MEDS: Azithromycin 500MG/NS 250ml 500 MG/250 ML BAG IVPB SCH (09:30)
--- NOTE | 2019-02-15 09:43 | CP.PCM.PN ---
<Tavares Eng - Last Filed: 02/15/19 13:12> Subjective - Date & Time of Evaluation Date of Evaluation: 02/15/19 Time of Evaluation: 08:40 - Subjective Subjective: Patient seen and examined at bedside in no acute distress about to eat breakfast. Patient states she feels much better. States she is still producing sputum however remains clear colored and is without blood. She has no complaints at this time. Objective - Vital Signs/Intake and Output Vital Signs (last 24 hours): Temp Pulse Resp BP Pulse Ox 98.0 F 73 19 150/74 98 02/15/19 06:00 02/15/19 09:31 02/15/19 06:00 02/15/19 06:00 02/15/19 06:00 Intake and Output: 02/15/19 02/15/19 06:59 18:59 Intake Total 480 Balance 480 - Medications Medications: Current Medications Acetaminophen (Tylenol 325mg Tab) 650 mg PO Q4H PRN PRN Reason: Pain, Mild (1-3) Last Admin: 02/12/19 22:05 Dose: 650 mg Amlodipine Besylate (Norvasc) 5 mg PO DAILY [facility] Last Admin: 02/15/19 09:31 Dose: 5 mg Aspirin (Ecotrin) 81 mg PO DAILY [facility] Last Admin: 02/15/19 09:30 Dose: 81 mg Carvedilol (Coreg) 12.5 mg PO BID [facility] Last Admin: 02/15/19 09:30 Dose: 12.5 mg Guaifenesin/Dextromethorphan (Robitussin Dm) 5 ml PO Q4H PRN PRN Reason: Cough Last Admin: 02/15/19 07:49 Dose: 5 ml Heparin Sodium (Porcine) (Heparin) 5,000 units SC Q8 [facility]; Protocol Last Admin: 02/15/19 06:25 Dose: 5,000 units Azithromycin (Zithromax 500mg In Ns) 500 mg in 250 mls @ 167 mls/hr IVPB DAILY [facility]; Protocol Last Admin: 02/15/19 09:30 Dose: 167 mls/hr Levothyroxine Sodium (Synthroid) 75 mcg PO 0600 [facility] Last Admin: 02/15/19 07:16 Dose: 75 mcg Pantoprazole Sodium (Protonix Ec Tab) 40 mg PO 0600 [facility] Last Admin: 02/15/19 07:16 Dose: 40 mg Sevelamer HCl (Renagel) 800 mg PO ACTID [facility] Last Admin: 02/15/19 07:16 Dose: 800 mg - Labs Labs: 02/15/19 07:00 02/15/19 07:00 PT 10.4 SECONDS (9.4-12.5) 02/10/19 21:33 INR 0.94 02/10/19 21:33 APTT 33.2 Seconds (26.9-38.3) 02/10/19 21:33 - Constitutional Appears: Non-toxic, No Acute Distress - Head Exam Head Exam: ATRAUMATIC, NORMAL INSPECTION, NORMOCEPHALIC - ENT Exam ENT Exam: Mucous Membranes Moist - Neck Exam Neck Exam: Full ROM - Respiratory Exam Respiratory Exam: Clear to Ausculation Bilateral, NORMAL BREATHING PATTERN. absent: Rhonchi, Wheezes - Cardiovascular Exam Cardiovascular Exam: REGULAR RHYTHM - GI/Abdominal Exam GI & Abdominal Exam: Soft, Normal Bowel Sounds - Extremities Exam Extremities Exam: Normal Inspection. absent: Pedal Edema - Neurological Exam Neurological Exam: Alert, Awake, Oriented x3 - Psychiatric Exam Psychiatric exam: Normal Affect, Normal Mood - Skin Skin Exam: Normal Color, Warm Assessment and Plan - Assessment and Plan (Free Text) Assessment: 78 F with past medical history of hypertension, multilobular pneumonia on 11/18/2018, hypothyroidism and ESRD on HD Friday and Friday presenting with complaints of shortness of breath, weakness and fever found to have hospital acquired pneumonia. Plan: Healthcare-associated pneumonia -Continue with rocephin and azithromycin day 5 -Procalcitonin level 63 -Afebrile >72 hours End stage renal disease -HD Friday, , Friday -Continue with HD Chronic Kidney disease Mineral Bone disorder -Continue sevelamer to maintain normal levels of phosphorous Anemia of Chronic kidney disease -Current H&H 10.5/32.2 -Aranesp started Hypertensive end-stage renal disease -BP stable -Continue norvasc 5 mg qD and Coreg 12.5 mg BID -May remove more fluid to help normalize BP Hypothyroidism -Continue levothyroxine 75 mcg qD -TSH within normal limits DVT ppx: Heparin GI ppx: Protonix Case discussed and reviewed with Dr. Castanon <Maikol Castanon - Last Filed: 02/16/19 05:38> Objective - Vital Signs/Intake and Output Vital Signs (last 24 hours): Temp Pulse Resp BP Pulse Ox 97.9 F 77 18 142/55 L 99 02/15/19 23:41 02/16/19 02:00 02/15/19 23:41 02/15/19 23:41 02/15/19 23:41 - Medications Medications: Current Medications Acetaminophen (Tylenol 325mg Tab) 650 mg PO Q4H PRN PRN Reason: Pain, Mild (1-3) Last Admin: 02/12/19 22:05 Dose: 650 mg Albuterol/Ipratropium (Duoneb 3 Mg/0.5 Mg (3 Ml) Ud) 3 ml IH [id number] PRN PRN Reason: Shortness of Breath Amlodipine Besylate (Norvasc) 5 mg PO DAILY [facility] Last Admin: 02/15/19 09:31 Dose: 5 mg Arformoterol Tartrate (Brovana) 15 mcg IH [id number] [facility] Last Admin: 02/15/19 19:51 Dose: 15 mcg Aspirin (Ecotrin) 81 mg PO DAILY [facility] Last Admin: 02/15/19 09:30 Dose: 81 mg Budesonide (Pulmicort Respules) 0.5 mg IH [id number] [facility] Last Admin: 02/15/19 19:51 Dose: 0.5 mg Carvedilol (Coreg) 12.5 mg PO BID [facility] Last Admin: 02/15/19 17:47 Dose: 12.5 mg Fluticasone Propionate (Flonase) 1 actuation NS HS [facility] Last Admin: 02/15/19 21:18 Dose: Not Given Guaifenesin/Dextromethorphan (Robitussin Dm) 5 ml PO Q4H PRN PRN Reason: Cough Last Admin: 02/15/19 19:10 Dose: 5 ml Heparin Sodium (Porcine) (Heparin) 5,000 units SC Q8 [facility]; Protocol Last Admin: 02/15/19 21:18 Dose: 5,000 units Ceftriaxone Sodium (Rocephin 1 Gram Ivpb) 1 gm in 100 mls @ 100 mls/hr IVPB DAILY [facility]; Protocol Last Admin: 02/15/19 11:44 Dose: 100 mls/hr Levothyroxine Sodium (Synthroid) 75 mcg PO 0600 [facility] Last Admin: 02/15/19 07:16 Dose: 75 mcg Pantoprazole Sodium (Protonix Ec Tab) 40 mg PO 0600 [facility] Last Admin: 02/15/19 07:16 Dose: 40 mg Sevelamer HCl (Renagel) 800 mg PO ACTID [facility] Last Admin: 02/15/19 17:48 Dose: 800 mg - Labs Labs: 02/15/19 07:00 02/15/19 07:00 PT 10.4 SECONDS (9.4-12.5) 02/10/19 21:33 INR 0.94 02/10/19 21:33 APTT 33.2 Seconds (26.9-38.3) 02/10/19 21:33 Assessment and Plan (1) ESRD (end stage renal disease) on dialysis Status: Chronic (2) Hypertensive CKD, ESRD on dialysis Status: Acute (3) Anemia of renal disease Status: Acute (4) Pneumonia Status: Acute (5) Hypothyroidism Status: Chronic Attending/Attestation - Attestation I have personally seen and examined this patient.: Yes I have fully participated in the care of the patient.: Yes I have reviewed all pertinent clinical information, including history, physical exam and plan: Yes Notes (Text): Providing medicine coverage for Dr. Kimble: Patient seen and examined; I agree with the resident's note as above with the following additions/edits: Patient with htn, hypothyroidism, multi-lobar PNA in Oct 2018, and ESRD on HD, admitted with PNA once again; On azithromycin and ceftriaxone per ID; symptomatically improved; lung exam also much improved (no more rhonchi); leukocytosis reolved and patient afbrile; however, concern over recurrence of PNA and with persistently elevated procalcitonin level; also, repeat CXR showing some nodular opacities; pulm consulted; for now starting patient on inhaled steroids and long acting bronchodilators; will need outpatient pulm f/u; quantiferon test done, awaiting result; Stable electrolyte and volume status; BP is somewhat high; will continue current meds and increase UF goal to 2.5 L tomorrow on HD; Anemia of CKD, improved; monitor;
--- NOTE | 2019-02-15 10:08 | RAD ---
Date of service: 02/15/2019 HISTORY: Pneumonia, r/o effusion COMPARISON: 02/10/2019 TECHNIQUE: Chest PA and lateral views FINDINGS: LUNGS: No active pulmonary disease. PLEURA: No significant pleural effusion identified. No pneumothorax apparent. CARDIOVASCULAR: Aortic calcification Normal cardiac size. No pulmonary vascular congestion. OSSEOUS STRUCTURES: No significant abnormalities. VISUALIZED UPPER ABDOMEN: Normal. OTHER FINDINGS: None. IMPRESSION: No active disease.
[2019-02-15] MEDS: cefTRIAXone 1 gm 1 GM/100 ML BAG IVPB SCH (11:44)
[2019-02-15 12:44] VITALS: RESP 18
--- NOTE | 2019-02-15 14:25 | CP.PCM.PCO ---
Physician Communication Note - Physician Communication Note Physician Communication Note: pending pulmonary consult
[2019-02-15] MEDS ORDERED: Albuterol-Ipratrop 3 mg / 0.5 (3 ml) UD IH PRN (14:28)
--- NOTE | 2019-02-15 16:03 | CON ---
DATE: 02/15/2019 PULMONARY CONSULT NOTE REFERRING PHYSICIAN: Lizeth Kimble MD REASON FOR CONSULT: Pneumonia, shortness of breath and cough. HISTORY OF PRESENT ILLNESS: This is a 78-year-old female with past medical history significant for end-stage renal disease, on hemodialysis and hypertension. The patient with history of pneumonia presented to the emergency room with one-week complaint of cough and fever. The patient reports at the time in the ER that shortness of breath was worsening progressively and was associated with lethargy. The patient denies any sick contacts, but does go for hemodialysis three times a week. The patient came in and was treated for pneumonia, had procalcitonin of 49.44 on 02/11, procalcitonin repeated on 02/14 showed 66.34. The patient was on Zithromax antibiotics, which has been changed to now Rocephin antibiotic. At this time, the patient seen lying in bed, states she does have productive cough. Denies any shortness of breath, complains of feeling tired, some runny nose. PAST MEDICAL HISTORY: As per HPI. SOCIAL HISTORY: Nonsmoker. No EtOH abuse. No illicit drug use. ALLERGIES: CODEINE. FAMILY HISTORY: No significant cardiopulmonary disease reported. MEDICATIONS: Reviewed. Tylenol 650 mg every 4 hours p.r.n., mild pain; Norvasc 5 mg daily; aspirin 81 mg daily; Coreg 12.5 mg twice a day; Rocephin 1 g daily; Robitussin 5 mL every 4 hours p.r.n.; heparin 5000 units subcutaneous every 8 hours; Synthroid 75 mcg daily; Protonix 40 mg daily and Renagel 800 mg a.c. three times a day. REVIEW OF SYSTEMS: No headache, chest pain, abdominal pain, nausea, vomiting, diarrhea, leg pain or leg swelling reported. Denies shortness of breath. Reports having productive cough, some runny nose, feeling tired and sleepy. PHYSICAL EXAMINATION: GENERAL: No acute distress. VITAL SIGNS: Blood pressure 147/59, pulse 71, temperature 97.8 and oxygen saturation 98% on nasal cannula. HEENT: Moist mucous membranes. Small oral cavity. RESPIRATORY: Few scattered rhonchi. CARDIOVASCULAR: S1 and S2. ABDOMEN: Soft and nontender. No distention. No organomegaly. EXTREMITIES: No bilateral lower extremity edema. NEUROLOGIC: Awake, alert, verbal, following commands. LABORATORY DATA: Reviewed. WBC 5.8, RBC 3.74, hemoglobin 10.5, hematocrit 32.2, and platelets 188. PT 7.4, INR is 0.94 and APTT 33.2. Sodium 138, potassium 4.1, chloride 97, carbon dioxide 22, anion gap 23, BUN 52, creatinine 8, GFR 5, random glucose 91, calcium 9.2, phosphorous 4.1, total bilirubin 0.4. AST 50, ALT 24, alkaline phosphatase 94, total protein 8.6, albumin 4.7, globulin 4.0 and albumin-globulin ratio 1.2. Procalcitonin is 66.34. ProBNP was 41,500. Urine legionella antigen negative. Mycoplasma pneumoniae IgM negative. Sputum culture final shows normal, oral desiree. Urine culture final, no growth. Blood cultures preliminary, no growth after 4 days. Chest x-ray today shows no active disease. EKG on 02/12 shows normal sinus rhythm. Chest CT on 02/11 showed interval nonspecific nodule or patchy airspace opacity, right upper lobe interval infiltrate, additional areas of interval low density ground-glass and airspace opacities at the right lung base, inflammatory changes and/or subsegmental atelectasis. IMPRESSION AND PLAN: Pneumonia; renal failure, dialysis dependent; anemia and hypertension. Echocardiogram reviewed from 11/02/2018 shows ejection fraction 56%, right ventricular systolic pressure 64, moderate mitral regurgitation, moderate tricuspid regurgitation, the patient with pulmonary hypertension, valvular heart disease. We do suspect sleep apnea in this patient, agreed with discontinuing Zithromax and starting Rocephin due to recurrent pneumonia, increase in procalcitonin levels. We will place the patient on inhaled bronchodilators, continue deep venous thrombosis prophylaxis and gastric prophylaxis. We do suspect sleep apnea in this patient, recommend the patient have sleep study upon discharge. We recommend the patient have full pulmonary function test as outpatient, recommend aggressive dialysis, continue Norvasc to help decrease pulmonary pressure, physical therapy, out of bed to chair. The patient was seen and examined with Dr. Spicer. Discussed assessment and plan as described above. The patient was seen and examined with Aubrey Correia, nurse practitioner. Discussed assessment and plan as described above. Thank you for this consult. We will follow with you. Bren Burgos APN Mihaela Spicer MD [facility] # [id number]
--- NOTE | 2019-02-15 18:15 | CP.PCM.PN ---
Subjective - Date & Time of Evaluation Date of Evaluation: 02/15/19 Time of Evaluation: 17:00 - Subjective Subjective: Infectious Disease Follow Up: February 15, 2019 78 yo [place] female with a PMHx of ESRD on HD and HTN presented with SOB. The patient has numerous admissions to [facility]. The patient has a left upper extremity AV Fistula. Patient with one week history of worsening SOB, weakness, lethargy, and subjective fever. The patient with multiple hospitalizations [place] [facility] [place] scan showing area of interval nonspecific nodular patchy airspace opacity in the right upper lobe-interval infiltrate. Additional areas of interval low- density ground-glass and airspace opacities at the right lung base noted. Obtained initial procalcitonin value... 49.44. Severely elevated values. Fever of 101.9 F in hospital. Leukocytosis is improving and has actually normalized now. Trend procalcitonin. Patient states that she is feeling better and breathing is not labored. Repeat procalcitonin of 66. The patient is able to ambulate to the bathroom without any issues. Afebrile the past few days. She is not making any complaints. O2 saturation from 95-98 % on room air. Objective - Vital Signs/Intake and Output Vital Signs (last 24 hours): Temp Pulse Resp BP Pulse Ox 98.1 F 71 18 148/57 L 98 02/15/19 17:23 02/15/19 17:47 02/15/19 17:23 02/15/19 17:23 02/15/19 06:00 Intake and Output: 02/15/19 02/15/19 06:59 18:59 Intake Total 480 Balance 480 - Medications Medications: Current Medications Acetaminophen (Tylenol 325mg Tab) 650 mg PO Q4H PRN PRN Reason: Pain, Mild (1-3) Last Admin: 02/12/19 22:05 Dose: 650 mg Albuterol/Ipratropium (Duoneb 3 Mg/0.5 Mg (3 Ml) Ud) 3 ml IH [id number] PRN PRN Reason: Shortness of Breath Amlodipine Besylate (Norvasc) 5 mg PO DAILY [facility] Last Admin: 02/15/19 09:31 Dose: 5 mg Arformoterol Tartrate (Brovana) 15 mcg IH [id number] [facility] Aspirin (Ecotrin) 81 mg PO DAILY [facility] Last Admin: 02/15/19 09:30 Dose: 81 mg Budesonide (Pulmicort Respules) 0.5 mg IH [id number] [facility] Carvedilol (Coreg) 12.5 mg PO BID [facility] Last Admin: 02/15/19 17:47 Dose: 12.5 mg Fluticasone Propionate (Flonase) 1 actuation NS HS [facility] Guaifenesin/Dextromethorphan (Robitussin Dm) 5 ml PO Q4H PRN PRN Reason: Cough Last Admin: 02/15/19 14:03 Dose: 5 ml Heparin Sodium (Porcine) (Heparin) 5,000 units SC Q8 [facility]; Protocol Last Admin: 02/15/19 13:57 Dose: 5,000 units Ceftriaxone Sodium (Rocephin 1 Gram Ivpb) 1 gm in 100 mls @ 100 mls/hr IVPB DAILY [facility]; Protocol Last Admin: 02/15/19 11:44 Dose: 100 mls/hr Levothyroxine Sodium (Synthroid) 75 mcg PO 0600 [facility] Last Admin: 02/15/19 07:16 Dose: 75 mcg Pantoprazole Sodium (Protonix Ec Tab) 40 mg PO 0600 [facility] Last Admin: 02/15/19 07:16 Dose: 40 mg Sevelamer HCl (Renagel) 800 mg PO ACTID [facility] Last Admin: 02/15/19 17:48 Dose: 800 mg - Labs Labs: 02/15/19 07:00 02/15/19 07:00 PT 10.4 SECONDS (9.4-12.5) 02/10/19 21:33 INR 0.94 02/10/19 21:33 APTT 33.2 Seconds (26.9-38.3) 02/10/19 21:33 - Constitutional Appears: Non-toxic, No Acute Distress, Chronically Ill - Head Exam Head Exam: ATRAUMATIC, NORMOCEPHALIC - Eye Exam Eye Exam: EOMI, PERRL Pupil Exam: NORMAL ACCOMODATION, PERRL - ENT Exam ENT Exam: Mucous Membranes Moist, Normal External Ear Exam, TM's Normal Bilaterally - Neck Exam Neck Exam: Full ROM, Normal Inspection - Respiratory Exam Respiratory Exam: Clear to Ausculation Bilateral, NORMAL BREATHING PATTERN. absent: Rales, Rhonchi, Wheezes - Cardiovascular Exam Cardiovascular Exam: REGULAR RHYTHM, RRR, +S1, +S2 - GI/Abdominal Exam GI & Abdominal Exam: Soft, Normal Bowel Sounds. absent: Distended, Tenderness - Extremities Exam Extremities Exam: Full ROM, Normal Inspection - Neurological Exam Neurological Exam: Alert, Awake, CN II-XII Intact, Oriented x3 - Psychiatric Exam Psychiatric exam: Normal Affect, Normal Mood - Skin Skin Exam: Intact, Normal Color Assessment and Plan - Assessment and Plan (Free Text) Assessment: 78 yo female with one week of progressive SOB and fevers up to 101.9 F. Chest X-ray non-specific for pneumonia. CT Chest showing presence of a possible infiltrate in the right lower lobe. With the fevers and the severely elevated procalcitonin, have to assume pneumonia at this point. Continue on Rocephin IV for treatment. Completing Azithromycin for the patient's regimen. Procalcitonin of 49.44. Repeat procalcitonin of 66. Elevation of procalcitonin could be secondary to the cephalosporin antibiotic administration which can something cause an initial spike. Would repeat the procalcitonin level and check trend. Ideally, would prefer to see significantly reduced numbers before discharge. Trend procalcitonin values. Repeat procalcitonin of 66. Check lipase and amylase levels. Mild leukocytosis. Supportive care. Clinically improving. WBC is 5.8 on last check. Clinically improving. Ambulating to bathroom on her own without issues. Thank you for allowing me to participate in the care of the patient, we will follow with you.
[2019-02-15] MEDS: Arformoterol 15 mcg/2 ml Inh Sol IH SCH (19:51)
[2019-02-15] MEDS: Budesonide 0.5 mg/2 ml Inhal Susp UD IH SCH (19:51)
[2019-02-15] MEDS ORDERED: Fluticasone Nasal 50 mcg/Spray NS SCH (22:00)
[2019-02-16] MEDS: Pantoprazole 40 mg EC Tab PO SCH (05:31)
[2019-02-16] MEDS: Levothyroxine 75 MCG TAB PO SCH (07:52)
[2019-02-16 08:40] LABS: BASO # 0.02 K/mm3 (0.0-2.0); BASO % 0.5 % (0.0-3.0); EOS # 0.7 (0.0-0.7); EOS % 18.5 % (1.5-5.0); HEMOGLOBIN 8.9 g/dL (12.0-16.0); LYMPH # 0.9 (1.2-3.4); LYMPH % 24.1 % (22.0-35.0); MEAN CELL VOLUME 84.9 fl (80.0-105.0); MEAN CORPUSCULAR HEMOGLOBIN 28.5 pg (25.0-35.0); MEAN CORPUSCULAR HGB CONC 33.6 g/dl (31.0-37.0); MEAN PLATELET VOLUME 8.3 fl (7.0-11.0); MONO # 0.3 (0.1-0.6); MONO % 7.9 % (1.0-6.0); RBC 3.12 10^6/uL (3.5-6.1); RED CELL DISTRIBUTION WIDTH 15.6 % (11.5-14.5); WHITE BLOOD COUNT 3.9 10^3/uL (4.5-11.0)
[2019-02-16 09:03] LABS: ALB/GLOB RATIO 1.3 (1.1-1.8); ALBUMIN 4.2 g/dL (3.0-4.8); CALCIUM 8.8 mg/dL (8.4-10.5)
[2019-02-16] MEDS: cefTRIAXone 1 gm 1 GM/100 ML BAG IVPB SCH (11:59)
[2019-02-16 12:43] VITALS: BP 130/50; PULSE 79; TEMP 98; O2SAT 91
[2019-02-16] MEDS: Arformoterol 15 mcg/2 ml Inh Sol IH SCH (13:16)
[2019-02-16] MEDS: Budesonide 0.5 mg/2 ml Inhal Susp UD IH SCH (13:16)
--- NOTE | 2019-02-16 13:54 | PN ---
DATE: 02/16/2019 PULMONARY PROGRESS NOTE REFERRING PHYSICIAN: Lizeth Kimble MD SUBJECTIVE: The patient is seen during hemodialysis, lying in bed. No acute distress. No overnight events reported. The patient still reports having cough. No shortness of breath. No headache, rhinitis, chest pain, abdominal pain, nausea, vomiting, diarrhea, leg pain, leg swelling reported. OBJECTIVE: GENERAL: No acute distress. VITAL SIGNS: Blood pressure 162/67, pulse 75, temperature 97.7 and oxygen saturation 100 on nasal cannula. HEENT: Moist mucous membranes. Small oral cavity. RESPIRATORY: Rhonchi bilaterally. CARDIOVASCULAR: S1 and S2. ABDOMEN: Soft and nontender. No distention. No organomegaly. EXTREMITIES: No bilateral lower extremity edema. NEUROLOGIC: Awake, alert and verbal. Following commands. LABORATORY DATA: Reviewed. WBC 3.9, RBC 3.12, hemoglobin 8.9, hematocrit 26.5, and platelets 155. Sodium 134, potassium 4.7, chloride 102, carbon dioxide 15, anion gap 21, BUN 65, creatinine 9, GFR 4, random glucose 85, calcium 8.8, phosphorous 4.6, total bilirubin 0.4. AST 34, ALT 31, alkaline phosphatase 74, total protein 7.4, albumin 4.2, globulin 3.2 and albumin-globulin ratio 1.3. Amylase 112, lipase 292. MEDICATIONS: Reviewed. Tylenol 650 every 4 hours p.r.n. mild pain, DuoNeb 3 mL inhalation every 4 hours p.r.n., Norvasc 5 mg daily, Brovana 15 mcg inhalation every 12 hours, aspirin 81 mg daily, Pulmicort 0.5 mg inhalation every 12 hours, Coreg 12.5 mg twice a day, Rocephin 1 g daily, Flonase nasal spray at h.s., Robitussin DM 5 mL every 4 hours p.r.n., heparin 5000 units subcu every 8 hours, Synthroid 75 mcg daily, Protonix 40 mg daily, Renagel 800 mg a.c. IMPRESSION AND PLAN: Recurrent pneumonia, renal failure, dialysis dependent, anemia, hypertension, pulmonary hypertension, valvular heart disease. Continue antibiotic therapy per Infectious Disease. I believe the patient should continue, however, on IV antibiotics. Continue inhaled bronchodilators. Deep venous thrombosis prophylaxis, gastric prophylaxis. We recommend this patient needs continued care and a subacute rehabilitation, TRCU setting. The patient will need followup CAT scan to ensure stability/resolution of infiltrate. Out of bed to chair. Recommend swallow evaluation to rule out aspiration. Recommend this patient eat her meals sitting up in a chair and should be sitting up for 1 hour after eating meals. Gastroesophageal reflux disease precautions. Aspiration precaution. Recommend the patient have full pulmonary function test as outpatient. Recommend the patient have sleep study as outpatient. Procalcitonin level was drawn today pending results, will follow up when available. This patient was seen and examined with Dr. Spicer. Discussed assessment and plan as described above. This patient was seen and examined with Bren Burgos, nurse practitioner. Discussed assessment and plan as described above. Thank you for this consult. We will follow with you. Bren Burgos APN Mihaela Spicer MD
--- NOTE | 2019-02-16 15:32 | CP.PCM.PN ---
Subjective - Date & Time of Evaluation Date of Evaluation: 02/16/19 Time of Evaluation: 15:00 - Subjective Subjective: Infectious Disease Follow Up: February 16, 2019 78 yo [place] Islander female with a PMHx of ESRD on HD and HTN presented with SOB. The patient has numerous admissions to [facility]. The patient has a left upper extremity AV Fistula. Patient with one week history of worsening SOB, weakness, lethargy, and subjective fever. The patient with multiple hospitalizations at [facility] as well. CT scan showing area of interval nonspecific nodular patchy airspace opacity in the right upper lobe-interval infiltrate. Additional areas of interval low- density ground-glass and airspace opacities at the right lung base noted. Obtained initial procalcitonin value... 49.44. Severely elevated values. Fever of 101.9 F in hospital. Leukocytosis is improving and has actually normalized now. Trend procalcitonin. Patient states that she is feeling better and breathing is not labored. Repeat procalcitonin of 66. The patient is able to ambulate to the bathroom without any issues. Procalcitonin of 27.33 on 02/16/2019. Afebrile the past few days. She is not making any complaints. O2 saturation from 95-98 % on room air. For transfer to [facility]. Objective - Vital Signs/Intake and Output Vital Signs (last 24 hours): Temp Pulse Resp BP Pulse Ox 98 F 79 18 130/50 L 91 L 02/16/19 12:00 02/16/19 12:00 02/16/19 12:00 02/16/19 12:00 02/16/19 12:00 Intake and Output: 02/16/19 02/16/19 06:59 18:59 Intake Total 240 Balance 240 - Labs Labs: 02/16/19 08:30 02/16/19 07:30 PT 10.4 SECONDS (9.4-12.5) 02/10/19 21:33 INR 0.94 02/10/19 21:33 APTT 33.2 Seconds (26.9-38.3) 02/10/19 21:33 - Constitutional Appears: Non-toxic, No Acute Distress, Chronically Ill - Head Exam Head Exam: ATRAUMATIC, NORMOCEPHALIC - Eye Exam Eye Exam: EOMI, PERRL Pupil Exam: NORMAL ACCOMODATION, PERRL - ENT Exam ENT Exam: Mucous Membranes Moist, Normal External Ear Exam, TM's Normal Bilaterally - Neck Exam Neck Exam: Full ROM, Normal Inspection - Respiratory Exam Respiratory Exam: Clear to Ausculation Bilateral, NORMAL BREATHING PATTERN. absent: Rales, Rhonchi, Wheezes - Cardiovascular Exam Cardiovascular Exam: REGULAR RHYTHM, RRR, +S1, +S2 - GI/Abdominal Exam GI & Abdominal Exam: Soft, Normal Bowel Sounds. absent: Distended, Tenderness - Extremities Exam Extremities Exam: Full ROM, Normal Inspection - Neurological Exam Neurological Exam: Alert, Awake, CN II-XII Intact, Oriented x3 - Psychiatric Exam Psychiatric exam: Normal Affect, Normal Mood - Skin Skin Exam: Intact, Normal Color Assessment and Plan - Assessment and Plan (Free Text) Assessment: 78 yo female with one week of progressive SOB and fevers up to 101.9 F. Chest X-ray non-specific for pneumonia. CT Chest showing presence of a possible infiltrate in the right lower lobe. With the fevers and the severely elevated procalcitonin, have to assume pneumonia at this point. Continue on Rocephin IV for treatment. Completing Azithromycin for the patient's regimen. Procalcitonin of 49.44. Repeat procalcitonin of 66. Repeat procalcitonin on 02/16/2019 of 27.33. Initial continuing elevation of procalcitonin could be secondary to the early portion of cephalosporin antibiotic administration which has been seen to sometimes cause an initial spike in the procalcitonin value before seeing improvement to the procalcitonin value. Procalcitonin now downtrending. Would repeat the procalcitonin level and check trend. Ideally, would prefer to see significantly reduced numbers before discharge. Trend procalcitonin values. Repeat procalcitonin of 66. Check lipase and amylase levels. Mild leukocytosis. Supportive care. Clinically improving. WBC is 5.8 on last check. Clinically improving. Ambulating to bathroom on her own without issues. Thank you for allowing me to participate in the care of the patient, we will follow with you.
== END 2019-02-16 15:11 | DRG 871 ==
LOC: ED 20:58 → ERH 02-11 00:19 → 2RSO 02-11 01:21
PROVIDERS: ADMIT Internal Medicine; ATTEND Internal Medicine
PROC: 5A1D70Z Performance of Urinary Filtration, Intermittent, Less than 6 Hours Per Day (ICD-10-PCS; principal; 2019-02-11)
PROC: 3E03329 Introduction of Other Anti-infective into Peripheral Vein, Percutaneous Approach (ICD-10-PCS; 2019-02-11)
PROC: 5A1D70Z Performance of Urinary Filtration, Intermittent, Less than 6 Hours Per Day (ICD-10-PCS; 2019-02-13)
PROC: 5A1D70Z Performance of Urinary Filtration, Intermittent, Less than 6 Hours Per Day (ICD-10-PCS; 2019-02-13)
DX: A41.9 Sepsis, unspecified organism (principal); J18.9 Pneumonia, unspecified organism; N18.6 End stage renal disease; I13.2 Hypertensive heart and chronic kidney disease with heart failure and with stage 5 chronic kidney disease, or end stage renal disease; I50.9 Heart failure, unspecified; Z99.2 Dependence on renal dialysis; R06.02 Shortness of breath; Z79.899 Other long term (current) drug therapy; Z79.82 Long term (current) use of aspirin; R53.83 Other fatigue; R50.9 Fever, unspecified; Z87.01 Personal history of pneumonia (recurrent); Y95 Nosocomial condition; M89.9 Disorder of bone, unspecified; D63.1 Anemia in chronic kidney disease; Z79.890 Hormone replacement therapy; E03.9 Hypothyroidism, unspecified; I08.1 Rheumatic disorders of both mitral and tricuspid valves; I27.20 Pulmonary hypertension, unspecified; K21.9 Gastro-esophageal reflux disease without esophagitis; Z87.11 Personal history of peptic ulcer disease; Z88.5 Allergy status to narcotic agent

== ENCOUNTER 2019-02-16 15:09 | Inpatient (IN) | payer OTHER, MEDICAID ==
[2019-02-16] MEDS ORDERED: guaiFENesin DM 100 mg-10 mg/5 ml UD PO PRN (16:04)
[2019-02-16] MEDS ORDERED: Albuterol-Ipratrop 3 mg / 0.5 (3 ml) UD IH PRN (16:04)
[2019-02-16] MEDS ORDERED: Arformoterol 15 mcg/2 ml Inh Sol IH SCH (20:00)
[2019-02-16] MEDS: Arformoterol 15 mcg/2 ml Inh Sol IH SCH (21:00)
[2019-02-16] MEDS: Budesonide 0.5 mg/2 ml Inhal Susp UD IH SCH (21:00)
[2019-02-16] MEDS: Fluticasone Nasal 50 mcg/Spray NS SCH (21:28)
[2019-02-16] MEDS: cefTRIAXone 1 gm 1 GM/100 ML BAG IVPB SCH (21:28)
[2019-02-16 21:59] VITALS: BMI 17.9
[2019-02-16] MEDS ORDERED: Pneumococcal 23-Valent Vaccine IM ONE (21:59)
[2019-02-17] MEDS: Levothyroxine 75 MCG TAB PO SCH (05:37)
[2019-02-17] MEDS: Pantoprazole 40 mg EC Tab PO SCH (05:37)
[2019-02-17] MEDS: Arformoterol 15 mcg/2 ml Inh Sol IH SCH ×2 (07:15→21:00)
[2019-02-17] MEDS: Budesonide 0.5 mg/2 ml Inhal Susp UD IH SCH ×2 (07:15→21:00)
--- NOTE | 2019-02-17 09:57 | CP.PCM.HP ---
History of Present Illness - History of Present Illness History of Present Illness: Pgy3 H&P for Dr. Castanon Patient is a 78yo female PMHx ESRD on HD TTSa, HTN, Hypothyroidism, recurrent pneumonia presented 02/10/19 with complaints of worsening shortness of breath, subjective fevers, and lethargy. Patient was admitted for hospital acquired pneumonia and found to have a significantly elevated procalcitonin. Patient was started on IV antibiotics as per infectious disease and clinically improved. Through hospital course, patient's fever resolved, leukocytosis resolved, and procalcitonin trended down. She was transferred to TCU for further management and conditioning. Patient seen and examined at bedside. Son was present in the room. Patient reported she still has a productive cough but states it has much improved. She had HD the day prior which made her feel tired; patient is due for HD tomorrow. She denied fever, chills, headache, dizziness, chest pain, palpitations, SOB, abd pain, nausea, vomiting, bowel complaints, pain/swelling in her legs bilaterally. PMHx: as above PSurgHx: AV Fistula left upper extremity All: Codeine SocHx: denies EtOH/tobacco/drug use Present on Admission - Present on Admission Any Indicators Present on Admission: No Review of Systems - Review of Systems All systems: reviewed and no additional remarkable complaints except Review of Systems: as per HPI Past Patient History - Infectious Disease Hx of Infectious Diseases: None - Tetanus Immunizations Tetanus Immunization: Unknown - Past Medical History & Family History Past Medical History?: Yes - Past Social History Smoking Status: Never Smoked - CARDIAC Hx Congestive Heart Failure: Yes Hx Hypertension: Yes - PULMONARY Hx Pneumonia: Yes - NEUROLOGICAL Hx Neurological Disorder: No Hx Alzheimer's Disease: No HX Cerebrovascular Accident: No Hx Dementia: No Hx Dizziness: No Hx Meningitis: No Hx Migraine: No Hx Parkinson's Disease: No Hx Seizures: No Hx Transient Ischemic Attacks (TIA): No - HEENT Hx HEENT Problems: No Hx Blind: No Hx Cataracts: No Hx Deafness: No Hx Difficulty Chewing: No Hx Epistaxis: No Hx Glaucoma: No Hx Macular Degeneration: No - RENAL Hx Renal Failure: Yes (ESRD) - ENDOCRINE/METABOLIC Hx Hypothyroidism: Yes - HEMATOLOGICAL/ONCOLOGICAL Hx Blood Disorders: No Hx AIDS: No Hx Anemia: No Hx Cancer: No Hx Chemotherapy: No Hx Cirrhosis: No Hx Hemophilia: No Hx Hepatitis A: No Hx Hepatitis B: No Hx Hepatitis C: No Hx Metastesis: No Hx Shingles: No Hx Sickle Cell Disease: No Hx Unexplained Bleeding: No - INTEGUMENTARY Hx Dermatological Problems: No Hx Basil Cell: No Hx Eczema: No Hx Melanoma: No Hx Psoriasis: No Hx Squamous Cell: No - MUSCULOSKELETAL/RHEUMATOLOGICAL Hx Falls: No - GASTROINTESTINAL Hx Gastrointestinal Disorders: Yes (PUD) - GENITOURINARY/GYNECOLOGICAL Hx Genitourinary Disorders: Yes (ESRD ON HD) Hx Reproductive Disorders: No - PSYCHIATRIC Hx Psychophysiologic Disorder: No Hx Anxiety: No Hx Bipolar Disorder: No Hx Depression: No Hx Emotional Abuse: No Hx Hallucinations: No Hx Panic Symptoms: No Hx Paranoia: No Hx Post Traumatic Stress Disorder: No Hx Psychosis: No Hx Physical Abuse: No Hx Schizophrenia: No Hx Sexual Abuse: No Hx Substance Use: No - SURGICAL HISTORY Hx Amputation: No Hx Appendectomy: No Hx Cardiac Catheterization: No Hx Cholecystectomy: No Hx Coronary Stent: No Hx Gastric Bypass Surgery: No Hx Hysterectomy: No Hx Joint Replacement: No Hx Kidney Transplant: No Hx Liver Transplant: No Hx Mastectomy: No Hx Musculoskeletal Surgery: No Hx Open Heart Surgery: No Hx Orthopedic Surgery: No Hx Splenectomy: No Hx Valve Replacement: No - ANESTHESIA Hx Anesthesia: Yes Hx Anesthesia Reactions: No Hx Malignant Hyperthermia: No Meds Allergies/Adverse Reactions: Allergies Allergy/AdvReac Type Severity Reaction Status Date / Time codeine Allergy Intermediate ITCHING Verified 02/16/19 19:39 Physical Exam - Constitutional Appears: Non-toxic, No Acute Distress - Head Exam Head Exam: ATRAUMATIC, NORMAL INSPECTION, NORMOCEPHALIC - Eye Exam Eye Exam: EOMI, Normal appearance, PERRL. absent: Conjunctival injection, Scleral icterus - ENT Exam ENT Exam: Mucous Membranes Moist - Neck Exam Neck exam: Positive for: Full Rom, Normal Inspection. Negative for: Lymphadenopathy - Respiratory Exam Respiratory Exam: NORMAL BREATHING PATTERN. absent: Rales, Wheezes, Respiratory Distress Additional comments: +coarse breath sounds R lung base - Cardiovascular Exam Cardiovascular Exam: +S1, +S2 - GI/Abdominal Exam GI & Abdominal Exam: Normal Bowel Sounds, Soft. absent: Firm, Tenderness - Extremities Exam Extremities exam: Positive for: normal inspection, pedal pulses present. Negative for: pedal edema, tenderness - Back Exam Back exam: NORMAL INSPECTION. absent: rash noted, tenderness - Neurological Exam Neurological exam: Alert, CN II-XII Intact, Oriented x3 - Psychiatric Exam Psychiatric exam: Normal Affect, Normal Mood - Skin Skin Exam: Dry, Intact, Normal Color, Warm Results - Vital Signs Recent Vital Signs: Last Vital Signs Temp 97.8 F 02/17/19 06:00 Pulse 72 02/17/19 06:00 Resp 18 02/17/19 06:00 BP 139/58 L 02/17/19 06:00 Pulse Ox 93 L 02/17/19 06:00 Assessment & Plan - Assessment and Plan (Free Text) Assessment: 78yo female PMHx ESRD on HD TTSa, HTN, Hypothyroidism, recurrent pneumonia presented 02/10/19 with complaints of worsening shortness of breath, subjective fevers, and lethargy. Patient was admitted for hospital acquired pneumonia and is being treated with IV abx. Patient currently in TCU for further management and conditioning Hospital acquired pneumonia ESRD on HD HTN Hypothyroidism Plan: Patient's vitals, blood work, imaging, and nursing notes reviewed. Patient clinically improved. ID has de-escalated IV abx and patient only on Rocephin at this time. Procalcitonin trending down, most recent 27.33. Patient's has had no overnight temp and leukocytosis has resolved. Patient for HD tomorrow as per TTSa schedule. Continue renagel. Appreciate pulm reccs regarding productive cough and CXR findings. Continue breathing treatments, flonase, and robitussin. Will f/u swallow eval. Patient counseled on importance of sitting up in chair to eat and to not lie down shortly after; son at bedside vocalized understanding and agreement. Continue norvasc, coreg for BP control and synthroid for hypothyroidism. GI ppx in place. Patient encouraged to be OOB and ambulate with PT. Continue renal dialysis diet. Will continue to monitor patient closely. Discussed with Dr. Kina Fang PGY3
--- NOTE | 2019-02-17 15:43 | CON ---
DATE: 02/17/2019 PULMONARY CONSULT NOTE REFERRING PHYSICIAN: Lizeth Kimble MD REASON FOR CONSULT: Cough and pneumonia. HISTORY OF PRESENT ILLNESS: This is a 78-year-old female with past medical history significant for end-stage renal disease, on hemodialysis and hypertension. The patient was hospitalized due to recurrent pneumonia was hospitalized. The patient noted with elevated procalcitonin level after having treatments. The patient at this time is admitted to [facility] for rehabilitation. IV antibiotics. The patient reports still having productive cough. Denies shortness of breath, chest pain, abdominal pain, nausea, vomiting, diarrhea and leg pain. PAST MEDICAL HISTORY: As per history of present illness. SOCIAL HISTORY: Nonsmoker. No EtOH abuse. No illicit drug use. ALLERGIES: CODEINE. FAMILY HISTORY: No significant cardiopulmonary disease reported. MEDICATIONS: Reviewed. Tylenol 650 mg every 4 hours p.r.n. for mild pain, DuoNeb 3 mL inhalation every 4 hours p.r.n., Norvasc 5 mg daily, Brovana 15 mcg inhalation every 12 hours, aspirin 81 mg daily, Pulmicort 0.5 mg every 12 hours, Coreg 12.5 mg twice a day; Rocephin 1 g at bedtime, Flonase nasal spray at bedtime, Robitussin 5 mL every 4 hours p.r.n., Synthroid 75 mcg daily, Protonix 40 mg daily and Renagel 800 mg three times a day. REVIEW OF SYSTEMS: No headache, chest pain, abdominal pain, nausea, vomiting, diarrhea, leg pain or leg swelling reported. Denies shortness of breath. Reports having productive cough. PHYSICAL EXAMINATION: GENERAL: No acute distress. VITAL SIGNS: Blood pressure 139/58, pulse 72, temperature 97.8 and oxygen saturation 93% on room air. HEENT: Moist mucous membranes. Small oral cavity. RESPIRATORY: Fair airflow bilaterally. CARDIOVASCULAR: S1 and S2. ABDOMEN: Soft and nontender. No distention. No organomegaly. EXTREMITIES: No bilateral lower extremity edema. NEUROLOGIC: Awake, alert and verbal. Following commands. LABORATORY DATA: Reviewed. No new labs at this time. IMPRESSION AND PLAN: Pneumonia, renal failure, dialysis dependent, anemia, hypertension, valvular heart disease and pulmonary hypertension. We do suspect sleep apnea on this patient. Continue antibiotic therapy. Continue inhaled bronchodilators. We will place the patient on heparin 5000 units every 12 hours for deep venous thrombosis prophylaxis for renal dosing.Continue gastric prophylaxis. Sleep apnea precaution. Head of bed elevated at 45 degrees. Recommend the patient to have sleep study upon discharge. Recommend the patient have full pulmonary function test as outpatient. Recommend physical therapy out of bed to chair. Son present in room with the patient, no questions answered. Swallow evaluation to assess for aspiration. The patient should be sitting up in chair for meals and she remain sitting up one hour after in eating meals. Aspiration precautions. The patient was seen and examined with Dr. Spicer. Discussed assessment and plan as described above. The patient was seen and examined with Aubrey Correia, nurse practitioner. Discussed assessment and plan as described above. Thank you for this consult and we will follow with you. Bren Burgos APN Mihaela Spicer MD L[place]
--- NOTE | 2019-02-17 16:54 | CP.PCM.CON ---
History of Present Illness - History of Present Illness History of Present Illness: Infectious Disease Consultation: February 17, 2019 78 yo [place] female with a PMHx of ESRD on HD and HTN presented with SOB. The patient has numerous admissions to [facility]. The patient has a left uppe r extremity AV Fistula. Patient with one week history of worsening SOB, weakness, lethargy, and subjective fever. The patient with multiple hospitalizations at [facility] as well. CT scan showing area of interval nonspecific nodular patchy airspace opacity in the right upper lobe-interval infiltrate. Additional areas of interval low- density ground-glass and airspace opacities at the right lung base noted. Obtained initial procalcitonin value... 49.44. Severely elevated values. Fever of 101.9 F in hospital. Leukocytosis is improving and has actually normalized now. Trend procalcitonin. Patient states that she is feeling better and breathing is not labored. Repeat procalcitonin of 66. The patient is able to ambulate to the bathroom without any issues. Procalcitonin of 27.33 on 9. Afebrile the past few days. She is not making any new complaints. O2 saturation from 95-98 % on room air. Transferred to [facility]. PMHx: HTN ESRD on HD Hypothyroidism? PSHx: AV Fistula left upper extremity Allergies: Codeine Social Hx: No tobacco, EtOH, or illicit drug use Active Medications Acetaminophen (Tylenol 325mg Tab) 650 mg PO Q4H PRN; Protocol PRN Reason: Pain, Mild (1-3) Albuterol/Ipratropium (Duoneb 3 Mg/0.5 Mg (3 Ml) Ud) 3 ml IH [id number] PRN; P rotocol PRN Reason: Shortness of Breath Amlodipine Besylate (Norvasc) 5 mg PO DAILY [facility]; Protocol Last Admin: 02/17/19 10:10 Dose: 5 mg Arformoterol Tartrate (Brovana) 15 mcg IH [id number] NAVEEN Last Admin: 02/17/19 07:15 Dose: 15 mcg Aspirin (Ecotrin) 81 mg PO 0800 [facility]; Protocol Last Admin: 02/17/19 07:51 Dose: 81 mg Budesonide (Pulmicort Respules) 0.5 mg IH [id number] NAVEEN; Protocol Last Admin: 02/17/19 07:15 Dose: 0.5 mg Carvedilol (Coreg) 12.5 mg PO 0800,1800 NAVEEN; Protocol Last Admin: 02/17/19 08:00 Dose: Not Given Fluticasone Propionate (Flonase) 1 actuation NS HS ANVEEN; Protocol Last Admin: 02/16/19 21:28 Dose: 1 spray Guaifenesin/Dextromethorphan (Robitussin Dm) 5 ml PO Q4H PRN; Protocol PRN Reason: Cough Heparin Sodium (Porcine) (Heparin) 5,000 units SC Q12 NAVEEN; Protocol Ceftriaxone Sodium (Rocephin 1 Gram Ivpb) 1 gm in 100 mls @ 100 mls/hr IVPB HS NAVEEN; Protocol Last Admin: 02/16/19 21:28 Dose: 100 mls/hr Levothyroxine Sodium (Synthroid) 75 mcg PO 0600 NAVEEN; Protocol Last Admin: 02/17/19 05:37 Dose: 75 mcg Pantoprazole Sodium (Protonix Ec Tab) 40 mg PO 0630 NAVEEN; Protocol Last Admin: 02/17/19 05:37 Dose: 40 mg Sevelamer HCl (Renagel) 800 mg PO 0800,1200,1800 NAVEEN; Protocol Family Hx: None significant ROS: No nausea, vomiting, diarrhea, headaches, dizziness, chest pain, abdominal pain, melena, hematuria, hematemesis, hematochezia, depression, anxiety. Patient SOB, fevers, chills. Past Patient History - Infectious Disease Hx of Infectious Diseases: None - Tetanus Immunizations Tetanus Immunization: Unknown - Past Medical History & Family History Past Medical History?: Yes - Past Social History Smoking Status: Never Smoked - CARDIAC Hx Hypertension: Yes - PULMONARY Hx Pneumonia: Yes - NEUROLOGICAL Hx Neurological Disorder: No Hx Alzheimer's Disease: No HX Cerebrovascular Accident: No Hx Dementia: No Hx Dizziness: No Hx Meningitis: No Hx Migraine: No Hx Parkinson's Disease: No Hx Seizures: No Hx Transient Ischemic Attacks (TIA): No - HEENT Hx HEENT Problems: No Hx Blind: No Hx Cataracts: No Hx Deafness: No Hx Difficulty Chewing: No Hx Epistaxis: No Hx Glaucoma: No Hx Macular Degeneration: No - RENAL Hx Renal Failure: Yes (has hemodialysis) - ENDOCRINE/METABOLIC Hx Hypothyroidism: Yes - HEMATOLOGICAL/ONCOLOGICAL Hx Blood Disorders: No Hx AIDS: No Hx Anemia: No Hx Cancer: No Hx Chemotherapy: No Hx Cirrhosis: No Hx Hemophilia: No Hx Hepatitis A: No Hx Hepatitis B: No Hx Hepatitis C: No Hx Metastesis: No Hx Shingles: No Hx Sickle Cell Disease: No Hx Unexplained Bleeding: No - INTEGUMENTARY Hx Dermatological Problems: No Hx Basil Cell: No Hx Eczema: No Hx Melanoma: No Hx Psoriasis: No Hx Squamous Cell: No - MUSCULOSKELETAL/RHEUMATOLOGICAL Hx Falls: No - GASTROINTESTINAL Hx Gastroesophageal Reflux: Yes - GENITOURINARY/GYNECOLOGICAL Hx Genitourinary Disorders: Yes (ESRD ON HD) Hx Reproductive Disorders: No - PSYCHIATRIC Hx Psychophysiologic Disorder: No Hx Anxiety: No Hx Bipolar Disorder: No Hx Depression: No Hx Emotional Abuse: No Hx Hallucinations: No Hx Panic Symptoms: No Hx Paranoia: No Hx Post Traumatic Stress Disorder: No Hx Psychosis: No Hx Physical Abuse: No Hx Schizophrenia: No Hx Sexual Abuse: No Hx Substance Use: No - SURGICAL HISTORY Hx Amputation: No Hx Appendectomy: No Hx Cardiac Catheterization: No Hx Cholecystectomy: No Hx Coronary Stent: No Hx Gastric Bypass Surgery: No Hx Hysterectomy: No Hx Joint Replacement: No Hx Kidney Transplant: No Hx Liver Transplant: No Hx Mastectomy: No Hx Musculoskeletal Surgery: No Hx Open Heart Surgery: No Hx Orthopedic Surgery: No Hx Splenectomy: No Hx Valve Replacement: No - ANESTHESIA Hx Anesthesia: Yes Hx Anesthesia Reactions: No Hx Malignant Hyperthermia: No Meds Allergies/Adverse Reactions: Allergies Allergy/AdvReac Type Severity Reaction Status Date / Time codeine Allergy Intermediate ITCHING Verified 02/16/19 19:39 - Medications Medications: Current Medications Acetaminophen (Tylenol 325mg Tab) 650 mg PO Q4H PRN; Protocol PRN Reason: Pain, Mild (1-3) Albuterol/Ipratropium (Duoneb 3 Mg/0.5 Mg (3 Ml) Ud) 3 ml IH [id number] PRN; Protocol PRN Reason: Shortness of Breath Amlodipine Besylate (Norvasc) 5 mg PO DAILY [facility]; Protocol Last Admin: 02/17/19 10:10 Dose: 5 mg Arformoterol Tartrate (Brovana) 15 mcg IH [id number] NAVEEN Last Admin: 02/17/19 07:15 Dose: 15 mcg Aspirin (Ecotrin) 81 mg PO 0800 NAVEEN; Protocol Last Admin: 02/17/19 07:51 Dose: 81 mg Budesonide (Pulmicort Respules) 0.5 mg IH [id number] NAVEEN; Protocol Last Admin: 02/17/19 07:15 Dose: 0.5 mg Carvedilol (Coreg) 12.5 mg PO 0800,1800 NAVEEN; Protocol Last Admin: 02/17/19 08:00 Dose: Not Given Fluticasone Propionate (Flonase) 1 actuation NS HS NAVEEN; Protocol Last Admin: 02/16/19 21:28 Dose: 1 spray Guaifenesin/Dextromethorphan (Robitussin Dm) 5 ml PO Q4H PRN; Protocol PRN Reason: Cough Heparin Sodium (Porcine) (Heparin) 5,000 units SC Q12 NAVEEN; Protocol Ceftriaxone Sodium (Rocephin 1 Gram Ivpb) 1 gm in 100 mls @ 100 mls/hr IVPB HS NAVEEN; Protocol Last Admin: 02/16/19 21:28 Dose: 100 mls/hr Levothyroxine Sodium (Synthroid) 75 mcg PO 0600 NAVEEN; Protocol Last Admin: 02/17/19 05:37 Dose: 75 mcg Pantoprazole Sodium (Protonix Ec Tab) 40 mg PO 0630 NAVEEN; Protocol Last Admin: 02/17/19 05:37 Dose: 40 mg Sevelamer HCl (Renagel) 800 mg PO 0800,1200,1800 NAVEEN; Protocol Physical Exam - Constitutional Appears: Non-toxic, No Acute Distress, Chronically Ill - Head Exam Head Exam: ATRAUMATIC, NORMOCEPHALIC - Eye Exam Eye Exam: EOMI, PERRL Pupil Exam: NORMAL ACCOMODATION, PERRL - ENT Exam ENT Exam: Mucous Membranes Moist, Normal External Ear Exam, TM's Normal Bilaterally - Neck Exam Neck exam: Positive for: Full Rom, Normal Inspection - Respiratory Exam Respiratory Exam: Clear to Auscultation Bilateral, NORMAL BREATHING PATTERN. absent: Rales, Rhonchi, Wheezes - Cardiovascular Exam Cardiovascular Exam: REGULAR RHYTHM, RRR, +S1, +S2 - GI/Abdominal Exam GI & Abdominal Exam: Normal Bowel Sounds, Soft. absent: Distended, Tenderness - Extremities Exam Extremities exam: Positive for: full ROM, normal inspection - Neurological Exam Neurological exam: Alert, CN II-XII Intact, Oriented x3 - Psychiatric Exam Psychiatric exam: Normal Affect, Normal Mood - Skin Skin Exam: Intact, Normal Color Results - Vital Signs Recent Vital Signs: Last Vital Signs Temp 97.8 F 02/17/19 06:00 Pulse 69 02/17/19 10:10 Resp 18 02/17/19 06:00 BP 168/66 H 02/17/19 10:10 Pulse Ox 93 L 02/17/19 06:00 Assessment & Plan - Assessment and Plan (Free Text) Assessment: 78 yo female with one week of progressive SOB and fevers up to 101.9 F. Chest X-ray non-specific for pneumonia. CT Chest showing presence of a possible infiltrate in the right lower lobe. With the fevers and the severely elevated procalcitonin, have to assume pneumonia at this point. Continue on Rocephin IV for treatment. Completing Azithromycin for the patient's regimen. Procalcitonin of 49.44. Repeat procalcitonin of 66. Repeat procalcitonin on 02/16/2019 of 27.33. Initial continuing elevation of procalcitonin could be secondary to the early portion of cephalosporin antibiotic administration which has been seen to sometimes cause an initial spike in the procalcitonin value before seeing improvement to the procalcitonin value. Procalcitonin now downtrending. Would repeat the procalcitonin level and check trend. Ideally, would prefer to see significantly reduced numbers before discharge. Trend procalcitonin values. Repeat procalcitonin of 66. A more recent check of the procalcitonin is now 27.33. Check lipase and amylase levels. Mild leukocytosis. Supportive care. WBC is 5.8 on last check. Clinically improving. Ambulating to bathroom on her own without issues. No new complaints. Thank you for allowing me to participate in the care of the patient, we will follow with you.
[2019-02-17] MEDS: cefTRIAXone 1 gm 1 GM/100 ML BAG IVPB SCH (22:21)
[2019-02-17] MEDS: Fluticasone Nasal 50 mcg/Spray NS SCH (22:21)
[2019-02-18] MEDS: Levothyroxine 75 MCG TAB PO SCH (05:51)
[2019-02-18] MEDS: Pantoprazole 40 mg EC Tab PO SCH (05:51)
[2019-02-18 07:05] LABS: BASO # 0.03 K/mm3 (0.0-2.0); BASO % 0.5 % (0.0-3.0); EOS # 0.8 (0.0-0.7); EOS % 14.7 % (1.5-5.0); HEMOGLOBIN 9.5 g/dL (12.0-16.0); LYMPH # 1.2 (1.2-3.4); LYMPH % 21.2 % (22.0-35.0); MEAN CELL VOLUME 85.7 fl (80.0-105.0); MEAN CORPUSCULAR HEMOGLOBIN 28.3 pg (25.0-35.0); MEAN PLATELET VOLUME 8.8 fl (7.0-11.0); MONO # 0.4 (0.1-0.6); MONO % 6.9 % (1.0-6.0); RBC 3.36 10^6/uL (3.5-6.1); RED CELL DISTRIBUTION WIDTH 15.8 % (11.5-14.5); WHITE BLOOD COUNT 5.7 10^3/uL (4.5-11.0)
[2019-02-18] MEDS: Arformoterol 15 mcg/2 ml Inh Sol IH SCH ×2 (07:18→21:47)
[2019-02-18] MEDS: Budesonide 0.5 mg/2 ml Inhal Susp UD IH SCH ×2 (07:18→21:47)
[2019-02-18 07:29] LABS: ALB/GLOB RATIO 1.3 (1.1-1.8); ALBUMIN 4.2 g/dL (3.0-4.8); CALCIUM 8.7 mg/dL (8.4-10.5)
--- NOTE | 2019-02-18 11:58 | PN ---
DATE: 02/18/2019 PULMONARY PROGRESS NOTE REFERRING PHYSICIAN: Lizeth Kimble MD SUBJECTIVE: The patient is seen sitting up at bedside. No acute distress. No overnight events reported. Reports feeling much better today. Reports cough is better. No shortness of breath. No headache, rhinitis, chest pain, abdominal pain, nausea, vomiting, diarrhea, leg pain or leg swelling reported. OBJECTIVE: GENERAL: No acute distress. VITAL SIGNS: Blood pressure 163/61, pulse 68 and temperature 98.4. HEENT: Moist mucous membranes. Small oral cavity. NECK: Supple. No JVD. RESPIRATORY: Fair airflow bilaterally. CARDIOVASCULAR: S1 and S2. ABDOMEN: Soft and nontender. No distention. No organomegaly. EXTREMITIES: No bilateral lower extremity edema. NEUROLOGIC: Awake, alert and verbal. Following commands. MEDICATIONS: Reviewed. Tylenol 650 mg every 4 hours p.r.n. for mild pain, DuoNeb 3 mL inhalation every 4 hours p.r.n., Norvasc 5 mg daily, Brovana 15 mcg every 12 hours, aspirin 81 mg daily, Pulmicort 0.5 mg inhalation every 12 hours, Coreg 12.5 mg twice a day; Rocephin 1 g daily, Flonase nasal spray at bedtime, Robitussin 5 mL every 4 hours p.r.n., heparin 5000 subcutaneous every 12 hours, Synthroid 75 mcg daily, Protonix 40 mg daily and Renagel 800 mg three times a day. LABORATORY DATA: Reviewed. WBC 5.7, RBC 3.36, hemoglobin 9.5, hematocrit 28.8 and platelets 219. Sodium 132, potassium 4.3, chloride 94, carbon dioxide 20, anion gap 22, BUN 66, creatinine 7.5, GFR is 5, random glucose 96, calcium 8.7, phosphorous 4.4, magnesium 1.8, total bilirubin 0.3, AST 35, ALT 27, alkaline phosphatase 81, total protein 7.5, albumin 4.2, globulin 3.0 and albumin-globulin ratio 1.3. IMPRESSION AND PLAN: Pneumonia, renal failure, dialysis dependent, anemia, hypertension, valvular heart disease and pulmonary hypertension. Procalcitonin level is trending down. The patient does report feeling better. We suspect sleep apnea in this patient. Continue antibiotic therapy as per Infectious Disease. Continue inhaled bronchodilators. Deep venous thrombosis prophylaxis. Gastric prophylaxis. Head of bed elevated at 45 degrees. Sleep apnea precaution. The patient is pending swallow evaluation to rule out aspiration. Continue physical therapy when the patient have sleep study upon discharge to evaluate sleep apnea syndrome. Recommend the patient have full pulmonary function test as outpatient to evaluate for chronic lung disease. Aspiration precaution. The patient verbalized understanding that she should eat sitting up in the chair and remain sitting up for about 1 hour after eating meals. The patient was seen and examined with Dr. Spicer. Discussed assessment and plan as described above. The patient was seen and examined with Aubrey Correia, nurse practitioner. Discussed assessment and plan as described above. Thank you for this consult and we will follow with you. Bren Burgos APN Mihaela Spicer MD
--- NOTE | 2019-02-18 12:06 | CP.PCM.PN ---
Subjective - Date & Time of Evaluation Date of Evaluation: 02/18/19 Time of Evaluation: 12:03 - Subjective Subjective: PGY-[address] Castanon, Nephro Pt tolerated physical therapy. intermittend dry cough persist. No acute complaint. Objective - Vital Signs/Intake and Output Vital Signs (last 24 hours): Temp Pulse Resp BP Pulse Ox 98.4 F 68 16 169/54 H 93 L 02/17/19 10:00 02/18/19 05:55 02/17/19 10:00 02/18/19 09:24 02/17/19 06:00 - Medications Medications: Current Medications Acetaminophen (Tylenol 325mg Tab) 650 mg PO Q4H PRN; Protocol PRN Reason: Pain, Mild (1-3) Albuterol/Ipratropium (Duoneb 3 Mg/0.5 Mg (3 Ml) Ud) 3 ml IH [id number] PRN; Protocol PRN Reason: Shortness of Breath Amlodipine Besylate (Norvasc) 5 mg PO DAILY NAVEEN; Protocol Last Admin: 02/18/19 09:24 Dose: 5 mg Arformoterol Tartrate (Brovana) 15 mcg IH [id number] NAVEEN Last Admin: 02/18/19 07:18 Dose: 15 mcg Aspirin (Ecotrin) 81 mg PO 0800 NAVEEN; Protocol Last Admin: 02/18/19 08:14 Dose: 81 mg Budesonide (Pulmicort Respules) 0.5 mg IH [id number] NAVEEN; Protocol Last Admin: 02/18/19 07:18 Dose: 0.5 mg Carvedilol (Coreg) 12.5 mg PO 0800,1800 NAVEEN; Protocol Last Admin: 02/18/19 08:13 Dose: Not Given Fluticasone Propionate (Flonase) 1 actuation NS HS NAVEEN; Protocol Last Admin: 02/17/19 22:21 Dose: Not Given Guaifenesin/Dextromethorphan (Robitussin Dm) 5 ml PO Q4H PRN; Protocol PRN Reason: Cough Heparin Sodium (Porcine) (Heparin) 5,000 units SC Q12 NAVEEN; Protocol Last Admin: 02/18/19 09:23 Dose: Not Given Ceftriaxone Sodium (Rocephin 1 Gram Ivpb) 1 gm in 100 mls @ 100 mls/hr IVPB HS NAVEEN; Protocol Last Admin: 02/17/19 22:21 Dose: 100 mls/hr Levothyroxine Sodium (Synthroid) 75 mcg PO 0600 NAVEEN; Protocol Last Admin: 02/18/19 05:51 Dose: 75 mcg Pantoprazole Sodium (Protonix Ec Tab) 40 mg PO 0630 NAVEEN; Protocol Last Admin: 02/18/19 05:51 Dose: 40 mg Sevelamer HCl (Renagel) 800 mg PO 0800,1200,1800 NAVEEN; Protocol Last Admin: 02/18/19 08:14 Dose: 800 mg - Labs Labs: 02/18/19 06:30 02/18/19 06:30 - Constitutional Appears: No Acute Distress - Head Exam Head Exam: ATRAUMATIC, NORMAL INSPECTION, NORMOCEPHALIC - Eye Exam Eye Exam: EOMI, Normal appearance, PERRL. absent: Scleral icterus Pupil Exam: NORMAL ACCOMODATION - ENT Exam ENT Exam: Mucous Membranes Moist - Neck Exam Additional comments: supple, no jvd - Respiratory Exam Respiratory Exam: Clear to Ausculation Bilateral. absent: Rales, Rhonchi, Wheezes - Cardiovascular Exam Cardiovascular Exam: REGULAR RHYTHM, +S1, +S2 - GI/Abdominal Exam GI & Abdominal Exam: Soft, Normal Bowel Sounds. absent: Tenderness - Extremities Exam Extremities Exam: absent: Calf Tenderness, Pedal Edema Additional comments: + frill LUE, no edema in all extremities - Back Exam Back Exam: absent: CVA tenderness (L), CVA tenderness (R) - Neurological Exam Neurological Exam: Alert, Awake, Oriented x3 - Psychiatric Exam Psychiatric exam: Normal Affect, Normal Mood - Skin Skin Exam: Dry, Warm Assessment and Plan - Assessment and Plan (Free Text) Plan: 78yo female PMHx ESRD on HD TTSa, HTN, Hypothyroidism, recurrent pneumonia presented 02/10/19 with complaints of worsening shortness of breath, subjective fevers, and lethargy. Patient was admitted for hospital acquired pneumonia and is being treated with IV abx. Patient currently in TCU for further management and conditioning Hospital acquired pneumonia, Hx frequent pna ESRD on HD HTN Hypothyroidism Patient's vitals, blood work, imaging, and nursing notes reviewed. Patient clinically improved. ID has de-escalated IV abx and patient only on Rocephin at this time. Procalcitonin trending down, most recent 27.33. Patient's has had no overnight temp and leukocytosis has resolved. Patient for HD tomorrow as per TTSa schedule. Plan to take off 1-2L fluid today. Continue renagel. Appreciate pulm reccs regarding productive cough and CXR findings. Continue breathing treatments, flonase, and robitussin. swallow eval reviewed. Patient counseled on importance of sitting up in chair to eat and to not lie down shortly after. Continue norvasc, coreg for BP control and synthroid for hypothyroidism. GI ppx in place. Patient encouraged to be OOB and ambulate with PT. Continue renal dialysis diet. Will continue to monitor patient closely. s/r/d/w Dr Castanon
--- NOTE | 2019-02-18 15:54 | CP.PCM.PN ---
Subjective - Date & Time of Evaluation Date of Evaluation: 02/18/19 Time of Evaluation: 15:15 - Subjective Subjective: Infectious Disease Follow Up: February 18, 2019 78 yo [place]ien female with a PMHx of ESRD on HD and HTN presented with SOB. The patient has numerous admissions to [facility]. The patient has a left upper extremity AV Fistula. Patient with one week history of worsening SOB, weakness, lethargy, and subjective fever. The patient with multiple hospitalizations at [facility] [place] scan showing area of interval nonspecific nodular patchy airspace opacity in the right upper lobe-interval infiltrate. Additional areas of interval low- density ground-glass and airspace opacities at the right lung base noted. Obtained initial procalcitonin value... 49.44. Severely elevated values. Fever of 101.9 F in hospital. Leukocytosis is improving and has actually normalized now. Trend procalcitonin. Patient states that she is feeling better and breathing is not labored. Repeat procalcitonin of 66. The patient is able to ambulate to the bathroom without any issues. Procalcitonin of 27.33 on 02/16/2019. Afebrile the past few days. She is not making any new complaints. O2 saturation from 95-98 % on room air. Transferred to [facility]. No new issues. Objective - Vital Signs/Intake and Output Vital Signs (last 24 hours): Temp Pulse Resp BP Pulse Ox 98.4 F 68 16 169/54 H 93 L 02/17/19 10:00 02/18/19 05:55 02/17/19 10:00 02/18/19 09:24 02/17/19 06:00 - Medications Medications: Current Medications Acetaminophen (Tylenol 325mg Tab) 650 mg PO Q4H PRN; Protocol PRN Reason: Pain, Mild (1-3) Albuterol/Ipratropium (Duoneb 3 Mg/0.5 Mg (3 Ml) Ud) 3 ml IH [id number] PRN; Shine col PRN Reason: Shortness of Breath Amlodipine Besylate (Norvasc) 5 mg PO DAILY [facility]EN; Protocol Last Admin: 02/18/19 09:24 Dose: 5 mg Arformoterol Tartrate (Brovana) 15 mcg IH [id number] NAVEEN Last Admin: 02/18/19 07:18 Dose: 15 mcg Aspirin (Ecotrin) 81 mg PO 0800 NAVEEN; Protocol Last Admin: 02/18/19 08:14 Dose: 81 mg Budesonide (Pulmicort Respules) 0.5 mg IH [id number] NAVEEN; Protocol Last Admin: 02/18/19 07:18 Dose: 0.5 mg Carvedilol (Coreg) 12.5 mg PO 0800,1800 NAVEEN; Protocol Last Admin: 02/18/19 08:13 Dose: Not Given Fluticasone Propionate (Flonase) 1 actuation NS HS NAVEEN; Protocol Last Admin: 02/17/19 22:21 Dose: Not Given Guaifenesin/Dextromethorphan (Robitussin Dm) 5 ml PO Q4H PRN; Protocol PRN Reason: Cough Heparin Sodium (Porcine) (Heparin) 5,000 units SC Q12 NAVEEN; Protocol Last Admin: 02/18/19 09:23 Dose: Not Given Ceftriaxone Sodium (Rocephin 1 Gram Ivpb) 1 gm in 100 mls @ 100 mls/hr IVPB HS NAVENE; Protocol Last Admin: 02/17/19 22:21 Dose: 100 mls/hr Levothyroxine Sodium (Synthroid) 75 mcg PO 0600 NAVEEN; Protocol Last Admin: 02/18/19 05:51 Dose: 75 mcg Pantoprazole Sodium (Protonix Ec Tab) 40 mg PO 0630 NAVEEN; Protocol Last Admin: 02/18/19 05:51 Dose: 40 mg Sevelamer HCl (Renagel) 800 mg PO 0800,1200,1800 NAVEEN; Protocol Last Admin: 02/18/19 12:15 Dose: 800 mg - Labs Labs: 02/18/19 06:30 02/18/19 06:30 - Constitutional Appears: Non-toxic, No Acute Distress, Chronically Ill - Head Exam Head Exam: ATRAUMATIC, NORMOCEPHALIC - Eye Exam Eye Exam: EOMI, PERRL Pupil Exam: NORMAL ACCOMODATION, PERRL - ENT Exam ENT Exam: Mucous Membranes Moist, Normal External Ear Exam, TM's Normal Bilaterally - Neck Exam Neck Exam: Full ROM, Normal Inspection - Respiratory Exam Respiratory Exam: Clear to Ausculation Bilateral, NORMAL BREATHING PATTERN. absent: Rales, Rhonchi, Wheezes - Cardiovascular Exam Cardiovascular Exam: REGULAR RHYTHM, RRR, +S1, +S2 - GI/Abdominal Exam GI & Abdominal Exam: Soft, Normal Bowel Sounds. absent: Distended, Tenderness - Extremities Exam Extremities Exam: Full ROM, Normal Inspection - Neurological Exam Neurological Exam: Alert, Awake, CN II-XII Intact, Oriented x3 - Psychiatric Exam Psychiatric exam: Normal Affect, Normal Mood - Skin Skin Exam: Intact, Normal Color Assessment and Plan - Assessment and Plan (Free Text) Assessment: 78 yo female with one week of progressive SOB and fevers up to 101.9 F. Chest X-ray non-specific for pneumonia. CT Chest showing presence of a possible infiltrate in the right lower lobe. With the fevers and the severely elevated procalcitonin, have to assume pneumonia at this point. Continue on Rocephin IV for treatment. Completing Azithromycin for the patient's regimen. Procalcitonin of 49.44. Repeat procalcitonin of 66. Repeat procalcitonin on 02/16/2019 of 27.33. Initial continuing elevation of procalcitonin could be secondary to the early portion of cephalosporin antibiotic administration which has been seen to sometimes cause an initial spike in the procalcitonin value before seeing improvement to the procalcitonin value. Procalcitonin now downtrending. Would repeat the procalcitonin level and check trend. Ideally, would prefer to see significantly reduced numbers before discharge. Trend procalcitonin values. Repeat procalcitonin of 66. A more recent check of the procalcitonin is now 12.26 from 27.33. Check lipase and amylase levels... these were within normal limits. Mild leukocytosis. Supportive care. WBC is 5.7 on last check. Clinically improving. Ambulating to bathroom on her own without issues. No new complaints. Thank you for allowing me to participate in the care of the patient, we will follow with you.
[2019-02-18] MEDS: cefTRIAXone 1 gm 1 GM/100 ML BAG IVPB SCH (22:50)
[2019-02-18] MEDS: Fluticasone Nasal 50 mcg/Spray NS SCH (22:51)
[2019-02-19] MEDS: Pantoprazole 40 mg EC Tab PO SCH (05:14)
[2019-02-19] MEDS: Levothyroxine 75 MCG TAB PO SCH (05:17)
[2019-02-19] MEDS: Arformoterol 15 mcg/2 ml Inh Sol IH SCH ×2 (07:23→20:36)
[2019-02-19] MEDS: Budesonide 0.5 mg/2 ml Inhal Susp UD IH SCH ×2 (07:23→20:36)
--- NOTE | 2019-02-19 09:05 | CP.PCM.PN ---
Subjective - Date & Time of Evaluation Date of Evaluation: 02/19/19 Time of Evaluation: 11:56 - Subjective Subjective: Pgy3 Progress note for Dr. Castanon Patient seen and examined at bedside. As per nursing no acute events overnight. Patient complaints of some residual productive cough but reports it is much improved since admission. She is ambulating and eating well. Denied acute complaints fever, chills, headache, dizziness, chest pain, SOB, abd pain, nausea, vomiting, bowel complaints, pain/swelling in her legs bilaterally. Objective - Vital Signs/Intake and Output Vital Signs (last 24 hours): Temp Pulse Resp BP Pulse Ox 97.2 F L 83 18 148/60 98 02/18/19 17:51 02/18/19 17:51 02/18/19 17:51 02/19/19 07:59 02/18/19 10:00 Intake and Output: 02/19/19 02/19/19 06:59 18:59 Intake Total 320 Balance 320 - Medications Medications: Current Medications Acetaminophen (Tylenol 325mg Tab) 650 mg PO Q4H PRN; Protocol PRN Reason: Pain, Mild (1-3) Albuterol/Ipratropium (Duoneb 3 Mg/0.5 Mg (3 Ml) Ud) 3 ml IH [id number] PRN; Protocol PRN Reason: Shortness of Breath Amlodipine Besylate (Norvasc) 5 mg PO DAILY NAVEEN; Protocol Last Admin: 02/18/19 09:24 Dose: 5 mg Arformoterol Tartrate (Brovana) 15 mcg IH [id number] NAVEEN Last Admin: 02/19/19 07:23 Dose: 15 mcg Aspirin (Ecotrin) 81 mg PO 0800 NAVEEN; Protocol Last Admin: 02/19/19 08:00 Dose: 81 mg Budesonide (Pulmicort Respules) 0.5 mg IH [id number] NAVEEN; Protocol Last Admin: 02/19/19 07:23 Dose: 0.5 mg Carvedilol (Coreg) 12.5 mg PO 0800,1800 NAVEEN; Protocol Last Admin: 02/19/19 07:59 Dose: 12.5 mg Fluticasone Propionate (Flonase) 1 actuation NS HS NAVEEN; Protocol Last Admin: 02/18/19 22:51 Dose: 1 spray Guaifenesin/Dextromethorphan (Robitussin Dm) 5 ml PO Q4H PRN; Protocol PRN Reason: Cough Heparin Sodium (Porcine) (Heparin) 5,000 units SC Q12 NAVEEN; Protocol Last Admin: 02/18/19 22:48 Dose: Not Given Ceftriaxone Sodium (Rocephin 1 Gram Ivpb) 1 gm in 100 mls @ 100 mls/hr IVPB HS NAVEEN; Protocol Last Admin: 02/18/19 22:50 Dose: 100 mls/hr Levothyroxine Sodium (Synthroid) 75 mcg PO 0600 NAVEEN; Protocol Last Admin: 02/19/19 05:17 Dose: 75 mcg Pantoprazole Sodium (Protonix Ec Tab) 40 mg PO 0630 NAVEEN; Protocol Last Admin: 02/19/19 05:14 Dose: 40 mg Sevelamer HCl (Renagel) 800 mg PO 0800,1200,1800 NAVEEN; Protocol Last Admin: 02/19/19 08:00 Dose: 800 mg - Labs Labs: 02/18/19 06:30 02/18/19 06:30 - Constitutional Appears: Non-toxic, No Acute Distress - Head Exam Head Exam: ATRAUMATIC, NORMAL INSPECTION, NORMOCEPHALIC - Eye Exam Eye Exam: EOMI, Normal appearance. absent: Conjunctival injection, Scleral icterus - ENT Exam ENT Exam: Mucous Membranes Moist - Neck Exam Neck Exam: Full ROM, Normal Inspection. absent: Lymphadenopathy - Respiratory Exam Respiratory Exam: Clear to Ausculation Bilateral, NORMAL BREATHING PATTERN. a bsent: Accessory Muscle Use, Rales, Rhonchi, Wheezes, Respiratory Distress - Cardiovascular Exam Cardiovascular Exam: +S1, +S2 - GI/Abdominal Exam GI & Abdominal Exam: Soft, Normal Bowel Sounds. absent: Firm, Guarding, Rigid - Extremities Exam Extremities Exam: Normal Capillary Refill, Normal Inspection. absent: Pedal Edema, Tenderness - Back Exam Back Exam: NORMAL INSPECTION. absent: rash noted, tenderness - Neurological Exam Neurological Exam: Alert, Awake, CN II-XII Intact, Oriented x3 - Psychiatric Exam Psychiatric exam: Normal Affect, Normal Mood - Skin Skin Exam: Dry, Intact, Normal Color, Warm Assessment and Plan - Assessment and Plan (Free Text) Assessment: 78yo female PMHx ESRD on HD TTSa, HTN, Hypothyroidism, recurrent pneumonia presented 02/10/19 with complaints of worsening shortness of breath, subjective fevers, and lethargy. Patient was admitted for hospital acquired pneumonia and is being treated with IV abx. Patient currently in TCU for further management and conditioning Hospital acquired pneumonia ESRD on HD HTN Hypothyroidism Plan: Patient's vitals, blood work, imaging, and nursing notes reviewed. Patient clinically improved. ID has de-escalated IV abx and patient only on Rocephin at this time. Will likely not require abx upon discharge as per ID. F/u repeat labs in AM including procalcitonin. Patient had HD day prior as per TTSa schedule. Continue renagel. Appreciate pulm reccs regarding productive cough and CXR findings. Continue breathing treatments, flonase, and robitussin. Patient passed swallow eval; counseled on importance of sitting up in chair to eat and to not lie down shortly after. Continue norvasc, coreg for BP control and synthroid for hypothyroidism. GI ppx in place. Patient encouraged to be OOB and ambulate with PT. Continue renal dialysis diet. Will continue to monitor patient closely. Patient pending likely discharge in AM. Discussed with Dr. Kina Fang PGY3
--- NOTE | 2019-02-19 10:32 | PN ---
DATE: 02/19/2019 PULMONARY PROGRESS NOTE REFERRING PHYSICIAN: Lizeth Kimble MD SUBJECTIVE: The patient is seen in room. No acute distress. No overnight events reported. Reports feeling well today. No headache, rhinitis, cough, shortness of breath, chest pain, abdominal pain, nausea, vomiting, diarrhea, leg pain or leg swelling reported. OBJECTIVE: GENERAL: No acute distress. VITAL SIGNS: Blood pressure 148/60, pulse 83 and temperature 97.0. HEENT: Moist mucous membranes. Small oral cavity. NECK: Supple. No JVD. RESPIRATORY: Few scattered rhonchi. CARDIOVASCULAR: S1 and S2. ABDOMEN: Soft and nontender. No distention. No organomegaly. EXTREMITIES: No bilateral lower extremity edema. NEUROLOGIC: Awake, alert and verbal. Following commands. MEDICATIONS: Reviewed. Tylenol 650 mg every 4 hours p.r.n. for mild pain, DuoNeb 3 mL inhalation every 4 hours p.r.n., Norvasc 5 mg daily, Brovana 15 mcg inhalation every 12 hours, aspirin 81 mg daily, Pulmicort 0.5 mg every 12 hours, Coreg 12.5 mg twice a day; Rocephin 1 g daily, Flonase nasal spray daily, Robitussin 5 mL every 4 hours p.r.n., heparin 5000 units subcutaneous every 12 hours, Synthroid 75 mcg daily, Protonix 40 mg daily and Renagel 800 mg three times a day. LABORATORY DATA: Reviewed. Procalcitonin 12.26. IMPRESSION AND PLAN: Pneumonia, renal failure, dialysis dependent, anemia, hypertension, valvular heart disease and pulmonary hypertension. Procalcitonin trending down. We do suspect sleep apnea syndrome in this patient. Recommend sleep apnea precautions, head of bed elevated at 45 degrees. Deep venous thrombosis prophylaxis. Gastric prophylaxis. Continue inhaled bronchodilators, antibiotics per Infectious Disease, physical therapy. Recommend the patient have sleep study as outpatient. Recommend the patient have full pulmonary function test as outpatient. Aspiration precaution. The patient should be sitting up in chair to eat and should remain sitting up for 1 hour after meals. The patient was seen and examined with Dr. pSicer. Discussed assessment and plan as described above. The patient was seen and examined with Aubrey Correia, nurse practitioner. Discussed assessment and plan as described above. Thank you for this consult and we will follow with you. Bren Burgos APN Mihaela Spicer MD
--- NOTE | 2019-02-19 16:13 | CP.PCM.PN ---
Subjective - Date & Time of Evaluation Date of Evaluation: 02/19/19 Time of Evaluation: 15:30 - Subjective Subjective: Infectious Disease Follow Up: February 19, 2019 78 yo [place] female with a PMHx of ESRD on HD and HTN presented with SOB. The patient has numerous admissions to [facility] The patient has a left upper extremity AV Fistula. Patient with one week history of worsening SOB, weakness, lethargy, and subjective fever. The patient with multiple hospital[place] [facility] scan showing area of interval nonspecific nodular patchy airspace opacity in the right upper lobe-interval infiltrate. Additional areas of interval low- density ground-glass and airspace opacities at the right lung base noted. Obtained initial procalcitonin value... 49.44. Severely elevated values. Fever of 101.9 F in hospital. Leukocytosis is improving and has actually normalized now. Trend procalcitonin. Patient states that she is feeling better and breathing is not labored. Repeat procalcitonin of 66. The patient is able to ambulate to the bathroom without any issues. Procalcitonin of 27.33 on 02/16/2019. Afebrile the past few days. She is not making any new complaints. O2 saturation from 95-98 % on room air. Transferred to [facility]. No new issues. Appears to be ambulating well. Objective - Vital Signs/Intake and Output Vital Signs (last 24 hours): Temp Pulse Resp BP Pulse Ox 97.2 F L 83 18 141/55 L 98 02/18/19 17:51 02/18/19 17:51 02/18/19 17:51 02/19/19 09:14 02/18/19 10:00 Intake and Output: 02/19/19 02/19/19 06:59 18:59 Intake Total 320 Balance 320 - Medications Medications: Current Medications Acetaminophen (Tylenol 325mg Tab) 650 mg PO Q4H PRN; Protocol PRN Reason: Pain, Mild (1-3) Albuterol/Ipratropium (Duoneb 3 Mg/0.5 Mg (3 Ml) Ud) 3 ml IH [id number] PRN; Protocol PRN Reason: Shortness of Breath Amlodipine Besylate (Norvasc) 5 mg PO DAILY NAVEEN; Protocol Last Admin: 02/19/19 09:14 Dose: 5 mg Arformoterol Tartrate (Brovana) 15 mcg IH [id number] NAVEEN Last Admin: 02/19/19 07:23 Dose: 15 mcg Aspirin (Ecotrin) 81 mg PO 0800 NAVEEN; Protocol Last Admin: 02/19/19 08:00 Dose: 81 mg Budesonide (Pulmicort Respules) 0.5 mg IH [id number] NAVEEN; Protocol Last Admin: 02/19/19 07:23 Dose: 0.5 mg Carvedilol (Coreg) 12.5 mg PO 0800,1800 NAVEEN; Protocol Last Admin: 02/19/19 07:59 Dose: 12.5 mg Fluticasone Propionate (Flonase) 1 actuation NS HS NAVEEN; Protocol Last Admin: 02/18/19 22:51 Dose: 1 spray Guaifenesin/Dextromethorphan (Robitussin Dm) 5 ml PO Q4H PRN; Protocol PRN Reason: Cough Heparin Sodium (Porcine) (Heparin) 5,000 units SC Q12 NAVEEN; Protocol Last Admin: 02/19/19 09:09 Dose: Not Given Ceftriaxone Sodium (Rocephin 1 Gram Ivpb) 1 gm in 100 mls @ 100 mls/hr IVPB HS NAVEEN; Protocol Last Admin: 02/18/19 22:50 Dose: 100 mls/hr Levothyroxine Sodium (Synthroid) 75 mcg PO 0600 NAVEEN; Protocol Last Admin: 02/19/19 05:17 Dose: 75 mcg Pantoprazole Sodium (Protonix Ec Tab) 40 mg PO 0600 NAVEEN; Protocol Sevelamer HCl (Renagel) 800 mg PO 0800,1200,1800 NAVEEN; Protocol Last Admin: 02/19/19 12:19 Dose: 800 mg - Labs Labs: 02/18/19 06:30 02/18/19 06:30 - Constitutional Appears: Non-toxic, No Acute Distress, Chronically Ill - Head Exam Head Exam: ATRAUMATIC, NORMOCEPHALIC - Eye Exam Eye Exam: EOMI, PERRL Pupil Exam: NORMAL ACCOMODATION, PERRL - ENT Exam ENT Exam: Mucous Membranes Moist, Normal External Ear Exam, TM's Normal Bilaterally - Neck Exam Neck Exam: Full ROM, Normal Inspection - Respiratory Exam Respiratory Exam: Clear to Ausculation Bilateral, NORMAL BREATHING PATTERN. absent: Rales, Rhonchi, Wheezes - Cardiovascular Exam Cardiovascular Exam: REGULAR RHYTHM, RRR, +S1, +S2 - GI/Abdominal Exam GI & Abdominal Exam: Soft, Normal Bowel Sounds. absent: Distended, Tenderness - Extremities Exam Extremities Exam: Full ROM, Normal Inspection - Neurological Exam Neurological Exam: Alert, Awake, CN II-XII Intact, Oriented x3 - Psychiatric Exam Psychiatric exam: Normal Affect, Normal Mood - Skin Skin Exam: Intact, Normal Color Assessment and Plan - Assessment and Plan (Free Text) Assessment: 78 yo female with one week of progressive SOB and fevers up to 101.9 F. Chest X-ray non-specific for pneumonia. CT Chest showing presence of a possible infiltrate in the right lower lobe. With the fevers and the severely elevated procalcitonin, have to assume pneumonia at this point. Continue on Rocephin IV for treatment. Completing Azithromycin for the patient's regimen. Procalcitonin of 49.44. Repeat procalcitonin of 66. Repeat procalcitonin on 02/16/2019 of 27.33. Initial continuing elevation of procalc itonin could be secondary to the early portion of cephalosporin antibiotic administration which has been seen to sometimes cause an initial spike in the procalcitonin value before seeing improvement to the procalcitonin value. Procalcitonin now downtrending. Would repeat the procalcitonin level and check trend. Ideally, would prefer to see significantly reduced numbers before discharge. Trend procalcitonin values. Repeat procalcitonin of 66. A more recent check of the procalcitonin is now 12.26 from 27.33. Check lipase and amylase levels... these were within normal limits. Mild leukocytosis. Supportive care. WBC is 5.7 on last check. Clinically improving. Ambulating to bathroom on her own without issues. No new complaints. She will not need additional antibiotic on discharge. She will have gotten 10 days of antibiotics if discharged tomorrow. Thank you for allowing me to participate in the care of the patient, we will follow with you.
[2019-02-19] MEDS: cefTRIAXone 1 gm 1 GM/100 ML BAG IVPB SCH (21:02)
[2019-02-19] MEDS: Fluticasone Nasal 50 mcg/Spray NS SCH (21:02)
[2019-02-20] MEDS: Levothyroxine 75 MCG TAB PO SCH (05:14)
[2019-02-20] MEDS ORDERED: Pantoprazole 40 mg EC Tab PO SCH (06:00)
[2019-02-20] MEDS: Budesonide 0.5 mg/2 ml Inhal Susp UD IH SCH (07:20)
[2019-02-20] MEDS: Arformoterol 15 mcg/2 ml Inh Sol IH SCH (07:20)
[2019-02-20 07:52] LABS: BASO # 0.04 K/mm3 (0.0-2.0); BASO % 0.7 % (0.0-3.0); EOS # 0.7 (0.0-0.7); EOS % 11.8 % (1.5-5.0); HEMOGLOBIN 8.8 g/dL (12.0-16.0); LYMPH # 1.1 (1.2-3.4); LYMPH % 18.3 % (22.0-35.0); MEAN CELL VOLUME 86.8 fl (80.0-105.0); MEAN CORPUSCULAR HEMOGLOBIN 28.3 pg (25.0-35.0); MEAN CORPUSCULAR HGB CONC 32.6 g/dl (31.0-37.0); MEAN PLATELET VOLUME 8.1 fl (7.0-11.0); MONO # 0.3 (0.1-0.6); MONO % 5.3 % (1.0-6.0); RBC 3.11 10^6/uL (3.5-6.1); RED CELL DISTRIBUTION WIDTH 16.4 % (11.5-14.5); WHITE BLOOD COUNT 5.8 10^3/uL (4.5-11.0)
[2019-02-20 08:21] LABS: ALB/GLOB RATIO 1.3 (1.1-1.8); ALBUMIN 3.9 g/dL (3.0-4.8); CALCIUM 8.5 mg/dL (8.4-10.5)
[2019-02-20 16:48] VITALS: BP 139/51; PULSE 78; RESP 18; TEMP 97.9; O2SAT 98
--- NOTE | 2019-02-20 20:55 | PN ---
DATE: 02/20/2019 PULMONARY PROGRESS NOTE REFERRING PHYSICIAN: Sheila Oreilly MD SUBJECTIVE: She is lying in the bed. Family at bedside. Night was unremarkable. No headache. No rhinitis. Has upper back some pain. No nausea, vomiting or diarrhea. No leg pain or leg swelling. OBJECTIVE: GENERAL: No acute distress. VITAL SIGNS: Temperature is 98, heart rate is 78, respiratory rate is 18, blood pressure 139/51 and pulse ox 98% room air. HEENT: Moist mucous membrane. Crowded airway. NECK: Supple. No JVD. LUNGS: Has fair airflow with rhonchi. HEART: S1 and S2. ABDOMEN: Soft and nontender. No organomegaly. EXTREMITIES: No edema. NEUROLOGIC: Awake and alert. Follows simple commands. MEDICATIONS: She is on Brovana inhaled twice a day, Coreg 12.5 mg twice a day, DuoNeb every 4 hours p.r.n., Ecotrin 81 g daily, Flonase once to each nostril daily, heparin 5000 units subcutaneously every 12 hours, Norvasc 5 mg daily, Protonix 40 mg daily, Pulmicort inhaled twice a day, Renagel 800 mg three times a day, Robitussin every 4 hours p.r.n., Synthroid 75 mcg daily and Tylenol p.r.n. basis. LABORATORY DATA: Shows hemoglobin 8.8, hematocrit 27.0, WBC 5.8 and platelet count is 215. Sodium 131, potassium 3.9, chloride 93, bicarbonate 25, BUN 48, creatinine 6.2, glucose 149, calcium is 8.5, phosphorus 3.9, AST 29, ALT 26 and alk phos is 76. Pro calcitonin is 4.03. IMPRESSION AND PLAN: Pneumonia; renal failure, dialysis dependent; hypertension; valvular heart disease; pulmonary hypertension. Procalcitonin is still positive. Pulmonary point of view, doing okay. Continue bronchodilator, keep head at 45 degrees, sleep apnea precaution, avoid nocturnal sedation and antibiotics as per Infectious Diseases. Thank you and we will follow with you Mihaela Spicer MD
--- NOTE | 2019-02-21 02:15 | CP.PCM.PN ---
Subjective - Date & Time of Evaluation Date of Evaluation: 02/20/19 Time of Evaluation: 17:00 - Subjective Subjective: Infectious Disease Follow Up: February 20, 2019 78 yo [place] female with a PMHx of ESRD on HD and HTN presented with SOB. The patient has numerous admissions to [facility]. The patient has a left upper extremity AV Fistula. Patient with one week history of worsening SOB, weakness, lethargy, and subjective fever. The patient with multiple hospitalizations at [facility] as well. CT scan showing area of interval nonspecific nodular patchy airspace opacity in the right upper lobe-interval infiltrate. Additional areas of interval low- density ground-glass and airspace opacities at the right lung base noted. Obtained initial procalcitonin value... 49.44. Severely elevated values. Fever of 101.9 F in hospital. Leukocytosis is improving and has actually normalized now. Trend procalcitonin. Patient states that she is feeling better and breathing is not labored. Repeat procalcitonin of 66. The patient is able to ambulate to the bathroom without any issues. Procalcitonin of 27.33 on 02/16/2019. Afebrile the past few days. She is not making any new complaints. O2 saturation from 95-98 % on room air. Transferred to [facility]. No new issues. Appears to be ambulating well. For discharge today. Objective - Vital Signs/Intake and Output Vital Signs (last 24 hours): Temp Pulse Resp BP Pulse Ox 97.9 F 78 18 139/51 L 98 02/20/19 16:00 02/20/19 17:13 02/20/19 16:00 02/20/19 17:13 02/20/19 16:00 - Labs Labs: 02/20/19 07:00 02/20/19 07:00 - Constitutional Appears: Non-toxic, No Acute Distress, Chronically Ill - Head Exam Head Exam: ATRAUMATIC, NORMOCEPHALIC - Eye Exam Eye Exam: EOMI, PERRL Pupil Exam: NORMAL ACCOMODATION, PERRL - ENT Exam ENT Exam: Mucous Membranes Moist, Normal External Ear Exam, TM's Normal Rahul aterally - Neck Exam Neck Exam: Full ROM, Normal Inspection - Respiratory Exam Respiratory Exam: Clear to Ausculation Bilateral, NORMAL BREATHING PATTERN. absent: Rales, Rhonchi, Wheezes - Cardiovascular Exam Cardiovascular Exam: REGULAR RHYTHM, RRR, +S1, +S2 - GI/Abdominal Exam GI & Abdominal Exam: Soft, Normal Bowel Sounds. absent: Distended, Tenderness - Extremities Exam Extremities Exam: Full ROM, Normal Inspection - Neurological Exam Neurological Exam: Alert, Awake, CN II-XII Intact, Oriented x3 - Psychiatric Exam Psychiatric exam: Normal Affect, Normal Mood - Skin Skin Exam: Intact, Normal Color Assessment and Plan - Assessment and Plan (Free Text) Assessment: 78 yo female with one week of progressive SOB and fevers up to 101.9 F. Chest X-ray non-specific for pneumonia. CT Chest showing presence of a possible infiltrate in the right lower lobe. With the fevers and the severely elevated procalcitonin, have to assume pneumonia at this point. Continue on Rocephin IV for treatment. Completing Azithromycin for the patient's regimen. Procalcitonin of 49.44. Repeat procalcitonin of 66. Repeat procalcitonin on 02/16/2019 of 27.33. Initial continuing elevation of procalcitonin could be secondary to the early portion of cephalosporin antibiotic administration which has been seen to sometimes cause an initial spike in the procalcitonin value before seeing improvement to the procalcitonin value. Procalcitonin now downtrending. Would repeat the procalcitonin level and check trend. Ideally, would prefer to see significantly reduced numbers before discharge. Trend procalcitonin values. Repeat procalcitonin of 66. A more recent check of the procalcitonin is now 12.26 from 27.33. Check lipase and amylase levels... these were within normal limits. Mild leukocytosis. Supportive care. WBC is 5.7 on last check. Clinically improving. Ambulating to bathroom on her own without issues. No new complaints. She will not need additional antibiotic on discharge. She will have gotten 10 days of antibiotics if discharged today. Thank you for allowing me to participate in the care of the patient, we will follow with you.
--- NOTE | 2019-02-23 15:18 | PN ---
DATE: 02/19/2019 SUBJECTIVE: This 78-year-old female was examined at her bedside on the afternoon of 02/19/2019. Case was reviewed in detail with nurse Noelle Wesley, registered nurse. The patient is currently receiving IV antibiotics for recent bronchial pneumonia and exacerbation of COPD under the direction of Dr. Riaz Choi from Infectious Disease. The patient is on schedule for hemodialysis in the morning. At present, she is alert, ambulating independently and denying any fever, chills, chest pain or shortness of breath. PHYSICAL EXAMINATION: VITAL SIGNS: Her temperature was 98, respirations 20, pulse 76 and blood pressure 141/55 with a pulse ox of 97% room air. HEENT: Head: Normocephalic, atraumatic. Eyes: No icterus. Ears: Clear. Throat: Noninjected. NECK: Supple. HEART: S1, S2. LUNGS: With occasional rhonchi that clear with coughing. ABDOMEN: Soft. EXTREMITIES: No edema. SKIN: No rash. NEUROLOGIC: Intact. PSYCHOLOGICAL: Alert. VASCULAR: Legs warm to touch. LABORATORY DATA: White count 5700, hemoglobin 9.5, hematocrit 28.8, platelets 209,000. Sodium 132, K 4.3, chloride 94, bicarb 20, BUN 66, creatinine 7.5, random blood sugar 96. Calcium 8.7, phosphorous 4.4, magnesium 1.8, bilirubin 0.3, AST 35, ALT 27, alk phos 81. Procalcitonin level 12.26. IMPRESSION: A 78-year-old female with admission for shortness of breath and nosocomial pneumonia, on parenteral antibiotic therapy including IV Rocephin and azithromycin under the direction of Dr. Riaz Choi with comorbidities of end-stage renal disease, hemodialysis dependent, chronic hypertension, hyperphosphatemia, peptic ulcer disease with gastroesophageal reflux disease, anemia of chronic disease, hypothyroidism, and degenerative arthritis. PLAN: Continue Norvasc, Renagel, Protonix, multivitamin, Synthroid, Pepcid, Coreg, Ecotrin and IV Rocephin. She is receiving pulmonary toiletry, physical therapy and will be scheduled for hemodialysis in the a.m. Once the patient is cleared for discharge by Dr. Riaz Choi from Infectious Disease, she will be readied for discharge into the care of her family and will be monitored in my office as an outpatient as well as in the [facility]. All of the above was discussed with the patient and nursing. Greater than 35 minutes was spent in the management of this patient today. All questions were answered. Lizeht Kimble MD
--- NOTE | 2019-02-24 01:11 | DS ---
FINAL DIAGNOSES: Pneumonia resolved, chronic obstructive pulmonary disease, chronic hypertension, end-stage renal disease hemodialysis dependent, hyperphosphatemia, peptic ulcer disease with gastroesophageal reflux disease, anemia of chronic disease and hypothyroidism. DISPOSITION: Home to the care of her family. The patient will continue outpatient hemodialysis Friday, and Saturdays at the [facility] Renal Dialysis Unit. DISCHARGE MEDICATIONS: Norvasc 5 mg p.o. daily, Renagel 800 mg p.o. meals t.i.d., Protonix 40 mg p.o. daily, multivitamin 1 tablet daily, Synthroid 75 mcg p.o. daily. Protonix will be discontinued and the patient will be given Pepcid 20 mg p.o. at bedtime, Coreg 12.5 mg p.o. b.i.d. and Ecotrin 81 mg p.o. daily. CONSULTANTS: Dr. Riaz Choi, Infectious Disease and Dr. Mihaela Spicer, Pulmonary. SUMMARY: This 78-year-old female who was admitted to [facility] with a right upper lung pneumonia received parenteral antibiotic therapy with Zithromax and IV Rocephin, pulmonary toiletry and had follow-up chest x-ray that showed resolution of her pneumonic infiltrate. The patient tolerated hemodialysis during the course of her hospital stay and at the time of discharge was independent in ambulation without any chest pain or palpitation. PHYSICAL EXAMINATION VITAL SIGNS: Showing temperature 97.9, respirations 18, pulse 78, blood pressure 139/51 with a pulse ox of 98%. DISCHARGE LABORATORY DATA: Show sodium 131, potassium 3.9, chloride 93, bicarb 25, BUN 48, creatinine 6.2 and random blood sugar 149. All LFTs were normal. Initial procalcitonin level was 12.26 and at the time of discharge 4.03, showing marked improvement. White count 5800, hemoglobin 8.8, hematocrit 27.0 and platelets 115,000. The patient will be discharged, monitored in my office as an outpatient and will be followed by Dr. Mihaela Spicer, from Pulmonary as an outpatient as well. Greater than 35 minutes was spent in the discharge management of this patient today. All questions were reviewed with the patient, family and nursing. All questions were answered. Lizeth Kimble MD [facility] # [id number]
== END 2019-02-20 18:32 | disposition home or self-care (01) | DRG 193 ==
LOC: TRCU 15:09
PROVIDERS: ADMIT Internal Medicine; ATTEND Internal Medicine
PROC: 3E0F7GC Introduction of Other Therapeutic Substance into Respiratory Tract, Via Natural or Artificial Opening (ICD-10-PCS; 2019-02-16)
PROC: F07Z9ZZ Gait Training/Functional Ambulation Treatment (ICD-10-PCS; principal; 2019-02-18)
PROC: F08Z4ZZ Home Management Treatment (ICD-10-PCS; 2019-02-18)
PROC: 5A1D70Z Performance of Urinary Filtration, Intermittent, Less than 6 Hours Per Day (ICD-10-PCS; 2019-02-18)
PROC: 5A1D70Z Performance of Urinary Filtration, Intermittent, Less than 6 Hours Per Day (ICD-10-PCS; 2019-02-20)
DX: J18.9 Pneumonia, unspecified organism (principal); Z79.2 Long term (current) use of antibiotics; N18.6 End stage renal disease; J44.0 Chronic obstructive pulmonary disease with (acute) lower respiratory infection; I12.0 Hypertensive chronic kidney disease with stage 5 chronic kidney disease or end stage renal disease; Z99.2 Dependence on renal dialysis; Y95 Nosocomial condition; I27.20 Pulmonary hypertension, unspecified; E03.9 Hypothyroidism, unspecified; D63.8 Anemia in other chronic diseases classified elsewhere; K21.9 Gastro-esophageal reflux disease without esophagitis; K27.9 Peptic ulcer, site unspecified, unspecified as acute or chronic, without hemorrhage or perforation